=== PATIENT | male | born 1955 | race American Indian/Alaskan Native ===

== ENCOUNTER 2016-11-08 10:27 | Inpatient (IN) | payer MEDICAID ==
[2016-11-08] MEDS ORDERED: NACL 0.9% 1000 ML 1,000 ML IV ONE ×4 (11:33→19:54)
[2016-11-08] MEDS ORDERED: TYLENOL PR ONE (11:33)
[2016-11-08] MEDS ORDERED: VANCOMYCIN/NS 1 GM/250 ML 1 GM/250 ML BAG IV ONE (11:34)
[2016-11-08] MEDS ORDERED: ZOSYN/NS 4.5GM/100ML 4.5 GM/100 ML VIAL IV ONE (11:34)
--- NOTE | 2016-11-08 12:28 | Admit Criteria Form ---
Admission Criteria Documentation: SEVERE SEPSIS Clinical Indications for Admission to Inpatient Care (Place 'X' for any and all applicable criteria): Hospital admission is needed for appropriate care of the patient because of ANY ONE of the following: [X]I. Hemodynamic instability indicated by ANY ONE of the following(1)(2)(3)( 4)(5): [X]a. Vital sign abnormality not readily corrected by appropriate treatment within 12 to 24 hours indicated by ANY ONE of the following: [X]i) Tachycardia that persists despite appropriate treatment [X]ii) Hypotension that persists despite appropriate treatment []iii) Orthostatic vital sign changes that persist despite appropriate treatment [X]b. Vital sign abnormality that is severe indicated by ANY ONE of the following: [X]i. Inadequate perfusion indicated by ANY ONE of the following: [X]1) Lactic acidosis (greater than 2 mmol/L) []2) New abnormal capillary refill (greater than 3 seconds) []3) Reduced urine output []4) New altered mental status []5) Myocardial Ischemia []ii. Mean arterial pressure [A] less than 60 mm Hg []iii. Mean arterial pressure[A] less than 70 mm Hg after 30 minutes of appropriate treatment (eg, fluid resuscitation) []iv. Sustained heart rate greater than 120 beats per minute in adult []v. IV inotropic or vasopressor medication required to maintain adequate blood pressure or perfusion []II. Systemic or infectious condition causing severe symptoms or findings not responsive to emergency or observation care treatment (as appropriate) indicated by ANY ONE of the following: []a. Cardiac arrhythmias of immediate concern(1)(2)(3) []b. Severe endocrine disorder (eg, thyrotoxicosis, adrenal insufficiency)(4)(5) []c. Seizures (eg, new or recurrent)(6) []d. New-onset end organ failure or dysfunction as indicated by ANY ONE of the following: []i. Acute unexplained hypoxemia (eg, not from lung infection or chronic disease)(7)(8)(9) []ii. Acute renal failure as indicated by new onset of ANY ONE of the following(10)(11)(12)(13)(14): []1) 3-fold rise in serum creatinine from baseline []2) Serum creatinine greater than 4 mg/dL (354 micromoles/L) with acute rise greater than 0.5 mg/dL (44.2 micromoles/L) []3) Reduction of more than 75% in estimated glomerular filtration rate from baseline. []4) Estimated glomerular filtration rate less than 35 mL/min/1.73m2 ( 0.59 mL/sec/1.73m2) in child younger than 18 years. []5) Cessation of urine output indicated by ALL of the following: []A. Adequate volume status []B. Inadequate urine output as indicated by ANY ONE of the following: []a. Urine output less than 0.3 mL/kg/hr for 24 hours []b. Anuria (urine output less than 0.1 mL/kg/hr) for 12 hours []iii. Acute mental status changes(15) []iv. Acute hepatic failure (eg, plasma bilirubin greater than 4 mg/ dL (68 micromoles/L), new INR greater than 2.0)(16)(17) []e. Unmanageable nausea and vomiting(18) []f. New-onset or uncontrolled central diabetes insipidus(19)(20) []g. Clinically significant dehydration(18)(21) []h. Hypoglycemia(22) []i. Acidosis (pH less than 7.35) or alkalosis (pH greater than 7.45)( 22)(23) []j. Toxic drug level that indicates need for specific monitoring or treatment(24)(25) []k. Severe electrolyte abnormalities indicated by ALL of the following( 1)(2)(3): []i. Electrolytes and associated findings are not as expected for patient baseline or acceptable treatment effects. []ii. Severe abnormalities indicated by ANY ONE of the following: []1) Sodium less than 130 mEq/L (mmol/L) (new) []2) Sodium less than 135 mEq/L (mmol/L) with ANY ONE of the following: []A. Uncorrectable (to near normal or chronic baseline) after trial of outpatient and emergency treatment []B. Altered mental status []C. Seizures []D. Severe medical etiology requiring inpatient management (eg , heart failure, hypovolemia) []3) Sodium greater than 155 mEq/L (mmol/L) []4) Sodium greater than 150 mEq/L (mmol/L) with ANY ONE of the following: []A. Uncorrectable (to near normal or chronic baseline) with outpatient and emergency treatment []B. Altered mental status []C. Seizures []D. Severe medical etiology (eg, hypovolemia, diabetes insipidus) []5) Potassium less than 2.5 mEq/L (mmol/L) despite outpatient and emergency treatment []6) Potassium less than 3 mEq/L (mmol/L) with ANY ONE of the following : []A. Weakness []B. Cardiac abnormality (eg, arrhythmia, conduction disturbance ) []C. Cardiac ischemia []D. Ileus []E. Ongoing medical cause requiring inpatient management (eg, acute renal wasting or SIADH) []F. Other severe symptoms []7) Potassium greater than 6.5 mEq/L (mmol/L) []8) Potassium greater than 5 mEq/L (mmol/L) with ANY ONE of the following: []A. Uncorrectable (to near normal or chronic baseline) with outpatient and emergency treatment []B. Severe ECG findings[A] []C. Acute worsening of renal failure (creatinine greater than 2.5 mg/dL (221 micromoles/L) or significant elevation for age and size) []D. Severe weakness []E. Severe medical etiology (eg, hemolysis, infection, drug overdose) []9) Calcium less than 7 mg/dL (1.75 mmol/L) despite outpatient and emergency treatment(5) []10) Calcium less than 8 mg/dL (2 mmol/L) with significant symptoms or findings (eg, altered mental status, muscle spasms, seizures, breathing difficulty, cardiac abnormality (eg, arrhythmia or conduction disturbance))(5) []11) Calcium greater than 14 mg/dL (3.5 mmol/L)(5) []12) Calcium greater than 12 mg/dL (3 mmol/L) with ANY ONE of the following(5): []A. Uncorrectable (to near normal or chronic baseline) with outpatient and emergency treatment []B. Significant dehydration or hypovolemia as indicated by ALL of the following(3)(6)(7): []a. Not resolved with initial treatments []b. Clinically significant dehydration as indicated by ANY ONE of the following: [](1) Vomiting refractory to outpatient treatment (ie, precluding oral rehydration) [](2) Inability to drink [](3) Hypernatremia or other electrolyte abnormality unable to be corrected with outpatient and emergency treatment [](4) Failure to remain hydrated with outpatient therapy [](5) Reduced urine output [](6) Hypotension [](7) Serious cause for dehydration requiring acute hospitalization ( eg, bowel obstruction, increased intracranial pressure, infectious cause) [](8) Child with ANY ONE of the following(8): [](i) Severe abdominal tenderness [](ii) Adequate care not available at home [](iii) Severe dehydration (greater than 9% loss of body weight) []C. Significant symptoms or findings (eg, altered mental status , cardiac abnormality (eg, arrhythmia, conduction disturbance), malignant etiology requiring inpatient treatment) []13) Phosphorus less than 1 mg/dL (0.32 mmol/L) []14) Phosphorus less than 1.5 mg/dL (0.48 mmol/L) with ANY ONE of the following: []A. Patient unresponsive to outpatient and emergency treatment []B. Significant symptoms or findings (eg, weakness, altered mental status, breathing difficulty, seizures, rhabdomyolysis) []15) Phosphorus greater than 10 mg/dL (3.2 mmol/L) []16) Phosphorus greater than 4.5 mg/dL (1.45 mmol/L) (new) with ANY ONE of the following: []A. Severe medical etiology (eg, crush injury, acute renal failure) []B. Associated hypocalcemia with significant findings (eg, neurologic symptoms, altered mental status, muscle spasms, seizures, breathing difficulty, cardiac abnormality (eg, arrhythmia, conduction disturbance)) []16) Magnesium less than 1 mg/dL (0.41 mmol/L) []17) Magnesium less than 1.5 mg/dL (0.62 mmol/L) with ANY ONE of the following: []A. Patient unresponsive to outpatient and emergency treatment []B. Associated hypocalcemia with significant findings (eg, altered mental status, muscle spasms, seizures, breathing difficulty, cardiac abnormality (eg, arrhythmia, conduction disturbance)) []C. Associated hypokalemia (potassium less than 3 mEq/L (mmol/L )) with risk of arrhythmia []18) Magnesium greater than 4 mEq/L (2 mmol/L) []19) Magnesium greater than 2.5 mEq/L (1.25 mmol/L) with significant symptoms or findings (eg, weakness, altered mental status, cardiac abnormality (eg, arrhythmia, conduction disturbance), breathing difficulty, severe medical etiology (eg, renal failure, hypovolemia)) []20) Uric acid greater than 20 mg/dL (1190 micromoles/L)(9) []21) Uric acid greater than 8 mg/dL (476 micromoles/L) with significant symptoms or findings of tumor lysis syndrome (eg, creatinine greater than 1.5 times upper limit of normal, cardiac abnormality (eg , arrhythmia, conduction disturbance), seizure)(9) []III. High fever or other high-risk infection situation as indicated by ANY ONE of the following(26)(27)(28): []a. Outpatient and observation care antimicrobial treatment unavailable, not effective, or not appropriate []b. Documented bacteremia []c. Temperature greater than 104.9 degrees F (40.5 degrees C) (oral) []d. Temperature greater than 103.1 degrees F (39.5 degrees C) (oral) or less than 96.8 degrees F (36 degrees C) (rectal) that does not respond to emergency treatment and observation care []IV. High-risk febrile neutropenia[A] as indicated by ANY ONE of the following(29)(30)(31)(32): []a. Profound neutropenia[B] anticipated to extend for more than 7 days []b. Hemodynamic instability []c. Hypoxemia []d. Tachypnea []e. Altered mental status []f. New-onset abdominal pain []g. New-onset vomiting or diarrhea []h. Oral or gastrointestinal mucositis that interferes with swallowing or causes severe diarrhea []i. Focal infection (eg, cellulitis, pneumonia, central line or catheter infection, perirectal abscess) []j. Renal insufficiency (eg, GFR of less than 30 mL/min/1.73m2 (0.5 mL/sec /1.73m2)). []k. Severe liver dysfunction (transaminase levels greater than 5 times normal) []l. Platelet count less than 50,000/mm3 (50 x109/L)(33) []m. Leukemia or lymphoma induction therapy []n. Leukemia not in complete remission or with evidence of disease progression []o. Bone marrow transplant patient []p. Alemtuzumab being used for therapy []q. [employer] Supportive Care in Cancer (MASCC) Risk Index score of less than 21[C](33)(35). []V. Isolation required (eg, tuberculosis that requires isolation, Ebola infection)[D](36)(37)(38)(39)(40) []. Gangrene that requires treatment beyond emergency or observation level care(41)(42) []VII. Antitoxin administration and ongoing observation required (eg, tetanus, botulism)(43)(44) []. Suspected infection with rapid progression or severe symptoms as indicated by ANY ONE of the following(45): []a. Streptococcal or staphylococcal toxic shock(46) []b. Diphtheria(47) []c. Hantavirus(48) []d. Severe acute respiratory syndrome(8)(49) []e. Anthrax(50) []f. Ebola[D](36)(37)(38) []g. Necrotizing soft tissue infection(41)(42) []h. Plague(50) []i. Other suspected infection that requires care beyond emergency or observation level care []VII. Severe adverse drug or systemic toxin reaction as indicated by ANY ONE of the following(24): []a. Serotonin syndrome(51)(52) []b. Neuroleptic malignant syndrome(51)(52) []c. Cholinergic syndrome with severe symptoms (eg, bronchorrhea, weakness , mental status changes, seizures)(53) []d. Anticholinergic syndrome []e. Sympathetic syndrome with severe symptoms (eg, seizures, mental status changes, cardiac dysrhythmias) []f. Other severe adverse drug or systemic toxin reaction that remains after emergency or observation level care (as appropriate) []VIII. Allergic reaction with severe symptoms (not responsive to emergency or observation care treatment as appropriate), including ANY ONE of the following(54): []a. Airway edema (pharyngeal, epiglottic, or laryngeal edema) []b. Stridor []c. Respiratory failure []d. Bronchospasm []e. Hypotension []IX. Environmental emergency (not responsive to emergency or observation care treatment as appropriate) as indicated by ANY ONE of the following(55)(56): []a. Hyperthermia []b. Heat stroke []c. Heat exhaustion []d. Hypothermia (temperature less than 95 degrees F (35 degrees C) rectal) (57) []e. Electrocution(58) []X. Complications of transplanted organ (ie, not covered elsewhere)[E] indicated by ANY ONE of the following(59): []a. Acute graft rejection (or graft vs. host disease)[F] requiring inpatient management (eg, intravenous immunosuppression)(60)(61)(62)( 63) []b. Acute failure of transplanted organ necessitating inpatient care (eg, cannot be managed in other setting) []c. Infection requiring inpatient management (eg, Hemodynamic instability, need for intravenous antimicrobial treatment)(64)(65) []d. Other complication of transplanted organ requiring inpatient management []XI. Systemic or Infectious Condition condition, symptom, or finding for which emergency and observation care have failed or are not considered appropriate. See General Criteria: Observation Care, General Admission Criteria or Pediatric General Admission Criteria guideline as appropriate. (Contents from SEVERE SEPSIS and SYSTEMIC OR INFECTIOUS CONDITION clinical indications for admission to inpatient care have been integrated in this form) The [facility] content created by [facility] has been revised. The portions of the content which have been revised are identified through the use of italic text or in bold and [facility] has neither reviewed nor approved the modified material. All other unmodified content is copyright [facility]. Please see references footnoted in the original [facility] edition 2016 Admission Criteria Met: Yes
[2016-11-08] MEDS ORDERED: KETALAR ONE (12:48)
[2016-11-08] MEDS ORDERED: KETALAR IV ONE ×4 (12:57→14:00)
[2016-11-08 13:03] LABS: Bilirubin,Urine NEG (Negative); Blood,Urine LG (Negative); Ketones,Urine TR mg/dL (Negative); Leukocyte Esterase,Urine TR (Negative); Nitrite,Urine POS (Negative); Urobilinogen,Urine < 2.0 mg/dL (<2.0)
[2016-11-08 13:05] LABS: RBC,Urine > 182.0 /HPF (0.0-6.0)
--- NOTE | 2016-11-08 13:49 | XRay Report ---
AP CHEST :11/08/16 10:27:00 CLINICAL: Fever and shortness of breath. COMPARISON:None. FINDINGS: Normal heart and pulmonary vasculature. A right IJ catheter tip is in the SVC. The lungs are normally expanded and clear. No pneumothorax. The bones and soft tissues are normal. IMPRESSION: Normal chest.
[2016-11-08 13:54] LABS: Basophils % (Auto) 0.3 % (0.0-1.8); Eosinophils % (Auto) 0.3 % (0.0-4.3); Hematocrit 41.8 % (35.5-45.6); Hemoglobin 13.8 gm/dl (11.8-15.2); Mean Corpuscular HGB Conc 33 % (32-34); Mean Corpuscular Hemoglobin 30 pg (28-32); Mean Corpuscular Volume 92 fl (84-94); Red Blood Count 4.53 M/mm3 (3.65-5.03); Red Cell Distribution Width 12.9 % (13.2-15.2); White Blood Count 4.2 K/mm3 (4.5-11.0)
[2016-11-08 13:59] LABS: Platelet Count 78 K/mm3 (140-440)
[2016-11-08 14:27] LABS: INR 15.26 (0.87-1.13); Partial Thromboplastin Time 179.4 Sec. (24.2-36.6)
[2016-11-08] MEDS ORDERED: NACL 0.9% 500 ML 500 ML IV ONE ×2 (14:36→22:54)
[2016-11-08 15:11] LABS: Creatine Kinase MB 3.1 ng/mL (0.0-4.0)
[2016-11-08 15:12] LABS: Alanine Aminotransferase 21 units/L (7-56); Albumin 3.8 g/dL (3.9-5); Albumin/Globulin Ratio 1.5 %; Alkaline Phosphatase 126 units/L (35-129); Anion Gap 23 mmol/L; BUN/Creatinine Ratio 16.92; Blood Urea Nitrogen 22 mg/dL (9-20); Calcium 7.9 mg/dL (8.4-10.2); Carbon Dioxide 20 mmol/L (22-30); Chloride 101.2 mmol/L (98-107); Creatine Kinase 186 units/L (55-170); Glucose 92 mg/dL (75-100); Lipase 17 units/L (13-60); Potassium 3.7 mmol/L (3.6-5.0); Sodium 140 mmol/L (137-145); Total Protein 6.3 g/dL (6.3-8.2)
[2016-11-08] MEDS ORDERED: NACL ONE (15:16)
[2016-11-08 15:25] LABS: Cholesterol 212 mg/dL (50-199); HDL Cholesterol 33 mg/dL (40-59); LDL Cholesterol,Direct 145 mg/dL (50-130); Triglycerides 170 mg/dL (2-149)
--- NOTE | 2016-11-08 15:35 | Emergency Department Report ---
ED General Adult HPI - General Chief complaint: Nausea/Vomiting/Diarrhea Stated complaint: N/V/D Time Seen by Provider: 11/08/16 11:31 Source: patient, EMS Mode of arrival: Stretcher Limitations: Physical Limitation - History of Present Illness Initial comments: 61-year-old male with a past medical history of hypertension, pressure ulcers, neuromuscular dysfunction of the bladder, polyneuropathy, and anxiety presents from a [facility] senior living with complaints of fever, nausea, vomiting, and diarrhea for 2-3 days. Patient has contraction to all extremities since fall one year ago. Patient complains of severe 10/10 abdominal pain and bilateral flank pain. Indwelling Tucker upon arrival. Patient's mental status is decreased although he does answer questions intermittently. Patient moans complaining of back pain. Severity scale (0 -10): 8 - Related Data Home Medications Medication Instructions Recorded Confirmed Last Taken Acetaminophen [Acetaminophen TAB] 2 tab PO Q6H PRN 11/08/16 11/08/16 Unknown Ascorbic Acid [Vitamin C with Alexandrea 1 tab PO QDAY 11/08/16 11/08/16 Unknown Hips] Aspirin EC [Aspirin Enteric Coated 81 mg PO QDAY 11/08/16 11/08/16 Unknown TAB] Baclofen [Lioresal] 2 tsp PO QID 11/08/16 11/08/16 Unknown Betamethasone Dipropionate 1 applicatio INTRADERMA BID 11/08/16 11/08/16 Unknown [Betamethasone Dipropionate 0.05% Oint] Clobetasol Propionate/Emoll 1 applicatio INTRADERMA BID 11/08/16 11/08/16 Unknown [Clobetasol Emollient 0.05% Crm] Clopidogrel Bisulfate [Plavix] 1 tab PO QDAY 11/08/16 11/08/16 Unknown Cyclobenzaprine HCl [Flexeril 5 MG 5 mg PO Q8H PRN 11/08/16 11/08/16 Unknown TAB] Dantrium 1 cap PO Q8H PRN 11/08/16 11/08/16 Unknown Diazepam [Diazepam] 5 mg PO TID 11/08/16 11/08/16 Unknown Docusate Sodium [Colace CAP] 100 mg PO BID 11/08/16 11/08/16 Unknown Gabapentin [Neurontin] 600 mg PO TID 11/08/16 11/08/16 Unknown Halobetasol Propionate [Ultravate] 1 applicatio INTRADERMA Q12H PRN 11/08/1604/17 Unknown Indomethacin [Indocin] 50 mg PO Q12H PRN 11/08/16 11/08/16 Unknown Lactulose [Lactulose] 30 ml PO BID 11/08/16 11/08/16 Unknown Magnesium Oxide [Mag-Ox] 1 tab PO BID 11/08/16 11/08/16 Unknown Methyl Salicylate/Menth/Camph 1 patch INTRADERMA BID 11/08/16 11/08/16 Unknown [Salonpas Patch] Multivitamin with Iron 1 tab PO QDAY 11/08/16 11/08/16 Unknown [Multivitamins with Iron] Omeprazole Magnesium [PriLOSEC Otc] 1 tab PO QAM 11/08/16 11/08/16 Unknown Prednisone [predniSONE (Judson) ER 5 mg PO QWEEK 11/08/16 11/08/16 Unknown TAB] Protein Supplement [Promod] 30 ml PO BID 11/08/16 11/08/16 Unknown Zolpidem [Ambien] 10 mg PO QDAY PRN 11/08/16 11/08/16 Unknown diphenhydrAMINE [Benadryl CAP] 1 cap PO Q4H PRN 11/08/16 11/08/16 Unknown methOCARBAMOL [Robaxin TAB] 2 tab PO Q6H 11/08/16 11/08/16 Unknown oxyCODONE /ACETAMINOPHEN [Percocet 1 tab PO Q6H PRN 11/08/16 11/08/16 Unknown 5/325 mg] Allergies Allergy/AdvReac Type Severity Reaction Status Date / Time sulfamethoxazole Allergy Rash Verified 11/08/16 10:57 [From Bactrim] trimethoprim [From Bactrim] Allergy Rash Verified 11/08/16 10:57 tuberculin, purified protein Allergy Unknown Verified 11/08/16 10:57 deriva ED Review of Systems ROS: Stated complaint: N/V/D Other details as noted in HPI Comment: Unobtainable due to pts medical conditions (limited due to mental status) ED Past Medical Hx - Past Medical History Previous Medical History?: Yes Hx Hypertension: Yes Hx GERD: Yes Hx Arthritis: Yes Hx Psychiatric Treatment: Yes (anxiety) Additional medical history: Pressure ulcers, Neuromuscular dysfunction of bladder, Arthropathy, Polyneuropathy, Muscle spasms, Prolonged indwelling tucker cathetetrs, Frequent UTI - Surgical History Past Surgical History?: Yes Additional Surgical History: Back, Neck - Social History Smoking Status: Former Smoker Substance Use Type: Prescribed - Medications Home Medications: Home Medications Medication Instructions Recorded Confirmed Last Taken Type Acetaminophen [Acetaminophen TAB] 2 tab PO Q6H PRN 11/08/16 11/08/16 Unknown History Ascorbic Acid [Vitamin C with Alexandrea 1 tab PO QDAY 11/08/16 11/08/16 Unknown History Hips] Aspirin EC [Aspirin Enteric Coated 81 mg PO QDAY 11/08/16 11/08/16 Unknown History TAB] Baclofen [Lioresal] 2 tsp PO QID 11/08/16 11/08/16 Unknown History Betamethasone Dipropionate 1 applicatio INTRADERMA BID 11/08/16 11/08/16 Unknown History [Betamethasone Dipropionate 0.05% Oint] Clobetasol Propionate/Emoll 1 applicatio INTRADERMA BID 11/08/16 11/08/16 Unknown History [Clobetasol Emollient 0.05% Crm] Clopidogrel Bisulfate [Plavix] 1 tab PO QDAY 11/08/16 11/08/16 Unknown History Cyclobenzaprine HCl [Flexeril 5 MG 5 mg PO Q8H PRN 11/08/16 11/08/16 Unknown History TAB] Dantrium 1 cap PO Q8H PRN 11/08/16 11/08/16 Unknown History Diazepam [Diazepam] 5 mg PO TID 11/08/16 11/08/16 Unknown History Docusate Sodium [Colace CAP] 100 mg PO BID 11/08/16 11/08/16 Unknown History Gabapentin [Neurontin] 600 mg PO TID 11/08/16 11/08/16 Unknown History Halobetasol Propionate [Ultravate] 1 applicatio INTRADERMA Q12H PRN 11/08/1604/17 Unknown History Indomethacin [Indocin] 50 mg PO Q12H PRN 11/08/16 11/08/16 Unknown History Lactulose [Lactulose] 30 ml PO BID 11/08/16 11/08/16 Unknown History Magnesium Oxide [Mag-Ox] 1 tab PO BID 11/08/16 11/08/16 Unknown History Methyl Salicylate/Menth/Camph 1 patch INTRADERMA BID 11/08/16 11/08/16 Unknown History [Salonpas Patch] Multivitamin with Iron 1 tab PO QDAY 11/08/16 11/08/16 Unknown History [Multivitamins with Iron] Omeprazole Magnesium [PriLOSEC Otc] 1 tab PO QAM 11/08/16 11/08/16 Unknown History Prednisone [predniSONE (Judson) ER 5 mg PO QWEEK 11/08/16 11/08/16 Unknown History TAB] Protein Supplement [Promod] 30 ml PO BID 11/08/16 11/08/16 Unknown History Zolpidem [Ambien] 10 mg PO QDAY PRN 11/08/16 11/08/16 Unknown History diphenhydrAMINE [Benadryl CAP] 1 cap PO Q4H PRN 11/08/16 11/08/16 Unknown History methOCARBAMOL [Robaxin TAB] 2 tab PO Q6H 11/08/16 11/08/16 Unknown History oxyCODONE /ACETAMINOPHEN [Percocet 1 tab PO Q6H PRN 11/08/16 11/08/16 Unknown History 5/325 mg] ED Physical Exam - General Limitations: Physical Limitation - Other Other exam information: General: No limitations, patient is alert in no acute distress Head exam: Atraumatic, normocephalic Eyes exam: Normal appearance, pupils equal reactive to light ENT: Moist mucous membrane, normal oropharynx Neck exam: Normal inspection, full range of motion, no meningismus, nontender Respiratory exam: Tachypnea but clear to auscultation Cardiovascular: Tachycardic regular rhythm Abdomen: Soft, firm but with generalized tenderness decreased bowel sounds. No rebound or guarding Extremity: Contracted extremities with atrophy to upper extremities right greater than left. Limited movement due to contracture. No edema Back: Normal Inspection, full range of motion, no tenderness Neurologic: lethargic, cranial nerves intact, limited movement due to contracture, sensation grossly intact Psychiatric: normal affect, normal mood Skin: Right hip decubitus ulcer with active bleeding/bruising but no purulent drainage ED Course Vital Signs 11/08/16 11/08/16 11/08/16 10:33 10:43 10:45 Temperature 100.8 F H Pulse Rate 143 H 140 H Respiratory 22 45 H Rate Blood Pressure 102/64 102/64 O2 Sat by Pulse 91 93 95 Oximetry 11/08/16 11/08/16 11/08/16 11:01 11:15 11:16 Temperature Pulse Rate 147 H 147 H Respiratory 47 H 51 H 20 Rate Blood Pressure 191/146 191/146 O2 Sat by Pulse 98 87 99 Oximetry 11/08/16 11/08/16 11/08/16 11:31 11:45 12:23 Temperature Pulse Rate 157 H 157 H 137 H Respiratory 50 H 52 H 36 H Rate Blood Pressure 132/111 76/51 O2 Sat by Pulse 96 98 Oximetry 11/08/16 11/08/16 11/08/16 12:30 12:35 12:45 Temperature Pulse Rate 139 H 147 H Respiratory 51 H 16 56 H Rate Blood Pressure 90/54 119/44 O2 Sat by Pulse 98 98 Oximetry 11/08/16 11/08/16 11/08/16 12:54 12:57 13:00 Temperature Pulse Rate 133 H Respiratory 18 18 18 Rate Blood Pressure 76/47 O2 Sat by Pulse 98 Oximetry 11/08/16 11/08/16 11/08/16 13:15 13:24 13:31 Temperature Pulse Rate 131 H 138 H Respiratory 19 16 28 H Rate Blood Pressure 76/50 76/50 O2 Sat by Pulse 96 95 Oximetry 11/08/16 11/08/16 11/08/16 13:45 14:00 14:15 Temperature Pulse Rate 139 H 136 H 128 H Respiratory 33 H 35 H 25 H Rate Blood Pressure 87/55 76/49 69/47 O2 Sat by Pulse 95 96 100 Oximetry 11/08/16 11/08/16 11/08/16 14:30 14:34 14:45 Temperature Pulse Rate 117 H 114 H Respiratory 23 29 H Rate Blood Pressure 74/41 79/49 O2 Sat by Pulse 98 99 100 Oximetry 11/08/16 11/08/16 11/08/16 15:00 15:15 15:30 Temperature Pulse Rate 112 H 112 H 116 H Respiratory 24 25 H 27 H Rate Blood Pressure 75/52 75/52 100/69 O2 Sat by Pulse 100 100 98 Oximetry 11/08/16 11/08/16 11/08/16 16:00 16:31 17:00 Temperature Pulse Rate 119 H Respiratory 32 H Rate Blood Pressure 96/66 96/66 86/61 O2 Sat by Pulse 100 98 Oximetry 11/08/16 11/08/16 11/08/16 17:31 18:00 18:15 Temperature 99.7 F H Pulse Rate 119 H 114 H 112 H Respiratory 33 H 20 16 Rate Blood Pressure 74/52 68/44 66/41 O2 Sat by Pulse 97 100 100 Oximetry 11/08/16 18:31 Temperature Pulse Rate 112 H Respiratory 30 H Rate Blood Pressure 66/41 O2 Sat by Pulse 100 Oximetry - Reevaluation(s) Reevaluation #1: 11/08/16 18:11 There was a delay in obtaining labs and aggressive resuscitation on attempting to secure central line. Patient had poor peripheral access. The central line attempts I was able to cannulate veins are had difficulty passing the guidewire. When patient was sedated with ketamine I was successfully able to cannulate the right internal jugular vein. Patient received 3 L of normal saline with improvement in SBP to 100 however sbp dropped back to the 70's at this time. I instructed RN to initiate FFP (which will provided additional fluids) and start Levophed with MAP goal of 65. Pt received Flagyl and Zosyn empirically which also cover his UTI as identified by UA. Culture is pending. CT report was discussed with surgeon and vascular doctors. No acute intervention at this time and will evaluate patient in house. Patient was noticed to have bleeding from his mouth, penis after Tucker removal and replacement, and persistent bleeding after central line attempts. He was found to be coagulopathic with unknown cause. Patient does have decreased platelets and addition to elevated coags but no significant LFT elevation. FFP given - Consultations Consultation #1: 11/08/16 18:14 Case d/w Dr. Chavez with vascular regarding extraluminal filter identified on ct. He reviewed images and states no acute intervention required afte. They will consult and 11/08/16 18:21 Case d/w Dr Narvaez on surgeon regarding ct scan. No acute surgical intervention at this time. He will evaluate pt Consultation #2: 11/08/16 19:12 Case discussed with oncologist accounting professional doctor Rodriguez for consultation. Dr. Cochran will be available tomorrow TO evaluate patient - Central Line Placement Left Femoral Consent Obtained: verbal consent, emergent situation Time Out Performed: Yes Patient Placed on Monitor/Pulse Ox: Yes MD Prep: mask Central Line Prep: Chlorhexidine scrub Local Anesthesia Used: Lidocaine 1% Amount of Anesthesia Used (mls): 5 Ultrasound Used for Placement: Yes Central Line Lumen Inserted: triple Bloods Obtained for Lab: No Central Line Position: good blood return Patient Tolerated Procedure: other (despite cannulating the femoral vein with good blood return and I was unable to pass the guidewire despite multiple attempts. There was some sort of obstruction with return of distorted guidewire after attempt.) Complications: other (patient had persistent bleeding at femoral vein attempt site that resolved with constant pressure) Right IJ Consent Obtained: verbal consent, emergent situation Patient Placed on Monitor/Pulse Ox: Yes Prep: mask, gown Central Line Prep: Chlorhexidine scrub Local Anesthesia Used: Lidocaine 1% Amount of Anesthesia Used (mls): 3 Ultrasound Used for Placement: Yes Central Line Lumen Inserted: triple Bloods Obtained for Lab: Yes Central Line Position: good blood return, sutured in place with nyl Dressing Applied: Tegaderm Post Procedure X-Ray: tip of catheter in good p Patient Tolerated Procedure: well Complications: arterial puncture/cannula (arterial puncture. No bleeding or hematoma after pressure held), other (patient was uncomfortable during central line attempts before sedation given) Additional Comments: Patient received ketamine 120 mg which relaxed the patient immediately easy to cannulate the right internal jugular vein successfully. ED Medical Decision Making - Lab Data Result diagrams: 11/08/16 13:05 11/08/16 13:05 Lab Results 11/08/16 11/08/16 11/08/16 Range/Units 12:08 13:05 13:05 WBC 4.2 L (4.5-11.0) K/mm3 RBC 4.53 (3.65-5.03) M/mm3 Hgb 13.8 (11.8-15.2) gm/dl Hct 41.8 (35.5-45.6) % MCV 92 (84-94) fl MCH 30 (28-32) pg MCHC 33 (32-34) % RDW 12.9 L (13.2-15.2) % Plt Count 78 L (140-440) K/mm3 Lymph % (Auto) 15.0 (13.4-35.0) % Kimball % (Auto) 1.7 (0.0-7.3) % Eos % (Auto) 0.3 (0.0-4.3) % Baso % (Auto) 0.3 (0.0-1.8) % Lymph # 0.6 L (1.2-5.4) K/mm3 Kimball # 0.1 (0.0-0.8) K/mm3 Eos # 0.0 (0.0-0.4) K/mm3 Baso # 0.0 (0.0-0.1) K/mm3 Seg Neutrophils % 82.7 H (40.0-70.0) % Seg Neutrophils # 3.4 (1.8-7.7) K/mm3 PT 113.9 H (12.2-14.9) Sec. INR 15.26 H* (0.87-1.13) APTT 179.4 H* (24.2-36.6) Sec. VBG pH (7.320-7.420) Sodium (137-145) mmol/L Potassium (3.6-5.0) mmol/L Chloride (98-107) mmol/L Carbon Dioxide (22-30) mmol/L Anion Gap mmol/L BUN (9-20) mg/dL Creatinine (0.8-1.5) mg/dL Estimated GFR ml/min BUN/Creatinine Ratio % Glucose (75-100) mg/dL Lactic Acid (0.7-2.0) mmol/L Calcium (8.4-10.2) mg/dL Total Bilirubin (0.1-1.2) mg/dL AST (5-40) units/L ALT (7-56) units/L Alkaline Phosphatase (35-129) units/L Ammonia (25-60) umol/L Total Creatine Kinase (55-170) units/L CK-MB (CK-2) (0.0-4.0) ng/mL CK-MB (CK-2) Rel Index (0-4) Troponin T (0.00-0.029) ng/mL Total Protein (6.3-8.2) g/dL Albumin (3.9-5) g/dL Albumin/Globulin Ratio % Triglycerides (2-149) mg/dL Cholesterol (50-199) mg/dL LDL Cholesterol Direct (50-130) mg/dL HDL Cholesterol (40-59) mg/dL Cholesterol/HDL Ratio % Lipase (13-60) units/L Urine Color Red (Yellow) Urine Turbidity Cloudy (Clear) Urine pH 8.0 H (5.0-7.0) Ur Specific [place] 1.012 (1.003-1.030) Urine Protein 100 mg/dl (Negative) mg/dL Urine Glucose (UA) Neg (Negative) mg/dL Urine Ketones Tr (Negative) mg/dL Urine Blood Lg (Negative) Urine Nitrite Pos (Negative) Urine Bilirubin Neg (Negative) Urine Urobilinogen < 2.0 (<2.0) mg/dL Ur Leukocyte Esterase Tr (Negative) Urine WBC (Auto) 36.0 H (0.0-6.0) /HPF Urine RBC (Auto) > 182.0 (0.0-6.0) /HPF Urine WBC Clumps Few /HPF Blood Type 11/08/16 11/08/16 11/08/16 Range/Units 13:05 13:05 13:05 WBC (4.5-11.0) K/mm3 RBC (3.65-5.03) M/mm3 Hgb (11.8-15.2) gm/dl Hct (35.5-45.6) % MCV (84-94) fl MCH (28-32) pg MCHC (32-34) % RDW (13.2-15.2) % Plt Count (140-440) K/mm3 Lymph % (Auto) (13.4-35.0) % Kimball % (Auto) (0.0-7.3) % Eos % (Auto) (0.0-4.3) % Baso % (Auto) (0.0-1.8) % Lymph # (1.2-5.4) K/mm3 Kimball # (0.0-0.8) K/mm3 Eos # (0.0-0.4) K/mm3 Baso # (0.0-0.1) K/mm3 Seg Neutrophils % (40.0-70.0) % Seg Neutrophils # (1.8-7.7) K/mm3 PT (12.2-14.9) Sec. INR (0.87-1.13) APTT (24.2-36.6) Sec. VBG pH 7.257 L (7.320-7.420) Sodium 140 (137-145) mmol/L Potassium 3.7 (3.6-5.0) mmol/L Chloride 101.2 (98-107) mmol/L Carbon Dioxide 20 L (22-30) mmol/L Anion Gap 23 mmol/L BUN 22 H (9-20) mg/dL Creatinine 1.3 (0.8-1.5) mg/dL Estimated GFR > 60 ml/min BUN/Creatinine Ratio 16.92 % Glucose 92 (75-100) mg/dL Lactic Acid 6.30 H* (0.7-2.0) mmol/L Calcium 7.9 L (8.4-10.2) mg/dL Total Bilirubin 1.70 H (0.1-1.2) mg/dL AST 25 (5-40) units/L ALT 21 (7-56) units/L Alkaline Phosphatase 126 (35-129) units/L Ammonia (25-60) umol/L Total Creatine Kinase 186 H (55-170) units/L CK-MB (CK-2) 3.1 (0.0-4.0) ng/mL CK-MB (CK-2) Rel Index 1.6 (0-4) Troponin T 0.060 H (0.00-0.029) ng/mL Total Protein 6.3 (6.3-8.2) g/dL Albumin 3.8 L (3.9-5) g/dL Albumin/Globulin Ratio 1.5 % Triglycerides 170 H (2-149) mg/dL Cholesterol 212 H (50-199) mg/dL LDL Cholesterol Direct 145 H (50-130) mg/dL HDL Cholesterol 33 L (40-59) mg/dL Cholesterol/HDL Ratio 6.42 % Lipase 17 (13-60) units/L Urine Color (Yellow) Urine Turbidity (Clear) Urine pH (5.0-7.0) Ur Specific [place] (1.003-1.030) Urine Protein (Negative) mg/dL Urine Glucose (UA) (Negative) mg/dL Urine Ketones (Negative) mg/dL Urine Blood (Negative) Urine Nitrite (Negative) Urine Bilirubin (Negative) Urine Urobilinogen (<2.0) mg/dL Ur Leukocyte Esterase (Negative) Urine WBC (Auto) (0.0-6.0) /HPF Urine RBC (Auto) (0.0-6.0) /HPF Urine WBC Clumps /HPF Blood Type 11/08/16 11/08/16 11/08/16 Range/Units 14:58 14:58 15:20 WBC (4.5-11.0) K/mm3 RBC (3.65-5.03) M/mm3 Hgb (11.8-15.2) gm/dl Hct (35.5-45.6) % MCV (84-94) fl MCH (28-32) pg MCHC (32-34) % RDW (13.2-15.2) % Plt Count (140-440) K/mm3 Lymph % (Auto) (13.4-35.0) % Kimball % (Auto) (0.0-7.3) % Eos % (Auto) (0.0-4.3) % Baso % (Auto) (0.0-1.8) % Lymph # (1.2-5.4) K/mm3 Kimball # (0.0-0.8) K/mm3 Eos # (0.0-0.4) K/mm3 Baso # (0.0-0.1) K/mm3 Seg Neutrophils % (40.0-70.0) % Seg Neutrophils # (1.8-7.7) K/mm3 PT 66.4 H (12.2-14.9) Sec. INR 7.73 H* (0.87-1.13) APTT 115.0 H* (24.2-36.6) Sec. VBG pH (7.320-7.420) Sodium (137-145) mmol/L Potassium (3.6-5.0) mmol/L Chloride (98-107) mmol/L Carbon Dioxide (22-30) mmol/L Anion Gap mmol/L BUN (9-20) mg/dL Creatinine (0.8-1.5) mg/dL Estimated GFR ml/min BUN/Creatinine Ratio % Glucose (75-100) mg/dL Lactic Acid (0.7-2.0) mmol/L Calcium (8.4-10.2) mg/dL Total Bilirubin (0.1-1.2) mg/dL AST (5-40) units/L ALT (7-56) units/L Alkaline Phosphatase (35-129) units/L Ammonia 25.0 (25-60) umol/L Total Creatine Kinase (55-170) units/L CK-MB (CK-2) (0.0-4.0) ng/mL CK-MB (CK-2) Rel Index (0-4) Troponin T (0.00-0.029) ng/mL Total Protein (6.3-8.2) g/dL Albumin (3.9-5) g/dL Albumin/Globulin Ratio % Triglycerides (2-149) mg/dL Cholesterol (50-199) mg/dL LDL Cholesterol Direct (50-130) mg/dL HDL Cholesterol (40-59) mg/dL Cholesterol/HDL Ratio % Lipase (13-60) units/L Urine Color (Yellow) Urine Turbidity (Clear) Urine pH (5.0-7.0) Ur Specific [place] (1.003-1.030) Urine Protein (Negative) mg/dL Urine Glucose (UA) (Negative) mg/dL Urine Ketones (Negative) mg/dL Urine Blood (Negative) Urine Nitrite (Negative) Urine Bilirubin (Negative) Urine Urobilinogen (<2.0) mg/dL Ur Leukocyte Esterase (Negative) Urine WBC (Auto) (0.0-6.0) /HPF Urine RBC (Auto) (0.0-6.0) /HPF Urine WBC Clumps /HPF Blood Type O POSITIVE - EKG Data -: EKG Interpreted by Me (sinsus tach 139, nostemi, + setal infarct) - Radiology Data Radiology results: report reviewed Chest x-ray: Normal chest, right IJ tip in the SVC CT abdomen and pelvis IV contrast: Alternating areas of decompressive fluid- filled distended small bowel may represent ileus. There is potential for narrowing/suture in the right upper quadrant raising question of possible obstruction. Mildly thickened wall colon Which could be due to mild colitis. Cardiomegaly. Bibasilar airspace disease. Liver cysts versus hemangiomas. Renal cysts likely. Mild atherosclerosis. Caval filter with some of the prongs. Extraluminal of uncertain clinical significance. Thickened bladder consider cystitis - Medical Decision Making Patient initially responded to fluids but now requiring vasopressin support. Patient requires admission to the ICU for further treatment with antibiotics, fluids, and pressure support. GI and vascular-consultations. - Differential Diagnosis GI, pneumonia, obstruction, bowel ischemia, colitis, sepsis Critical Care Time: Yes Critical care time in (mins) excluding proc time.: 65 Critical care attestation.: If time is entered above; I have spent that time in minutes in the direct care of this critically ill patient, excluding procedure time. ED Disposition Clinical Impression: Sepsis, Coagulopathy, Thrombocytopenia, Abdominal pain, UTI (urinary tract infection), Lactic acid acidosis, Ileus, Decubitus ulcer Disposition: OP ADMITTED IP TO THIS HOSP Is pt being admited?: Yes Condition: Stable Time of Disposition: 16:45 (Dr Tavera/Nick)
[2016-11-08 15:41] LABS: INR 7.73 (0.87-1.13)
--- NOTE | 2016-11-08 17:29 | Cat Scan Report ---
FINAL REPORT PROCEDURE: CT ABDOMEN PELVIS W CON TECHNIQUE: Computerized axial tomography of the abdomen and pelvis was performed after the IV injection of iodinated nonionic contrast. HISTORY: Abdominal pain. COMPARISON: No prior studies are available for comparison. FINDINGS: Visualized lower thorax: Mild cardiomegaly. Mild bibasilar airspace disease. Liver: Several low-attenuation lesions in the liver, the largest in the right lobe measures 14 millimeters. Spleen: Normal size and attenuation. Gallbladder and biliary system: Normal. Pancreas: Normal. Adrenals: Normal. Kidneys: Small low-attenuation lesions of the left kidney, the largest measuring 10 millimeters in the superior pole. GI tract: Alternating areas of decompressed and mildly distended loops of small bowel, distended loops are fluid-filled. Although could be significantly decompressed small bowel, consider area of narrowing/stricture in the right upper quadrant. Best seen on coronal images normal caliber appendix. Cecum and proximal colon featureless and fluid-filled. Transverse and more distal colon featureless and thick-walled, but decompressed. Rectosigmoid colon more normal appearing. Lymph nodes and mesentery: Normal. Vasculature: Mild atherosclerosis. Caval filter with tip at the L1 level. Some of the prongs appear extraluminal. Bladder: Santos catheter. Balloon of the Santos catheter is the base of the bladder. Bladder is thick-walled but decompressed. Small foci of air in the bladder. Reproductive organs: Normal. Peritoneum: No free fluid. Musculoskeletal structures: Small multilevel osteophytes of the lumbar spine. Other: Pelvic phleboliths. IMPRESSION: Areas of alternating decompressed and fluid-filled/distended small bowel may represent ileus. However, there is a potential area of narrowing/stricture in the right upper quadrant raising the question of possible obstruction. Areas of colon that are featureless and mildly thick-walled, could be related to degree of distention but consider mild colitis. Consider further evaluation and followup as felt to be warranted clinically. Cardiomegaly. Bibasilar airspace disease. Consider radiographic followup. Low-attenuation liver lesions, likely cysts or hemangiomas. MRI may be helpful for further characterization if there is continued clinical concern and patient has no contraindication to MRI. Low-attenuation left renal lesions, likely cysts. Consider confirmation with renal ultrasound. Mild atherosclerosis. Caval filter with some of the prongs appearing extraluminal, of uncertain clinical significance in asymptomatic patient. Santos catheter with balloon at the base of the bladder. Bladder is thick-walled, but decompressed. Consider correlation with urinalysis if there is concern for cystitis. Other incidental findings as above.
[2016-11-08] MEDS ORDERED: LEVOPHED DRIP 4 MG/NS 250 ML 4 MG/250 ML BAG IV ONE (18:27)
[2016-11-08] MEDS: LEVOPHED DRIP 4 MG/NS 250 ML 4 MG/250 ML BAG IV SCH (18:37)
--- NOTE | 2016-11-08 18:37 | Event Note ---
Date: 11/08/16 61 year old with multiple medical problems including an IVC filter with penetration of the tines. This is an incidental finding and not related to the current presentation for sepsis. IVC and the iliac veins below the filter look atretic. PVS will plan on seeing the patient tomorrow.
[2016-11-08] MEDS ORDERED: NACL 0.9% 1000 ML 1,000 ML ONE (19:47)
[2016-11-08] MEDS ORDERED: TYLENOL PO PRN (21:16)
[2016-11-08] MEDS ORDERED: DANTRIUM PO PRN (21:41)
[2016-11-08] MEDS ORDERED: HALOBETASOL PROPIONATE INTRADERMA PRN (21:41)
--- NOTE | 2016-11-08 21:47 | Event Note ---
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
[2016-11-08] MEDS: COLACE PO SCH (22:20)
[2016-11-08] MEDS: ZOSYN/NS 4.5GM/100ML 4.5 GM/100 ML VIAL IV SCH (22:41)
[2016-11-08] MEDS ORDERED: VITAMIN K (ADULT ONLY) 10 MG in NACL 0.9% 50 ML IV ONE (22:55)
[2016-11-08] MEDS ORDERED: VANCOMYCIN/NS 1 GM/250 ML 1 GM/250 ML BAG IV SCH (23:00)
[2016-11-09] MEDS: VANCOMYCIN 1,250 MG in NACL 0.9% 250ML 250 ML IV SCH ×2 (00:10→12:00)
--- NOTE | 2016-11-09 01:07 | History and Physical Report ---
CHIEF COMPLAINT: Nausea, vomiting and diarrhea of 3 days duration. 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 Santos catheter for bladder dysfunction. He comes in for fever, nausea, vomiting and diarrhea. The patient complains of severe abdominal pain and bilateral flank pain. The patient has indwelling Santos catheter. The patient's mental status was decreased when he arrived in the ER but later on mental status improved and was answering questions appropriately. Pain is about 6 on a scale of 1 to 10 in the abdomen. In the past, vomiting about 3 to 4 times and loose stools for about 3 to 4 times. Now, he has some abdominal pain, but no vomiting. PAST MEDICAL HISTORY: Significant for muscle spasms, contractures in all 4 extremities, quadriparesis to quadriplegia, peripheral neuropathy, gout, constipation, gastroesophageal reflux disease and chronic pain. 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 PAST SURGICAL HISTORY: IVC filter. Back and neck surgeries. SOCIAL HISTORY: Former smoker, stopped smoking. Lives in intermediate. FAMILY HISTORY: Significant for hypertension. CURRENT MEDICATIONS: On the chart, important of which are Plavix 75 mg daily, baclofen 10 mg t.i.d. p.r.n., gabapentin 600 mg t.i.d., diazepam 5 mg t.i.d., indomethacin 50 mg q. 12, protein supplement 30 mL p.o. b.i.d., zolpidem 10 mg p.o. daily, Robaxin 2 tablets q.6h., Percocet 5/325. ALLERGIES: PPD. REVIEW OF SYSTEMS: CONSTITUTIONAL: No weight loss, no weight gain. Has some pressure ulcers. HEENT: No sore throat, no postnasal drip. CARDIOVASCULAR AND RESPIRATORY: No shortness of breath, no chest pain, no cough. GASTROINTESTINAL: Nausea, vomiting, diarrhea present. GENITOURINARY: The patient has a neurogenic bladder, has a Santos catheter inserted always. MUSCULOSKELETAL: Muscle spasms present. CENTRAL NERVOUS SYSTEM: Quadriparesis, quadriplegia with contractures in all 4 extremities. SKIN: Grade 1 pressure ulcer on the sacrum. A 14-point review of systems was done. PHYSICAL EXAMINATION: GENERAL: Middle-aged male, looks older than his age. VITAL SIGNS: Initial blood pressure was 78/52 and 80/44, heart rate is 115, respiratory rate is 29 and sats are 99%. HEENT: Unremarkable. Pupils equal and reactive. NECK: Supple, no lymphadenopathy, no thyromegaly. LUNGS: Clear to auscultation and percussion. Good air entry. CARDIOVASCULAR: S1, S2 heard. No gallop, no murmur, no rub. Apical impulse in left fifth intercostal space and midclavicular line. ABDOMEN: Soft and benign. Bowel sounds are normal. EXTREMITIES: Contractures present in all 4 extremities. CENTRAL NERVOUS SYSTEM: Has 3/5 power in all 4 extremities. Decreased sensation in all 4 extremities. Alert and oriented x 3. Answers questions appropriately. SKIN: Grade 1 pleasure ulcers on the face. LABORATORY DATA: Significant for white count of 4200, hemoglobin of 13.8, hematocrit of 41.8, platelet count of 78,000. INR is 7.7. The patient does not give a history of taking Coumadin. Protime is 66.4. Sodium is 140, potassium is 3.7. Venous blood gases, pH 7.257. BUN and creatinine is 22 and 1.3. Lactic acid is 6.3, repeat is 4.4. Bilirubin is 1.7, calcium is 7.9, ammonia is 25, total CK is 186. Troponin is 0.060. Cholesterol is slightly high 212, LDL is 145, HDL is 33. Urine shows 36 white cells and 182 red blood cells. Total protein is 6.3, albumin is 3.8. CAT scan of the abdomen shows questionable ileus. Decompressed loops of small intestine and nausea at this time and some distended loops which are fluid filled. The final impression of the CAT scan of the abdomen shows areas of alternating decompression and fluid filled small bowel may represent ileus. However, there maybe a stricture in the right upper quadrant raising the question of possible obstruction. Areas of colon that are featureless and mildly thick wall could be related to degree of distention but consider mild colitis. Low attenuation of the liver cyst and small cell renal cyst present. Inferior vena cava filter with some other problems including extraluminal of uncertain clinical significance in asymptomatic patient. Bladder wall thickened. ASSESSMENT AND PLAN: 1. Septic shock syndrome. The patient is hypotensive. He has urinary tract infection. White blood cells of 36. The patient has a chronic Santos catheter, more in favor of septic shock and the patient to be continued on IV fluids, IV Levophed and IV Zosyn for broad-spectrum antibiotic coverage. Also, IV vancomycin for possible staphylococcus infection. 2. Ileus, questionable. Surgery consulted. 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 3. Coagulopathy. The patient is not on Coumadin. Protime is very high. Hematology consulted. The patient also was given vitamin K. The patient was bleeding profusely at the site of IV insertion and central line insertion. 4. Lactic acidosis, improving. Possibly secondary to sepsis. 5. Hypotension. Continue with Levophed. 6. Muscle spasms. Continue muscle relaxing agents. The patient on multiple muscle relaxing agents. Narrowed it down to baclofen and Dantrium. 7. Coronary artery disease. The patient is on Plavix. We will hold the Plavix for the time being because of the severe bleeding. 8. Chronic pain. We will hold Percocet because of the low blood pressure. 9. Gastroesophageal reflux disease. Continue omeprazole 20 mg p.o. daily. 10. Deep venous thrombosis prophylaxis, Lovenox 40 mg subcutaneous daily. CRITICAL CARE STATEMENT: The high priority of the clinical significant, sudden or life-threatening deterioration, now the cardiorespiratory system required my full and direct attention, intervention and personal management. The aggregate critical care time was 40 minutes. The time is in addition to time spent performing reported procedures but include the followin. Data review and interpretation. 2. The patient assessment and monitoring of vital signs. 3. Documentation. 4. Medication orders and monitoring. JOB# [id number] RALPH/RENNY OSORIO
[2016-11-09] MEDS: LEVOPHED DRIP 4 MG/NS 250 ML 4 MG/250 ML BAG IV SCH ×4 (03:56→18:37)
[2016-11-09] MEDS: TYLENOL PO PRN ×3 (03:57→22:16)
[2016-11-09] MEDS: ZOSYN/NS 4.5GM/100ML 4.5 GM/100 ML VIAL IV SCH ×3 (05:45→21:31)
[2016-11-09 06:12] LABS: Hematocrit 30.5 % (35.5-45.6); Hemoglobin 10.2 gm/dl (11.8-15.2); Mean Corpuscular HGB Conc 33 % (32-34); Mean Corpuscular Hemoglobin 31 pg (28-32); Mean Corpuscular Volume 91 fl (84-94); Red Blood Count 3.33 M/mm3 (3.65-5.03); Red Cell Distribution Width 13.3 % (13.2-15.2)
[2016-11-09 06:27] LABS: INR 1.44 (0.87-1.13)
[2016-11-09 06:35] LABS: Alanine Aminotransferase 46 units/L (7-56); Albumin 3.7 g/dL (3.9-5); Albumin/Globulin Ratio 1.6 %; Alkaline Phosphatase 110 units/L (35-129); Anion Gap 22 mmol/L; BUN/Creatinine Ratio 21.81; Blood Urea Nitrogen 24 mg/dL (9-20); Calcium 7.4 mg/dL (8.4-10.2); Carbon Dioxide 20 mmol/L (22-30); Chloride 106.1 mmol/L (98-107); Glucose 92 mg/dL (75-100); Sodium 145 mmol/L (137-145)
[2016-11-09 06:53] LABS: Platelet Count 59 K/mm3 (140-440); White Blood Count 21.6 K/mm3 (4.5-11.0)
[2016-11-09 08:37] LABS: Basophils % (Manual) 0 % (0.0-1.8); Blastocytes % (Manual) 0 %; Eosinophils % (Manual) 0 % (0.0-4.3)
[2016-11-09 08:39] LABS: Anisocytosis 1+; Burr Cells Rare; Diff Status Complete; Elliptocytes Few; Large Platelets Rare; Ovalocytes 1+; Platelet Estimate Appears Decreased
--- NOTE | 2016-11-09 10:48 | XRay Report ---
SUPINE KUB: History: Abdominal distention, ileus. The abdominal gas pattern is unremarkable. No masses or organomegaly is identified and there is no gross evidence of free air or fluid. No significant soft tissue calcifications are noted. An IVC filter is located at the L2 level. IMPRESSION: Unremarkable abdomen.
[2016-11-09] MEDS: PROTONIX PO SCH (11:24)
[2016-11-09] MEDS: COLACE PO SCH ×2 (11:24→21:38)
[2016-11-09] MEDS ORDERED: NACL 0.9% 500 ML 500 ML ONE (11:30)
[2016-11-09] MEDS ORDERED: NACL 0.9% 1000 ML 1,000 ML IV ONE ×3 (11:30→19:05)
--- NOTE | 2016-11-09 11:33 | Consultation ---
History of Present Illness - Reason for Consult Consult date: 11/09/16 Sepsis Requesting physician: ESTHELA MARR - History of Present Illness 61 y/o male, currently resides at [facility], admitted with hypotension. Found to have an elevated lactic acid and concern for sepsis. Started on empiric abx therapy and IV vasopressor therapy and transitioned to the ICU. Currently awake and alert in oriented. Denies any sick contacts. Did have fever of 100.8 on arrival last night. Cultures are still pending. Currenlty on levophed at 15 mics with a right IJ line intact Past History Past Medical History: GERD, other (gout, quadraplegia, muscle spasms, DVT with IVC filter placement, contractures) Past Surgical History: Other (IVC filter placement and back surgery) Social history: other (former smoker) Family history: hypertension Medications and Allergies Allergies Allergy/AdvReac Type Severity Reaction Status Date / Time sulfamethoxazole Allergy Rash Verified 11/08/16 10:57 [From Bactrim] trimethoprim [From Bactrim] Allergy Rash Verified 11/08/16 10:57 tuberculin, purified protein Allergy Unknown Verified 11/08/16 10:57 deriva Home Medications Medication Instructions Recorded Confirmed Last Taken Type Acetaminophen [Acetaminophen TAB] 2 tab PO Q6H PRN 11/08/16 11/08/16 Unknown History Ascorbic Acid [Vitamin C with Alexandrea 1 tab PO QDAY 11/08/16 11/08/16 Unknown History Hips] Aspirin EC [Aspirin Enteric Coated 81 mg PO QDAY 11/08/16 11/08/16 Unknown History TAB] Baclofen [Lioresal] 2 tab PO QID 11/08/16 11/08/16 Unknown History Betamethasone Dipropionate 1 applicatio INTRADERMA BID 11/08/16 11/08/16 Unknown History [Betamethasone Dipropionate 0.05% Oint] Clobetasol Propionate/Emoll 1 applicatio INTRADERMA BID 11/08/16 11/08/16 Unknown History [Clobetasol Emollient 0.05% Crm] Clopidogrel Bisulfate [Plavix] 1 tab PO QDAY 11/08/16 11/08/16 Unknown History Cyclobenzaprine HCl [Flexeril 5 MG 5 mg PO Q8H PRN 11/08/16 11/08/16 Unknown History TAB] Dantrium 1 cap PO Q8H PRN 11/08/16 11/08/16 Unknown History Diazepam [Diazepam] 5 mg PO TID 11/08/16 11/08/16 Unknown History Docusate Sodium [Colace CAP] 100 mg PO BID 11/08/16 11/08/16 Unknown History Gabapentin [Neurontin] 600 mg PO TID 11/08/16 11/08/16 Unknown History Halobetasol Propionate [Ultravate] 1 applicatio INTRADERMA Q12H PRN 11/08/1604/17 Unknown History Indomethacin [Indocin] 50 mg PO Q12H PRN 11/08/16 11/08/16 Unknown History Lactulose [Lactulose] 30 ml PO BID 11/08/16 11/08/16 Unknown History Magnesium Oxide [Mag-Ox] 1 tab PO BID 11/08/16 11/08/16 Unknown History Methyl Salicylate/Menth/Camph 1 patch INTRADERMA BID 11/08/16 11/08/16 Unknown History [Salonpas Patch] Multivitamin with Iron 1 tab PO QDAY 11/08/16 11/08/16 Unknown History [Multivitamins with Iron] Omeprazole Magnesium [PriLOSEC Otc] 1 tab PO QAM 11/08/16 11/08/16 Unknown History Prednisone [predniSONE (Judson) ER 5 mg PO QWEEK 11/08/16 11/08/16 Unknown History TAB] Protein Supplement [Promod] 30 ml PO BID 11/08/16 11/08/16 Unknown History Zolpidem [Ambien] 10 mg PO QDAY PRN 11/08/16 11/08/16 Unknown History diphenhydrAMINE [Benadryl CAP] 1 cap PO Q4H PRN 11/08/16 11/08/16 Unknown History methOCARBAMOL [Robaxin TAB] 2 tab PO Q6H 11/08/16 11/08/16 Unknown History oxyCODONE /ACETAMINOPHEN [Percocet 1 tab PO Q6H PRN 11/08/16 11/08/16 Unknown History 5/325 mg] Active Meds: Active Medications Acetaminophen (Tylenol) 650 mg PO Q6H PRN PRN Reason: Pain Last Admin: 11/09/16 03:57 Dose: 650 mg Ascorbic Acid (Vitamin C) 500 mg PO QDAY GARY Diphenhydramine HCl (Benadryl) 25 mg PO Q4H PRN PRN Reason: Itching Docusate Sodium (Colace) 100 mg PO BID [facility] Last Admin: 11/09/16 11:24 Dose: Not Given Norepinephrine (Levophed Drip 4 Mg/Ns 250 Ml) 4 mg in 250 mls @ 7.5 mls/hr IV TITR GARY; 2 MCG/MIN PRN Reason: Protocol Last Admin: 11/09/16 08:08 Dose: 15.01 mcg/min, 56.3 mls/hr Piperacillin Sod/Tazobactam Sod (Zosyn/Ns 4.5gm/100ml) 4.5 gm in 100 mls @ 200 mls/hr IV Q8HR GARY PRN Reason: Protocol Last Admin: 11/09/16 05:45 Dose: 200 mls/hr Sodium Chloride (Nacl 0.9% 1000 Ml) 1,000 mls @ 100 mls/hr IV DIRECT GARY Vancomycin HCl 1,250 mg/ (Sodium Chloride) 275 mls @ 166.667 mls/hr IV Q12H [facility] Last Admin: 11/09/16 00:10 Dose: 166.667 mls/hr Potassium Chloride (Kcl 20meq/100ml) 20 meq in 100 mls @ 100 mls/hr IV Q1H [facility] Stop: 11/09/16 14:59 Sodium Chloride (Nacl 0.9% 1000 Ml) 1,000 mls @ 999 mls/hr IV BOLUS ONE Stop: 11/09/16 12:30 Sodium Chloride (Nacl 0.9% 1000 Ml) 1,000 mls @ 999 mls/hr IV BOLUS ONE Stop: 11/09/16 13:00 Miscellaneous Medication (Dantrium) 1 cap PO Q8H PRN PRN Reason: Spasms Miscellaneous Medication (Halobetasol Propionate [Ultravate]) 1 applicatio INTRADERMA Q12H PRN PRN Reason: Rash Miscellaneous Medication (Prednisone [Prednisone (Judson) Er Tab]) 5 mg PO QWEEK [facility] Pantoprazole Sodium (Protonix) 20 mg PO QAM [facility] Last Admin: 11/09/16 11:24 Dose: Not Given Review of Systems All systems: negative Exam - Constitutional Vitals: Temp Pulse Resp BP Pulse Ox 99.5 F 123 H 27 H 74/37 94 11/09/16 08:00 11/09/16 08:11 11/09/16 08:11 11/09/16 08:11 11/09/16 08:11 General appearance: Present: mild distress, other (alert) - EENT Eyes: Present: PERRL, EOM intact ENT: poor dentition - Neck Neck: Present: supple - Respiratory Respiratory effort: labored (mildly) - Cardiovascular Rhythm: other (sinus tach) - Extremities Extremities: abnormal (contracted) Results - Labs CBC & Chem 7: 11/09/16 Unknown 11/09/16 Unknown Labs: Abnormal lab results 11/08/16 11/08/16 11/09/16 Range/Units 20:10 23:10 04:00 WBC (4.5-11.0) K/mm3 RBC (3.65-5.03) M/mm3 Hgb (11.8-15.2) gm/dl Hct (35.5-45.6) % Plt Count (140-440) K/mm3 Lymphocytes % (Manual) (13.4-35.0) % Seg Neutrophils # Man (1.8-7.7) K/mm3 Lymphocytes # (Manual) (1.2-5.4) K/mm3 PT 17.5 H (12.2-14.9) Sec. INR 1.44 H (0.87-1.13) Potassium (3.6-5.0) mmol/L Carbon Dioxide (22-30) mmol/L BUN (9-20) mg/dL Lactic Acid 4.40 H* 4.50 H* (0.7-2.0) mmol/L Calcium (8.4-10.2) mg/dL Total Bilirubin (0.1-1.2) mg/dL AST (5-40) units/L Total Protein (6.3-8.2) g/dL Albumin (3.9-5) g/dL 11/09/16 11/09/16 Range/Units Unknown Unknown WBC 21.6 H (4.5-11.0) K/mm3 RBC 3.33 L (3.65-5.03) M/mm3 Hgb 10.2 L D (11.8-15.2) gm/dl Hct 30.5 L D (35.5-45.6) % Plt Count 59 L (140-440) K/mm3 Lymphocytes % (Manual) 2.0 L (13.4-35.0) % Seg Neutrophils # Man 11.2 H (1.8-7.7) K/mm3 Lymphocytes # (Manual) 0.4 L (1.2-5.4) K/mm3 PT (12.2-14.9) Sec. INR (0.87-1.13) Potassium 3.0 L (3.6-5.0) mmol/L Carbon Dioxide 20 L (22-30) mmol/L BUN 24 H (9-20) mg/dL Lactic Acid (0.7-2.0) mmol/L Calcium 7.4 L (8.4-10.2) mg/dL Total Bilirubin 1.90 H (0.1-1.2) mg/dL AST 107 H (5-40) units/L Total Protein 6.0 L (6.3-8.2) g/dL Albumin 3.7 L (3.9-5) g/dL - Imaging and Cardiology Chest x-ray: image reviewed (clear, right IJ sitting in superior portion of SVC) Assessment and Plan 61 y/o male with sepsis of unknown etiology with elevated lactic acidosis. 1. Serial lactic acids, at least q6 through tomorrow 2. Need to check pH, ordered VBG 3. CVP monitoring 4. Two more additional liters of fluid. 5. If CVP is less than 10-12 will bolus until this is reached 6. STat picc line placement 7. Continue broad spec abx therapy 8. Follow up cultures. CCT 31 minutes.
[2016-11-09 12:12] LABS: Hematocrit 31.3 % (35.5-45.6); Hemoglobin 10.5 gm/dl (11.8-15.2)
--- NOTE | 2016-11-09 12:52 | Consultation ---
History of Present Illness - Reason for Consult Consult date: 11/09/16 IVC filter evaluation - History of Present Illness Mr. flower is a 61-year-old male recently admitted to the ICU with sepsis and hypotension. He has since been stabilized with fluid resuscitation and pressors support. During workup for sepsis, a CT of the abdomen and pelvis was performed. On the CT, it was noted that the tines of an indwelling IVC filter were possibly extraluminal. Mr. flower states that he had this filter placed in mid 2014 at [facility]. He was unsure of the exact indication, but said that it was around the time of a spinal surgery. Currently, he is not complaining of abdominal pain or back pain. There is no evidence of edema in either lower extremity. Past History Past Medical History: GERD, other (gout, quadraplegia, muscle spasms, DVT with IVC filter placement, contractures) Past Surgical History: Other (IVC filter placement and back surgery) Social history: other (former smoker) Family history: hypertension Medications and Allergies Allergies Allergy/AdvReac Type Severity Reaction Status Date / Time sulfamethoxazole Allergy Rash Verified 11/08/16 10:57 [From Bactrim] trimethoprim [From Bactrim] Allergy Rash Verified 11/08/16 10:57 tuberculin, purified protein Allergy Unknown Verified 11/08/16 10:57 deriva Home Medications Medication Instructions Recorded Confirmed Last Taken Type Acetaminophen [Acetaminophen TAB] 2 tab PO Q6H PRN 11/08/16 11/08/16 Unknown History Ascorbic Acid [Vitamin C with Alexandrea 1 tab PO QDAY 11/08/16 11/08/16 Unknown History Hips] Aspirin EC [Aspirin Enteric Coated 81 mg PO QDAY 11/08/16 11/08/16 Unknown History TAB] Baclofen [Lioresal] 2 tab PO QID 11/08/16 11/08/16 Unknown History Betamethasone Dipropionate 1 applicatio INTRADERMA BID 11/08/16 11/08/16 Unknown History [Betamethasone Dipropionate 0.05% Oint] Clobetasol Propionate/Emoll 1 applicatio INTRADERMA BID 11/08/16 11/08/16 Unknown History [Clobetasol Emollient 0.05% Crm] Clopidogrel Bisulfate [Plavix] 1 tab PO QDAY 11/08/16 11/08/16 Unknown History Cyclobenzaprine HCl [Flexeril 5 MG 5 mg PO Q8H PRN 11/08/16 11/08/16 Unknown History TAB] Dantrium 1 cap PO Q8H PRN 11/08/16 11/08/16 Unknown History Diazepam [Diazepam] 5 mg PO TID 11/08/16 11/08/16 Unknown History Docusate Sodium [Colace CAP] 100 mg PO BID 11/08/16 11/08/16 Unknown History Gabapentin [Neurontin] 600 mg PO TID 11/08/16 11/08/16 Unknown History Halobetasol Propionate [Ultravate] 1 applicatio INTRADERMA Q12H PRN 11/08/1604/17 Unknown History Indomethacin [Indocin] 50 mg PO Q12H PRN 11/08/16 11/08/16 Unknown History Lactulose [Lactulose] 30 ml PO BID 11/08/16 11/08/16 Unknown History Magnesium Oxide [Mag-Ox] 1 tab PO BID 11/08/16 11/08/16 Unknown History Methyl Salicylate/Menth/Camph 1 patch INTRADERMA BID 11/08/16 11/08/16 Unknown History [Salonpas Patch] Multivitamin with Iron 1 tab PO QDAY 11/08/16 11/08/16 Unknown History [Multivitamins with Iron] Omeprazole Magnesium [PriLOSEC Otc] 1 tab PO QAM 11/08/16 11/08/16 Unknown History Prednisone [predniSONE (Judson) ER 5 mg PO QWEEK 11/08/16 11/08/16 Unknown History TAB] Protein Supplement [Promod] 30 ml PO BID 11/08/16 11/08/16 Unknown History Zolpidem [Ambien] 10 mg PO QDAY PRN 11/08/16 11/08/16 Unknown History diphenhydrAMINE [Benadryl CAP] 1 cap PO Q4H PRN 11/08/16 11/08/16 Unknown History methOCARBAMOL [Robaxin TAB] 2 tab PO Q6H 11/08/16 11/08/16 Unknown History oxyCODONE /ACETAMINOPHEN [Percocet 1 tab PO Q6H PRN 11/08/16 11/08/16 Unknown History 5/325 mg] Active Meds: Active Medications Acetaminophen (Tylenol) 650 mg PO Q6H PRN PRN Reason: Pain Last Admin: 11/09/16 03:57 Dose: 650 mg Ascorbic Acid (Vitamin C) 500 mg PO QDAY GARY Diphenhydramine HCl (Benadryl) 25 mg PO Q4H PRN PRN Reason: Itching Docusate Sodium (Colace) 100 mg PO BID [facility] Last Admin: 11/09/16 11:24 Dose: Not Given Norepinephrine (Levophed Drip 4 Mg/Ns 250 Ml) 4 mg in 250 mls @ 7.5 mls/hr IV TITR GARY; 2 MCG/MIN PRN Reason: Protocol Last Admin: 11/09/16 11:52 Dose: 15.01 mcg/min, 56.288 mls/hr Piperacillin Sod/Tazobactam Sod (Zosyn/Ns 4.5gm/100ml) 4.5 gm in 100 mls @ 200 mls/hr IV Q8HR GARY PRN Reason: Protocol Last Admin: 11/09/16 05:45 Dose: 200 mls/hr Sodium Chloride (Nacl 0.9% 1000 Ml) 1,000 mls @ 100 mls/hr IV DIRECT GARY Vancomycin HCl 1,250 mg/ (Sodium Chloride) 275 mls @ 166.667 mls/hr IV Q12H [facility] Last Admin: 11/09/16 00:10 Dose: 166.667 mls/hr Potassium Chloride (Kcl 20meq/100ml) 20 meq in 100 mls @ 100 mls/hr IV Q1H GARY Stop: 11/09/16 14:59 Sodium Chloride (Nacl 0.9% 1000 Ml) 1,000 mls @ 999 mls/hr IV BOLUS ONE Stop: 11/09/16 13:00 Miscellaneous Medication (Dantrium) 1 cap PO Q8H PRN PRN Reason: Spasms Miscellaneous Medication (Halobetasol Propionate [Ultravate]) 1 applicatio INTRADERMA Q12H PRN PRN Reason: Rash Miscellaneous Medication (Prednisone [Prednisone (Judson) Er Tab]) 5 mg PO QWEEK [facility] Pantoprazole Sodium (Protonix) 20 mg PO QAM [facility] Last Admin: 11/09/16 11:24 Dose: Not Given Exam - Constitutional Vitals: Temp Pulse Resp BP Pulse Ox 99.5 F 123 H 27 H 74/37 94 05/11/17 08:00 11/09/16 08:11 11/09/16 08:11 11/09/16 08:11 11/09/16 08:11 General appearance: Present: no acute distress - Extremities Extremities: No edema, normal temperature Results - Labs CBC & Chem 7: 11/09/16 Unknown 11/09/16 Unknown Labs: Abnormal lab results 11/08/16 11/08/16 11/09/16 Range/Units 20:10 23:10 04:00 WBC (4.5-11.0) K/mm3 RBC (3.65-5.03) M/mm3 Hgb (11.8-15.2) gm/dl Hct (35.5-45.6) % Plt Count (140-440) K/mm3 Lymphocytes % (Manual) (13.4-35.0) % Seg Neutrophils # Man (1.8-7.7) K/mm3 Lymphocytes # (Manual) (1.2-5.4) K/mm3 PT 17.5 H (12.2-14.9) Sec. INR 1.44 H (0.87-1.13) Potassium (3.6-5.0) mmol/L Carbon Dioxide (22-30) mmol/L BUN (9-20) mg/dL Lactic Acid 4.40 H* 4.50 H* (0.7-2.0) mmol/L Calcium (8.4-10.2) mg/dL Total Bilirubin (0.1-1.2) mg/dL AST (5-40) units/L Total Protein (6.3-8.2) g/dL Albumin (3.9-5) g/dL 11/09/16 11/09/16 11/09/16 Range/Units 12:01 12:01 Unknown WBC 21.6 H (4.5-11.0) K/mm3 RBC 3.33 L (3.65-5.03) M/mm3 Hgb 10.5 L 10.2 L D (11.8-15.2) gm/dl Hct 31.3 L 30.5 L D (35.5-45.6) % Plt Count 59 L (140-440) K/mm3 Lymphocytes % (Manual) 2.0 L (13.4-35.0) % Seg Neutrophils # Man 11.2 H (1.8-7.7) K/mm3 Lymphocytes # (Manual) 0.4 L (1.2-5.4) K/mm3 PT (12.2-14.9) Sec. INR (0.87-1.13) Potassium (3.6-5.0) mmol/L Carbon Dioxide (22-30) mmol/L BUN (9-20) mg/dL Lactic Acid 3.10 H* (0.7-2.0) mmol/L Calcium (8.4-10.2) mg/dL Total Bilirubin (0.1-1.2) mg/dL AST (5-40) units/L Total Protein (6.3-8.2) g/dL Albumin (3.9-5) g/dL 11/09/16 Range/Units Unknown WBC (4.5-11.0) K/mm3 RBC (3.65-5.03) M/mm3 Hgb (11.8-15.2) gm/dl Hct (35.5-45.6) % Plt Count (140-440) K/mm3 Lymphocytes % (Manual) (13.4-35.0) % Seg Neutrophils # Man (1.8-7.7) K/mm3 Lymphocytes # (Manual) (1.2-5.4) K/mm3 PT (12.2-14.9) Sec. INR (0.87-1.13) Potassium 3.0 L (3.6-5.0) mmol/L Carbon Dioxide 20 L (22-30) mmol/L BUN 24 H (9-20) mg/dL Lactic Acid (0.7-2.0) mmol/L Calcium 7.4 L (8.4-10.2) mg/dL Total Bilirubin 1.90 H (0.1-1.2) mg/dL AST 107 H (5-40) units/L Total Protein 6.0 L (6.3-8.2) g/dL Albumin 3.7 L (3.9-5) g/dL Assessment and Plan Mr. flower was seen with regards to findings on recent abdominal CT, which showed possible erosion of the legs of an IVC filter outside the IVC. It is very unlikely that this incidental finding is related to his current sepsis. On CT, 2-3 of the legs of the filtered to appear to be extraluminal. However, filter leg erosion is generally a superintendent terminal, chronic process without acute sequela. There is no fluid around the IVC at this level to indicate any kind of acute perforation. 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 No intervention is necessary at this time, and it is safe for this patient to keep the IVC filter permanently.
[2016-11-09] MEDS: KCL 20MEQ/100ML 20 MEQ/100 ML BAG IV SCH ×3 (13:00→15:18)
[2016-11-09] MEDS: VITAMIN C PO SCH (13:22)
--- NOTE | 2016-11-09 13:23 | Hem/Onc Consultation ---
History of Present Illness - Reason for Consult Consult date: 11/09/16 - History of Present Illness He is admitted in ICU with sepsis and lactic acidosis. He does not give much history. Past History Past Medical History: GERD, other (gout, quadraplegia, muscle spasms, DVT with IVC filter placement, contractures) Past Surgical History: Other (IVC filter placement and back surgery) Social history: other (former smoker) Family history: hypertension Medications and Allergies Allergies Allergy/AdvReac Type Severity Reaction Status Date / Time sulfamethoxazole Allergy Rash Verified 11/08/16 10:57 [From Bactrim] trimethoprim [From Bactrim] Allergy Rash Verified 11/08/16 10:57 tuberculin, purified protein Allergy Unknown Verified 11/08/16 10:57 deriva Home Medications Medication Instructions Recorded Confirmed Last Taken Type Acetaminophen [Acetaminophen TAB] 2 tab PO Q6H PRN 11/08/16 11/08/16 Unknown History Ascorbic Acid [Vitamin C with Alexandrea 1 tab PO QDAY 11/08/16 11/08/16 Unknown History Hips] Aspirin EC [Aspirin Enteric Coated 81 mg PO QDAY 11/08/16 11/08/16 Unknown History TAB] Baclofen [Lioresal] 2 tab PO QID 11/08/16 11/08/16 Unknown History Betamethasone Dipropionate 1 applicatio INTRADERMA BID 11/08/16 11/08/16 Unknown History [Betamethasone Dipropionate 0.05% Oint] Clobetasol Propionate/Emoll 1 applicatio INTRADERMA BID 11/08/16 11/08/16 Unknown History [Clobetasol Emollient 0.05% Crm] Clopidogrel Bisulfate [Plavix] 1 tab PO QDAY 11/08/16 11/08/16 Unknown History Cyclobenzaprine HCl [Flexeril 5 MG 5 mg PO Q8H PRN 11/08/16 11/08/16 Unknown History TAB] Dantrium 1 cap PO Q8H PRN 11/08/16 11/08/16 Unknown History Diazepam [Diazepam] 5 mg PO TID 11/08/16 11/08/16 Unknown History Docusate Sodium [Colace CAP] 100 mg PO BID 11/08/16 11/08/16 Unknown History Gabapentin [Neurontin] 600 mg PO TID 11/08/16 11/08/16 Unknown History Halobetasol Propionate [Ultravate] 1 applicatio INTRADERMA Q12H PRN 11/08/1604/17 Unknown History Indomethacin [Indocin] 50 mg PO Q12H PRN 11/08/16 11/08/16 Unknown History Lactulose [Lactulose] 30 ml PO BID 11/08/16 11/08/16 Unknown History Magnesium Oxide [Mag-Ox] 1 tab PO BID 11/08/16 11/08/16 Unknown History Methyl Salicylate/Menth/Camph 1 patch INTRADERMA BID 11/08/16 11/08/16 Unknown History [Salonpas Patch] Multivitamin with Iron 1 tab PO QDAY 11/08/16 11/08/16 Unknown History [Multivitamins with Iron] Omeprazole Magnesium [PriLOSEC Otc] 1 tab PO QAM 11/08/16 11/08/16 Unknown History Prednisone [predniSONE (Judson) ER 5 mg PO QWEEK 11/08/16 11/08/16 Unknown History TAB] Protein Supplement [Promod] 30 ml PO BID 11/08/16 11/08/16 Unknown History Zolpidem [Ambien] 10 mg PO QDAY PRN 11/08/16 11/08/16 Unknown History diphenhydrAMINE [Benadryl CAP] 1 cap PO Q4H PRN 11/08/16 11/08/16 Unknown History methOCARBAMOL [Robaxin TAB] 2 tab PO Q6H 11/08/16 11/08/16 Unknown History oxyCODONE /ACETAMINOPHEN [Percocet 1 tab PO Q6H PRN 11/08/16 11/08/16 Unknown History 5/325 mg] Active Meds: Active Medications Acetaminophen (Tylenol) 650 mg PO Q6H PRN PRN Reason: Pain Last Admin: 11/09/16 03:57 Dose: 650 mg Ascorbic Acid (Vitamin C) 500 mg PO QDAY GARY Diphenhydramine HCl (Benadryl) 25 mg PO Q4H PRN PRN Reason: Itching Docusate Sodium (Colace) 100 mg PO BID GARY Last Admin: 11/09/16 11:24 Dose: Not Given Norepinephrine (Levophed Drip 4 Mg/Ns 250 Ml) 4 mg in 250 mls @ 7.5 mls/hr IV TITR GARY; 2 MCG/MIN PRN Reason: Protocol Last Admin: 11/09/16 11:52 Dose: 15.01 mcg/min, 56.288 mls/hr Piperacillin Sod/Tazobactam Sod (Zosyn/Ns 4.5gm/100ml) 4.5 gm in 100 mls @ 200 mls/hr IV Q8HR GARY PRN Reason: Protocol Last Admin: 11/09/16 05:45 Dose: 200 mls/hr Sodium Chloride (Nacl 0.9% 1000 Ml) 1,000 mls @ 100 mls/hr IV DIRECT GARY Vancomycin HCl 1,250 mg/ (Sodium Chloride) 275 mls @ 166.667 mls/hr IV Q12H GARY Last Admin: 11/09/16 00:10 Dose: 166.667 mls/hr Potassium Chloride (Kcl 20meq/100ml) 20 meq in 100 mls @ 100 mls/hr IV Q1H GARY Stop: 11/09/16 14:59 Last Admin: 11/09/16 13:00 Dose: 100 mls/hr Miscellaneous Medication (Dantrium) 1 cap PO Q8H PRN PRN Reason: Spasms Miscellaneous Medication (Halobetasol Propionate [Ultravate]) 1 applicatio INTRADERMA Q12H PRN PRN Reason: Rash Miscellaneous Medication (Prednisone [Prednisone (Judson) Er Tab]) 5 mg PO QWEEK GARY Pantoprazole Sodium (Protonix) 20 mg PO QAM [facility] Last Admin: 11/09/16 11:24 Dose: Not Given Review of Systems ROS unobtainable: due to mental status Exam - Constitutional Vitals: Last Vital Signs Temp 99.5 F 11/09/16 08:00 Pulse 123 H 11/09/16 08:11 Resp 27 H 11/09/16 08:11 BP 74/37 11/09/16 08:11 Pulse Ox 94 11/09/16 08:11 Pain Intensity (0-10): denies any pain General appearance: mild distress - EENT Eyes: PERRL ENT: hearing intact Lymph node exam: negative cervical - Neck Neck: supple - Respiratory Respiratory effort: Positive: pursed lips Respiratory: negative: CTA - Cardiovascular Rhythm: regular Results - Labs lab Results: Laboratory Results - last 24 hr 05/1011/08/16 11/09/16 20:10 23:10 04:00 WBC RBC Hgb Hct MCV MCH MCHC RDW Plt Count Add Manual Diff Total Counted Seg Neutrophils % Seg Neuts % (Manual) Band Neutrophils % Lymphocytes % (Manual) Reactive Lymphs % (Man) Monocytes % (Manual) Eosinophils % (Manual) Basophils % (Manual) Metamyelocytes % Myelocytes % Promyelocytes % Blast Cells % Nucleated RBC % Seg Neutrophils # Man Band Neutrophils # Lymphocytes # (Manual) Abs React Lymphs (Man) Monocytes # (Manual) Eosinophils # (Manual) Basophils # (Manual) Metamyelocytes # Myelocytes # Promyelocytes # Blast Cells # WBC Morphology Hypersegmented Neuts Hyposegmented Neuts Hypogranular Neuts Smudge Cells Toxic Granulation Toxic Vacuolation Dohle Bodies Pelger-Huet Anomaly Anish Rods Platelet Estimate Clumped Platelets Plt Clumps, EDTA Large Platelets Giant Platelets Platelet Satelliting Plt Morphology Comment RBC Morphology Dimorphic RBCs Polychromasia Hypochromasia Poikilocytosis Anisocytosis Microcytosis Macrocytosis Spherocytes Pappenheimer Bodies Sickle Cells Target Cells Tear Drop Cells Ovalocytes Helmet Cells [place] Bodies [place] Rings Thai Cells Bite Cells Crenated Cell Elliptocytes Acanthocytes (Spur) Rouleaux Hemoglobin C Crystals Schistocytes Malaria parasites Roberto Carlos Bodies Hem Pathologist Commnt PT 17.5 H INR 1.44 H Sodium Potassium Chloride Carbon Dioxide Anion Gap BUN Creatinine Estimated GFR BUN/Creatinine Ratio Glucose Lactic Acid 4.40 H* 4.50 H* Calcium Total Bilirubin AST ALT Alkaline Phosphatase Total Protein Albumin Albumin/Globulin Ratio 11/09/16 11/09/16 11/09/16 12:01 12:01 Unknown WBC 21.6 H RBC 3.33 L Hgb 10.5 L 10.2 L D Hct 31.3 L 30.5 L D MCV 91 MCH 31 MCHC 33 RDW 13.3 Plt Count 59 L Add Manual Diff Complete Total Counted 100 Seg Neutrophils % [employer] Senior [employer] Seg Neuts % (Manual) 52.0 Band Neutrophils % 38.0 Lymphocytes % (Manual) 2.0 L Reactive Lymphs % (Man) 0 Monocytes % (Manual) 0 Eosinophils % (Manual) 0 Basophils % (Manual) 0 Metamyelocytes % 7.0 Myelocytes % 1.0 Promyelocytes % 0 Blast Cells % 0 Nucleated RBC % Not Reportable Seg Neutrophils # Man 11.2 H Band Neutrophils # 8.2 Lymphocytes # (Manual) 0.4 L Abs React Lymphs (Man) 0.0 Monocytes # (Manual) 0.0 Eosinophils # (Manual) 0.0 Basophils # (Manual) 0.0 Metamyelocytes # 1.5 Myelocytes # 0.2 Promyelocytes # 0.0 Blast Cells # 0.0 WBC Morphology Not Reportable Hypersegmented Neuts Not Reportable Hyposegmented Neuts Not Reportable Hypogranular Neuts Not Reportable Smudge Cells Not Reportable Toxic Granulation Not Reportable Toxic Vacuolation Not Reportable Dohle Bodies Not Reportable Pelger-Huet Anomaly Not Reportable Anish Rods Not Reportable Platelet Estimate Appears decreased Clumped Platelets Not Reportable Plt Clumps, EDTA Not Reportable Large Platelets Rare Giant Platelets Not Reportable Platelet Satelliting Not Reportable Plt Morphology Comment Not Reportable RBC Morphology Not Reportable Dimorphic RBCs Not Reportable Polychromasia Not Reportable Hypochromasia Not Reportable Poikilocytosis Not Reportable Anisocytosis 1+ Microcytosis Not Reportable Macrocytosis Not Reportable Spherocytes Not Reportable Pappenheimer Bodies Not Reportable Sickle Cells Not Reportable Target Cells Not Reportable Tear Drop Cells Not Reportable Ovalocytes 1+ Helmet Cells Not Reportable [place] Bodies Not Reportable [place] Rings Not Reportable Thai Cells Rare Bite Cells Not Reportable Crenated Cell Not Reportable Elliptocytes Few Acanthocytes (Spur) Not Reportable Rouleaux Not Reportable Hemoglobin C Crystals Not Reportable Schistocytes Not Reportable Malaria parasites Not Reportable Roberto Carlos Bodies Not Reportable Hem Pathologist Commnt No PT INR Sodium Potassium Chloride Carbon Dioxide Anion Gap BUN Creatinine Estimated GFR BUN/Creatinine Ratio Glucose Lactic Acid 3.10 H* Calcium Total Bilirubin AST ALT Alkaline Phosphatase Total Protein Albumin Albumin/Globulin Ratio 11/09/16 Unknown WBC RBC Hgb Hct MCV MCH MCHC RDW Plt Count Add Manual Diff Total Counted Seg Neutrophils % Seg Neuts % (Manual) Band Neutrophils % Lymphocytes % (Manual) Reactive Lymphs % (Man) Monocytes % (Manual) Eosinophils % (Manual) Basophils % (Manual) Metamyelocytes % Myelocytes % Promyelocytes % Blast Cells % Nucleated RBC % Seg Neutrophils # Man Band Neutrophils # Lymphocytes # (Manual) Abs React Lymphs (Man) Monocytes # (Manual) Eosinophils # (Manual) Basophils # (Manual) Metamyelocytes # Myelocytes # Promyelocytes # Blast Cells # WBC Morphology Hypersegmented Neuts Hyposegmented Neuts Hypogranular Neuts Smudge Cells Toxic Granulation Toxic Vacuolation Dohle Bodies Pelger-Huet Anomaly Anish Rods Platelet Estimate Clumped Platelets Plt Clumps, EDTA Large Platelets Giant Platelets Platelet Satelliting Plt Morphology Comment RBC Morphology Dimorphic RBCs Polychromasia Hypochromasia Poikilocytosis Anisocytosis Microcytosis Macrocytosis Spherocytes Pappenheimer Bodies Sickle Cells Target Cells Tear Drop Cells Ovalocytes Helmet Cells [place] Bodies [place] Rings [place] Cells Bite Cells Crenated Cell Elliptocytes Acanthocytes (Spur) Rouleaux Hemoglobin C Crystals Schistocytes Malaria parasites Roberto Carlos Bodies Hem Pathologist Commnt PT INR Sodium 145 Potassium 3.0 L Chloride 106.1 Carbon Dioxide 20 L Anion Gap 22 BUN 24 H Creatinine 1.1 Estimated GFR > 60 BUN/Creatinine Ratio 21.81 Glucose 92 Lactic Acid Calcium 7.4 L Total Bilirubin 1.90 H AST 107 H ALT 46 Alkaline Phosphatase 110 Total Protein 6.0 L Albumin 3.7 L Albumin/Globulin Ratio 1.6 Assessment and Plan - Patient Problems (1) Coagulopathy Current Visit: Yes Status: Acute Plan to address problem: Admitetd with coagulopathy, fevers elevated lactic acidosis. Concern for bleeding. recheck H/H if needed scan. D/w Dr Quintanilla. The thrombocytopenia is due to sepsis. Full supportive care in ICU. Will review smear.
--- NOTE | 2016-11-09 17:38 | Progress Note ---
Assessment and Plan Assessment and plan: 61-year-old man who is bedbound, paraplegic, hx of VTE, with chronic indwelling Santos catheter who presents to the hospital for altered mental status , found to have hypotension and sepsis and coagulopathy 1. Severe sepsis with Septic shock Pressor Dependent Due to urinary tract infection Continue pressor support, continue IV fluids, follow blood cultures and urine cultures Continue broad-spectrum antibiotics, ID consultation 2. UTI- Hemorrhagic cystitis Urine cultures were contaminated, will repeat urine culture 3. Toxic metabolic encephalopathy Mentation improved with treatment for substance 4. Coagulopathy Has received FFP and vitamin K, has now improved, hematology input appreciated 5. Suspected ileus- has been ruled out Repeat imaging has been done today KUB does not show any ileus. 6. Concern for erosion of IVC filter leg Vascular surgery input appreciated, "However, filter leg erosion is generally a intermediate designer, chronic process without acute sequela. There is no fluid around the IVC at this level to indicate any kind of acute perforation. 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 " Critical Care time 32 minutes History Interval history: He is complaining of a sore throat, denies abdominal pain, denies headache, denies cough denies sputum production, denies fever, admits malaise Hospitalist Physical - Physical exam Narrative exam: General: Toxic appearance HEENT: MMM, EOMI cardiac: S1-S2 heard lungs: clear to auscultation, abdomen: soft, nontender, nondistended bowel sounds positive Santos seen draining bloody urine extremities: no edema clubbing or cyanosis Skin: no rash or lesion Neuro: Paraplegic, moves upper extremities, obese commands, conversations Psych: appropriate behavior and mood, cognition intact - Constitutional Vitals: Temp Pulse Resp BP Pulse Ox 99.3 F 123 H 34 H 105/66 99 11/09/16 12:00 11/09/16 16:11 11/09/16 16:11 11/09/16 16:11 11/09/16 16:11 Results - Labs CBC & Chem 7: 11/09/16 Unknown 11/09/16 Unknown Labs: Laboratory Last Values WBC 21.6 K/mm3 (4.5-11.0) H 11/09/16 Unknown RBC 3.33 M/mm3 (3.65-5.03) L 11/09/16 Unknown Hgb 10.2 gm/dl (11.8-15.2) L D 11/09/16 Unknown Hct 30.5 % (35.5-45.6) L D 11/09/16 Unknown MCV 91 fl (84-94) 11/09/16 Unknown MCH 31 pg (28-32) 11/09/16 Unknown MCHC 33 % (32-34) 11/09/16 Unknown RDW 13.3 % (13.2-15.2) 11/09/16 Unknown Plt Count 59 K/mm3 (140-440) L 11/09/16 Unknown Lymph % (Auto) 15.0 % (13.4-35.0) 11/08/16 13:05 [place] % (Auto) 1.7 % (0.0-7.3) 11/08/16 13:05 Eos % (Auto) 0.3 % (0.0-4.3) 11/08/16 13:05 Baso % (Auto) 0.3 % (0.0-1.8) 11/08/16 13:05 Lymph # 0.6 K/mm3 (1.2-5.4) L 11/08/16 13:05 [place] # 0.1 K/mm3 (0.0-0.8) 11/08/16 13:05 Eos # 0.0 K/mm3 (0.0-0.4) 11/08/16 13:05 Baso # 0.0 K/mm3 (0.0-0.1) 11/08/16 13:05 Add Manual Diff Complete 11/09/16 Unknown Total Counted 100 11/09/16 Unknown Seg Neutrophils % Inside Tester 11/09/16 Unknown Seg Neuts % (Manual) 52.0 % (40.0-70.0) 11/09/16 Unknown Band Neutrophils % 38.0 % 11/09/16 Unknown Lymphocytes % (Manual) 2.0 % (13.4-35.0) L 11/09/16 Unknown Reactive Lymphs % (Man) 0 % 11/09/16 Unknown Monocytes % (Manual) 0 % (0.0-7.3) 11/09/16 Unknown Eosinophils % (Manual) 0 % (0.0-4.3) 11/09/16 Unknown Basophils % (Manual) 0 % (0.0-1.8) 11/09/16 Unknown Metamyelocytes % 7.0 % 11/09/16 Unknown Myelocytes % 1.0 % 11/09/16 Unknown Promyelocytes % 0 % 11/09/16 Unknown Blast Cells % 0 % 11/09/16 Unknown Nucleated RBC % Not Reportable 11/09/16 Unknown Seg Neutrophils # 3.4 K/mm3 (1.8-7.7) 11/08/16 13:05 Seg Neutrophils # Man 11.2 K/mm3 (1.8-7.7) H 11/09/16 Unknown Band Neutrophils # 8.2 K/mm3 11/09/16 Unknown Lymphocytes # (Manual) 0.4 K/mm3 (1.2-5.4) L 11/09/16 Unknown Abs React Lymphs (Man) 0.0 K/mm3 11/09/16 Unknown Monocytes # (Manual) 0.0 K/mm3 (0.0-0.8) 11/09/16 Unknown Eosinophils # (Manual) 0.0 K/mm3 (0.0-0.4) 11/09/16 Unknown Basophils # (Manual) 0.0 K/mm3 (0.0-0.1) 11/09/16 Unknown Metamyelocytes # 1.5 K/mm3 11/09/16 Unknown Myelocytes # 0.2 K/mm3 11/09/16 Unknown Promyelocytes # 0.0 K/mm3 11/09/16 Unknown Blast Cells # 0.0 K/mm3 11/09/16 Unknown WBC Morphology Not Reportable 11/09/16 Unknown Hypersegmented Neuts Not Reportable 11/09/16 Unknown Hyposegmented Neuts Not Reportable 11/09/16 Unknown Hypogranular Neuts Not Reportable 11/09/16 Unknown Smudge Cells Not Reportable 11/09/16 Unknown Toxic Granulation Not Reportable 11/09/16 Unknown Toxic Vacuolation Not Reportable 11/09/16 Unknown Dohle Bodies Not Reportable 11/09/16 Unknown Pelger-Huet Anomaly Not Reportable 11/09/16 Unknown Anish Rods Not Reportable 11/09/16 Unknown Platelet Estimate Appears decreased 11/09/16 Unknown Clumped Platelets Not Reportable 11/09/16 Unknown Plt Clumps, EDTA Not Reportable 11/09/16 Unknown Large Platelets Rare 11/09/16 Unknown Giant Platelets Not Reportable 11/09/16 Unknown Platelet Satelliting Not Reportable 11/09/16 Unknown Plt Morphology Comment Not Reportable 11/09/16 Unknown RBC Morphology Not Reportable 11/09/16 Unknown Dimorphic RBCs Not Reportable 11/09/16 Unknown Polychromasia Not Reportable 11/09/16 Unknown Hypochromasia Not Reportable 11/09/16 Unknown Poikilocytosis Not Reportable 11/09/16 Unknown Anisocytosis 1+ 11/09/16 Unknown Microcytosis Not Reportable 11/09/16 Unknown Macrocytosis Not Reportable 11/09/16 Unknown Spherocytes Not Reportable 11/09/16 Unknown Pappenheimer Bodies Not Reportable 11/09/16 Unknown Sickle Cells Not Reportable 11/09/16 Unknown Target Cells Not Reportable 11/09/16 Unknown Tear Drop Cells Not Reportable 11/09/16 Unknown Ovalocytes 1+ 11/09/16 Unknown Helmet Cells Not Reportable 11/09/16 Unknown [place] Bodies Not Reportable 11/09/16 Unknown [place] Rings Not Reportable 11/09/16 Unknown Thai Cells Rare 11/09/16 Unknown Bite Cells Not Reportable 11/09/16 Unknown Crenated Cell Not Reportable 11/09/16 Unknown Elliptocytes Few 11/09/16 Unknown Acanthocytes (Spur) Not Reportable 11/09/16 Unknown Rouleaux Not Reportable 11/09/16 Unknown Hemoglobin C Crystals Not Reportable 11/09/16 Unknown Schistocytes Not Reportable 11/09/16 Unknown Malaria parasites Not Reportable 11/09/16 Unknown Roberto Carlos Bodies Not Reportable 11/09/16 Unknown Hem Pathologist Commnt No 11/09/16 Unknown PT 17.5 Sec. (12.2-14.9) H 11/09/16 04:00 INR 1.44 (0.87-1.13) H 11/09/16 04:00 APTT 115.0 Sec. (24.2-36.6) H* 11/08/16 14:58 VBG pH 7.257 (7.320-7.420) L 11/08/16 13:05 Sodium 145 mmol/L (137-145) 11/09/16 Unknown Potassium 3.0 mmol/L (3.6-5.0) L 11/09/16 Unknown Chloride 106.1 mmol/L (98-107) 11/09/16 Unknown Carbon Dioxide 20 mmol/L (22-30) L 11/09/16 Unknown Anion Gap 22 mmol/L 11/09/16 Unknown BUN 24 mg/dL (9-20) H 11/09/16 Unknown Creatinine 1.1 mg/dL (0.8-1.5) 11/09/16 Unknown Estimated GFR > 60 ml/min 11/09/16 Unknown BUN/Creatinine Ratio 21.81 % 11/09/16 Unknown Glucose 92 mg/dL (75-100) 11/09/16 Unknown Lactic Acid 3.10 mmol/L (0.7-2.0) H* 11/09/16 12:01 Calcium 7.4 mg/dL (8.4-10.2) L 11/09/16 Unknown Total Bilirubin 1.90 mg/dL (0.1-1.2) H 11/09/16 Unknown AST 107 units/L (5-40) H 11/09/16 Unknown ALT 46 units/L (7-56) 11/09/16 Unknown Alkaline Phosphatase 110 units/L (35-129) 11/09/16 Unknown Ammonia 25.0 umol/L (25-60) 11/08/16 14:58 Total Creatine Kinase 186 units/L (55-170) H 11/08/16 13:05 CK-MB (CK-2) 3.1 ng/mL (0.0-4.0) 11/08/16 13:05 CK-MB (CK-2) Rel Index 1.6 (0-4) 11/08/16 13:05 Troponin T 0.060 ng/mL (0.00-0.029) H 11/08/16 13:05 Total Protein 6.0 g/dL (6.3-8.2) L 11/09/16 Unknown Albumin 3.7 g/dL (3.9-5) L 11/09/16 Unknown Albumin/Globulin Ratio 1.6 % 11/09/16 Unknown Triglycerides 170 mg/dL (2-149) H 11/08/16 13:05 Cholesterol 212 mg/dL (50-199) H 11/08/16 13:05 LDL Cholesterol Direct 145 mg/dL (50-130) H 11/08/16 13:05 HDL Cholesterol 33 mg/dL (40-59) L 11/08/16 13:05 Cholesterol/HDL Ratio 6.42 % 11/08/16 13:05 Lipase 17 units/L (13-60) 11/08/16 13:05 Urine Color Red (Yellow) 11/08/16 12:08 Urine Turbidity Cloudy (Clear) 11/08/16 12:08 Urine pH 8.0 (5.0-7.0) H 11/08/16 12:08 Ur Specific Emmons 1.012 (1.003-1.030) 11/08/16 12:08 Urine Protein 100 mg/dl mg/dL (Negative) 11/08/16 12:08 Urine Glucose (UA) Neg mg/dL (Negative) 11/08/16 12:08 Urine Ketones Tr mg/dL (Negative) 11/08/16 12:08 Urine Blood Lg (Negative) 11/08/16 12:08 Urine Nitrite Pos (Negative) 11/08/16 12:08 Urine Bilirubin Neg (Negative) 11/08/16 12:08 Urine Urobilinogen < 2.0 mg/dL (<2.0) 11/08/16 12:08 Ur Leukocyte Esterase Tr (Negative) 11/08/16 12:08 Urine WBC (Auto) 36.0 /HPF (0.0-6.0) H 11/08/16 12:08 Urine RBC (Auto) > 182.0 /HPF (0.0-6.0) 11/08/16 12:08 Urine WBC Clumps Few /HPF 11/08/16 12:08 Blood Type O POSITIVE 11/08/16 15:20
[2016-11-09] MEDS ORDERED: CHLORASEPTIC MM PRN (17:50)
[2016-11-09 21:08] LABS: Hematocrit 29.7 % (35.5-45.6); Hemoglobin 9.8 gm/dl (11.8-15.2)
[2016-11-10 01:00] LABS: Hematocrit 28.7 % (35.5-45.6); Hemoglobin 9.6 gm/dl (11.8-15.2)
[2016-11-10] MEDS: ZOSYN/NS 4.5GM/100ML 4.5 GM/100 ML VIAL IV SCH ×3 (06:41→21:45)
[2016-11-10 06:55] LABS: Hematocrit 29.2 % (35.5-45.6); Hemoglobin 9.6 gm/dl (11.8-15.2)
[2016-11-10] MEDS: VANCOMYCIN 1,250 MG in NACL 0.9% 250ML 250 ML IV SCH ×2 (07:31→12:00)
[2016-11-10] MEDS: LEVOPHED DRIP 4 MG/NS 250 ML 4 MG/250 ML BAG IV SCH ×2 (08:06→15:30)
[2016-11-10] MEDS: PROTONIX PO SCH (09:10)
[2016-11-10] MEDS: VITAMIN C PO SCH (09:11)
[2016-11-10] MEDS: COLACE PO SCH ×2 (09:11→21:46)
[2016-11-10] MEDS: NACL 0.9% 1000 ML 1,000 ML IV SCH ×3 (11:09→13:18)
--- NOTE | 2016-11-10 11:14 | Progress Note ---
Assessment and Plan 61 y/o male with sepsis of unknown etiology with elevated lactic acidosis. 1. Will give a one time dose of hydrocortisone. If able to wean will schedule. There is a questionable history of steroid use at [facility]. 2. Continue CVP, goal is 10-12 3. Two more additional liters of fluid. 4. IMS consulted ID, has positive blood cultures. Currently on broad spec abx therapy. 5. Wean Vasopressor therapy for MAPs greater than 65 CCT 31 minutes. Subjective Date of service: 11/10/16 Interval history: [place] [facility] [place]. Feels better today. Objective - Constitutional Vitals: Vital Signs - 12hr 11/09/16 11/09/16 11/09/16 23:11 23:21 23:31 Temperature Pulse Rate 116 H 117 H 115 H Respiratory 16 21 25 H Rate Blood Pressure 107/66 107/66 114/68 O2 Sat by Pulse 97 99 98 Oximetry 11/09/16 11/09/16 11/09/16 23:41 23:51 23:55 Temperature 98.5 F Pulse Rate 116 H 115 H Respiratory 22 19 Rate Blood Pressure 114/68 116/73 O2 Sat by Pulse 99 99 Oximetry 11/10/16 11/10/16 11/10/16 00:01 00:11 00:21 Temperature Pulse Rate 117 H 116 H 113 H Respiratory 19 25 H 26 H Rate Blood Pressure 122/78 122/78 122/78 O2 Sat by Pulse 97 98 98 Oximetry 11/10/16 11/10/16 11/10/16 00:30 00:41 00:51 Temperature Pulse Rate 115 H 111 H 113 H Respiratory 27 H 19 21 Rate Blood Pressure 127/74 127/74 127/74 O2 Sat by Pulse 98 98 96 Oximetry 11/10/16 11/10/16 11/10/16 01:00 01:11 01:21 Temperature Pulse Rate 114 H 114 H 114 H Respiratory 24 20 15 Rate Blood Pressure 105/57 105/57 103/61 O2 Sat by Pulse 98 97 97 Oximetry 11/10/16 11/10/16 11/10/16 01:30 01:41 01:51 Temperature Pulse Rate 113 H 113 H 112 H Respiratory 24 24 22 Rate Blood Pressure 108/62 108/62 103/54 O2 Sat by Pulse 97 96 97 Oximetry 11/10/16 11/10/1611/10/17 02:00 02:11 02:21 Temperature Pulse Rate 112 H 112 H 113 H Respiratory 19 20 30 H Rate Blood Pressure 106/61 106/61 101/69 O2 Sat by Pulse 96 97 95 Oximetry 11/10/16 11/10/16 11/10/16 02:31 02:41 02:51 Temperature Pulse Rate 115 H 115 H 115 H Respiratory 21 19 14 Rate Blood Pressure 126/69 126/69 122/75 O2 Sat by Pulse 95 96 95 Oximetry 11/10/16 11/10/16 11/10/16 03:01 03:11 03:21 Temperature Pulse Rate 116 H 116 H 116 H Respiratory 20 24 23 Rate Blood Pressure 123/66 123/66 116/69 O2 Sat by Pulse 95 95 95 Oximetry 11/10/16 11/10/16 11/10/16 03:30 03:41 03:51 Temperature Pulse Rate 116 H 116 H 117 H Respiratory 20 18 21 Rate Blood Pressure 111/73 111/73 116/75 O2 Sat by Pulse 95 95 94 Oximetry 11/10/16 11/10/16 11/10/16 04:00 04:11 04:21 Temperature 98.4 F Pulse Rate 117 H 117 H 117 H Respiratory 21 26 H 23 Rate Blood Pressure 108/70 108/70 116/71 O2 Sat by Pulse 95 96 94 Oximetry 11/10/16 11/10/16 11/10/16 04:30 04:41 04:51 Temperature Pulse Rate 117 H 118 H 117 H Respiratory 25 H 25 H 28 H Rate Blood Pressure 103/70 103/70 125/67 O2 Sat by Pulse 95 95 95 Oximetry 11/10/16 11/10/16 11/10/16 05:00 05:11 05:21 Temperature Pulse Rate 116 H 119 H Respiratory 25 H 22 Rate Blood Pressure 111/71 111/71 111/71 O2 Sat by Pulse 95 92 93 Oximetry 11/10/16 11/10/16 11/10/16 05:31 05:41 05:51 Temperature Pulse Rate Respiratory Rate Blood Pressure 111/71 111/71 111/71 O2 Sat by Pulse 96 98 99 Oximetry 11/10/16 11/10/16 11/10/16 06:01 06:11 06:21 Temperature Pulse Rate 117 H 117 H 116 H Respiratory 25 H 29 H 22 Rate Blood Pressure 116/66 116/66 113/69 O2 Sat by Pulse 99 99 98 Oximetry 11/10/16 11/10/16 11/10/16 06:30 06:41 06:51 Temperature Pulse Rate 116 H 116 H 115 H Respiratory 19 21 21 Rate Blood Pressure 105/63 105/63 104/62 O2 Sat by Pulse 99 100 99 Oximetry 11/10/16 11/10/16 11/10/16 07:00 07:11 07:21 Temperature Pulse Rate 116 H 114 H 114 H Respiratory 22 21 19 Rate Blood Pressure 107/66 107/66 102/66 O2 Sat by Pulse 99 97 99 Oximetry 11/10/16 11/10/16 11/10/16 07:30 07:41 07:51 Temperature Pulse Rate 112 H 112 H 112 H Respiratory 19 21 24 Rate Blood Pressure 110/65 110/65 89/54 O2 Sat by Pulse 99 99 99 Oximetry 11/10/16 11/10/16 11/10/16 08:00 08:11 08:16 Temperature 98.0 F Pulse Rate 111 H 112 H Respiratory 22 25 H Rate Blood Pressure 119/72 119/72 O2 Sat by Pulse 98 100 100 Oximetry 11/10/16 11/10/16 11/10/16 08:21 08:30 08:41 Temperature Pulse Rate 112 H 111 H 112 H Respiratory 25 H 24 19 Rate Blood Pressure 118/64 125/74 125/74 O2 Sat by Pulse 100 100 100 Oximetry 11/10/16 11/10/16 11/10/16 08:51 09:00 09:11 Temperature Pulse Rate 111 H 111 H 112 H Respiratory 22 23 20 Rate Blood Pressure 121/67 112/71 112/71 O2 Sat by Pulse 100 100 98 Oximetry 11/10/16 11/10/16 11/10/16 09:21 09:30 09:41 Temperature Pulse Rate 112 H 112 H 112 H Respiratory 21 22 26 H Rate Blood Pressure 107/67 112/67 112/67 O2 Sat by Pulse 100 100 99 Oximetry 11/10/16 11/10/16 11/10/16 09:51 10:00 10:11 Temperature Pulse Rate 113 H 113 H 113 H Respiratory 25 H 22 22 Rate Blood Pressure 115/59 104/66 104/66 O2 Sat by Pulse 100 99 100 Oximetry 11/10/16 11/10/16 10:21 10:31 Temperature Pulse Rate 112 H 115 H Respiratory 20 26 H Rate Blood Pressure 102/66 98/55 O2 Sat by Pulse 100 100 Oximetry General appearance: Present: no acute distress - EENT Eyes: PERRL, EOM intact ENT: poor dentition - Neck Neck: supple, normal ROM - Respiratory Respiratory effort: normal Respiratory: bilateral: CTA - Breasts Breasts: deferred - Cardiovascular Rhythm: regular (sinus tach) Extremities: abnormal (contracted) - Labs CBC & Chem 7: 11/10/16 06:00 11/09/16 Unknown Labs: Abnormal lab results 11/09/16 11/09/16 11/09/16 Range/Units 12:01 12:01 20:48 Hgb 10.5 L (11.8-15.2) gm/dl Hct 31.3 L (35.5-45.6) % Lactic Acid 3.10 H* 2.60 H* (0.7-2.0) mmol/L 11/09/16 11/10/16 11/10/16 Range/Units 20:48 00:30 00:30 Hgb 9.8 L 9.6 L (11.8-15.2) gm/dl Hct 29.7 L 28.7 L (35.5-45.6) % Lactic Acid 2.20 H* (0.7-2.0) mmol/L 11/10/16 Range/Units 06:00 Hgb 9.6 L (11.8-15.2) gm/dl Hct 29.2 L (35.5-45.6) % Lactic Acid (0.7-2.0) mmol/L
[2016-11-10 12:56] LABS: Hematocrit 27.8 % (35.5-45.6); Hemoglobin 9.1 gm/dl (11.8-15.2); Mean Corpuscular HGB Conc 33 % (32-34); Mean Corpuscular Hemoglobin 30 pg (28-32); Mean Corpuscular Volume 91 fl (84-94); Red Blood Count 3.06 M/mm3 (3.65-5.03)
[2016-11-10 12:57] LABS: Platelet Count 49 K/mm3 (140-440); White Blood Count 25.9 K/mm3 (4.5-11.0)
[2016-11-10 14:04] LABS: Anion Gap 19 mmol/L; Blood Urea Nitrogen 10 mg/dL (9-20); Calcium 6.7 mg/dL (8.4-10.2); Carbon Dioxide 18 mmol/L (22-30); Chloride 114.1 mmol/L (98-107); Glucose 69 mg/dL (75-100); Potassium 3.3 mmol/L (3.6-5.0); Sodium 148 mmol/L (137-145)
--- NOTE | 2016-11-10 14:54 | Progress Note ---
Assessment and Plan Assessment and plan: 61-year-old man who is bedbound, paraplegic, hx of VTE, with chronic indwelling Santos catheter who presents to the hospital for altered mental status , found to have hypotension and sepsis and coagulopathy 1. Severe sepsis with Septic shock Pressor Dependent Due to bacteremia and UTI Continue pressor support, continue IV fluids, follow blood cultures and urine cultures Continue broad-spectrum antibiotics, ID consultation As patient's takes steroids at his long term, will put him on stress dose steroids, suspect adrenal insufficiency as a contributing factor, critical care input appreciated 2. Gram-negative sepsis with bacteremia, blood cultures reviewed growing gram- negative rods UTI- Hemorrhagic cystitis Urine cultures were contaminated, follow-up repeat urine culture 3. Toxic metabolic encephalopathy Mentation improved with treatment of underlying cause 4. Coagulopathy due to sepsis and warfarin Has received FFP and vitamin K, has now improved, hematology input appreciated 5. Suspected ileus- has been ruled out Repeat imaging has been done today KUB on 11/09/16 does not show any ileus. 6. 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 There is no fluid around the IVC at this level to indicate any kind of acute perforation. 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 Stage II right hip decubitus ulcer, present on admission Continue wound care 8. Moderate severe malnutrition Patient has very fragile skin, dietitian consult, encouraged improved diet Critical Care time 32 minutes History Interval history: He is complaining of generalized weakness, feels very ill, denies abdominal pain , denies headache, denies cough denies sputum production, denies fever, admits malaise Hospitalist Physical - Physical exam Narrative exam: General: Toxic appearance HEENT: MMM, EOMI cardiac: S1-S2 heard lungs: clear to auscultation, abdomen: soft, nontender, nondistended bowel sounds positive Santos seen draining bloody urine extremities: no edema clubbing or cyanosis Skin: There is a decubitus on the right hip that is 1 x 1 x 2 cm, small mucopurulent discharge, no foul order, no surrounding erythema, stage II Neuro: Paraplegic, moves upper extremities, obese commands, conversations Psych: appropriate behavior and mood, cognition intact - Constitutional Vitals: Temp Pulse Resp BP Pulse Ox 98.9 F 111 H 27 H 115/67 100 11/10/16 12:00 11/10/16 14:11 11/10/16 14:11 11/10/16 14:11 11/10/16 14:11 General appearance: Present: no acute distress Results - Labs CBC & Chem 7: 11/10/16 12:30 11/10/16 12:30 Labs: Laboratory Last Values WBC 25.9 K/mm3 (4.5-11.0) H 11/10/16 12:30 RBC 3.06 M/mm3 (3.65-5.03) L 11/10/16 12:30 Hgb 9.1 gm/dl (11.8-15.2) L 11/10/16 12:30 Hct 27.8 % (35.5-45.6) L 11/10/16 12:30 MCV 91 fl (84-94) 11/10/16 12:30 MCH 30 pg (28-32) 11/10/16 12:30 MCHC 33 % (32-34) 11/10/16 12:30 RDW 14.0 % (13.2-15.2) 11/10/16 12:30 Plt Count 49 K/mm3 (140-440) L 11/10/16 12:30 Lymph % (Auto) 15.0 % (13.4-35.0) 11/08/16 13:05 [place] % (Auto) 1.7 % (0.0-7.3) 11/08/16 13:05 Eos % (Auto) 0.3 % (0.0-4.3) 11/08/16 13:05 Baso % (Auto) 0.3 % (0.0-1.8) 11/08/16 13:05 Lymph # 0.6 K/mm3 (1.2-5.4) L 11/08/16 13:05 [place] # 0.1 K/mm3 (0.0-0.8) 11/08/16 13:05 Eos # 0.0 K/mm3 (0.0-0.4) 11/08/16 13:05 Baso # 0.0 K/mm3 (0.0-0.1) 11/08/16 13:05 Add Manual Diff Complete 11/09/16 Unknown Total Counted 100 11/09/16 Unknown Seg Neutrophils % Structural Rigger 11/09/16 Unknown Seg Neuts % (Manual) 52.0 % (40.0-70.0) 11/09/16 Unknown Band Neutrophils % 38.0 % 11/09/16 Unknown Lymphocytes % (Manual) 2.0 % (13.4-35.0) L 11/09/16 Unknown Reactive Lymphs % (Man) 0 % 11/09/16 Unknown Monocytes % (Manual) 0 % (0.0-7.3) 11/09/16 Unknown Eosinophils % (Manual) 0 % (0.0-4.3) 11/09/16 Unknown Basophils % (Manual) 0 % (0.0-1.8) 11/09/16 Unknown Metamyelocytes % 7.0 % 11/09/16 Unknown Myelocytes % 1.0 % 11/09/16 Unknown Promyelocytes % 0 % 11/09/16 Unknown Blast Cells % 0 % 11/09/16 Unknown Nucleated RBC % Not Reportable 11/09/16 Unknown Seg Neutrophils # 3.4 K/mm3 (1.8-7.7) 11/08/16 13:05 Seg Neutrophils # Man 11.2 K/mm3 (1.8-7.7) H 11/09/16 Unknown Band Neutrophils # 8.2 K/mm3 11/09/16 Unknown Lymphocytes # (Manual) 0.4 K/mm3 (1.2-5.4) L 11/09/16 Unknown Abs React Lymphs (Man) 0.0 K/mm3 11/09/16 Unknown Monocytes # (Manual) 0.0 K/mm3 (0.0-0.8) 11/09/16 Unknown Eosinophils # (Manual) 0.0 K/mm3 (0.0-0.4) 11/09/16 Unknown Basophils # (Manual) 0.0 K/mm3 (0.0-0.1) 11/09/16 Unknown Metamyelocytes # 1.5 K/mm3 11/09/16 Unknown Myelocytes # 0.2 K/mm3 11/09/16 Unknown Promyelocytes # 0.0 K/mm3 11/09/16 Unknown Blast Cells # 0.0 K/mm3 11/09/16 Unknown WBC Morphology Not Reportable 11/09/16 Unknown Hypersegmented Neuts Not Reportable 11/09/16 Unknown Hyposegmented Neuts Not Reportable 11/09/16 Unknown Hypogranular Neuts Not Reportable 11/09/16 Unknown Smudge Cells Not Reportable 11/09/16 Unknown Toxic Granulation Not Reportable 11/09/16 Unknown Toxic Vacuolation Not Reportable 11/09/16 Unknown Dohle Bodies Not Reportable 11/09/16 Unknown Pelger-Huet Anomaly Not Reportable 11/09/16 Unknown Anish Rods Not Reportable 11/09/16 Unknown Platelet Estimate Appears decreased 11/09/16 Unknown Clumped Platelets Not Reportable 11/09/16 Unknown Plt Clumps, EDTA Not Reportable 11/09/16 Unknown Large Platelets Rare 11/09/16 Unknown Giant Platelets Not Reportable 11/09/16 Unknown Platelet Satelliting Not Reportable 11/09/16 Unknown Plt Morphology Comment Not Reportable 11/09/16 Unknown RBC Morphology Not Reportable 11/09/16 Unknown Dimorphic RBCs Not Reportable 11/09/16 Unknown Polychromasia Not Reportable 11/09/16 Unknown Hypochromasia Not Reportable 11/09/16 Unknown Poikilocytosis Not Reportable 11/09/16 Unknown Anisocytosis 1+ 11/09/16 Unknown Microcytosis Not Reportable 11/09/16 Unknown Macrocytosis Not Reportable 11/09/16 Unknown Spherocytes Not Reportable 11/09/16 Unknown Pappenheimer Bodies Not Reportable 11/09/16 Unknown Sickle Cells Not Reportable 11/09/16 Unknown Target Cells Not Reportable 11/09/16 Unknown Tear Drop Cells Not Reportable 11/09/16 Unknown Ovalocytes 1+ 11/09/16 Unknown Helmet Cells Not Reportable 11/09/16 Unknown [place] Bodies Not Reportable 11/09/16 Unknown [place] Rings Not Reportable 11/09/16 Unknown [place] Cells Rare 11/09/16 Unknown Bite Cells Not Reportable 11/09/16 Unknown Crenated Cell Not Reportable 11/09/16 Unknown Elliptocytes Few 11/09/16 Unknown Acanthocytes (Spur) Not Reportable 11/09/16 Unknown Rouleaux Not Reportable 11/09/16 Unknown Hemoglobin C Crystals Not Reportable 11/09/16 Unknown Schistocytes Not Reportable 11/09/16 Unknown Malaria parasites Not Reportable 11/09/16 Unknown [place] Bodies Not Reportable 11/09/16 Unknown Hem Pathologist Commnt No 11/09/16 Unknown PT 17.5 Sec. (12.2-14.9) H 11/09/16 04:00 INR 1.44 (0.87-1.13) H 11/09/16 04:00 APTT 115.0 Sec. (24.2-36.6) H* 11/08/16 14:58 VBG pH 7.257 (7.320-7.420) L 11/08/16 13:05 Sodium 148 mmol/L (137-145) H 11/10/16 12:30 Potassium 3.3 mmol/L (3.6-5.0) L 11/10/16 12:30 Chloride 114.1 mmol/L (98-107) H 11/10/16 12:30 Carbon Dioxide 18 mmol/L (22-30) L 11/10/16 12:30 Anion Gap 19 mmol/L 11/10/16 12:30 BUN 10 mg/dL (9-20) 11/10/16 12:30 Creatinine 0.5 mg/dL (0.8-1.5) L D 11/10/16 12:30 Estimated GFR > 60 ml/min 11/10/16 12:30 BUN/Creatinine Ratio 20.00 % 11/10/16 12:30 Glucose 69 mg/dL (75-100) L 11/10/16 12:30 Lactic Acid 2.00 mmol/L (0.7-2.0) 11/10/16 06:00 Calcium 6.7 mg/dL (8.4-10.2) L 11/10/16 12:30 Total Bilirubin 1.90 mg/dL (0.1-1.2) H 11/09/16 Unknown AST 107 units/L (5-40) H 11/09/16 Unknown ALT 46 units/L (7-56) 11/09/16 Unknown Alkaline Phosphatase 110 units/L (35-129) 11/09/16 Unknown Ammonia 25.0 umol/L (25-60) 11/08/16 14:58 Total Creatine Kinase 186 units/L (55-170) H 11/08/16 13:05 CK-MB (CK-2) 3.1 ng/mL (0.0-4.0) 11/08/16 13:05 CK-MB (CK-2) Rel Index 1.6 (0-4) 11/08/16 13:05 Troponin T 0.060 ng/mL (0.00-0.029) H 11/08/16 13:05 Total Protein 6.0 g/dL (6.3-8.2) L 11/09/16 Unknown Albumin 3.7 g/dL (3.9-5) L 11/09/16 Unknown Albumin/Globulin Ratio 1.6 % 11/09/16 Unknown Triglycerides 170 mg/dL (2-149) H 11/08/16 13:05 Cholesterol 212 mg/dL (50-199) H 11/08/16 13:05 LDL Cholesterol Direct 145 mg/dL (50-130) H 11/08/16 13:05 HDL Cholesterol 33 mg/dL (40-59) L 11/08/16 13:05 Cholesterol/HDL Ratio 6.42 % 11/08/16 13:05 Lipase 17 units/L (13-60) 11/08/16 13:05 Urine Color Red (Yellow) 11/08/16 12:08 Urine Turbidity Cloudy (Clear) 11/08/16 12:08 Urine pH 8.0 (5.0-7.0) H 11/08/16 12:08 Ur Specific [place] 1.012 (1.003-1.030) 11/08/16 12:08 Urine Protein 100 mg/dl mg/dL (Negative) 11/08/16 12:08 Urine Glucose (UA) Neg mg/dL (Negative) 11/08/16 12:08 Urine Ketones Tr mg/dL (Negative) 11/08/16 12:08 Urine Blood Lg (Negative) 11/08/16 12:08 Urine Nitrite Pos (Negative) 11/08/16 12:08 Urine Bilirubin Neg (Negative) 11/08/16 12:08 Urine Urobilinogen < 2.0 mg/dL (<2.0) 11/08/16 12:08 Ur Leukocyte Esterase Tr (Negative) 11/08/16 12:08 Urine WBC (Auto) 36.0 /HPF (0.0-6.0) H 11/08/16 12:08 Urine RBC (Auto) > 182.0 /HPF (0.0-6.0) 11/08/16 12:08 Urine WBC Clumps Few /HPF 11/08/16 12:08 Blood Type O POSITIVE 11/08/16 15:20
[2016-11-11] MEDS: BENADRYL PO PRN ×2 (00:36→21:57)
[2016-11-11] MEDS: VANCOMYCIN 1,250 MG in NACL 0.9% 250ML 250 ML IV SCH ×2 (00:37→12:26)
[2016-11-11] MEDS: NACL 0.9% 1000 ML 1,000 ML IV SCH (04:36)
[2016-11-11] MEDS: LEVOPHED DRIP 4 MG/NS 250 ML 4 MG/250 ML BAG IV SCH (04:37)
[2016-11-11] MEDS: ZOSYN/NS 4.5GM/100ML 4.5 GM/100 ML VIAL IV SCH ×3 (06:00→21:58)
[2016-11-11] MEDS ORDERED: KCL 20 MEQ in D5NS 0.2% 1,000 ML IV SCH (08:45)
[2016-11-11] MEDS: VITAMIN C PO SCH (09:49)
[2016-11-11] MEDS: COLACE PO SCH ×2 (09:49→21:57)
[2016-11-11] MEDS: PROTONIX PO SCH (09:49)
--- NOTE | 2016-11-11 11:01 | Progress Note ---
Assessment and Plan 61 y/o male with sepsis of unknown etiology with elevated lactic acidosis. 1. Not sure if volume and/or steroids helped wean off pressors. Steroid stopped by IMS. If BP drops would consider restarting steroids. 2. Continue broad spectrum abx therapy, cultures still not back yet 3. Needs free water, suggest D5W drip and PO now that off pressors 4. IMS consulted ID, has positive blood cultures. Currently on broad spec abx therapy. No note from them yet. 5. Will sign off once out of unit. Subjective Date of service: 11/11/16 Interval history: No acute events. Off pressors now. Has somewhat of an appetite. Na and Chloride are elevated. Needs more free water. Objective - Constitutional Vitals: Vital Signs - 12hr 11/10/16 11/10/16 11/10/16 23:11 23:21 23:30 Temperature Pulse Rate 115 H 114 H 109 H Pulse Rate [ From Monitor] Respiratory 43 H 19 14 Rate Blood Pressure 134/86 134/91 136/69 O2 Sat by Pulse 100 99 99 Oximetry 11/10/16 11/10/16 11/11/16 23:41 23:51 00:00 Temperature Pulse Rate 109 H 108 H 108 H Pulse Rate [ 106 H From Monitor] Respiratory 30 H 29 H 29 H Rate Blood Pressure 136/69 131/71 130/70 O2 Sat by Pulse 98 99 99 Oximetry 11/11/16 11/11/16 11/11/16 00:11 00:21 00:30 Temperature Pulse Rate 108 H 109 H 107 H Pulse Rate [ From Monitor] Respiratory 31 H 28 H 30 H Rate Blood Pressure 130/70 132/86 131/86 O2 Sat by Pulse 100 99 100 Oximetry 11/11/16 11/11/16 11/11/16 00:41 00:51 01:00 Temperature Pulse Rate 108 H 107 H 106 H Pulse Rate [ From Monitor] Respiratory 29 H 35 H 29 H Rate Blood Pressure 131/86 128/82 128/81 O2 Sat by Pulse 100 99 98 Oximetry 11/11/16 11/11/16 11/11/16 01:11 01:21 01:30 Temperature Pulse Rate 107 H 106 H 108 H Pulse Rate [ From Monitor] Respiratory 28 H 37 H 32 H Rate Blood Pressure 128/81 125/79 121/80 O2 Sat by Pulse 99 99 99 Oximetry 11/11/16 11/11/16 11/11/16 01:41 01:51 02:00 Temperature Pulse Rate 107 H 107 H 107 H Pulse Rate [ From Monitor] Respiratory 14 24 29 H Rate Blood Pressure 121/80 120/81 124/76 O2 Sat by Pulse 99 100 99 Oximetry 11/11/16 11/11/16 11/11/16 02:11 02:21 02:30 Temperature Pulse Rate 106 H 106 H 107 H Pulse Rate [ From Monitor] Respiratory 26 H 24 30 H Rate Blood Pressure 124/76 125/79 127/78 O2 Sat by Pulse 100 100 100 Oximetry 11/11/16 11/11/16 11/11/16 02:41 02:51 03:00 Temperature 100.0 F H Pulse Rate 107 H 106 H 107 H Pulse Rate [ From Monitor] Respiratory 28 H 18 24 Rate Blood Pressure 127/78 125/83 127/81 O2 Sat by Pulse 100 100 100 Oximetry 11/11/16 11/11/16 11/11/16 03:11 03:21 03:30 Temperature Pulse Rate 108 H 107 H 105 H Pulse Rate [ From Monitor] Respiratory 29 H 29 H 28 H Rate Blood Pressure 127/81 118/79 124/79 O2 Sat by Pulse 98 99 98 Oximetry 11/11/16 11/11/16 11/11/16 03:41 03:51 04:00 Temperature Pulse Rate 105 H 104 H 105 H Pulse Rate [ 97 H From Monitor] Respiratory 28 H 26 H 28 H Rate Blood Pressure 124/79 128/80 128/78 O2 Sat by Pulse 98 100 100 Oximetry 11/11/16 11/11/16 11/11/16 04:11 04:21 04:30 Temperature Pulse Rate 106 H 105 H 104 H Pulse Rate [ From Monitor] Respiratory 31 H 26 H 29 H Rate Blood Pressure 128/78 124/73 124/73 O2 Sat by Pulse 100 98 100 Oximetry 11/11/16 11/11/16 11/11/16 04:41 04:51 05:01 Temperature Pulse Rate 105 H 106 H 106 H Pulse Rate [ From Monitor] Respiratory 30 H 31 H 30 H Rate Blood Pressure 120/73 122/75 O2 Sat by Pulse 99 98 99 Oximetry 11/11/16 11/11/16 11/11/16 05:10 05:21 05:30 Temperature Pulse Rate 105 H 107 H 104 H Pulse Rate [ From Monitor] Respiratory 29 H 31 H 25 H Rate Blood Pressure 122/75 127/77 129/77 O2 Sat by Pulse 97 100 99 Oximetry 11/11/16 11/11/16 11/11/16 05:41 05:51 06:01 Temperature Pulse Rate 105 H 106 H 105 H Pulse Rate [ From Monitor] Respiratory 26 H 28 H 22 Rate Blood Pressure 129/77 115/73 123/72 O2 Sat by Pulse 99 99 98 Oximetry 11/11/16 11/11/16 11/11/16 06:11 06:21 06:30 Temperature Pulse Rate 106 H 106 H 105 H Pulse Rate [ From Monitor] Respiratory 29 H 28 H 26 H Rate Blood Pressure 123/72 123/71 128/77 O2 Sat by Pulse 98 98 98 Oximetry 11/11/16 11/11/16 11/11/16 06:41 06:51 07:00 Temperature 98.2 F Pulse Rate 105 H 106 H 107 H Pulse Rate [ From Monitor] Respiratory 25 H 30 H 21 Rate Blood Pressure 128/77 121/77 130/78 O2 Sat by Pulse 98 98 97 Oximetry 11/11/16 11/11/16 11/11/16 07:11 07:21 07:30 Temperature Pulse Rate 106 H 107 H 104 H Pulse Rate [ From Monitor] Respiratory 31 H 33 H 27 H Rate Blood Pressure 130/78 128/78 132/80 O2 Sat by Pulse 97 98 98 Oximetry 11/11/16 11/11/16 11/11/16 07:41 07:51 08:00 Temperature Pulse Rate 105 H 103 H 103 H Pulse Rate [ From Monitor] Respiratory 30 H 24 24 Rate Blood Pressure 132/80 125/77 129/79 O2 Sat by Pulse 98 98 98 Oximetry 11/11/16 11/11/16 11/11/16 08:10 08:11 08:21 Temperature Pulse Rate 105 H 102 H Pulse Rate [ 104 H From Monitor] Respiratory 29 H 38 H 27 H Rate Blood Pressure 129/79 129/82 O2 Sat by Pulse 99 99 100 Oximetry 11/11/16 11/11/16 11/11/16 08:30 08:41 08:51 Temperature Pulse Rate 103 H 103 H 103 H Pulse Rate [ From Monitor] Respiratory 26 H 25 H 27 H Rate Blood Pressure 114/77 114/77 118/73 O2 Sat by Pulse 99 98 100 Oximetry 11/11/16 11/11/16 11/11/16 09:00 09:11 09:21 Temperature Pulse Rate 102 H 103 H 102 H Pulse Rate [ From Monitor] Respiratory 21 29 H 27 H Rate Blood Pressure 112/70 112/70 118/70 O2 Sat by Pulse 100 100 99 Oximetry 11/11/16 11/11/16 11/11/16 09:30 09:41 09:51 Temperature Pulse Rate 101 H 103 H 105 H Pulse Rate [ From Monitor] Respiratory 24 33 H 23 Rate Blood Pressure 112/69 112/69 95/59 O2 Sat by Pulse 99 99 98 Oximetry 11/11/16 11/11/16 11/11/16 10:00 10:11 10:21 Temperature Pulse Rate 101 H 100 H 100 H Pulse Rate [ From Monitor] Respiratory 25 H 26 H 22 Rate Blood Pressure 98/61 98/61 94/61 O2 Sat by Pulse 99 99 99 Oximetry 11/11/16 10:30 Temperature Pulse Rate 100 H Pulse Rate [ From Monitor] Respiratory 26 H Rate Blood Pressure 94/60 O2 Sat by Pulse 100 Oximetry - Labs CBC & Chem 7: 11/10/16 12:30 11/10/16 12:30 Labs: Abnormal lab results 11/10/16 11/10/16 Range/Units 12:30 12:30 WBC 25.9 H (4.5-11.0) K/mm3 RBC 3.06 L (3.65-5.03) M/mm3 Hgb 9.1 L (11.8-15.2) gm/dl Hct 27.8 L (35.5-45.6) % Plt Count 49 L (140-440) K/mm3 Sodium 148 H (137-145) mmol/L Potassium 3.3 L (3.6-5.0) mmol/L Chloride 114.1 H (98-107) mmol/L Carbon Dioxide 18 L (22-30) mmol/L Creatinine 0.5 L D (0.8-1.5) mg/dL Glucose 69 L (75-100) mg/dL Calcium 6.7 L (8.4-10.2) mg/dL
--- NOTE | 2016-11-11 12:37 | Progress Note ---
Assessment and Plan Assessment and plan: 61-year-old man who is bedbound, paraplegic, hx of VTE, with chronic indwelling Santos catheter who presents to the hospital for altered mental status , found to have hypotension and sepsis and coagulopathy 1. Gram negative Severe sepsis with Septic shock, Blood cx reviewed; Gram neg rods Due to bacteremia and UTI , continue IV fluids, follow blood cultures and urine cultures Continue broad-spectrum antibiotics, ID consultation continue stress dose steroids, (he takes chronic daily prednisone at [place]), has been off pressors this am 2. Gram-negative sepsis with bacteremia, blood cultures reviewed growing gram- negative rods UTI- Hemorrhagic cystitis Urine cultures were contaminated, follow-up repeat urine culture 3. Toxic metabolic encephalopathy Mentation improved with treatment of underlying cause 4. Coagulopathy due to sepsis and warfarin Has received FFP and vitamin K, has now improved, hematology input appreciated 5. Suspected ileus- has been ruled out Repeat imaging has been done today [facility] on 11/09/16 does not show any ileus. 6. 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 There is no fluid around the IVC at this level to indicate any kind of acute perforation. 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 Stage II right hip decubitus ulcer, present on admission Continue wound care 8. Moderate severe malnutrition Patient has very fragile skin, dietitian consult, encouraged improved diet 9. 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 Adrenal insufficiency continue steroid taper 11. Hypernatremia Free water deficit calculated to be 2.4 L, D5 water ordered to replace the deficit Critical Care time 32 minutes History Interval history: he feels better, feels less fatigue and malaise, denies abdominal pain, denies headache, denies cough denies sputum production, denies fever, Hospitalist Physical - Physical exam Narrative exam: General: non Toxic appearance HEENT: MMM, EOMI cardiac: S1-S2 heard lungs: clear to auscultation, abdomen: soft, nontender, nondistended bowel sounds positive Santos seen draining clear urine extremities: no edema clubbing or cyanosis Skin: There is a decubitus on the right hip that is 1 x 1 x 2 cm, small mucopurulent discharge, no foul order, no surrounding erythema, stage II Neuro: Paraplegic, moves upper extremities, obeys commands, conversant Psych: appropriate behavior and mood, cognition intact - Constitutional Vitals: Temp Pulse Resp BP Pulse Ox 98.2 F 97 H 28 H 97/60 100 11/11/16 07:00 11/11/16 12:10 11/11/16 12:10 11/11/16 12:10 11/11/16 12:10 General appearance: Present: no acute distress Results - Labs CBC & Chem 7: 11/10/16 12:30 11/10/16 12:30 Labs: Laboratory Last Values WBC 25.9 K/mm3 (4.5-11.0) H 11/10/16 12:30 RBC 3.06 M/mm3 (3.65-5.03) L 11/10/16 12:30 Hgb 9.1 gm/dl (11.8-15.2) L 11/10/16 12:30 Hct 27.8 % (35.5-45.6) L 11/10/16 12:30 MCV 91 fl (84-94) 11/10/16 12:30 MCH 30 pg (28-32) 11/10/16 12:30 MCHC 33 % (32-34) 11/10/16 12:30 RDW 14.0 % (13.2-15.2) 11/10/16 12:30 Plt Count 49 K/mm3 (140-440) L 11/10/16 12:30 Lymph % (Auto) 15.0 % (13.4-35.0) 11/08/16 13:05 [place] % (Auto) 1.7 % (0.0-7.3) 11/08/16 13:05 Eos % (Auto) 0.3 % (0.0-4.3) 11/08/16 13:05 Baso % (Auto) 0.3 % (0.0-1.8) 11/08/16 13:05 Lymph # 0.6 K/mm3 (1.2-5.4) L 11/08/16 13:05 [place] # 0.1 K/mm3 (0.0-0.8) 11/08/16 13:05 Eos # 0.0 K/mm3 (0.0-0.4) 11/08/16 13:05 Baso # 0.0 K/mm3 (0.0-0.1) 11/08/16 13:05 Add Manual Diff Complete 11/09/16 Unknown Total Counted 100 11/09/16 Unknown Seg Neutrophils % Cart Attendant 11/09/16 Unknown Seg Neuts % (Manual) 52.0 % (40.0-70.0) 11/09/16 Unknown Band Neutrophils % 38.0 % 11/09/16 Unknown Lymphocytes % (Manual) 2.0 % (13.4-35.0) L 11/09/16 Unknown Reactive Lymphs % (Man) 0 % 11/09/16 Unknown Monocytes % (Manual) 0 % (0.0-7.3) 11/09/16 Unknown Eosinophils % (Manual) 0 % (0.0-4.3) 11/09/16 Unknown Basophils % (Manual) 0 % (0.0-1.8) 11/09/16 Unknown Metamyelocytes % 7.0 % 11/09/16 Unknown Myelocytes % 1.0 % 11/09/16 Unknown Promyelocytes % 0 % 11/09/16 Unknown Blast Cells % 0 % 11/09/16 Unknown Nucleated RBC % Not Reportable 11/09/16 Unknown Seg Neutrophils # 3.4 K/mm3 (1.8-7.7) 11/08/16 13:05 Seg Neutrophils # Man 11.2 K/mm3 (1.8-7.7) H 11/09/16 Unknown Band Neutrophils # 8.2 K/mm3 11/09/16 Unknown Lymphocytes # (Manual) 0.4 K/mm3 (1.2-5.4) L 11/09/16 Unknown Abs React Lymphs (Man) 0.0 K/mm3 11/09/16 Unknown Monocytes # (Manual) 0.0 K/mm3 (0.0-0.8) 11/09/16 Unknown Eosinophils # (Manual) 0.0 K/mm3 (0.0-0.4) 11/09/16 Unknown Basophils # (Manual) 0.0 K/mm3 (0.0-0.1) 11/09/16 Unknown Metamyelocytes # 1.5 K/mm3 11/09/16 Unknown Myelocytes # 0.2 K/mm3 11/09/16 Unknown Promyelocytes # 0.0 K/mm3 11/09/16 Unknown Blast Cells # 0.0 K/mm3 11/09/16 Unknown WBC Morphology Not Reportable 11/09/16 Unknown Hypersegmented Neuts Not Reportable 11/09/16 Unknown Hyposegmented Neuts Not Reportable 11/09/16 Unknown Hypogranular Neuts Not Reportable 11/09/16 Unknown Smudge Cells Not Reportable 11/09/16 Unknown Toxic Granulation Not Reportable 11/09/16 Unknown Toxic Vacuolation Not Reportable 11/09/16 Unknown Dohle Bodies Not Reportable 11/09/16 Unknown Pelger-Huet Anomaly Not Reportable 11/09/16 Unknown Anish Rods Not Reportable 11/09/16 Unknown Platelet Estimate Appears decreased 11/09/16 Unknown Clumped Platelets Not Reportable 11/09/16 Unknown Plt Clumps, EDTA Not Reportable 11/09/16 Unknown Large Platelets Rare 11/09/16 Unknown Giant Platelets Not Reportable 11/09/16 Unknown Platelet Satelliting Not Reportable 11/09/16 Unknown Plt Morphology Comment Not Reportable 11/09/16 Unknown RBC Morphology Not Reportable 11/09/16 Unknown Dimorphic RBCs Not Reportable 11/09/16 Unknown Polychromasia Not Reportable 11/09/16 Unknown Hypochromasia Not Reportable 11/09/16 Unknown Poikilocytosis Not Reportable 11/09/16 Unknown Anisocytosis 1+ 11/09/16 Unknown Microcytosis Not Reportable 11/09/16 Unknown Macrocytosis Not Reportable 11/09/16 Unknown Spherocytes Not Reportable 11/09/16 Unknown Pappenheimer Bodies Not Reportable 11/09/16 Unknown Sickle Cells Not Reportable 11/09/16 Unknown Target Cells Not Reportable 11/09/16 Unknown Tear Drop Cells Not Reportable 11/09/16 Unknown Ovalocytes 1+ 11/09/16 Unknown Helmet Cells Not Reportable 11/09/16 Unknown Caballero-Mettler Bodies Not Reportable 11/09/16 Unknown [place] Rings Not Reportable 11/09/16 Unknown Thai Cells Rare 11/09/16 Unknown Bite Cells Not Reportable 11/09/16 Unknown Crenated Cell Not Reportable 11/09/16 Unknown Elliptocytes Few 11/09/16 Unknown Acanthocytes (Spur) Not Reportable 11/09/16 Unknown Rouleaux Not Reportable 11/09/16 Unknown Hemoglobin C Crystals Not Reportable 11/09/16 Unknown Schistocytes Not Reportable 11/09/16 Unknown Malaria parasites Not Reportable 11/09/16 Unknown Roberto Carlos Bodies Not Reportable 11/09/16 Unknown Hem Pathologist Commnt No 11/09/16 Unknown PT 17.5 Sec. (12.2-14.9) H 11/09/16 04:00 INR 1.44 (0.87-1.13) H 11/09/16 04:00 APTT 115.0 Sec. (24.2-36.6) H* 11/08/16 14:58 VBG pH 7.257 (7.320-7.420) L 11/08/16 13:05 Sodium 148 mmol/L (137-145) H 11/10/16 12:30 Potassium 3.3 mmol/L (3.6-5.0) L 11/10/16 12:30 Chloride 114.1 mmol/L (98-107) H 11/10/16 12:30 Carbon Dioxide 18 mmol/L (22-30) L 11/10/16 12:30 Anion Gap 19 mmol/L 11/10/16 12:30 BUN 10 mg/dL (9-20) 11/10/16 12:30 Creatinine 0.5 mg/dL (0.8-1.5) L D 11/10/16 12:30 Estimated GFR > 60 ml/min 11/10/16 12:30 BUN/Creatinine Ratio 20.00 % 11/10/16 12:30 Glucose 69 mg/dL (75-100) L 11/10/16 12:30 Lactic Acid 2.00 mmol/L (0.7-2.0) 11/10/16 06:00 Calcium 6.7 mg/dL (8.4-10.2) L 11/10/16 12:30 Total Bilirubin 1.90 mg/dL (0.1-1.2) H 11/09/16 Unknown AST 107 units/L (5-40) H 11/09/16 Unknown ALT 46 units/L (7-56) 11/09/16 Unknown Alkaline Phosphatase 110 units/L (35-129) 11/09/16 Unknown Ammonia 25.0 umol/L (25-60) 11/08/16 14:58 Total Creatine Kinase 186 units/L (55-170) H 11/08/16 13:05 CK-MB (CK-2) 3.1 ng/mL (0.0-4.0) 11/08/16 13:05 CK-MB (CK-2) Rel Index 1.6 (0-4) 11/08/16 13:05 Troponin T 0.060 ng/mL (0.00-0.029) H 11/08/16 13:05 Total Protein 6.0 g/dL (6.3-8.2) L 11/09/16 Unknown Albumin 3.7 g/dL (3.9-5) L 11/09/16 Unknown Albumin/Globulin Ratio 1.6 % 11/09/16 Unknown Triglycerides 170 mg/dL (2-149) H 11/08/16 13:05 Cholesterol 212 mg/dL (50-199) H 11/08/16 13:05 LDL Cholesterol Direct 145 mg/dL (50-130) H 11/08/16 13:05 HDL Cholesterol 33 mg/dL (40-59) L 11/08/16 13:05 Cholesterol/HDL Ratio 6.42 % 11/08/16 13:05 Lipase 17 units/L (13-60) 11/08/16 13:05 Urine Color Red (Yellow) 11/08/16 12:08 Urine Turbidity Cloudy (Clear) 11/08/16 12:08 Urine pH 8.0 (5.0-7.0) H 11/08/16 12:08 Ur Specific [place] 1.012 (1.003-1.030) 11/08/16 12:08 Urine Protein 100 mg/dl mg/dL (Negative) 11/08/16 12:08 Urine Glucose (UA) Neg mg/dL (Negative) 11/08/16 12:08 Urine Ketones Tr mg/dL (Negative) 11/08/16 12:08 Urine Blood Lg (Negative) 11/08/16 12:08 Urine Nitrite Pos (Negative) 11/08/16 12:08 Urine Bilirubin Neg (Negative) 11/08/16 12:08 Urine Urobilinogen < 2.0 mg/dL (<2.0) 11/08/16 12:08 Ur Leukocyte Esterase Tr (Negative) 11/08/16 12:08 Urine WBC (Auto) 36.0 /HPF (0.0-6.0) H 11/08/16 12:08 Urine RBC (Auto) > 182.0 /HPF (0.0-6.0) 11/08/16 12:08 Urine WBC Clumps Few /HPF 11/08/16 12:08 Blood Type O POSITIVE 11/08/16 15:20
--- NOTE | 2016-11-11 13:43 | Consultation ---
History of Present Illness - Reason for Consult Consult date: 11/11/16 Sepsis - History of Present Illness Mr. López is a 61-year-old man with quadriplegia s/p a traumatic fall downstairs who was admitted with abdominal pain, altered mentation and concerns for sepsis. Chest radiograph showed no acute findings. A CT abd/ pelvis showed findings concerning for ileus vs. obstruction vs. colitis. A plain film xray of the abdomen showed the same. He has had intermittent, low-grade fevers. Blood cultures are showing polymicrobial growth with Gram positive cocci in pairs and a Gram variable prosper. Urine culture shows mixed bozena. His WBC count increased to >20K over the past 2-3 days. He is empirically prescribed Vancomycin and Zosyn. Of note, the patient has an IVC filter, which potentially complicates his polymicrobial bacteremia. ID is consulted for further treatment recommendations. Past History Past Medical History: GERD, other (gout, quadraplegia, muscle spasms, DVT with IVC filter placement, contractures) Past Surgical History: Other (IVC filter placement and back surgery) Social history: other (former smoker) Family history: hypertension Medications and Allergies Allergies Allergy/AdvReac Type Severity Reaction Status Date / Time sulfamethoxazole Allergy Rash Verified 11/08/16 10:57 [From Bactrim] trimethoprim [From Bactrim] Allergy Rash Verified 11/08/16 10:57 tuberculin, purified protein Allergy Unknown Verified 11/08/16 10:57 deriva Home Medications Medication Instructions Recorded Confirmed Last Taken Type Acetaminophen [Acetaminophen TAB] 2 tab PO Q6H PRN 11/08/16 11/08/16 Unknown History Ascorbic Acid [Vitamin C with Alexandrea 1 tab PO QDAY 11/08/16 11/08/16 Unknown History Hips] Aspirin EC [Aspirin Enteric Coated 81 mg PO QDAY 11/08/16 11/08/16 Unknown History TAB] Baclofen [Lioresal] 2 tab PO QID 11/08/16 11/08/16 Unknown History Betamethasone Dipropionate 1 applicatio INTRADERMA BID 11/08/16 11/08/16 Unknown History [Betamethasone Dipropionate 0.05% Oint] Clobetasol Propionate/Emoll 1 applicatio INTRADERMA BID 11/08/16 11/08/16 Unknown History [Clobetasol Emollient 0.05% Crm] Clopidogrel Bisulfate [Plavix] 1 tab PO QDAY 11/08/16 11/08/16 Unknown History Cyclobenzaprine HCl [Flexeril 5 MG 5 mg PO Q8H PRN 11/08/16 11/08/16 Unknown History TAB] Dantrium 1 cap PO Q8H PRN 11/08/16 11/08/16 Unknown History Diazepam [Diazepam] 5 mg PO TID 11/08/16 11/08/16 Unknown History Docusate Sodium [Colace CAP] 100 mg PO BID 11/08/16 11/08/16 Unknown History Gabapentin [Neurontin] 600 mg PO TID 11/08/16 11/08/16 Unknown History Halobetasol Propionate [Ultravate] 1 applicatio INTRADERMA Q12H PRN 11/08/1604/17 Unknown History Indomethacin [Indocin] 50 mg PO Q12H PRN 11/08/16 11/08/16 Unknown History Lactulose [Lactulose] 30 ml PO BID 11/08/16 11/08/16 Unknown History Magnesium Oxide [Mag-Ox] 1 tab PO BID 11/08/16 11/08/16 Unknown History Methyl Salicylate/Menth/Camph 1 patch INTRADERMA BID 11/08/16 11/08/16 Unknown History [Salonpas Patch] Multivitamin with Iron 1 tab PO QDAY 11/08/16 11/08/16 Unknown History [Multivitamins with Iron] Omeprazole Magnesium [PriLOSEC Otc] 1 tab PO QAM 11/08/16 11/08/16 Unknown History Prednisone [predniSONE ([place]udson) ER 5 mg PO QWEEK 11/08/16 11/08/16 Unknown History TAB] Protein Supplement [Promod] 30 ml PO BID 11/08/16 11/08/16 Unknown History Zolpidem [Ambien] 10 mg PO QDAY PRN 11/08/16 11/08/16 Unknown History diphenhydrAMINE [Benadryl CAP] 1 cap PO Q4H PRN 11/08/16 11/08/16 Unknown History methOCARBAMOL [Robaxin TAB] 2 tab PO Q6H 11/08/16 11/08/16 Unknown History oxyCODONE /ACETAMINOPHEN [Percocet 1 tab PO Q6H PRN 11/08/16 11/08/16 Unknown History 5/325 mg] Active Meds: Active Medications Acetaminophen (Tylenol) 650 mg PO Q6H PRN PRN Reason: Pain Last Admin: 11/09/16 22:16 Dose: 650 mg Ascorbic Acid (Vitamin C) 500 mg PO QDAY [facility] Last Admin: 11/11/16 09:49 Dose: 500 mg Diphenhydramine HCl (Benadryl) 25 mg PO Q4H PRN PRN Reason: Itching Last Admin: 11/11/16 00:36 Dose: 25 mg Docusate Sodium (Colace) 100 mg PO BID GARY Last Admin: 11/11/16 09:49 Dose: 100 mg Hydrocortisone Sodium Succinate (Solu-Cortef) 50 mg IV Q8HR GARY Norepinephrine (Levophed Drip 4 Mg/Ns 250 Ml) 4 mg in 250 mls @ 7.5 mls/hr IV TITR GARY; 2 MCG/MIN PRN Reason: Protocol Last Titration: 11/11/16 09:49 Dose: 0 mcg/min, 0 mls/hr Piperacillin Sod/Tazobactam Sod (Zosyn/Ns 4.5gm/100ml) 4.5 gm in 100 mls @ 200 mls/hr IV Q8HR GARY PRN Reason: Protocol Last Admin: 11/11/16 06:00 Dose: 200 mls/hr Sodium Chloride (Nacl 0.9% 1000 Ml) 1,000 mls @ 100 mls/hr IV DIRECT GARY Last Admin: 11/11/16 04:36 Dose: 100 mls/hr Vancomycin HCl 1,250 mg/ (Sodium Chloride) 275 mls @ 166.667 mls/hr IV Q12H GARY Last Admin: 11/11/16 12:26 Dose: 166.667 mls/hr Potassium Chloride 20 meq/ (Dextrose/Sodium Chloride) 1,010 mls @ 100 mls/hr IV DIRECT GARY Last Admin: 11/11/16 11:41 Dose: 100 mls/hr Miscellaneous Medication (Halobetasol Propionate [Ultravate]) 1 applicatio INTRADERMA Q12H PRN PRN Reason: Rash Pantoprazole Sodium (Protonix) 20 mg PO QAM [facility] Last Admin: 11/11/16 09:49 Dose: 20 mg Phenol (Chloraseptic) 1 spray MM PRN PRN PRN Reason: Sore Throat Review of Systems All systems: negative ((except as noted below):) Constitutional: no fever, no chills Cardiovascular: no chest pain, no palpitations Respiratory: no cough, no hemoptysis Gastrointestinal: abdominal pain, no nausea, no vomiting, no diarrhea, no change in bowel habits Integumentary: no rash, no pruritis Neurological: paralysis Physical Examination - Physical Exam Narrative exam: pleasant man in no distress, non-toxic appearance - Constitutional Vitals: Vital Signs Temp Pulse Resp BP Pulse Ox 98.2 F 98 H 23 101/67 100 11/11/16 07:00 11/11/16 13:10 11/11/16 13:10 11/11/16 13:10 11/11/16 13:10 Temperature -Last 24 Hours Temperature 98.2 F Temperature 100.0 F Temperature 100.1 F Temperature 97.9 F - EENT Eyes: Absent: conjunctival injection - Neck Neck: Present: supple, other (right IJ central line) - Respiratory Respiratory effort: normal Respiratory: bilateral: diminished - Cardiovascular Rhythm: regular (mild tachycardic) Heart Sounds: Present: S1 & S2 - Extremities Extremity abnormal: edema, other (right hip decubitus packed, serous output noted) - Abdominal General gastrointestinal: Present: soft, distended. Absent: non-tender Male genitourinary: Present: normal (Santos with yellow urine) - Integumentary Integumentary: Absent: rash - Neurologic Neurologic: no moves all extremities, other (quadriplegia) Results - Labs CBC & Chem 7: 11/10/16 12:30 11/10/16 12:30 Labs: Abnormal lab results 11/10/16 Range/Units 12:30 Sodium 148 H (137-145) mmol/L Potassium 3.3 L (3.6-5.0) mmol/L Chloride 114.1 H (98-107) mmol/L Carbon Dioxide 18 L (22-30) mmol/L Creatinine 0.5 L D (0.8-1.5) mg/dL Glucose 69 L (75-100) mg/dL Calcium 6.7 L (8.4-10.2) mg/dL Microbiology 11/09/16 18:05 Urine,[place] Urine Culture - Preliminary 11/08/16 12:08 Urine,Clean Catch Urine Culture - Final 11/08/16 13:05 Peripheral/Venous Blood Culture - Preliminary Gram Negative [place] 11/08/16 13:05 Peripheral/Venous Blood Culture - Preliminary Active Medications Acetaminophen (Tylenol) 650 mg PO Q6H PRN PRN Reason: Pain Last Admin: 11/09/16 22:16 Dose: 650 mg Ascorbic Acid (Vitamin C) 500 mg PO QDAY GARY Last Admin: 11/11/16 09:49 Dose: 500 mg Diphenhydramine HCl (Benadryl) 25 mg PO Q4H PRN PRN Reason: Itching Last Admin: 11/11/16 00:36 Dose: 25 mg Docusate Sodium (Colace) 100 mg PO BID GARY Last Admin: 11/11/16 09:49 Dose: 100 mg Hydrocortisone Sodium Succinate (Solu-Cortef) 50 mg IV Q8H GARY Norepinephrine (Levophed Drip 4 Mg/Ns 250 Ml) 4 mg in 250 mls @ 7.5 mls/hr IV TITR GARY; 2 MCG/MIN PRN Reason: Protocol Last Titration: 11/11/16 09:49 Dose: 0 mcg/min, 0 mls/hr Piperacillin Sod/Tazobactam Sod (Zosyn/Ns 4.5gm/100ml) 4.5 gm in 100 mls @ 200 mls/hr IV Q8HR GARY PRN Reason: Protocol Last Admin: 11/11/16 06:00 Dose: 200 mls/hr Sodium Chloride (Nacl 0.9% 1000 Ml) 1,000 mls @ 100 mls/hr IV DIRECT GARY Last Admin: 11/11/16 04:36 Dose: 100 mls/hr Vancomycin HCl 1,250 mg/ (Sodium Chloride) 275 mls @ 166.667 mls/hr IV Q12H GARY Last Admin: 11/11/16 12:26 Dose: 166.667 mls/hr Potassium Chloride 20 meq/ (Dextrose/Sodium Chloride) 1,010 mls @ 100 mls/hr IV DIRECT GARY Last Admin: 11/11/16 11:41 Dose: 100 mls/hr Miscellaneous Medication (Halobetasol Propionate [Ultravate]) 1 applicatio INTRADERMA Q12H PRN PRN Reason: Rash Pantoprazole Sodium (Protonix) 20 mg PO QAM [facility] Last Admin: 11/11/16 09:49 Dose: 20 mg Phenol (Chloraseptic) 1 spray MM PRN PRN PRN Reason: Sore Throat - Imaging and Cardiology Chest x-ray: report reviewed Abdominal x-ray: report reviewed CT scan - abdomen: report reviewed CT scan - pelvis: report reviewed Assessment and Plan - Patient Problems (1) Sepsis Current Visit: Yes Status: Acute Qualifiers: Sepsis type: S Plan to address problem: 1. Polymicrobial growth on blood culture. Repeat to document clearance. 2. Will add Rifampin for biofilm eradication given the presence of an IVC filter. 3. The IVC filter may require removal (if possible) depending on the species of organisms isolated. Await final results. 4. If Staph aureus or other virulent species, will obtain echocardiogram. 5. Keep empiric Vancomycin and Zosyn for now in addition to Rifampin.
[2016-11-11] MEDS: RIFADIN PO SCH (21:57)
[2016-11-12] MEDS: VANCOMYCIN 1,250 MG in NACL 0.9% 250ML 250 ML IV SCH (01:43)
[2016-11-12] MEDS: ZOSYN/NS 4.5GM/100ML 4.5 GM/100 ML VIAL IV SCH (06:15)
--- NOTE | 2016-11-12 08:13 | Progress Note ---
Assessment and Plan Assessment and plan: 61-year-old man who is bedbound, paraplegic, hx of VTE, with chronic indwelling Santos catheter who presents to the hospital for altered mental status , found to have hypotension and sepsis and coagulopathy 1. Gram negative Severe sepsis with Septic shock, Blood cx reviewed; Gram neg rods, Proteus which is sensitive to Rocephin, which she's been put on Due to bacteremia and UTI ID input appreciated, antibiotics have been changed to Rocephin and rifampin which she will continue until November 26, midline placement needed for long-term IV antibiotics. Line to be removed in a [place] [facility] when he has completed his treatment , continue IV fluids, follow blood cultures and urine culture Continue stress dose steroid taper 2. Gram-negative sepsis with bacteremia, blood cultures reviewed growing gram- negative rods UTI- Hemorrhagic cystitis Urine cultures reviewed, and they were contaminated, unfortunately repeat urine culture were given after antibiotics but not diagnostic 3. Toxic metabolic encephalopathy Mentation improved with treatment of underlying cause 4. Coagulopathy due to sepsis and warfarin Has received FFP and vitamin K, has now improved, hematology input appreciated 5. Suspected ileus- has been ruled out Repeat imaging has been done today K[facility] on 11/09/16 does not show any ileus. 6. 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 There is no fluid around the IVC at this level to indicate any kind of acute perforation. 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 Stage II right hip decubitus ulcer, present on admission Continue wound care 8. Moderate severe malnutrition Patient has very fragile skin, dietitian consult, encouraged improved diet 9. 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 Adrenal insufficiency continue steroid taper 11. Hypernatremia Free water deficit calculated to be 2.4 L, D5 water ordered to replace the deficit History Interval history: he feels better, feels less fatigue and malaise, denies abdominal pain, denies headache, denies cough denies sputum production, denies fever, Hospitalist Physical - Physical exam Narrative exam: General: non Toxic appearance HEENT: MMM, EOMI cardiac: S1-S2 heard lungs: clear to auscultation, abdomen: soft, nontender, nondistended bowel sounds positive Santos seen draining clear urine extremities: no edema clubbing or cyanosis Skin: There is a decubitus on the right hip that is 1 x 1 x 2 cm, small mucopurulent discharge, no foul order, no surrounding erythema, stage II Neuro: Paraplegic, moves upper extremities, obeys commands, conversant Psych: appropriate behavior and mood, cognition intact - Constitutional Vitals: Temp Pulse Resp BP Pulse Ox 98.9 F 107 H 20 125/63 96 11/12/16 04:33 11/12/16 04:33 11/12/16 04:33 11/12/16 04:33 11/12/16 07:50 General appearance: Present: no acute distress Results - Labs CBC & Chem 7: 11/10/16 12:30 11/10/16 12:30 Labs: Laboratory Last Values WBC 25.9 K/mm3 (4.5-11.0) H 11/10/16 12:30 RBC 3.06 M/mm3 (3.65-5.03) L 11/10/16 12:30 Hgb 9.1 gm/dl (11.8-15.2) L 11/10/16 12:30 Hct 27.8 % (35.5-45.6) L 11/10/16 12:30 MCV 91 fl (84-94) 11/10/16 12:30 MCH 30 pg (28-32) 11/10/16 12:30 MCHC 33 % (32-34) 11/10/16 12:30 RDW 14.0 % (13.2-15.2) 11/10/16 12:30 Plt Count 49 K/mm3 (140-440) L 11/10/16 12:30 Lymph % (Auto) 15.0 % (13.4-35.0) 11/08/16 13:05 [place] % (Auto) 1.7 % (0.0-7.3) 11/08/16 13:05 Eos % (Auto) 0.3 % (0.0-4.3) 11/08/16 13:05 Baso % (Auto) 0.3 % (0.0-1.8) 11/08/16 13:05 Lymph # 0.6 K/mm3 (1.2-5.4) L 11/08/16 13:05 [place] # 0.1 K/mm3 (0.0-0.8) 11/08/16 13:05 Eos # 0.0 K/mm3 (0.0-0.4) 11/08/16 13:05 Baso # 0.0 K/mm3 (0.0-0.1) 11/08/16 13:05 Add Manual Diff Complete 11/09/16 Unknown Total Counted 100 11/09/16 Unknown Seg Neutrophils % Solid Propellant Processor 11/09/16 Unknown Seg Neuts % (Manual) 52.0 % (40.0-70.0) 11/09/16 Unknown Band Neutrophils % 38.0 % 11/09/16 Unknown Lymphocytes % (Manual) 2.0 % (13.4-35.0) L 11/09/16 Unknown Reactive Lymphs % (Man) 0 % 11/09/16 Unknown Monocytes % (Manual) 0 % (0.0-7.3) 11/09/16 Unknown Eosinophils % (Manual) 0 % (0.0-4.3) 11/09/16 Unknown Basophils % (Manual) 0 % (0.0-1.8) 11/09/16 Unknown Metamyelocytes % 7.0 % 11/09/16 Unknown Myelocytes % 1.0 % 11/09/16 Unknown Promyelocytes % 0 % 11/09/16 Unknown Blast Cells % 0 % 11/09/16 Unknown Nucleated RBC % Not Reportable 11/09/16 Unknown Seg Neutrophils # 3.4 K/mm3 (1.8-7.7) 11/08/16 13:05 Seg Neutrophils # Man 11.2 K/mm3 (1.8-7.7) H 11/09/16 Unknown Band Neutrophils # 8.2 K/mm3 11/09/16 Unknown Lymphocytes # (Manual) 0.4 K/mm3 (1.2-5.4) L 11/09/16 Unknown Abs React Lymphs (Man) 0.0 K/mm3 11/09/16 Unknown Monocytes # (Manual) 0.0 K/mm3 (0.0-0.8) 11/09/16 Unknown Eosinophils # (Manual) 0.0 K/mm3 (0.0-0.4) 11/09/16 Unknown Basophils # (Manual) 0.0 K/mm3 (0.0-0.1) 11/09/16 Unknown Metamyelocytes # 1.5 K/mm3 11/09/16 Unknown Myelocytes # 0.2 K/mm3 11/09/16 Unknown Promyelocytes # 0.0 K/mm3 11/09/16 Unknown Blast Cells # 0.0 K/mm3 11/09/16 Unknown WBC Morphology Not Reportable 11/09/16 Unknown Hypersegmented Neuts Not Reportable 11/09/16 Unknown Hyposegmented Neuts Not Reportable 11/09/16 Unknown Hypogranular Neuts Not Reportable 11/09/16 Unknown Smudge Cells Not Reportable 11/09/16 Unknown Toxic Granulation Not Reportable 11/09/16 Unknown Toxic Vacuolation Not Reportable 11/09/16 Unknown Dohle Bodies Not Reportable 11/09/16 Unknown Pelger-Huet Anomaly Not Reportable 11/09/16 Unknown Anish Rods Not Reportable 11/09/16 Unknown Platelet Estimate Appears decreased 11/09/16 Unknown Clumped Platelets Not Reportable 11/09/16 Unknown Plt Clumps, EDTA Not Reportable 11/09/16 Unknown Large Platelets Rare 11/09/16 Unknown Giant Platelets Not Reportable 11/09/16 Unknown Platelet Satelliting Not Reportable 11/09/16 Unknown Plt Morphology Comment Not Reportable 11/09/16 Unknown RBC Morphology Not Reportable 11/09/16 Unknown Dimorphic RBCs Not Reportable 11/09/16 Unknown Polychromasia Not Reportable 11/09/16 Unknown Hypochromasia Not Reportable 11/09/16 Unknown Poikilocytosis Not Reportable 11/09/16 Unknown Anisocytosis 1+ 11/09/16 Unknown Microcytosis Not Reportable 11/09/16 Unknown Macrocytosis Not Reportable 11/09/16 Unknown Spherocytes Not Reportable 11/09/16 Unknown Pappenheimer Bodies Not Reportable 11/09/16 Unknown Sickle Cells Not Reportable 11/09/16 Unknown Target Cells Not Reportable 11/09/16 Unknown Tear Drop Cells Not Reportable 11/09/16 Unknown Ovalocytes 1+ 11/09/16 Unknown Helmet Cells Not Reportable 11/09/16 Unknown Caballero-Montegut Bodies Not Reportable 11/09/16 Unknown [place] Rings Not Reportable 11/09/16 Unknown Thai Cells Rare 11/09/16 Unknown Bite Cells Not Reportable 11/09/16 Unknown Crenated Cell Not Reportable 11/09/16 Unknown Elliptocytes Few 11/09/16 Unknown Acanthocytes (Spur) Not Reportable 11/09/16 Unknown Rouleaux Not Reportable 11/09/16 Unknown Hemoglobin C Crystals Not Reportable 11/09/16 Unknown Schistocytes Not Reportable 11/09/16 Unknown Malaria parasites Not Reportable 11/09/16 Unknown Roberto Carlos Bodies Not Reportable 11/09/16 Unknown Hem Pathologist Commnt No 11/09/16 Unknown PT 17.5 Sec. (12.2-14.9) H 11/09/16 04:00 INR 1.44 (0.87-1.13) H 11/09/16 04:00 APTT 115.0 Sec. (24.2-36.6) H* 11/08/16 14:58 VBG pH 7.257 (7.320-7.420) L 11/08/16 13:05 Sodium 148 mmol/L (137-145) H 11/10/16 12:30 Potassium 3.3 mmol/L (3.6-5.0) L 11/10/16 12:30 Chloride 114.1 mmol/L (98-107) H 11/10/16 12:30 Carbon Dioxide 18 mmol/L (22-30) L 11/10/16 12:30 Anion Gap 19 mmol/L 11/10/16 12:30 BUN 10 mg/dL (9-20) 11/10/16 12:30 Creatinine 0.5 mg/dL (0.8-1.5) L D 11/10/16 12:30 Estimated GFR > 60 ml/min 11/10/16 12:30 BUN/Creatinine Ratio 20.00 % 11/10/16 12:30 Glucose 69 mg/dL (75-100) L 11/10/16 12:30 Lactic Acid 2.00 mmol/L (0.7-2.0) 11/10/16 06:00 Calcium 6.7 mg/dL (8.4-10.2) L 11/10/16 12:30 Total Bilirubin 1.90 mg/dL (0.1-1.2) H 11/09/16 Unknown AST 107 units/L (5-40) H 11/09/16 Unknown ALT 46 units/L (7-56) 11/09/16 Unknown Alkaline Phosphatase 110 units/L (35-129) 11/09/16 Unknown Ammonia 25.0 umol/L (25-60) 11/08/16 14:58 Total Creatine Kinase 186 units/L (55-170) H 11/08/16 13:05 CK-MB (CK-2) 3.1 ng/mL (0.0-4.0) 11/08/16 13:05 CK-MB (CK-2) Rel Index 1.6 (0-4) 11/08/16 13:05 Troponin T 0.060 ng/mL (0.00-0.029) H 11/08/16 13:05 Total Protein 6.0 g/dL (6.3-8.2) L 11/09/16 Unknown Albumin 3.7 g/dL (3.9-5) L 11/09/16 Unknown Albumin/Globulin Ratio 1.6 % 11/09/16 Unknown Triglycerides 170 mg/dL (2-149) H 11/08/16 13:05 Cholesterol 212 mg/dL (50-199) H 11/08/16 13:05 LDL Cholesterol Direct 145 mg/dL (50-130) H 11/08/16 13:05 HDL Cholesterol 33 mg/dL (40-59) L 11/08/16 13:05 Cholesterol/HDL Ratio 6.42 % 11/08/16 13:05 Lipase 17 units/L (13-60) 11/08/16 13:05 Urine Color Red (Yellow) 11/08/16 12:08 Urine Turbidity Cloudy (Clear) 11/08/16 12:08 Urine pH 8.0 (5.0-7.0) H 11/08/16 12:08 Ur Specific [place] 1.012 (1.003-1.030) 11/08/16 12:08 Urine Protein 100 mg/dl mg/dL (Negative) 11/08/16 12:08 Urine Glucose (UA) Neg mg/dL (Negative) 11/08/16 12:08 Urine Ketones Tr mg/dL (Negative) 11/08/16 12:08 Urine Blood Lg (Negative) 11/08/16 12:08 Urine Nitrite Pos (Negative) 11/08/16 12:08 Urine Bilirubin Neg (Negative) 11/08/16 12:08 Urine Urobilinogen < 2.0 mg/dL (<2.0) 11/08/16 12:08 Ur Leukocyte Esterase Tr (Negative) 11/08/16 12:08 Urine WBC (Auto) 36.0 /HPF (0.0-6.0) H 11/08/16 12:08 Urine RBC (Auto) > 182.0 /HPF (0.0-6.0) 11/08/16 12:08 Urine WBC Clumps Few /HPF 11/08/16 12:08 Blood Type O POSITIVE 11/08/16 15:20
[2016-11-12] MEDS: RIFADIN PO SCH (10:53)
[2016-11-12] MEDS: PROTONIX PO SCH (10:53)
[2016-11-12] MEDS: COLACE PO SCH ×2 (10:54→21:45)
[2016-11-12] MEDS: VITAMIN C PO SCH (10:54)
--- NOTE | 2016-11-12 11:48 | Progress Note ---
Assessment and Plan - Patient Problems (1) Sepsis Current Visit: Yes Status: Acute Qualifiers: Sepsis type: S Plan to address problem: 1. Proteus mirabilis bacteremia with questionable secondary Gram positive organism. 2. Will change to Rocephin 1g IV q24h and Rifampin 600mg daily to complete a course through November 26, 2016. 3. If there have been other malfunctioning issues with the patient's IVC filter, then it may be ideal to proceed with its removal. It is NOT necessary to remove it for the current bacteremia however. 4. Patient will need a mid-line placement to complete antibiotics at [facility] facility. Will order and remove central line. Subjective Date of service: 11/12/16 Interval history: Patient is improved. Transferred from ICU. Remains afebrile. Has no new complaints. Objective - Constitutional Vitals: Vital Signs Temp Pulse Resp BP Pulse Ox 98.9 F 100 H 26 H 113/63 96 11/12/16 07:30 11/12/16 09:50 11/12/16 07:30 11/12/16 07:30 11/12/16 07:50 Temperature -Last 24 Hours Temperature 98.9 F Temperature 98.9 F Temperature 97.6 F Temperature 98.2 F Temperature 99.1 F Temperature 99.4 F General appearance: Present: no acute distress, other (being fed lunch by nurse) - EENT Eyes: no conjunctival injection - Neck Neck: supple, other (right IJ central line without surrounding inflammation) - Respiratory Respiratory effort: normal Respiratory: bilateral: CTA - Cardiovascular Rhythm: regular Heart Sounds: Present: S1 & S2 Extremity abnormal: edema - Gastrointestinal General gastrointestinal: Present: soft, non-distended - Genitourinary Male genitourinary: normal (Santos with orange urine collected) - Integumentary Integumentary: no rash - Neurologic Neurologic: other (quadriplegia) - Psychiatric Psychiatric: appropriate mood/affect - Labs CBC & Chem 7: 11/10/16 12:30 11/10/16 12:30 Labs: Microbiology 11/08/16 13:05 Peripheral/Venous Blood Culture - Preliminary 11/08/16 13:05 Peripheral/Venous Blood Culture - Preliminary Proteus Mirabilis Gram Negative [place] 11/11/16 23:27 Peripheral/Venous Blood Culture - Preliminary Culture in Progress 11/12/16 00:08 Peripheral/Venous Blood Culture - Preliminary Culture in Progress 11/09/16 18:05 Urine,Santos [place] Urine Culture - Preliminary 11/08/16 12:08 Urine,Clean Catch Urine Culture - Final Active Medications Acetaminophen (Tylenol) 650 mg PO Q6H PRN PRN Reason: Pain Last Admin: 11/09/16 22:16 Dose: 650 mg Ascorbic Acid (Vitamin C) 500 mg PO QDAY GARY Last Admin: 11/12/16 10:54 Dose: 500 mg Diphenhydramine HCl (Benadryl) 25 mg PO Q4H PRN PRN Reason: Itching Last Admin: 11/11/16 21:57 Dose: 25 mg Docusate Sodium (Colace) 100 mg PO BID GARY Last Admin: 11/12/16 10:54 Dose: 100 mg Hydrocortisone Sodium Succinate (Solu-Cortef) 25 mg IV Q8H GARY Last Admin: 11/12/16 10:53 Dose: 25 mg Norepinephrine (Levophed Drip 4 Mg/Ns 250 Ml) 4 mg in 250 mls @ 7.5 mls/hr IV TITR GARY; 2 MCG/MIN PRN Reason: Protocol Last Titration: 11/11/16 09:49 Dose: 0 mcg/min, 0 mls/hr Piperacillin Sod/Tazobactam Sod (Zosyn/Ns 4.5gm/100ml) 4.5 gm in 100 mls @ 200 mls/hr IV Q8HR GARY PRN Reason: Protocol Last Admin: 11/12/16 06:15 Dose: 200 mls/hr Sodium Chloride (Nacl 0.9% 1000 Ml) 1,000 mls @ 100 mls/hr IV DIRECT GARY Last Admin: 11/11/16 04:36 Dose: 100 mls/hr Vancomycin HCl 1,250 mg/ (Sodium Chloride) 275 mls @ 166.667 mls/hr IV Q12H GARY Last Admin: 11/12/16 01:43 Dose: 166.667 mls/hr Potassium Chloride 20 meq/ (Dextrose/Sodium Chloride) 1,010 mls @ 100 mls/hr IV DIRECT GARY Last Admin: 11/11/16 11:41 Dose: 100 mls/hr Miscellaneous Medication (Halobetasol Propionate [Ultravate]) 1 applicatio INTRADERMA Q12H PRN PRN Reason: Rash Pantoprazole Sodium (Protonix) 20 mg PO QAM [facility] Last Admin: 11/12/16 10:53 Dose: 20 mg Phenol (Chloraseptic) 1 spray MM PRN PRN PRN Reason: Sore Throat Rifampin (Rifadin) 600 mg PO QDAY [facility] Last Admin: 11/12/16 10:53 Dose: 600 mg
[2016-11-12] MEDS: ROCEPHIN/NS 1 GM/50 ML 1 GM/50 ML BAG IV SCH (13:45)
[2016-11-12] MEDS ORDERED: KCL 20MEQ/100ML 20 MEQ/100 ML BAG IV ONE (15:30)
[2016-11-12] MEDS ORDERED: KCL 20 MEQ in D5W 1,000 ML IV SCH (15:45)
--- NOTE | 2016-11-13 09:24 | Hem/Onc Progress Note ---
Assessment and Plan pt clinically improved ck plt today continue to monitor thombocytopenia seems to sec to g - sepsis infection watch for bleeding Subjective Date of service: 11/13/16 Interval history: pt feels fair. still weak. no active bleeding Objective - Constitutional Vitals: Last Vital Signs Temp 97.5 F L 11/13/16 08:53 Pulse 92 H 11/13/16 08:53 Resp 18 11/13/16 08:53 BP 127/74 11/13/16 08:53 Pulse Ox 98 11/13/16 08:53 - Neck Neck: supple - Respiratory Respiratory: bilateral: diminished - Cardiovascular Rhythm: regular - Gastrointestinal General gastrointestinal: Present: soft
--- NOTE | 2016-11-13 10:07 | Discharge Summary ---
Providers - Providers Date of Admission: 11/08/16 16:45 Attending physician: ESTHELA MARR MD 11/08/16 18:16 Consult to Physician [CONS] Urgent Consulting Provider: ASHLEE HAYES Reason For Exam: extraluminal IVC filter Notified:: y 11/08/16 19:11 Consult to Physician [CONS] Urgent Consulting Provider: TANNER ACOSTA Reason For Exam: COAGULOPATHY, THROMBOCYTOPENIA Notified:: y If yes, spoke with:: Dr Stewart 11/09/16 17:52 Consult to Physician [CONS] Routine Consulting Provider: LIVIER WARREN Reason For Exam: sepsis Place consult to:: Dr Warren Notified:: dr Warren Phone number called:: [phone] Was contact made?: Yes If yes, spoke with:: Dr Warren Time called:: 12:43 11/09/16 17:54 Consult to Wound/ET Nurse [CONS] Routine Reason For Exam: wound eval 11/12/16 06:19 Speech Therapy Evaluation and Treat [CONS] Routine Reason For Exam: swallow screen 11/12/16 11:50 PICC Line Placement [Consult to PICC Line RN] [CONS] Routine Reason For Exam: Long-term IV antibiotics Type Line:: PICC 11/13/16 04:36 Consult to Dietitian/Nutrition [CONS] Routine Physician Instructions: Reason For Exam: Reason for Consult: Diet education Primary care physician: PHARMACY STUDENT Hospitalization Condition: Stable Hospital course: 61-year-old man who is bedbound, paraplegic, hx of VTE, with chronic indwelling Santos catheter who presents to the hospital for altered mental status , found to have hypotension and sepsis and coagulopathy 1. Gram negative Severe sepsis with Septic shock, Blood cx reviewed; Gram neg rods, Proteus which is sensitive to Rocephin, which she's been put on Due to bacteremia and UTI ID input appreciated, antibiotics have been changed to Rocephin and rifampin which she will continue until November 26, midline placement needed for long-term IV antibiotics. Line to be removed in a snf when he has completed his treatment , continue IV fluids, follow blood cultures and urine culture Continue stress dose steroid taper 2. Gram-negative sepsis with bacteremia, blood cultures reviewed growing gram- negative rods UTI- Hemorrhagic cystitis Urine cultures reviewed, and they were contaminated, unfortunately repeat urine culture were given after antibiotics but not diagnostic 3. Toxic metabolic encephalopathy Mentation improved with treatment of underlying cause 4. Coagulopathy due to sepsis and warfarin Has received FFP and vitamin K, has now improved, hematology input appreciated 5. Suspected ileus- has been ruled out Repeat imaging has been done today [facility] on 11/09/16 does not show any ileus. 6. 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 There is no fluid around the IVC at this level to indicate any kind of acute perforation. 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 Stage II right hip decubitus ulcer, present on admission Continue wound care 8. Moderate severe malnutrition Patient has very fragile skin, dietitian consult, encouraged improved diet 9. 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 Adrenal insufficiency continue steroid taper 11. Hypernatremia Free water deficit calculated to be 2.4 L, D5 water ordered to replace the deficit Disposition: DC/[facility] SNF [facility] Time spent for discharge: 35 minutes Core Measure Documentation - Palliative Care Palliative Care/ Comfort Measures: Not Applicable - Core Measures Any of the following diagnoses?: none Exam - Physical Exam Narrative exam: General: non Toxic appearance HEENT: MMM, EOMI cardiac: S1-S2 heard lungs: clear to auscultation, abdomen: soft, nontender, nondistended bowel sounds positive Santos seen draining clear urine extremities: no edema clubbing or cyanosis Skin: There is a decubitus on the right hip that is 1 x 1 x 2 cm, small mucopurulent discharge, no foul order, no surrounding erythema, stage II Neuro: Paraplegic, moves upper extremities, obeys commands, conversant Psych: appropriate behavior and mood, cognition intact - Constitutional Vitals: Temp Pulse Resp BP Pulse Ox 97.5 F L 92 H 18 127/74 98 11/13/16 08:53 11/13/16 08:53 11/13/16 08:53 11/13/16 08:53 11/13/16 08:53 Plan Additional Instructions: Needs weekly CBC and BMP. On warfarin, please check INR within 2 days of DC. -Please discontinue PICC line after he has completed antibiotics Follow up with: PRIMARY CARE, [Primary Care Provider] - 3-5 Days Prescriptions: Meropenem [Merrem] 1,000 mg IV Q8H 14 Days oxyCODONE /ACETAMINOPHEN [Percocet 5/325 mg] 1 tab PO Q6H PRN #7 tablet PRN Reason: Pain Potassium Chloride [K-Dur] 20 meq PO BID #14 tab Rifampin [Rifadin] 600 mg PO QDAY #14 capsule Warfarin [Coumadin] 5 mg PO QDAY #7 tablet
[2016-11-13] MEDS: COLACE PO SCH ×2 (11:38→21:31)
[2016-11-13] MEDS: RIFADIN PO SCH (11:38)
[2016-11-13] MEDS: PROTONIX PO SCH (11:38)
[2016-11-13] MEDS: VITAMIN C PO SCH (11:38)
[2016-11-13] MEDS: ROCEPHIN/NS 1 GM/50 ML 1 GM/50 ML BAG IV SCH (12:00)
--- NOTE | 2016-11-13 15:22 | Progress Note ---
Assessment and Plan Assessment and plan: 61-year-old man who is bedbound, paraplegic, hx of VTE, with chronic indwelling Santos catheter who presents to the hospital for altered mental status , found to have hypotension and sepsis and coagulopathy 1. Gram negative Severe sepsis, polymicrobial sepsis with Septic shock, Blood cx reviewed; Gram neg rods, Proteus which is sensitive to Rocephin, which he's been put on Due to bacteremia and UTI ID input appreciated, polymicrobial sepsis continue Rocephin and rifampin which she will continue until November 26, PICC line placement needed for long-term IV antibiotics. Line to be removed in a fci when he has completed his treatment , continue IV fluids, follow blood cultures and urine culture Continue stress dose steroid taper 2. Gram-negative sepsis with bacteremia, blood cultures reviewed growing gram- negative rods UTI- Hemorrhagic cystitis Urine cultures reviewed, and they were contaminated, unfortunately repeat urine culture were given after antibiotics but not diagnostic 3. 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 Coagulopathy due to sepsis and warfarin Has received FFP and vitamin K, has now improved, hematology input appreciated 5. Suspected ileus- has been ruled out Repeat imaging has been done today KUB on 11/09/16 does not show any ileus. 6. 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 There is no fluid around the IVC at this level to indicate any kind of acute perforation. 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 Stage II right hip decubitus ulcer, present on admission Continue wound care 8. Moderate severe malnutrition Patient has very fragile skin, dietitian consult, encouraged improved diet 9. 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 Adrenal insufficiency continue steroid taper 11. Hypernatremia Has been getting D5 water, recheck sodium levels 12. Toxic metabolic encephalopathy Mentation improved with treatment of underlying cause 13. Bilateral LE edema and SOB -hold IVF, check ECHO, IV lasix Plan of care discussed with patient History Interval history: he feels better, feels less fatigue and malaise, denies abdominal pain, denies headache, denies cough denies sputum production, denies fever, Hospitalist Physical - Physical exam Narrative exam: General: non Toxic appearance HEENT: MMM, EOMI cardiac: S1-S2 heard lungs: clear to auscultation, abdomen: soft, nontender, nondistended bowel sounds positive Santos seen draining clear urine extremities: 3 plus bipedal edema Skin: There is a decubitus on the right hip that is 1 x 1 x 2 cm, small mucopurulent discharge, no foul order, no surrounding erythema, stage II Neuro: Paraplegic, moves upper extremities, obeys commands, conversant Psych: appropriate behavior and mood, cognition intact - Constitutional Vitals: Temp Pulse Resp BP Pulse Ox 98.9 F 89 18 132/72 99 11/13/16 14:02 11/13/16 14:02 11/13/16 14:02 11/13/16 14:02 11/13/16 14:02 General appearance: Present: no acute distress Results - Labs CBC & Chem 7: 11/10/16 12:30 11/10/16 12:30 Labs: Laboratory Last Values WBC 25.9 K/mm3 (4.5-11.0) H 11/10/16 12:30 RBC 3.06 M/mm3 (3.65-5.03) L 11/10/16 12:30 Hgb 9.1 gm/dl (11.8-15.2) L 11/10/16 12:30 Hct 27.8 % (35.5-45.6) L 11/10/16 12:30 MCV 91 fl (84-94) 11/10/16 12:30 MCH 30 pg (28-32) 11/10/16 12:30 MCHC 33 % (32-34) 11/10/16 12:30 RDW 14.0 % (13.2-15.2) 11/10/16 12:30 Plt Count 49 K/mm3 (140-440) L 11/10/16 12:30 Lymph % (Auto) 15.0 % (13.4-35.0) 11/08/16 13:05 [place] % (Auto) 1.7 % (0.0-7.3) 11/08/16 13:05 Eos % (Auto) 0.3 % (0.0-4.3) 11/08/16 13:05 Baso % (Auto) 0.3 % (0.0-1.8) 11/08/16 13:05 Lymph # 0.6 K/mm3 (1.2-5.4) L 11/08/16 13:05 [place] # 0.1 K/mm3 (0.0-0.8) 11/08/16 13:05 Eos # 0.0 K/mm3 (0.0-0.4) 11/08/16 13:05 Baso # 0.0 K/mm3 (0.0-0.1) 11/08/16 13:05 Add Manual Diff Complete 11/09/16 Unknown Total Counted 100 11/09/16 Unknown Seg Neutrophils % Staff Veterinarian 11/09/16 Unknown Seg Neuts % (Manual) 52.0 % (40.0-70.0) 11/09/16 Unknown Band Neutrophils % 38.0 % 11/09/16 Unknown Lymphocytes % (Manual) 2.0 % (13.4-35.0) L 11/09/16 Unknown Reactive Lymphs % (Man) 0 % 11/09/16 Unknown Monocytes % (Manual) 0 % (0.0-7.3) 11/09/16 Unknown Eosinophils % (Manual) 0 % (0.0-4.3) 11/09/16 Unknown Basophils % (Manual) 0 % (0.0-1.8) 11/09/16 Unknown Metamyelocytes % 7.0 % 11/09/16 Unknown Myelocytes % 1.0 % 11/09/16 Unknown Promyelocytes % 0 % 11/09/16 Unknown Blast Cells % 0 % 11/09/16 Unknown Nucleated RBC % Not Reportable 11/09/16 Unknown Seg Neutrophils # 3.4 K/mm3 (1.8-7.7) 11/08/16 13:05 Seg Neutrophils # Man 11.2 K/mm3 (1.8-7.7) H 11/09/16 Unknown Band Neutrophils # 8.2 K/mm3 11/09/16 Unknown Lymphocytes # (Manual) 0.4 K/mm3 (1.2-5.4) L 11/09/16 Unknown Abs React Lymphs (Man) 0.0 K/mm3 11/09/16 Unknown Monocytes # (Manual) 0.0 K/mm3 (0.0-0.8) 11/09/16 Unknown Eosinophils # (Manual) 0.0 K/mm3 (0.0-0.4) 11/09/16 Unknown Basophils # (Manual) 0.0 K/mm3 (0.0-0.1) 11/09/16 Unknown Metamyelocytes # 1.5 K/mm3 11/09/16 Unknown Myelocytes # 0.2 K/mm3 11/09/16 Unknown Promyelocytes # 0.0 K/mm3 11/09/16 Unknown Blast Cells # 0.0 K/mm3 11/09/16 Unknown WBC Morphology Not Reportable 11/09/16 Unknown Hypersegmented Neuts Not Reportable 11/09/16 Unknown Hyposegmented Neuts Not Reportable 11/09/16 Unknown Hypogranular Neuts Not Reportable 11/09/16 Unknown Smudge Cells Not Reportable 11/09/16 Unknown Toxic Granulation Not Reportable 11/09/16 Unknown Toxic Vacuolation Not Reportable 11/09/16 Unknown Dohle Bodies Not Reportable 11/09/16 Unknown Pelger-Huet Anomaly Not Reportable 11/09/16 Unknown Anish Rods Not Reportable 11/09/16 Unknown Platelet Estimate Appears decreased 11/09/16 Unknown Clumped Platelets Not Reportable 11/09/16 Unknown Plt Clumps, EDTA Not Reportable 11/09/16 Unknown Large Platelets Rare 11/09/16 Unknown Giant Platelets Not Reportable 11/09/16 Unknown Platelet Satelliting Not Reportable 11/09/16 Unknown Plt Morphology Comment Not Reportable 11/09/16 Unknown RBC Morphology Not Reportable 11/09/16 Unknown Dimorphic RBCs Not Reportable 11/09/16 Unknown Polychromasia Not Reportable 11/09/16 Unknown Hypochromasia Not Reportable 11/09/16 Unknown Poikilocytosis Not Reportable 11/09/16 Unknown Anisocytosis 1+ 11/09/16 Unknown Microcytosis Not Reportable 11/09/16 Unknown Macrocytosis Not Reportable 11/09/16 Unknown Spherocytes Not Reportable 11/09/16 Unknown Pappenheimer Bodies Not Reportable 11/09/16 Unknown Sickle Cells Not Reportable 11/09/16 Unknown Target Cells Not Reportable 11/09/16 Unknown Tear Drop Cells Not Reportable 11/09/16 Unknown Ovalocytes 1+ 11/09/16 Unknown Helmet Cells Not Reportable 11/09/16 Unknown [place] Bodies Not Reportable 11/09/16 Unknown [place] Rings Not Reportable 11/09/16 Unknown [place] Cells Rare 11/09/16 Unknown Bite Cells Not Reportable 11/09/16 Unknown Crenated Cell Not Reportable 11/09/16 Unknown Elliptocytes Few 11/09/16 Unknown Acanthocytes (Spur) Not Reportable 11/09/16 Unknown Rouleaux Not Reportable 11/09/16 Unknown Hemoglobin C Crystals Not Reportable 11/09/16 Unknown Schistocytes Not Reportable 11/09/16 Unknown Malaria parasites Not Reportable 11/09/16 Unknown [place] Bodies Not Reportable 11/09/16 Unknown Hem Pathologist Commnt No 11/09/16 Unknown PT 17.5 Sec. (12.2-14.9) H 11/09/16 04:00 INR 1.44 (0.87-1.13) H 11/09/16 04:00 APTT 115.0 Sec. (24.2-36.6) H* 11/08/16 14:58 VBG pH 7.257 (7.320-7.420) L 11/08/16 13:05 Sodium 148 mmol/L (137-145) H 11/10/16 12:30 Potassium 3.3 mmol/L (3.6-5.0) L 11/10/16 12:30 Chloride 114.1 mmol/L (98-107) H 11/10/16 12:30 Carbon Dioxide 18 mmol/L (22-30) L 11/10/16 12:30 Anion Gap 19 mmol/L 11/10/16 12:30 BUN 10 mg/dL (9-20) 11/10/16 12:30 Creatinine 0.5 mg/dL (0.8-1.5) L D 11/10/16 12:30 Estimated GFR > 60 ml/min 11/10/16 12:30 BUN/Creatinine Ratio 20.00 % 11/10/16 12:30 Glucose 69 mg/dL (75-100) L 11/10/16 12:30 Lactic Acid 2.00 mmol/L (0.7-2.0) 11/10/16 06:00 Calcium 6.7 mg/dL (8.4-10.2) L 11/10/16 12:30 Total Bilirubin 1.90 mg/dL (0.1-1.2) H 11/09/16 Unknown AST 107 units/L (5-40) H 11/09/16 Unknown ALT 46 units/L (7-56) 11/09/16 Unknown Alkaline Phosphatase 110 units/L (35-129) 11/09/16 Unknown Ammonia 25.0 umol/L (25-60) 11/08/16 14:58 Total Creatine Kinase 186 units/L (55-170) H 11/08/16 13:05 CK-MB (CK-2) 3.1 ng/mL (0.0-4.0) 11/08/16 13:05 CK-MB (CK-2) Rel Index 1.6 (0-4) 11/08/16 13:05 Troponin T 0.060 ng/mL (0.00-0.029) H 11/08/16 13:05 Total Protein 6.0 g/dL (6.3-8.2) L 11/09/16 Unknown Albumin 3.7 g/dL (3.9-5) L 11/09/16 Unknown Albumin/Globulin Ratio 1.6 % 11/09/16 Unknown Triglycerides 170 mg/dL (2-149) H 11/08/16 13:05 Cholesterol 212 mg/dL (50-199) H 11/08/16 13:05 LDL Cholesterol Direct 145 mg/dL (50-130) H 11/08/16 13:05 HDL Cholesterol 33 mg/dL (40-59) L 11/08/16 13:05 Cholesterol/HDL Ratio 6.42 % 11/08/16 13:05 Lipase 17 units/L (13-60) 11/08/16 13:05 Urine Color Red (Yellow) 11/08/16 12:08 Urine Turbidity Cloudy (Clear) 11/08/16 12:08 Urine pH 8.0 (5.0-7.0) H 11/08/16 12:08 Ur Specific [place] 1.012 (1.003-1.030) 11/08/16 12:08 Urine Protein 100 mg/dl mg/dL (Negative) 11/08/16 12:08 Urine Glucose (UA) Neg mg/dL (Negative) 11/08/16 12:08 Urine Ketones Tr mg/dL (Negative) 11/08/16 12:08 Urine Blood Lg (Negative) 11/08/16 12:08 Urine Nitrite Pos (Negative) 11/08/16 12:08 Urine Bilirubin Neg (Negative) 11/08/16 12:08 Urine Urobilinogen < 2.0 mg/dL (<2.0) 11/08/16 12:08 Ur Leukocyte Esterase Tr (Negative) 11/08/16 12:08 Urine WBC (Auto) 36.0 /HPF (0.0-6.0) H 11/08/16 12:08 Urine RBC (Auto) > 182.0 /HPF (0.0-6.0) 11/08/16 12:08 Urine WBC Clumps Few /HPF 11/08/16 12:08 Blood Type O POSITIVE 11/08/16 15:20
[2016-11-13 15:23] LABS: Hematocrit 33.8 % (35.5-45.6); Hemoglobin 11.4 gm/dl (11.8-15.2); Mean Corpuscular HGB Conc 34 % (32-34); Mean Corpuscular Hemoglobin 30 pg (28-32); Mean Corpuscular Volume 89 fl (84-94); Platelet Count 120 K/mm3 (140-440); Red Blood Count 3.82 M/mm3 (3.65-5.03); Red Cell Distribution Width 14.2 % (13.2-15.2)
[2016-11-13 15:29] LABS: Blood Urea Nitrogen 6 mg/dL (9-20); Calcium 7.6 mg/dL (8.4-10.2); Carbon Dioxide 26 mmol/L (22-30); Chloride 105.4 mmol/L (98-107); Glucose 88 mg/dL (75-100); Sodium 145 mmol/L (137-145)
[2016-11-13 15:30] LABS: INR 1.15 (0.87-1.13)
[2016-11-13 15:31] LABS: Partial Thromboplastin Time 23.5 Sec. (24.2-36.6)
[2016-11-13 15:31] LABS: White Blood Count 27.5 K/mm3 (4.5-11.0)
--- NOTE | 2016-11-13 15:35 | Progress Note ---
Assessment and Plan - Patient Problems (1) Sepsis Current Visit: Yes Status: Acute Qualifiers: Sepsis type: S Plan to address problem: 1. Plan as previously noted yesterday in terms of duration, etc. However, will change Ceftriaxone to Ertapenem 1g IV q24h as Klebsiella is ESBL(+). 2. Continue Ertapenem along with oral Rifampin through November 26, 2016. 3. As Ertapenem is non-formulary, will given Meropenem until patient is discharged. 4. Change of therapy discussed with case management. 5. Contact isolation. Subjective Date of service: 11/13/16 Interval history: One species from blood culture is an ESBL(+) organism. No new complaints. Objective - Constitutional Vitals: Vital Signs Temp Pulse Resp BP Pulse Ox 98.9 F 89 18 132/72 99 11/13/16 14:02 11/13/16 14:02 11/13/16 14:02 11/13/16 14:02 11/13/16 14:02 Temperature -Last 24 Hours Temperature 98.9 F Temperature 97.5 F Temperature 99.1 F Temperature 98.5 F Temperature 98.0 F Temperature 98.1 F General appearance: Present: no acute distress - Respiratory Respiratory effort: normal - Cardiovascular Rhythm: regular Heart Sounds: Present: S1 & S2 Extremity abnormal: edema (trace bilat) - Gastrointestinal General gastrointestinal: Present: soft, non-distended - Integumentary Integumentary: no rash - Neurologic Neurologic: other (quadriplegia) - Psychiatric Psychiatric: appropriate mood/affect - Additional findings Additional findings: right IJ central line - Labs CBC & Chem 7: 11/13/16 14:45 11/13/16 14:45 Labs: Abnormal lab results 11/13/16 Range/Units 14:45 BUN 6 L (9-20) mg/dL Creatinine 0.3 L (0.8-1.5) mg/dL Calcium 7.6 L (8.4-10.2) mg/dL Microbiology 11/08/16 13:05 Peripheral/Venous Blood Culture - Preliminary Proteus Mirabilis Streptococcus Species Gram Negative Prosper Gram Negative Prosper#2 11/08/16 13:05 Peripheral/Venous Blood Culture - Preliminary Proteus Mirabilis Klebsiella Pneumoniae Streptococcus Species 11/11/16 23:27 Peripheral/Venous Blood Culture - Preliminary NO GROWTH AFTER 24 HOURS 11/12/16 00:08 Peripheral/Venous Blood Culture - Preliminary NO GROWTH AFTER 24 HOURS 11/09/16 18:05 Urine,[place] Urine Culture - Final 11/08/16 12:08 Urine,Clean Catch Urine Culture - Final Active Medications Acetaminophen (Tylenol) 650 mg PO Q6H PRN PRN Reason: Pain Last Admin: 11/09/16 22:16 Dose: 650 mg Ascorbic Acid (Vitamin C) 500 mg PO QDAY [facility] Last Admin: 11/13/16 11:38 Dose: 500 mg Diphenhydramine HCl (Benadryl) 25 mg PO Q4H PRN PRN Reason: Itching Last Admin: 11/11/16 21:57 Dose: 25 mg Docusate Sodium (Colace) 100 mg PO BID [facility] Last Admin: 11/13/16 11:38 Dose: Not Given Furosemide (Lasix) 40 mg IV Q12H [facility] Stop: 11/15/16 03:01 Hydrocortisone Sodium Succinate (Solu-Cortef) 25 mg IV Q8H [facility] Last Admin: 11/13/16 11:37 Dose: 25 mg Norepinephrine (Levophed Drip 4 Mg/Ns 250 Ml) 4 mg in 250 mls @ 7.5 mls/hr IV TITR GARY; 2 MCG/MIN PRN Reason: Protocol Last Titration: 11/11/16 09:49 Dose: 0 mcg/min, 0 mls/hr Sodium Chloride (Nacl 0.9% 1000 Ml) 1,000 mls @ 100 mls/hr IV DIRECT GARY Last Admin: 11/11/16 04:36 Dose: 100 mls/hr Miscellaneous Medication (Halobetasol Propionate [Ultravate]) 1 applicatio INTRADERMA Q12H PRN PRN Reason: Rash Pantoprazole Sodium (Protonix) 20 mg PO QAM [facility] Last Admin: 11/13/16 11:38 Dose: 20 mg Phenol (Chloraseptic) 1 spray MM PRN PRN PRN Reason: Sore Throat Rifampin (Rifadin) 600 mg PO QDAY [facility] Last Admin: 11/13/16 11:38 Dose: 600 mg
[2016-11-13 16:05] LABS: Anion Gap 16 mmol/L; Potassium 2.8 mmol/L (3.6-5.0)
[2016-11-13 16:08] LABS: Basophils % (Manual) 0 % (0.0-1.8); Blastocytes % (Manual) 0 %
[2016-11-13 16:09] LABS: Anisocytosis Few; Diff Status Complete; Ovalocytes Few; Platelet Estimate Consistent w Auto
[2016-11-13] MEDS: LASIX IV SCH (16:26)
[2016-11-13] MEDS ORDERED: KCL 40 MEQ in D5W 1,000 ML IV SCH (16:30)
[2016-11-13] MEDS: MERREM 1,000 MG in NACL 0.9% 100 ML IV SCH ×2 (16:40→21:27)
[2016-11-13] MEDS: KCL 20MEQ/100ML 20 MEQ/100 ML BAG IV SCH ×3 (18:57→23:01)
[2016-11-14] MEDS: LASIX IV SCH ×2 (05:19→17:11)
[2016-11-14] MEDS: MERREM 1,000 MG in NACL 0.9% 100 ML IV SCH ×2 (05:19→15:02)
--- NOTE | 2016-11-14 07:54 | Vascular Lab Report ---
LOWER EXTREMITY VENOUS DUPLEX: REASON FOR EXAM: Pain and swelling of the lower extremities. COMMENTS ON THE RIGHT: Nonocclusive deep venous thrombosis is noted in the femoral vein extending into the common femoral and deep femoral veins.. The remaining veins visualized are freely compressible without evidence of internal echogenicity. Spontaneous and phasic flow is present proximally. COMMENTS ON THE LEFT: Nonocclusive deep venous thromboses noted in the proximal femoral vein and posterior tibial veins.. The remaining veins visualized are freely compressible without evidence of internal echogenicity. Spontaneous and phasic flow is present proximally. IMPRESSION: Bilateral chronic deep venous thrombosis
--- NOTE | 2016-11-14 11:01 | XRay Report ---
AP CHEST: HISTORY: Line placement AP view of the chest demonstrates a normal mediastinal and cardiac contour with clear lungs and normal bony and soft tissue structures. Left arm PICC terminates at the cavoatrial junction. Right IJ venous catheter terminates in the superior SVC. IMPRESSION: Unremarkable AP chest.
[2016-11-14] MEDS: VITAMIN C PO SCH (11:15)
[2016-11-14] MEDS: RIFADIN PO SCH (11:15)
[2016-11-14] MEDS: PROTONIX PO SCH (11:15)
[2016-11-14] MEDS: COLACE PO SCH (11:15)
[2016-11-14 11:36] LABS: Hematocrit 32.7 % (35.5-45.6); Mean Corpuscular HGB Conc 34 % (32-34); Mean Corpuscular Hemoglobin 30 pg (28-32); Mean Corpuscular Volume 88 fl (84-94); Platelet Count 172 K/mm3 (140-440); Red Blood Count 3.71 M/mm3 (3.65-5.03); Red Cell Distribution Width 13.7 % (13.2-15.2)
[2016-11-14 11:53] LABS: Anion Gap 16 mmol/L; Blood Urea Nitrogen 6 mg/dL (9-20); Calcium 7.7 mg/dL (8.4-10.2); Carbon Dioxide 31 mmol/L (22-30); Chloride 100.3 mmol/L (98-107); Glucose 85 mg/dL (75-100); Sodium 144 mmol/L (137-145)
[2016-11-14 12:08] LABS: White Blood Count 24.2 K/mm3 (4.5-11.0)
--- NOTE | 2016-11-14 14:59 | Progress Note ---
Assessment and Plan - Patient Problems (1) Sepsis Current Visit: Yes Status: Acute Qualifiers: Sepsis type: S Plan to address problem: 1. Will complete course with Meropenem 1g IV q8h and oral Rifampin 600mg daily through November 26, 2016. 2. PICC was placed today. 3. Rifampin added to regimen as IVC filter remains in place. 4. Case was discussed with case management. Subjective Date of service: 11/14/16 Interval history: Ertapenem not a feasible option at [facility] per casey saw operator. Alternative medication requested. Objective - Constitutional Vitals: Vital Signs Temp Pulse Resp BP Pulse Ox 98.1 F 94 H 18 119/73 99 11/14/16 07:39 11/14/16 10:00 11/14/16 07:39 11/14/16 07:39 11/14/16 07:39 Temperature -Last 24 Hours Temperature 98.1 F Temperature 98.2 F Temperature 98.2 F Temperature 98.2 F Temperature 97.6 F General appearance: Present: no acute distress - Respiratory Respiratory: bilateral: CTA - Cardiovascular Rhythm: regular Heart Sounds: Present: S1 & S2 Extremity abnormal: edema - Gastrointestinal General gastrointestinal: Present: soft, non-tender - Genitourinary Male genitourinary: normal (Santos catheter in place) - Integumentary Integumentary: no rash - Neurologic Neurologic: other (quadriplegia) - Additional findings Additional findings: PICC at left upper arm; right IJ catheter removed - Labs CBC & Chem 7: 11/14/16 Unknown 11/14/16 Unknown Labs: Abnormal lab results 11/13/16 11/13/16 11/13/16 Range/Units 14:45 14:45 15:00 WBC 27.5 H (4.5-11.0) K/mm3 Hgb 11.4 L (11.8-15.2) gm/dl Hct 33.8 L (35.5-45.6) % Plt Count 120 L (140-440) K/mm3 Lymphocytes % (Manual) 7.5 L (13.4-35.0) % Nucleated RBC % 1.0 H (0.0-0.9) % Seg Neutrophils # Man 16.9 H (1.8-7.7) K/mm3 Monocytes # (Manual) 1.7 H (0.0-0.8) K/mm3 INR 1.15 H (0.87-1.13) APTT 23.5 L (24.2-36.6) Sec. Potassium 2.8 L* (3.6-5.0) mmol/L Carbon Dioxide (22-30) mmol/L BUN 6 L (9-20) mg/dL Creatinine 0.3 L (0.8-1.5) mg/dL Calcium 7.6 L (8.4-10.2) mg/dL 11/14/16 11/14/16 Range/Units Unknown Unknown WBC 24.2 H (4.5-11.0) K/mm3 Hgb 11.0 L (11.8-15.2) gm/dl Hct 32.7 L (35.5-45.6) % Plt Count (140-440) K/mm3 Lymphocytes % (Manual) (13.4-35.0) % Nucleated RBC % (0.0-0.9) % Seg Neutrophils # Man (1.8-7.7) K/mm3 Monocytes # (Manual) (0.0-0.8) K/mm3 INR (0.87-1.13) APTT (24.2-36.6) Sec. Potassium 3.0 L (3.6-5.0) mmol/L Carbon Dioxide 31 H (22-30) mmol/L BUN 6 L (9-20) mg/dL Creatinine 0.3 L (0.8-1.5) mg/dL Calcium 7.7 L (8.4-10.2) mg/dL Microbiology 11/08/16 13:05 Peripheral/Venous Blood Culture - Final Proteus Mirabilis Klebsiella Pneumoniae Enterococcus Faecalis 11/08/16 13:05 Peripheral/Venous Blood Culture - Preliminary Proteus Mirabilis Enterococcus Faecalis Gram Negative Prosper Gram Negative Prosper#2 11/11/16 23:27 Peripheral/Venous Blood Culture - Preliminary NO GROWTH AFTER 48 HOURS 11/12/16 00:08 Peripheral/Venous Blood Culture - Preliminary NO GROWTH AFTER 48 HOURS 11/09/16 18:05 Urine,[place] Urine Culture - Final 11/08/16 12:08 Urine,Clean Catch Urine Culture - Final Active Medications Acetaminophen (Tylenol) 650 mg PO Q6H PRN PRN Reason: Pain Last Admin: 11/09/16 22:16 Dose: 650 mg Ascorbic Acid (Vitamin C) 500 mg PO QDAY [facility] Last Admin: 11/14/16 11:15 Dose: 500 mg Diphenhydramine HCl (Benadryl) 25 mg PO Q4H PRN PRN Reason: Itching Last Admin: 11/11/16 21:57 Dose: 25 mg Docusate Sodium (Colace) 100 mg PO BID [facility] Last Admin: 11/14/16 11:15 Dose: 100 mg Furosemide (Lasix) 40 mg IV 0600,1800 [facility] Stop: 11/15/16 06:01 Last Admin: 11/14/16 05:19 Dose: 40 mg Hydrocortisone Sodium Succinate (Solu-Cortef) 25 mg IV Q8H [facility] Last Admin: 11/14/16 08:30 Dose: 25 mg Sodium Chloride (Nacl 0.9% 1000 Ml) 1,000 mls @ 100 mls/hr IV DIRECT [facility] Last Admin: 11/11/16 04:36 Dose: 100 mls/hr Meropenem 1,000 mg/ Sodium (Chloride) 100 mls @ 100 mls/hr IV Q8HR [facility] PRN Reason: Protocol Last Admin: 11/14/16 05:19 Dose: 100 mls/hr Potassium Chloride (Kcl 20meq/100ml) 20 meq in 100 mls @ 100 mls/hr IV Q1H [facility] Stop: 11/14/16 17:59 Miscellaneous Medication (Halobetasol Propionate [Ultravate]) 1 applicatio INTRADERMA Q12H PRN PRN Reason: Rash Pantoprazole Sodium (Protonix) 20 mg PO QAM [facility] Last Admin: 11/14/16 11:15 Dose: 20 mg Phenol (Chloraseptic) 1 spray MM PRN PRN PRN Reason: Sore Throat Rifampin (Rifadin) 600 mg PO QDAY [facility] Last Admin: 11/14/16 11:15 Dose: 600 mg - Imaging and cardiology Chest x-ray: report reviewed (no acute findings; PICC placement confirmed) Venous US: report reviewed (bilateral chronic non-occlusive thrombi)
[2016-11-14] MEDS: KCL 20MEQ/100ML 20 MEQ/100 ML BAG IV SCH ×3 (16:00→17:10)
--- NOTE | 2016-11-14 16:37 | Hem/Onc Progress Note ---
Assessment and Plan - Patient Problems (1) Coagulopathy Current Visit: Yes Status: Acute (2) Thrombocytopenia Current Visit: Yes Status: Acute Plan to address problem: This has resolved. Due to sepsis. Will sign off. Please call with questions. Subjective Date of service: 11/14/16 Interval history: He feels better. No complains Objective - Constitutional Vitals: Last Vital Signs Temp 98.1 F 11/14/16 07:39 Pulse 94 H 11/14/16 10:00 Resp 18 11/14/16 07:39 BP 119/73 11/14/16 07:39 Pulse Ox 99 11/14/16 07:39 Pain Intensity (0-10): denies any pain General appearance: no acute distress - EENT Eyes: PERRL - Labs Lab Results: Laboratory Results - last 24 hr 11/13/16 11/14/16 11/14/16 Unknown Unknown Unknown WBC 24.2 H RBC 3.71 Hgb 11.0 L Hct 32.7 L MCV 88 MCH 30 MCHC 34 RDW 13.7 Plt Count 172 Sodium 144 Potassium 3.0 L Chloride 100.3 Carbon Dioxide 31 H Anion Gap 16 BUN 6 L Creatinine 0.3 L Estimated GFR > 60 BUN/Creatinine Ratio 20.00 Glucose 85 Calcium 7.7 L Magnesium 1.80
[2016-11-14 17:52] VITALS: BP 104/72
[2016-11-15] MEDS ORDERED: NON-FORMULARY (Prednisone [Prednisone (Rayos) Er Tab] 5 MG) PO SCH (10:00)
== END 2016-11-14 21:05 | DRG 871 ==
LOC: ED 10:27 → CC1 16:45 → 4A 11-11 17:55
PROVIDERS: ADMIT Internal Medicine; ATTEND Internal Medicine
PROC: 02HV33Z Insertion of Infusion Device into Superior Vena Cava, Percutaneous Approach (ICD-10-PCS; principal; 2016-11-08)
PROC: B5181ZA Fluoroscopy of Superior Vena Cava using Low Osmolar Contrast, Guidance (ICD-10-PCS; 2016-11-08)
PROC: 30233L1 Transfusion of Nonautologous Fresh Plasma into Peripheral Vein, Percutaneous Approach (ICD-10-PCS; 2016-11-08)
PROC: 30233K1 Transfusion of Nonautologous Frozen Plasma into Peripheral Vein, Percutaneous Approach (ICD-10-PCS; 2016-11-08)
DX: A41.50 Gram-negative sepsis, unspecified (principal); G82.50 Quadriplegia, unspecified; R65.21 Severe sepsis with septic shock; G92 Toxic encephalopathy; E43 Unspecified severe protein-calorie malnutrition; N39.0 Urinary tract infection, site not specified; D68.9 Coagulation defect, unspecified; D69.6 Thrombocytopenia, unspecified; E87.2 Acidosis; I10 Essential (primary) hypertension; G62.9 Polyneuropathy, unspecified; F41.9 Anxiety disorder, unspecified; K21.9 Gastro-esophageal reflux disease without esophagitis; G89.29 Other chronic pain; I25.10 Atherosclerotic heart disease of native coronary artery without angina pectoris; M10.9 Gout, unspecified; L89.212 Pressure ulcer of right hip, stage 2; E87.0 Hyperosmolality and hypernatremia; E27.40 Unspecified adrenocortical insufficiency; Z88.8 Allergy status to other drugs, medicaments and biological substances; Z87.891 Personal history of nicotine dependence; Z86.718 Personal history of other venous thrombosis and embolism; Z86.711 Personal history of pulmonary embolism; Z82.49 Family history of ischemic heart disease and other diseases of the circulatory system; Z68.24 Body mass index [BMI] 24.0-24.9, adult
CPT/HCPCS: 36415; 71010; 74000; 74177; 80048; 80053; 80061; 81001; 82140; 82550; 82553; 82805; 83690; 83735; 84484; 85007; 85014; 85018; 85025; 85027; 85610; 85730; 86900; 86901; 87040; 87076; 87086; 87186; 93005; 93010; 93970; 94760; 96361; 96365; 96368; 96375; 99291; J0696; J1720; J1940; J2185; J2543; J3370; J3430; J3480; J7030; J7040; J7050; J7070; P9017; Q9967

== ENCOUNTER 2017-10-06 19:04 | Emergency (ER) | payer MEDICAID ==
[2017-10-06] MEDS ORDERED: NACL 0.9% 1000 ML 1,000 ML IV ONE (21:16)
[2017-10-06] MEDS ORDERED: ROCEPHIN/NS 1 GM/50 ML 1 GM/50 ML BAG IV ONE (21:16)
[2017-10-06] MEDS ORDERED: ROCEPHIN/NS 2 GM/100 ML 2 GM/100 ML BAG IV ONE (21:17)
[2017-10-06 21:34] LABS: Basophils # (Auto) 0.1 K/mm3 (0.0-0.1); Basophils % (Auto) 0.6 % (0.0-1.8); Eosinophils # (Auto) 0.2 K/mm3 (0.0-0.4); Eosinophils % (Auto) 1.8 % (0.0-4.3); Hematocrit 43.2 % (35.5-45.6); Hemoglobin 14.2 gm/dl (11.8-15.2); Lymphocytes # (Auto) 1.6 K/mm3 (1.2-5.4); Lymphocytes % (Auto) 13.4 % (13.4-35.0); Mean Corpuscular HGB Conc 33 % (32-34); Mean Corpuscular Hemoglobin 29 pg (28-32); Mean Corpuscular Volume 89 fl (84-94); Monocytes # (Auto) 0.8 K/mm3 (0.0-0.8); Monocytes % (Auto) 6.5 % (0.0-7.3); Platelet Count 230 K/mm3 (140-440); Red Blood Count 4.85 M/mm3 (3.65-5.03)
[2017-10-06 21:55] LABS: Alanine Aminotransferase 24 units/L (7-56); Albumin 3.5 g/dL (3.9-5); BUN/Creatinine Ratio 40; Blood Urea Nitrogen 20 mg/dL (9-20); Calcium 8.3 mg/dL (8.4-10.2); Hemolysis Index 21
[2017-10-06] MEDS ORDERED: cefTRIAXone 2 GM in NACL 0.9% 20 ML IV ONE (22:00)
--- NOTE | 2017-10-06 23:17 | Emergency Department Report ---
ED Male HPI - General Chief complaint: Urogenital-Male Stated complaint: POSS UTI Time Seen by Provider: 10/06/17 20:09 Source: patient, EMS Mode of arrival: Stretcher Limitations: No Limitations - History of Present Illness Initial comments: Mr. lópez is a very pleasant male who presents from [facility]. He had fever 103F. He has a chronic indwelling Tucker catheter due to paraplegia. A Tucker catheter was removed today with noted blood from the urethral meatus. He has a history of UTI. Mr. Hennessy does not have any complaints. Denies pain. State that he was in good health today. He felt well otherwise. He denies cough. No shortness of Breath. - Related Data Home Medications Medication Instructions Recorded Confirmed Last Taken Acetaminophen [Acetaminophen TAB] 2 tab PO Q6H PRN 11/08/16 11/08/16 Unknown Ascorbic Acid [Vitamin C with Alexandrea 1 tab PO QDAY 11/08/16 11/08/16 Unknown Hips] Baclofen [Lioresal] 2 tab PO QID 11/08/16 11/08/16 Unknown Betamethasone Dipropionate 1 applicatio INTRADERMA BID 11/08/16 11/08/16 Unknown [Betamethasone Dipropionate 0.05% Oint] Clobetasol Propionate/Emoll 1 applicatio INTRADERMA BID 11/08/16 11/08/16 Unknown [Clobetasol Emollient 0.05% Crm] Dantrium 1 cap PO Q8H PRN 11/08/16 11/08/16 Unknown Docusate Sodium [Colace CAP] 100 mg PO BID 11/08/16 11/08/16 Unknown Halobetasol Propionate [Ultravate] 1 applicatio INTRADERMA Q12H PRN 11/08/1604/17 Unknown Methyl Salicylate/Menth/Camph 1 patch INTRADERMA BID 11/08/16 11/08/16 Unknown [Salonpas Patch] Multivitamin with Iron 1 tab PO QDAY 11/08/16 11/08/16 Unknown [Multivitamins with Iron] Omeprazole Magnesium [PriLOSEC Otc] 1 tab PO QAM 11/08/16 11/08/16 Unknown Protein Supplement [Promod] 30 ml PO BID 11/08/16 11/08/16 Unknown Zolpidem [Ambien] 10 mg PO QDAY PRN 11/08/16 11/08/16 Unknown diphenhydrAMINE [Benadryl CAP] 1 cap PO Q4H PRN 11/08/16 11/08/16 Unknown methOCARBAMOL [Robaxin TAB] 2 tab PO Q6H 11/08/16 11/08/16 Unknown Previous Rx's Medication Instructions Recorded Last Taken Type Lactulose 30 ml PO DAILY PRN #1 11/13/16 Unknown Rx Phenol 1.4% [Chloraseptic] 1 spray MM PRN PRN #1 bottle 11/13/16 Unknown Rx Rifampin [Rifadin] 600 mg PO QDAY #14 capsule 11/13/16 Unknown Rx oxyCODONE /ACETAMINOPHEN [Percocet 1 tab PO Q6H PRN #7 tablet 11/13/16 Unknown Rx 5/325 mg] Meropenem [Merrem] 1,000 mg IV Q8H 14 Days vial 11/14/16 Unknown Rx Potassium Chloride [K-Dur] 20 meq PO BID #14 tab 11/14/16 Unknown Rx Warfarin [Coumadin] 5 mg PO QDAY #7 tablet 11/14/16 Unknown Rx Cephalexin [Keflex] 500 mg PO Q6HR 10 Days #40 capsule 10/06/17 Unknown Rx Allergies Allergy/AdvReac Type Severity Reaction Status Date / Time sulfamethoxazole Allergy Rash Verified 11/08/16 10:57 [From Bactrim] trimethoprim [From Bactrim] Allergy Rash Verified 11/08/16 10:57 tuberculin, purified protein Allergy Unknown Verified 11/08/16 10:57 deriva ED Review of Systems ROS: Stated complaint: POSS UTI Other details as noted in HPI Comment: All other systems reviewed and negative Constitutional: fever. denies: malaise Respiratory: denies: cough Cardiovascular: denies: chest pain ED Past Medical Hx - Past Medical History Hx Hypertension: Yes Hx Congestive Heart Failure: No Hx Diabetes: No Hx Deep Vein Thrombosis: No Hx GERD: Yes Hx Arthritis: Yes Hx Psychiatric Treatment: Yes (anxiety) Hx Asthma: No Hx COPD: No Additional medical history: Pressure ulcers, Neuromuscular dysfunction of bladder, Arthropathy, Polyneuropathy, Muscle spasms, Prolonged indwelling tucker cathetetrs, Frequent UTI - Surgical History Hx Pacemaker: No Hx Internal Defibrillator: No Additional Surgical History: Back, Neck - Social History Smoking Status: Former Smoker Substance Use Type: Prescribed - Medications Home Medications: Home Medications Medication Instructions Recorded Confirmed Last Taken Type Acetaminophen [Acetaminophen TAB] 2 tab PO Q6H PRN 11/08/16 11/08/16 Unknown History Ascorbic Acid [Vitamin C with Alexandrea 1 tab PO QDAY 11/08/16 11/08/16 Unknown History Hips] Baclofen [Lioresal] 2 tab PO QID 11/08/16 11/08/16 Unknown History Betamethasone Dipropionate 1 applicatio INTRADERMA BID 11/08/16 11/08/16 Unknown History [Betamethasone Dipropionate 0.05% Oint] Clobetasol Propionate/Emoll 1 applicatio INTRADERMA BID 11/08/16 11/08/16 Unknown History [Clobetasol Emollient 0.05% Crm] Dantrium 1 cap PO Q8H PRN 11/08/16 11/08/16 Unknown History Docusate Sodium [Colace CAP] 100 mg PO BID 11/08/16 11/08/16 Unknown History Halobetasol Propionate [Ultravate] 1 applicatio INTRADERMA Q12H PRN 11/08/1604/17 Unknown History Methyl Salicylate/Menth/Camph 1 patch INTRADERMA BID 11/08/16 11/08/16 Unknown History [Salonpas Patch] Multivitamin with Iron 1 tab PO QDAY 11/08/16 11/08/16 Unknown History [Multivitamins with Iron] Omeprazole Magnesium [PriLOSEC Otc] 1 tab PO QAM 11/08/16 11/08/16 Unknown History Protein Supplement [Promod] 30 ml PO BID 11/08/16 11/08/16 Unknown History Zolpidem [Ambien] 10 mg PO QDAY PRN 11/08/16 11/08/16 Unknown History diphenhydrAMINE [Benadryl CAP] 1 cap PO Q4H PRN 11/08/16 11/08/16 Unknown History methOCARBAMOL [Robaxin TAB] 2 tab PO Q6H 11/08/16 11/08/16 Unknown History Lactulose 30 ml PO DAILY PRN #1 11/13/16 11/08/16 Unknown Rx Phenol 1.4% [Chloraseptic] 1 spray MM PRN PRN #1 bottle 11/13/16 Unknown Rx Rifampin [Rifadin] 600 mg PO QDAY #14 capsule 11/13/16 Unknown Rx oxyCODONE /ACETAMINOPHEN [Percocet 1 tab PO Q6H PRN #7 tablet 11/13/16 Unknown Rx 5/325 mg] Meropenem [Merrem] 1,000 mg IV Q8H 14 Days vial 11/14/16 Unknown Rx Potassium Chloride [K-Dur] 20 meq PO BID #14 tab 11/14/16 Unknown Rx Warfarin [Coumadin] 5 mg PO QDAY #7 tablet 11/14/16 Unknown Rx Cephalexin [Keflex] 500 mg PO Q6HR 10 Days #40 capsule 10/06/17 Unknown Rx ED Physical Exam - General Limitations: No Limitations General appearance: alert, in no apparent distress, other (contracted lower extremities, wound VAC right hip decubitus ulcer) - Head Head exam: Present: atraumatic, normocephalic - Eye Eye exam: Present: normal appearance - ENT ENT exam: Present: mucous membranes moist - Neck Neck exam: Present: normal inspection. Absent: meningismus - Respiratory Respiratory exam: Present: normal lung sounds bilaterally. Absent: respiratory distress, wheezes, rales, rhonchi - Cardiovascular Cardiovascular Exam: Present: regular rate, normal rhythm, normal heart sounds. Absent: systolic murmur, diastolic murmur, rubs, gallop - GI/Abdominal GI/Abdominal exam: Present: soft. Absent: distended, tenderness, guarding, rebound - exam: Present: circumcision, other (mild amount of blood from the urethral meatus no signs of trauma otherwise no balanitis). Absent: testicular tenderness, urethral discharge, scrotal swelling, vertical testicular lie - Extremities Exam Extremities exam: Present: other (contracted lower extremities) - Back Exam Back exam: Present: normal inspection - Neurological Exam Neurological exam: Present: alert, oriented X3 - Psychiatric Psychiatric exam: Present: normal affect, normal mood - Skin Skin exam: Present: warm, dry, intact, normal color. Absent: rash ED Course Vital Signs 10/06/17 10/06/17 10/06/17 19:53 19:59 20:00 Temperature 100.1 F H Pulse Rate 107 H 107 H Respiratory 18 18 Rate Blood Pressure 108/71 Blood Pressure 110/74 [Left] O2 Sat by Pulse 92 96 Oximetry 10/06/17 10/06/17 10/06/17 20:15 20:30 20:45 Temperature Pulse Rate 106 H 105 H 102 H Respiratory 18 21 20 Rate Blood Pressure 95/65 100/68 100/64 Blood Pressure [Left] O2 Sat by Pulse 94 95 Oximetry 10/06/17 10/06/17 10/06/17 21:00 21:10 21:15 Temperature 100.5 F H Pulse Rate 102 H 101 H Respiratory 20 25 H Rate Blood Pressure 103/68 93/67 Blood Pressure [Left] O2 Sat by Pulse 95 95 Oximetry 10/06/17 10/06/17 10/06/17 21:30 21:45 22:00 Temperature Pulse Rate 95 H 94 H 93 H Respiratory 20 14 10 L Rate Blood Pressure 87/69 113/79 117/76 Blood Pressure [Left] O2 Sat by Pulse 94 94 96 Oximetry 10/06/17 10/06/17 22:15 22:30 Temperature Pulse Rate 91 H 90 Respiratory 15 16 Rate Blood Pressure 105/69 102/64 Blood Pressure [Left] O2 Sat by Pulse 94 94 Oximetry - Reevaluation(s) Reevaluation #1: 10/06/17 23:15 Procedure note: Tucker catheter placement I was called to the bedside by the nurse. She was unable to pass 16 [place] Tucker catheter. I attempted to pass 16 Argentine catheter. I was unable to inflate the balloon. I was unable to express urine. I then used 18 Fr coud tip catheter. Under sterile conditions, I was able to insert 18 [place] coud tip Tucker catheter easily with initially bloody urine which transitioned to cloudy urine. Patient tolerated the procedure without any complication or severe discomfort. ED Medical Decision Making - Lab Data Result diagrams: 10/06/17 21:21 10/06/17 21:21 - Medical Decision Making Mr. López was treated for complicated UTI with IV ceftriaxone in the ED. I was able to replace the Tucker catheter with a coud tip. Currently no signs of sepsis. I prescribed Keflex. Blood cultures and urine cultures were obtained. I did review her electronic record. Patient is at risk for multidrug resistant organism. He has required meropenem in the past. With active drainage from the Tucker catheter, will await urine culture results for outpatient antibiotic adjustment. Critical care attestation.: If time is entered above; I have spent that time in minutes in the direct care of this critically ill patient, excluding procedure time. ED Disposition Clinical Impression: Complicated UTI (urinary tract infection), Indwelling Tucker catheter present Disposition: [id number]/TX-[id number] ANOTHER TYPE HLTHCARE Is pt being admited?: No Does the pt Need Aspirin: No Condition: Stable Instructions: Urinary Tract Infection in Men (ED) Prescriptions: Cephalexin [Keflex] 500 mg PO Q6HR 10 Days #40 capsule Time of Disposition: 23:20
[2017-10-07 00:16] LABS: Bilirubin,Urine Negative (Negative); Color,Urine Yellow (Yellow)
[2017-10-07 00:17] LABS: Blood,Urine Large (Negative)
[2017-10-07 00:18] LABS: RBC,Urine > 182.0 /HPF (0.0-6.0); WBC,Urine > 182.0 /HPF (0.0-6.0)
[2017-10-07 01:09] VITALS: BP 120/78
== END 2017-10-07 01:11 | disposition other institution (70) ==
LOC: ED 19:04
DX: N39.0 Urinary tract infection, site not specified (principal); I10 Essential (primary) hypertension; K21.9 Gastro-esophageal reflux disease without esophagitis; M19.90 Unspecified osteoarthritis, unspecified site; Z87.891 Personal history of nicotine dependence; Z88.1 Allergy status to other antibiotic agents; Z88.2 Allergy status to sulfonamides; Z88.8 Allergy status to other drugs, medicaments and biological substances
CPT/HCPCS: 36415; 51702; 80053; 81001; 82140; 85025; 87040; 87086; 96361; 96374; 99284; J0696; J7030

== ENCOUNTER 2018-07-15 16:21 | Emergency (ER) | payer MEDICARE ==
--- NOTE | 2018-07-15 18:16 | Emergency Department Report ---
ED General Adult HPI - General Chief complaint: Urogenital-Male Stated complaint: BLOOD IN CATHETER Time Seen by Provider: 07/15/18 17:58 Source: patient, EMS (ems notes not available at time of chart dictation), RN notes reviewed, old records reviewed Mode of arrival: Stretcher Limitations: Physical Limitation - History of Present Illness Initial comments: This is a 63-year-old gentleman. I have evaluated this patient in the past. Past medical history includes indwelling suprapubic Tucker catheter, currently on Coumadin therapy, admitted to this hospital in the past for recurrent DVT, urinary tract infection, renal insufficiency. Patient has bilateral lower extremity paraplegia and contractures, and is a resident at a local alf, where his primary physician is Dr. Vega, and he apparently follows with urology, Dr. Tahira Rosas The patient is sent to the ER today for evaluation of dirty sentiments and a suprapubic Tucker catheter. Apparently, the catheter was changed today. The patient reports no headache, neck pain, chest pain, has chronic lower abdominal pain, and has no new worsening or different symptoms. This darkly colored sediment in the suprapubic Tucker catheter is painless, constant, does not radiate anywhere, and does not appear to have exacerbating or relieving factors. -: This afternoon Radiation: other Quality: constant Improves with: none Worsens with: none Associated Symptoms: weakness (chronic weakness). denies: confusion, chest pain, cough, diaphoresis, fever/chills, headaches, loss of appetite, malaise - Related Data Home Medications Medication Instructions Recorded Confirmed Last Taken Acetaminophen [Acetaminophen TAB] 2 tab PO Q6H PRN 11/08/16 10/30/17 Unknown Ascorbic Acid [Vitamin C with Alexandrea 1 tab PO QDAY 11/08/16 10/30/17 Unknown Hips] Baclofen [Lioresal] 2 tab PO QID 11/08/16 10/30/17 Unknown Betamethasone Dipropionate 1 applicatio INTRADERMA BID 11/08/16 10/30/17 Unknown [Betamethasone Dipropionate 0.05% Oint] Dantrium 1 cap PO Q8H PRN 11/08/16 10/30/17 Unknown Docusate Sodium [Colace CAP] 100 mg PO BID 11/08/16 10/30/17 Unknown Halobetasol Propionate [Ultravate] 1 applicatio INTRADERMA Q12H PRN 11/08/16 10/30/17 Unknown Multivitamin with Iron 1 tab PO QDAY 11/08/16 10/30/17 Unknown [Multivitamins with Iron] Omeprazole Magnesium [PriLOSEC Otc] 1 tab PO QAM 11/08/16 10/30/17 Unknown Protein Supplement [Promod] 30 ml PO BID 11/08/16 10/30/17 Unknown diphenhydrAMINE [Benadryl CAP] 1 cap PO Q4H PRN 11/08/16 10/30/17 Unknown Gabapentin [Neurontin] 600 mg PO TID 10/30/17 10/30/17 Unknown tiZANidine [Zanaflex] 4 mg PO Q8H 10/30/17 10/30/17 Unknown Previous Rx's Medication Instructions Recorded Last Taken Type Lactulose 30 ml PO DAILY PRN #1 11/13/16 Unknown Rx Phenol 1.4% [Chloraseptic] 1 spray MM PRN PRN #1 bottle 11/13/16 Unknown Rx Warfarin [Coumadin] 5 mg PO QDAY #7 tablet 11/14/16 Unknown Rx oxyCODONE /ACETAMINOPHEN [Percocet 1 tab PO Q6H PRN #7 tablet 12/28/17 Unknown Rx 5/325 mg] Ertapenem (Nf) [INVanz] 1 gm IV QDAY #14 vial 01/15/18 Unknown Rx Sodium Chloride 0.9% Int [Sodium 10 ml IV BID #300 syringe 01/15/18 Unknown Rx Chloride Flush Syringe 10 ml] Allergies Allergy/AdvReac Type Severity Reaction Status Date / Time shrimp Allergy Itching Verified 01/01/18 15:52 sulfamethoxazole Allergy Rash Verified 11/08/16 10:57 [From Bactrim] trimethoprim [From Bactrim] Allergy Rash Verified 11/08/16 10:57 tuberculin, purified protein Allergy Unknown Verified 11/08/16 10:57 deriva ED Review of Systems ROS: Stated complaint: BLOOD IN CATHETER Other details as noted in HPI Constitutional: denies: fever Eyes: denies: eye discharge ENT: denies: epistaxis Respiratory: denies: cough Cardiovascular: denies: chest pain Gastrointestinal: abdominal pain (chronic abdominal) Genitourinary: other (discoloration of urinary sediment and Tucker catheter) Musculoskeletal: other (chronic bedsores) Skin: lesions (chronic bedsores) Neurological: weakness (chronic weakness) ED Past Medical Hx - Past Medical History Previous Medical History?: Yes Hx Hypertension: Yes Hx Congestive Heart Failure: No Hx Diabetes: No Hx Deep Vein Thrombosis: No Hx GERD: Yes Hx Renal Disease: Yes Hx Arthritis: Yes Hx Psychiatric Treatment: Yes (anxiety) Hx Asthma: No Hx COPD: No Additional medical history: Pressure ulcers, Neuromuscular dysfunction of bladder, Arthropathy, Polyneuropathy, Muscle spasms, Prolonged indwelling tucker cathetetrs, Frequent UTI - Surgical History Hx Pacemaker: No Hx Internal Defibrillator: No Additional Surgical History: Back, Neck - Social History Smoking Status: Never Smoker Substance Use Type: None - Medications Home Medications: Home Medications Medication Instructions Recorded Confirmed Last Taken Type Acetaminophen [Acetaminophen TAB] 2 tab PO Q6H PRN 11/08/16 10/30/17 Unknown History Ascorbic Acid [Vitamin C with Alexandrea 1 tab PO QDAY 11/08/16 10/30/17 Unknown H istory Hips] Baclofen [Lioresal] 2 tab PO QID 11/08/16 10/30/17 Unknown History Betamethasone Dipropionate 1 applicatio INTRADERMA BID 11/08/16 10/30/17 Unknown History [Betamethasone Dipropionate 0.05% Oint] Dantrium 1 cap PO Q8H PRN 11/08/16 10/30/17 Unknown History Docusate Sodium [Colace CAP] 100 mg PO BID 11/08/16 10/30/17 Unknown History Halobetasol Propionate [Ultravate] 1 applicatio INTRADERMA Q12H PRN 11/08/16 10/30/17 Unknown History Multivitamin with Iron 1 tab PO QDAY 11/08/16 10/30/17 Unknown History [Multivitamins with Iron] Omeprazole Magnesium [PriLOSEC Otc] 1 tab PO QAM 11/08/16 10/30/17 Unknown History Protein Supplement [Promod] 30 ml PO BID 11/08/16 10/30/17 Unknown History diphenhydrAMINE [Benadryl CAP] 1 cap PO Q4H PRN 11/08/16 10/30/17 Unknown History Lactulose 30 ml PO DAILY PRN #1 11/13/16 10/30/17 Unknown Rx Phenol 1.4% [Chloraseptic] 1 spray MM PRN PRN #1 bottle 11/13/16 10/30/17 Unknown Rx Warfarin [Coumadin] 5 mg PO QDAY #7 tablet 11/14/16 10/30/17 Unknown Rx Gabapentin [Neurontin] 600 mg PO TID 10/30/17 10/30/17 Unknown History tiZANidine [Zanaflex] 4 mg PO Q8H 10/30/17 10/30/17 Unknown History oxyCODONE /ACETAMINOPHEN [Percocet 1 tab PO Q6H PRN #7 tablet 12/28/17 Unknown Rx 5/325 mg] Ertapenem (Nf) [INVanz] 1 gm IV QDAY #14 vial 01/15/18 Unknown Rx Sodium Chloride 0.9% Int [Sodium 10 ml IV BID #300 syringe 01/15/18 Unknown Rx Chloride Flush Syringe 10 ml] ED Physical Exam - General Limitations: Physical Limitation (paraplegic and contracted in the bilateral lower extremities) General appearance: alert, in no apparent distress - Head Head exam: Present: atraumatic, normocephalic - Eye Eye exam: Present: normal appearance - ENT ENT exam: Present: normal exam, normal orophraynx, mucous membranes moist, normal external ear exam - Neck Neck exam: Present: normal inspection, full ROM. Absent: tenderness, meningismus - Respiratory Respiratory exam: Present: normal lung sounds bilaterally. Absent: respiratory distress - Cardiovascular Cardiovascular Exam: Present: regular rate, normal rhythm, normal heart sounds. Absent: bradycardia, tachycardia, irregular rhythm, systolic murmur, diastolic murmur, rubs, gallop - GI/Abdominal GI/Abdominal exam: Present: soft, other (suprapubic Tucker catheter in place, draining darkly colored urine). Absent: distended, tenderness, guarding, rebound, rigid, pulsatile mass - Rectal Rectal exam: Present: normal inspection - Extremities Exam Extremities exam: Present: normal inspection (patient has a pressure wound on the right lateral aspect of the hip which does not appear to have redness, pus or streaking), pedal edema, other (2+ pulses noted in the bilateral upper, lower extremities. Compartments soft. No long bony tenderness. The pelvis is stable.) - Back Exam Back exam: Present: normal inspection. Absent: tenderness, CVA tenderness (R), paraspinal tenderness - Neurological Exam Neurological exam: Present: alert, motor sensory deficit (chronic weakness in the bilateral lower extremities), other (there is no facial droop. The tongue is midline. Extraocular movements are intact bilaterally. Sensation is intact to light touch in the bilateral upper extremities, patient moves the bilateral upper extremities spontaneously and to command) - Psychiatric Psychiatric exam: Present: normal mood - Skin Skin exam: Present: warm ED Course Vital Signs 07/15/18 07/15/18 07/15/18 17:36 18:14 18:16 Temperature 98 F Pulse Rate 87 Respiratory 16 Rate Blood Pressure 113/67 Blood Pressure [Right] O2 Sat by Pulse 99 98 100 Oximetry 07/15/18 07/15/18 07/15/18 18:20 18:26 19:10 Temperature 98.4 F Pulse Rate 91 H Respiratory 16 Rate Blood Pressure 102/75 Blood Pressure 100/56 [Right] O2 Sat by Pulse 100 99 98 Oximetry ED Medical Decision Making - Lab Data Result diagrams: 07/15/18 19:28 07/15/18 19:28 Vital Signs 07/15/18 07/15/18 07/15/18 17:36 18:14 18:16 Temperature 98 F Pulse Rate 87 Respiratory 16 Rate Blood Pressure 113/67 Blood Pressure [Right] O2 Sat by Pulse 99 98 100 Oximetry 07/15/18 07/15/18 07/15/18 18:20 18:26 19:10 Temperature 98.4 F Pulse Rate 91 H Respiratory 16 Rate Blood Pressure 102/75 Blood Pressure 100/56 [Right] O2 Sat by Pulse 100 99 98 Oximetry Lab Results 07/15/18 07/15/18 07/15/18 Range/Units 19:28 19:28 19:28 WBC 8.7 (4.5-11.0) K/mm3 RBC 4.16 (3.65-5.03) M/mm3 Hgb 11.5 L (11.8-15.2) gm/dl Hct 35.7 (35.5-45.6) % MCV 86 (84-94) fl MCH 28 (28-32) pg MCHC 32 (32-34) % RDW 15.3 H (13.2-15.2) % Plt Count 395 (140-440) K/mm3 PT 30.6 H (12.2-14.9) Sec. INR 2.89 H (0.87-1.13) APTT 64.8 H* (24.2-36.6) Sec. Sodium 140 (137-145) mmol/L Potassium 3.6 (3.6-5.0) mmol/L Chloride 104.0 (98-107) mmol/L Carbon Dioxide 26 (22-30) mmol/L Anion Gap 14 mmol/L BUN 14 (9-20) mg/dL Creatinine 0.2 L (0.8-1.5) mg/dL Estimated GFR > 60 ml/min BUN/Creatinine Ratio 70 % Glucose 91 (75-100) mg/dL Calcium 8.5 (8.4-10.2) mg/dL Total Creatine Kinase 54 L (55-170) units/L - Radiology Data Radiology results: report reviewed, image reviewed Patient: RYLEE BEARD JR MR#: [id number] : 1955 Acct:[id number] Age/Sex: 63 / M ADM Date: 07/15/18 Loc: ED Attending Dr: Ordering Physician: NEIL FIELDS MD Date of Service: 07/15/18 Procedure(s): CT abdomen pelvis wo con Accession Number(s): [id number] cc: NEIL FIELDS MD FINAL REPORT PROCEDURE: CT abdomen and pelvis without contrast. TECHNIQUE: Computerized axial tomography of the abdomen and pelvis was performed without intravenous contrast. This study is performed without intravascular contrast material and its sensitivity for abdominal and pelvic pathology, including neoplasms, inflammation, abscess, free fluid, thrombosis, arterial dissection and infarction, is reduced compared with a contrast enhanced study. HISTORY: Abdominal pain, taking Coumadin. COMPARISON: CT pelvis 01/01/2018. CT abdomen and pelvis 11/08/2016. FINDINGS: The lung bases are clear. There are no pleural effusions. The heart size is normal. There are approximately 5 focal areas of low attenuation within the liver. Similar masses were present on the previous study. These likely represent benign lesions such as cysts or cavernous hemangiomas. The largest mass in the right lower lobe has increased in size however. This measures 2.8 centimeters x 1.8 centimeters in cross-section. Follow-up imaging is suggested. The gallbladder is present. There is no biliary dilatation. The pancreas and spleen are grossly normal. Both kidneys appear normal in size and configuration. There may be a small cyst in the left kidney. This is better evaluated with a contrast enhanced study. The abdominal aorta has a normal caliber. There is an IVC filter in place. There is no retroperitoneal adenopathy. The unopacified gastrointestinal tract is unremarkable. A normal appendix is visible. The bladder is decompressed with a suprapubic catheter. The seminal vesicles and prostate are unremarkable. There is a fairly large amount of stool in the rectum. There is posterior subluxation of the right hip joint. This appears worse than on the most recent pelvic CT scan. IMPRESSION: Probable benign hepatic lesions such as cysts or cavernous hemangiomas. One lesion in the right lobe has increased in size however. Follow-up is suggested. Posterior subluxat ion of the right hip joint. Previous IVC filter placement and suprapubic catheter placement. Transcribed By: MARCEL Dictated By: NEIL SHEPARD MD Electronically Authenticated By: NEIL SEHPARD MD Signed Date/Time: 07/15/181929 - Medical Decision Making Differential diagnosis, including not limited to: Bladder spasm, myositis, rhabdomyolysis, urinary sediment, malposition of catheter, constipation, supratherapeutic INR Assessment and plan: 63-year-old gentleman who was sent to the ER for evaluation of dark colored urinary sediment after a Tucker catheter was reportedly changed today. Will he catheter initially draining dark colored sediment, now clearing up. Does not endorse fevers, chills, vomiting, therefore, will not send urinalysis, as it is likely colonized, and given absence of acute symptoms, would not initiate antibiotic therapy. Screening laboratory studies unremarkable, INR appropriate for chronic DVT, noncontrast CT scan of the abdomen and pelvis does not demonstrate any acute or emergent findings, it did demonstrate constipation, and appropriate positioning of the suprapubic Tucker catheter, with no presence of retroperitoneal hematoma. Patient is observed in the ER for hours without clinical decompensation, and there does not appear to be an emergent medical condition at this time, the patient may follow up with his outpatient urologist or primary care doctor. Critical care attestation.: If time is entered above; I have spent that time in minutes in the direct care of this critically ill patient, excluding procedure time. ED Disposition Clinical Impression: On continuous oral anticoagulation, Decubitus ulcer, Suprapubic catheter Disposition: [id number]-TRM GEN HOSP IP Is pt being admited?: No Does the pt Need Aspirin: No Condition: Stable Additional Instructions: Continue outpatient medications. Follow-up with your urology specialist within the next month. Follow up with your primary care doctor within the next month. Return to the ER right away with lethargy, irritability, projectile vomiting, change in mental status, confusion, inability to speak, inability to breathe, new, worsening or different symptoms. Referrals: PURNIMA ROSAS MD [Staff Physician] - as needed IVONE VEGA MD [Staff Physician] - as needed
--- NOTE | 2018-07-15 19:30 | Cat Scan Report ---
FINAL REPORT PROCEDURE: CT abdomen and pelvis without contrast. TECHNIQUE: Computerized axial tomography of the abdomen and pelvis was performed without intravenous contrast. This study is performed without intravascular contrast material and its sensitivity for ab dominal and pelvic pathology, including neoplasms, inflammation, abscess, free fluid, thrombosis, art erial dissection and infarction, is reduced compared with a contrast enhanced study. HISTORY: Abdominal pain, taking Coumadin. COMPARISON: CT pelvis 01/01/2018. CT abdomen and pelvis 11/08/2016. FINDINGS: The lung bases are clear. There are no pleural effusions. The heart size is normal. There are approxi mately 5 focal areas of low attenuation within the liver. Similar masses were present on the previous study. These likely represent benign lesions such as cysts or cavernous hemangiomas. The largest mas s in the right lower lobe has increased in size however. This measures 2.8 centimeters x 1.8 centimet ers in cross-section. Follow-up imaging is suggested. The gallbladder is present. There is no biliary dilatation. The pancreas and spleen are grossly normal. Both kidneys appear normal in size and confi guration. There may be a small cyst in the left kidney. This is better evaluated with a contrast enha nced study. The abdominal aorta has a normal caliber. There is an IVC filter in place. There is no re troperitoneal adenopathy. The unopacified gastrointestinal tract is unremarkable. A normal appendix i s visible. The bladder is decompressed with a suprapubic catheter. The seminal vesicles and prostate are unremarkable. There is a fairly large amount of stool in the rectum. There is posterior subluxati on of the right hip joint. This appears worse than on the most recent pelvic CT scan. IMPRESSION: Probable benign hepatic lesions such as cysts or cavernous hemangiomas. One lesion in the right lobe has increased in size however. Follow-up is suggested. Posterior subluxation of the right hip joint. Previous IVC filter placement and suprapubic catheter placement.
[2018-07-15 20:01] LABS: Hematocrit 35.7 % (35.5-45.6); Hemoglobin 11.5 gm/dl (11.8-15.2); Mean Corpuscular HGB Conc 32 % (32-34); Mean Corpuscular Volume 86 fl (84-94); Platelet Count 395 K/mm3 (140-440); Red Blood Count 4.16 M/mm3 (3.65-5.03); Red Cell Distribution Width 15.3 % (13.2-15.2)
[2018-07-15 20:13] LABS: INR 2.89 (0.87-1.13)
[2018-07-15 20:20] LABS: Partial Thromboplastin Time 64.8 Sec. (24.2-36.6)
[2018-07-15 20:22] LABS: BUN/Creatinine Ratio 70; Blood Urea Nitrogen 14 mg/dL (9-20); Calcium 8.5 mg/dL (8.4-10.2); Hemolysis Index 12
[2018-07-15 21:56] VITALS: BP 107/59
== END 2018-07-15 22:26 | disposition short-term general hospital (02) ==
LOC: ED 16:21
DX: T83.9XXA Unspecified complication of genitourinary prosthetic device, implant and graft, initial encounter (principal); L89.219 Pressure ulcer of right hip, unspecified stage; I10 Essential (primary) hypertension; K21.9 Gastro-esophageal reflux disease without esophagitis; M19.90 Unspecified osteoarthritis, unspecified site; G62.9 Polyneuropathy, unspecified; Z88.2 Allergy status to sulfonamides; Z79.01 Long term (current) use of anticoagulants; Z88.1 Allergy status to other antibiotic agents; Z91.013 Allergy to seafood
CPT/HCPCS: 36415; 74176; 80048; 82550; 85027; 85610; 85730; 99284

== ENCOUNTER 2018-09-22 09:00 | Inpatient (IN) | payer MEDICARE ==
[2018-09-22] MEDS ORDERED: NACL 0.9% 500 ML 500 ML IV ONE (09:15)
[2018-09-22 09:37] LABS: Basophils % (Auto) 0.5 % (0.0-1.8); Eosinophils # (Auto) 0.1 K/mm3 (0.0-0.4); Eosinophils % (Auto) 0.8 % (0.0-4.3); Hematocrit 40.6 % (35.5-45.6); Hemoglobin 13.9 gm/dl (11.8-15.2); Lymphocytes # (Auto) 2.5 K/mm3 (1.2-5.4); Mean Corpuscular HGB Conc 34 % (32-34); Mean Corpuscular Volume 84 fl (84-94); Monocytes # (Auto) 0.7 K/mm3 (0.0-0.8); Monocytes % (Auto) 7.6 % (0.0-7.3); Platelet Count 368 K/mm3 (140-440); Red Blood Count 4.81 M/mm3 (3.65-5.03); Red Cell Distribution Width 14.8 % (13.2-15.2)
[2018-09-22 09:53] LABS: Albumin 3.5 g/dL (3.9-5); BUN/Creatinine Ratio 54; Blood Urea Nitrogen 27 mg/dL (9-20); Calcium 8.6 mg/dL (8.4-10.2)
[2018-09-22 10:19] LABS: INR 1.05 (0.87-1.13)
[2018-09-22 10:35] LABS: Alanine Aminotransferase < 5 units/L (7-56)
--- NOTE | 2018-09-22 10:43 | Emergency Department Report ---
HPI - General Chief Complaint: Altered Mental Status Time Seen by Provider: 09/22/18 10:27 - HPI HPI: Room 6 The patient is a 63-year-old male presenting with a chief complaint of altered mental status. Per staff at [facility] patient's last known well time was 23:15 last night. Nursingnoted at 06:00 this morning the patient will not take his 6:00 meds secondary to being confused.the patient is usually more alert. When asked how he is feeling the patient states "a little bit better." When asked what was bothering him the patient mumbles. Patient is slow to respond and does not provide further history. There were no reports of patient complaints by the retirement. No history of vital sign abnormality per nursing Location: [See above] Duration: [See above] Quality: [See above] Severity: [See above] Modifying factors: [see above] Context: [see above] Mode of transportation: [not driving] ED Past Medical Hx - Past Medical History Hx Hypertension: Yes Hx GERD: Yes Hx Renal Disease: Yes Hx Arthritis: Yes Hx Psychiatric Treatment: Yes (anxiety) Additional medical history: Pressure ulcers, Neuromuscular dysfunction of bladder, Arthropathy, Polyneuropathy, Muscle spasms, Prolonged indwelling tucker cathetetrs, Frequent UTI - Surgical History Additional Surgical History: Back, Neck - Family History Family history: no significant - Social History Smoking Status: Unknown if ever smoked Substance Use Type: None - Medications Home Medications: Home Medications Medication Instructions Recorded Confirmed Last Taken Type Acetaminophen [Acetaminophen TAB] 2 tab PO Q6H PRN 11/08/16 10/30/17 Unknown History Ascorbic Acid [Vitamin C with Alexandrea 1 tab PO QDAY 11/08/16 10/30/17 Unknown History Hips] Baclofen [Lioresal] 2 tab PO QID 11/08/16 10/30/17 Unknown History Betamethasone Dipropionate 1 applicatio INTRADERMA BID 11/08/16 10/30/17 Unknown History [Betamethasone Dipropionate 0.05% Oint] Dantrium 1 cap PO Q8H PRN 11/08/16 10/30/17 Unknown History Docusate Sodium [Colace CAP] 100 mg PO BID 11/08/16 10/30/17 Unknown History Halobetasol Propionate [Ultravate] 1 applicatio INTRADERMA Q12H PRN 11/08/16 10/30/17 Unknown History Multivitamin with Iron 1 tab PO QDAY 11/08/16 10/30/17 Unknown History [Multivitamins with Iron] Omeprazole Magnesium [PriLOSEC Otc] 1 tab PO QAM 11/08/16 10/30/17 Unknown History Protein Supplement [Promod] 30 ml PO BID 11/08/16 10/30/17 Unknown History diphenhydrAMINE [Benadryl CAP] 1 cap PO Q4H PRN 11/08/16 10/30/17 Unknown His tory Lactulose 30 ml PO DAILY PRN #1 11/13/16 10/30/17 Unknown Rx Phenol 1.4% [Chloraseptic] 1 spray MM PRN PRN #1 bottle 11/13/16 10/30/17 Unknown Rx Warfarin [Coumadin] 5 mg PO QDAY #7 tablet 11/14/16 10/30/17 Unknown Rx Gabapentin [Neurontin] 600 mg PO TID 10/30/17 10/30/17 Unknown History tiZANidine [Zanaflex] 4 mg PO Q8H 10/30/17 10/30/17 Unknown History oxyCODONE /ACETAMINOPHEN [Percocet 1 tab PO Q6H PRN #7 tablet 12/28/17 Unknown Rx 5/325 mg] Ertapenem [INVanz] 1 gm IV QDAY #14 vial 01/15/18 Unknown Rx Sodium Chloride 0.9% Int [Sodium 10 ml IV BID #300 syringe 01/15/18 Unknown Rx Chloride Flush Syringe 10 ml] ED Review of Systems ROS: Stated complaint: AMS Other details as noted in HPI Comment: Unobtainable due to pts medical conditions Physical Exam - Physical Exam Vital Signs: Vital Signs 09/22/18 09:11 Temperature 97.9 F Pulse Rate 90 Respiratory 16 Rate Blood Pressure 86/54 O2 Sat by Pulse 94 Oximetry Physical Exam: GENERAL: The patient is well-developed well-nourished male lying on stretcher appearing lethargic but in no acute distress. [] HEENT: Normocephalic. Atraumatic. Extraocular motions are intact. Patient has moist mucous membranes. NECK: Supple. Trachea midline CHEST/LUNGS: Clear to auscultation. There is no respiratory distress noted. HEART/CARDIOVASCULAR: Regular. There is no tachycardia. There is no gallop rub or murmur. ABDOMEN: Abdomen is soft, nontender. Patient has normal bowel sounds. There is no abdominal distention. SKIN: There is no diaphoresis. NEURO: The patient is awake but lethargic. Patient speaks in low tones. The patient appears confused. MUSCULOSKELETAL: There is no evidence of acute injury. ED Course Vital Signs 09/22/18 09:11 Temperature 97.9 F Pulse Rate 90 Respiratory 16 Rate Blood Pressure 86/54 O2 Sat by Pulse 94 Oximetry - Consultations Consultation #1: 09/22/18 10:40 [facility] called by myself to obtain history ED Medical Decision Making - Lab Data Result diagrams: 09/22/18 09:20 09/22/18 09:20 Laboratory Tests 09/22/18 09/22/18 09/22/18 09:20 09:20 09:20 WBC 9.8 RBC 4.81 Hgb 13.9 Hct 40.6 MCV 84 MCH 29 MCHC 34 RDW 14.8 Plt Count 368 Lymph % (Auto) 25.0 [place] % (Auto) 7.6 H Eos % (Auto) 0.8 Baso % (Auto) 0.5 Lymph # 2.5 [place] # 0.7 Eos # 0.1 Baso # 0.0 Seg Neutrophils % 66.1 Seg Neutrophils # 6.5 PT 14.4 INR 1.05 VBG pH Sodium 135 L Potassium 3.7 Chloride 91.2 L Carbon Dioxide 27 Anion Gap 21 BUN 27 H Creatinine 0.5 L Estimated GFR > 60 BUN/Creatinine Ratio 54 Glucose 110 H Lactic Acid Calcium 8.6 Total Bilirubin 0.30 AST 96 H ALT < 5 L Alkaline Phosphatase 93 Ammonia Total Creatine Kinase CK-MB (CK-2) CK-MB (CK-2) Rel Index Troponin T Total Protein 9.0 H Albumin 3.5 L Albumin/Globulin Ratio 0.6 09/22/18 09/22/18 09/22/18 09:20 09:20 09:20 WBC RBC Hgb Hct MCV MCH MCHC RDW Plt Count Lymph % (Auto) [place] % (Auto) Eos % (Auto) Baso % (Auto) Lymph # [place] # Eos # Baso # Seg Neutrophils % Seg Neutrophils # PT INR VBG pH 7.419 Sodium Potassium Chloride Carbon Dioxide Anion Gap BUN Creatinine Estimated GFR BUN/Creatinine Ratio Glucose Lactic Acid 1.60 Calcium Total Bilirubin AST ALT Alkaline Phosphatase Ammonia 73.0 H Total Creatine Kinase CK-MB (CK-2) CK-MB (CK-2) Rel Index Troponin T Total Protein Albumin Albumin/Globulin Ratio 09/22/18 09:20 WBC RBC Hgb Hct MCV MCH MCHC RDW Plt Count Lymph % (Auto) [place] % (Auto) Eos % (Auto) Baso % (Auto) Lymph # [place] # Eos # Baso # Seg Neutrophils % Seg Neutrophils # PT INR VBG pH Sodium Potassium Chloride Carbon Dioxide Anion Gap BUN Creatinine Estimated GFR BUN/Creatinine Ratio Glucose Lactic Acid Calcium Total Bilirubin AST ALT Alkaline Phosphatase Ammonia Total Creatine Kinase 65 CK-MB (CK-2) < 1.0 CK-MB (CK-2) Rel Index 1.5 Troponin T < 0.010 Total Protein Albumin Albumin/Globulin Ratio - EKG Data -: EKG Interpreted by Me EKG shows normal: sinus rhythm Rate: normal - EKG Data When compared to previous EKG there are: previous EKG unavailable Interpretation: nonspecific ST-T wave brett (T-wave inversion in lead V2) - Radiology Data Radiology results: report reviewed (chest x-ray, CT head), image reviewed (chest x-ray, CT head) interpreted by me: Chest x-ray-no focal infiltrates, no pneumothorax [facility] [address] [place] [address] Cat Scan Report Signed Patient: RYLEE BEARD JR MR#: [id number] : 1955 Acct:[id number] Age/Sex: 63 / M ADM Date: 09/22/18 Loc: ED Attending Dr: Ordering Physician: RENETTA MOCTEZUMA MD Date of Service: 09/22/18 Procedure(s): CT head/brain wo con Accession Number(s): [id number] cc: RENETTA MOCTEZUMA MD PROCEDURE: CT HEAD/BRAIN WO CON TECHNIQUE: Computerized tomography of the head was performed without contrast material. Coronal and sagittal reformatted images were provided. CT DOSE LENGTH PRODUCT: 1049.39 mGy-cm. HISTORY: altered mental status COMPARISONS: CT head December 23, 2017. FINDINGS: There is no evidence for acute ischemia. There is no hemorrhage. There is no midline shift. There is no hydrocephalus. There is no mass. Age appropriate osei-white matter attenuation is noted. There is no calvarial fracture. The temporal bones demonstrate aerated mastoid air cells. The middle ears appear unremarkable. Mild mucosal thickening both ethmoid sinuses. Globes are intact. IMPRESSION: * No acute intracranial findings. This document is electronically signed by Omid Wade MD., September 22 2018 01:26:17 PM ET Transcribed By: TYM Dictated By: OMID WAED MD Electronically Authenticated By: OMID WADE MD Signed Date/Time: 09/22/18 1328 DD/ 24 TD/TT: 09/22/18 112 - Differential Diagnosis altered mental status, ICH, sepsis, UTI, Critical care attestation.: If time is entered above; I have spent that time in minutes in the direct care of this critically ill patient, excluding procedure time. ED Disposition Clinical Impression: Altered mental status, Hepatic encephalopathy Disposition: -09 OP ADMIT IP TO THIS HOSP Is pt being admited?: Yes Does the pt Need Aspirin: Yes Condition: Stable Referrals: TATIANA BEST MD [Primary Care Provider] - 3-5 Days Time of Disposition: 13:31 (Hospitalist paged (Dr Ramsay))
[2018-09-22 10:47] LABS: Hemolysis Index 145
[2018-09-22 11:32] LABS: Creatine Kinase MB < 1.0 ng/mL (0.0-4.0)
[2018-09-22] MEDS ORDERED: CEPHULAC PO ONE (12:30)
--- NOTE | 2018-09-22 12:53 | XRay Report ---
PROCEDURE: XR CHEST 1V AP TECHNIQUE: Chest radiograph single view. HISTORY: possible Sepsis COMPARISONS: 07/25/2017 . FINDINGS: Limited study due to suboptimal positioning Heart: Normal. Mediastinum/Vessels: Normal. Lungs/Pleural space: Lungs and pleural spaces are clear. Bony thorax: No acute osseous abnormality. Life support devices: None. IMPRESSION: No obvious acute cardiopulmonary abnormality. This document is electronically signed by Aryan Enciso MD., September 22 2018 12:51:04 PM ET
--- NOTE | 2018-09-22 13:28 | Cat Scan Report ---
PROCEDURE: CT HEAD/BRAIN WO CON TECHNIQUE: Computerized tomography of the head was performed without contrast material. Coronal and s agittal reformatted images were provided. CT DOSE LENGTH PRODUCT: 1049.39 mGy-cm. HISTORY: altered mental status COMPARISONS: CT head December 23, 2017. FINDINGS: There is no evidence for acute ischemia. There is no hemorrhage. There is no midline shift. There is no hydrocephalus. There is no mass. Age appropriate osei-white matter attenuation is noted. There is no calvarial fracture. The temporal bones demonstrate aerated mastoid air cells. The middle ears appear unremarkable. Mild mucosal thickening both ethmoid sinuses. Globes are intact. IMPRESSION: * No acute intracranial findings. This document is electronically signed by Omid Keller MD., September 22 2018 01:26:17 PM ET
--- NOTE | 2018-09-22 14:43 | History and Physical Report ---
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 Pt is confused and lethargic and unable to provide detailed history. Pt history taken from ED staff, and SNF staff. As per staff, the patient's last known well time was at bedtime, which was 2315hrs. Upon waking from sleep around 0600hrs the patient was found by SNF staff to be confused and lethargic. EMS notified, and upon arrival the patient was found to be in distress. Pt seen and evaluate in ED and found to have symptoms consistent with CVA, Encephalopathy, Sever Malnutrution, and Pressure Ulcers present on admission. No further history obtainable. Pt admitted to telemetry, and initiated on CVA protocol. Neurology consulted in ED. Pt is o utside therapeutic window for TPA at time of my evaluation. Pt last admission on 01/01/18 reviewed. All listed medication reconciled at time of admission. Past History Past Medical History: arthritis, GERD, hypertension, other (Polyneuropathy, Debility, Anxiety, malnutrition) Past Surgical History: Other (Suprapubic Catheter) Social history: single. denies: smoking, alcohol abuse, prescription drug abuse Family history: hypertension Medications and Allergies Allergies Allergy/AdvReac Type Severity Reaction Status Date / Time shrimp Allergy Itching Verified 01/01/18 15:52 sulfamethoxazole Allergy Rash Verified 11/08/16 10:57 [From Bactrim] trimethoprim [From Bactrim] Allergy Rash Verified 11/08/16 10:57 tuberculin, purified protein Allergy Unknown Verified 11/08/16 10:57 deriva Home Medications Medication Instructions Recorded Confirmed Last Taken Type Acetaminophen [Acetaminophen TAB] 2 tab PO Q6H PRN 11/08/16 10/30/17 Unknown History Ascorbic Acid [Vitamin C with Alexandrea 1 tab PO QDAY 11/08/16 10/30/17 Unknown History Hips] Baclofen [Lioresal] 2 tab PO QID 11/08/16 10/30/17 Unknown History Betamethasone Dipropionate 1 applicatio INTRADERMA BID 11/08/16 10/30/17 Unknown History [Betamethasone Dipropionate 0.05% Oint] Dantrium 1 cap PO Q8H PRN 11/08/16 10/30/17 Unknown History Docusate Sodium [Colace CAP] 100 mg PO BID 11/08/16 10/30/17 Unknown History Halobetasol Propionate [Ultravate] 1 applicatio INTRADERMA Q12H PRN 11/08/16 10/30/17 Unknown History Multivitamin with Iron 1 tab PO QDAY 11/08/16 10/30/17 Unknown History [Multivitamins with Iron] Omeprazole Magnesium [PriLOSEC Otc] 1 tab PO QAM 11/08/16 10/30/17 Unknown History Protein Supplement [Promod] 30 ml PO BID 11/08/16 10/30/17 Unknown History diphenhydrAMINE [Benadryl CAP] 1 cap PO Q4H PRN 11/08/16 10/30/17 Unknown Hist ory Lactulose 30 ml PO DAILY PRN #1 11/13/16 10/30/17 Unknown Rx Phenol 1.4% [Chloraseptic] 1 spray MM PRN PRN #1 bottle 11/13/16 10/30/17 Unknown Rx Warfarin [Coumadin] 5 mg PO QDAY #7 tablet 11/14/16 10/30/17 Unknown Rx Gabapentin [Neurontin] 600 mg PO TID 10/30/17 10/30/17 Unknown History tiZANidine [Zanaflex] 4 mg PO Q8H 10/30/17 10/30/17 Unknown History oxyCODONE /ACETAMINOPHEN [Percocet 1 tab PO Q6H PRN #7 tablet 12/28/17 Unknown Rx 5/325 mg] Ertapenem [INVanz] 1 gm IV QDAY #14 vial 01/15/18 Unknown Rx Sodium Chloride 0.9% Int [Sodium 10 ml IV BID #300 syringe 01/15/18 Unknown Rx Chloride Flush Syringe 10 ml] Review of Systems ROS unobtainable: due to mental status Exam - Constitutional Vitals: Temp Pulse Resp BP Pulse Ox 97.9 F 90 16 86/54 94 09/22/18 09:11 09/22/18 09:11 09/22/18 09:11 09/22/18 09:11 09/22/18 09:11 General appearance: Present: mild distress, cachectic, disheveled - EENT Eyes: Present: PERRL, miosis ENT: hearing intact, clear oral mucosa - Neck Neck: Present: supple, normal ROM - Respiratory Respiratory effort: normal Respiratory: bilateral: CTA - Cardiovascular Heart Sounds: Present: S1 & S2. Absent: rub, click - Extremities Extremities: pulses symmetrical, No edema Peripheral Pulses: within normal limits - Abdominal General gastrointestinal: Present: soft, non-tender, non-distended, normal bowel sounds, other (Suprapubic catheter in place.) Male genitourinary: Present: normal - Integumentary Integumentary: Present: clear, dry, clammy - Musculoskeletal Musculoskeletal: generalized weakness - Psychiatric Psychiatric: no appropriate mood/affect, no intact judgment & insight, no memory intact - Neurologic Neurologic: no focal deficits, no gait normal Results - Labs CBC & Chem 7: 09/22/18 09:20 09/22/18 09:20 Labs: Abnormal lab results 09/22/18 09/22/18 09/22/18 Range/Units 09:20 09:20 09:20 [place] % (Auto) 7.6 H (0.0-7.3) % Sodium 135 L (137-145) mmol/L Chloride 91.2 L (98-107) mmol/L BUN 27 H (9-20) mg/dL Creatinine 0.5 L (0.8-1.5) mg/dL Glucose 110 H (75-100) mg/dL AST 96 H (5-40) units/L ALT < 5 L (7-56) units/L Ammonia 73.0 H (25-60) umol/L Total Protein 9.0 H (6.3-8.2) g/dL Albumin 3.5 L (3.9-5) g/dL Assessment and Plan - Patient Problems (1) CVA (cerebral vascular accident) Current Visit: Yes Status: Acute Qualifiers: CVA mechanism: unspecified Qualified Code(s): I63.9 - Cerebral infarction, unspecified Plan to address problem: Stroke Protocol: CT head, Neuro checks, MRI Brain, MRA Brain, Echo, Carotid Doppler, Antiplatelet therapy, lipid panel, statin therapy, PT/OT/Speech therapy, Seizure precautions, Aspiration precautions, Neurology consulted. (2) Encephalopathy Current Visit: Yes Status: Acute Plan to address problem: CT head, Neuro checks, aspiration precautions. Fall precautions. (3) Severe malnutrition Current Visit: Yes Status: Acute Plan to address problem: Encouraged increased protein intake, (4) Debility Current Visit: Yes Status: Acute Plan to address problem: PT/OT consulted, supportive care. (5) Subtherapeutic anticoagulation Current Visit: Yes Status: Acute Plan to address problem: Therapeutic lovenox, resume coumadin therapy as per pharmacy. repeat INR as per pharmacy (6) Recurrent deep vein thrombosis (DVT) Current Visit: Yes Status: Acute Plan to address problem: Resume Coumadin, Therqpeutic lovenox, Coumadin dosing as per pharmacy (7) DVT prophylaxis Current Visit: Yes Status: Acute Plan to address problem: SCD to BLE while in bed, continue therapeutic anticoagulation.
[2018-09-22] MEDS ORDERED: HALOBETASOL PROPIONATE INTRADERMA PRN (14:55)
[2018-09-22] MEDS ORDERED: TYLENOL PO PRN (14:55)
[2018-09-22] MEDS ORDERED: CEPHULAC PR PRN (14:55)
[2018-09-22] MEDS ORDERED: BENADRYL PO PRN (14:55)
[2018-09-22] MEDS ORDERED: DANTRIUM PO PRN (14:55)
[2018-09-22] MEDS ORDERED: PROVENTIL IH PRN (15:00)
[2018-09-22] MEDS ORDERED: MILK OF MAGNESIA PO PRN (15:00)
[2018-09-22] MEDS ORDERED: REGLAN PO PRN (15:00)
[2018-09-22] MEDS ORDERED: PHENERGAN PR PRN (15:00)
[2018-09-22] MEDS ORDERED: SODIUM CHLORIDE FLUSH SYRINGE 10 ML IV PRN (15:00)
[2018-09-22] MEDS ORDERED: ZOFRAN IV PRN (15:00)
[2018-09-22] MEDS ORDERED: NACL 0.9% 1000 ML 2,000 ML IV ONE (15:00)
[2018-09-22] MEDS ORDERED: DULCOLAX PR PRN (15:00)
--- NOTE | 2018-09-22 16:41 | Progress Note ---
Subjective Date of service: 09/22/18 Interval history: I have seen and evaluated the patient plan EEG and check MRI,,, CT shows atrophy and prior focal changes in the distal MCA area suggestive of old stroke the ammonia level is increase other qwise labs are OK plan to follow up Objective - Vital Sign Vital Signs - 12hr 09/22/18 09:11 Temperature 97.9 F Pulse Rate 90 Respiratory 16 Rate Blood Pressure 86/54 O2 Sat by Pulse 94 Oximetry - Laboratory Findings CBC and BMP: 09/22/18 09:20 09/22/18 09:20 Abnormal Lab Findings: Abnormal Labs 09/22/18 09/22/18 09/22/18 09:20 09:20 09:20 [place] % (Auto) 7.6 H Sodium 135 L Chloride 91.2 L BUN 27 H Creatinine 0.5 L Glucose 110 H AST 96 H ALT < 5 L Ammonia 73.0 H Total Protein 9.0 H Albumin 3.5 L
[2018-09-22] MEDS ORDERED: NACL 0.9% 1000 ML 1,000 ML ONE (16:59)
[2018-09-22] MEDS ORDERED: COUMADIN PO SCH (17:00)
[2018-09-22 17:42] LABS: Amphetamine Screen,Urine PRESUMPTIVE NEGATIVE; Cannabinoid Screen,Urine PRESUMPTIVE NEGATIVE; Cocaine Screen,Urine PRESUMPTIVE NEGATIVE; Methadone Screen,Urine PRESUMPTIVE NEGATIVE; Opiate Screen,Urine PRESUMPTIVE NEGATIVE
[2018-09-22 17:47] LABS: Bacteria,Urine 4+ /HPF (Negative); Bilirubin,Urine NEG (Negative); Blood,Urine SM (Negative); Color,Urine Yellow (Yellow); Mucus,Urine 3+ /HPF; Urobilinogen,Urine < 2.0 mg/dL (<2.0)
[2018-09-22 17:53] LABS: Protein,Urine >500 mg/dL (Negative)
--- NOTE | 2018-09-22 17:56 | Vascular Lab Report ---
PROCEDURE: VL CAROTID DUPLEX BILAT TECHNIQUE: Duplex Doppler ultrasound of the common, internal and external carotid arteries and the v ertebral arteries was performed bilaterally. Desai scale imaging, velocity spectral waveform analysis, and color flow Doppler were employed. HISTORY: stroke COMPARISONS: None . Note: Measurement of carotid stenosis is based on flow velocity values that correlate with the [place] Symptomatic Carotid Endarterectomy Trial (NASCET) based stenosis criteria using the internal carotid artery diameter as the denominator for stenosis calculation. FINDINGS: RIGHT carotid artery: Velocities: ICA PSV: 73 cm/sec ICA End diastolic: 20 cm/sec CCA PSV: 102 cm/sec IC/CC ratio: 0.7 2 Plaque/color flow: Mild heterogeneous plaque without significant spectral broadening or abnormal col or flow . RIGHT vertebral artery: Antegrade systolic and diastolic flow LEFT carotid artery: Velocities: ICA PSV: 65 cm/sec ICA End diastolic: 29 cm/sec CCA PSV: 101 cm/sec IC/CC ratio: 0.6 4 Plaque/color flow: Mild heterogeneous plaque without significant spectral broadening or abnormal col or flow . LEFT vertebral artery: Antegrade systolic and diastolic flow IMPRESSION: 1. RIGHT carotid: No hemodynamically significant (less than 50 percent) internal carotid artery franci nosis. 2. LEFT carotid: No hemodynamically significant (less than 50 percent) internal carotid artery sten osis. 3. Vertebral arteries: Bilaterally antegrade. This document is electronically signed by Jess Valentin., September 22 2018 05:54:34 PM ET
[2018-09-22] MEDS ORDERED: INVanz 1 GM in NACL 0.9% 50 ML IV SCH (18:00)
[2018-09-22 18:27] LABS: Benzodiazepines Screen,Urine PRESUMPTIVE POSITIVE
[2018-09-22] MEDS ORDERED: LIORESAL ONE (18:42)
[2018-09-22] MEDS: LIORESAL PO SCH ×2 (19:09→21:39)
[2018-09-22 19:12] LABS: Free T4 (Free Thyroxine) 1.29 ng/dL (0.76-1.46)
--- NOTE | 2018-09-22 19:30 | Consultation ---
HISTORY OF PRESENT ILLNESS: This is a 63-year-old black male that is admitted to [facility] on 09/22/2018. This patient was presented to the Emergency Room with major complaints of altered mental status. He was apparently last known well the previous evening and nurses noted the patient was less alert secondary to being confused. He was speaking, but was otherwise quite inappropriate. He had a prior medical history of being at a [facility] and had hepatic encephalopathy. He presented to the hospital with a lactic acid of 1.6, ammonia 73, which was elevated. He does have a creatinine of 0.5, a BUN of 27, AST level of 96 and albumin of 3.5. The patient had been taking Neurontin previously, tizanidine, oxycodone and Envarsus. When he presented to the Emergency Room, he was not acting appropriate. A CT scan of the head obtained and this was assessed, reviewed by me. It shows moderate atrophy more so over the right than the left cerebral hemisphere. Ventricular system is slightly enlarged given the changes and I think that there has also been a large distal right MCA stroke, possibly as well as distal left MCA stroke. PHYSICAL EXAMINATION: He does speak. He has his bilateral upper extremity is held with a dystonic decorticate posture. He does move appropriately. He is weak throughout and was disoriented to person, place, and time. No asterixis is present. Cranial nerves 2-12 are intact. No asterixis is noted. No seizure activity noted. Visual flower are full. He is disoriented to place and situation. He does know his name, however , he can follow only simple commands. IMPRESSION: 1. Severe hepatic encephalopathy. 2. Severe brain atrophy with evidence to my view, he has had prior strokes in the distal MCA territory, recommend getting MRI scan and EEG. The patient has evidence of marked changes on his CT scan indicative of widespread atrophy as well with compensatory dilation of the ventricular system given the degree of atrophy he has. JOB# [id number] JAIME/NTS
[2018-09-22] MEDS ORDERED: NON-FORMULARY (Gabapentin [Neurontin] 600 MG) PO SCH (20:00)
[2018-09-22] MEDS: COLACE PO SCH (21:38)
[2018-09-22] MEDS: PEPCID PO SCH (21:39)
[2018-09-22] MEDS: LOVENOX SUB-Q SCH (21:39)
[2018-09-22] MEDS: NEURONTIN PO SCH (21:39)
[2018-09-22] MEDS: COUMADIN PO SCH (21:46)
[2018-09-22] MEDS ORDERED: NON-FORMULARY (Protein Supplement [Promod] 30 ML) PO SCH (22:00)
[2018-09-23] MEDS: NEURONTIN PO SCH ×3 (08:42→20:56)
[2018-09-23 09:33] LABS: INR 1.02 (0.87-1.13)
[2018-09-23] MEDS ORDERED: MULTIVITAMIN WITH IRON PO SCH (10:00)
[2018-09-23] MEDS ORDERED: OMEPRAZOLE MAGNESIUM PO SCH (10:00)
[2018-09-23] MEDS: PROTONIX PO SCH (10:41)
[2018-09-23] MEDS: COLACE PO SCH ×2 (10:41→22:11)
[2018-09-23] MEDS: THERAGRAN-M Tab PO SCH (10:41)
[2018-09-23] MEDS: VITAMIN C PO SCH (10:41)
[2018-09-23] MEDS: LIORESAL PO SCH ×4 (10:41→22:11)
[2018-09-23] MEDS: ASPIRIN PO SCH (10:41)
[2018-09-23] MEDS: PEPCID PO SCH ×2 (10:41→22:11)
[2018-09-23] MEDS: LOVENOX SUB-Q SCH ×2 (10:42→22:10)
--- NOTE | 2018-09-23 12:06 | Progress Note ---
Assessment and Plan Assessment and plan: --Metabolic coagulopathy; multifactorial Neuro checks, supportive care, follow neuro evaluation --Severe malnutrition; nutrition consult, dietary supplements Supportive care --Chronic anticoagulation with Coumadin; Subtherapeutic INR, continue Coumadin, pharmacy to dose Target INR 2-3 --History of recurrent DVTs; continue chronic anticoagulation with Coumadin --Gen. Debility; physical therapy occupational therapy, supportive care --DVT prophylaxis; on Coumadin, SCD --Suprapubic catheter; leakage, malfunction Consults urology if doesn't improve --Full code Requesting monitor the patient and adjust the management as needed Plan of care reviewed with the patient History Interval history: Patient seen and examined medical records reviewed 63-year-old snf resident with multiple medical problems was admitted through emergency room with altered level of consciousness, Neuro workup is in progress Patient is alert and awake responding to very simple questions appropriately Vital signs reviewed Hospitalist Physical - Constitutional Vitals: Temp Pulse Resp BP Pulse Ox 98.3 F 87 18 124/80 96 09/23/18 11:42 09/23/18 11:42 09/23/18 11:42 09/23/18 11:42 09/23/18 11:42 General appearance: Present: no acute distress, cachectic, disheveled - EENT Eyes: Present: PERRL, EOM intact - Neck Neck: Present: supple, normal ROM - Respiratory Respiratory effort: normal Respiratory: bilateral: diminished, negative: rales, rhonchi, wheezing - Cardiovascular Rhythm: regular Heart Sounds: Present: S1 & S2 Results - Labs CBC & Chem 7: 09/22/18 09:20 09/22/18 09:20 Labs: Laboratory Last Values WBC 9.8 K/mm3 (4.5-11.0) 09/22/18 09:20 RBC 4.81 M/mm3 (3.65-5.03) 09/22/18 09:20 Hgb 13.9 gm/dl (11.8-15.2) 09/22/18 09:20 Hct 40.6 % (35.5-45.6) 09/22/18 09:20 MCV 84 fl (84-94) 09/22/18 09:20 MCH 29 pg (28-32) 09/22/18 09:20 MCHC 34 % (32-34) 09/22/18 09:20 RDW 14.8 % (13.2-15.2) 09/22/18 09:20 Plt Count 368 K/mm3 (140-440) 09/22/18 09:20 Lymph % (Auto) 25.0 % (13.4-35.0) 09/22/18 09:20 [place] % (Auto) 7.6 % (0.0-7.3) H 09/22/18 09:20 Eos % (Auto) 0.8 % (0.0-4.3) 09/22/18 09:20 Baso % (Auto) 0.5 % (0.0-1.8) 09/22/18 09:20 Lymph # 2.5 K/mm3 (1.2-5.4) 09/22/18 09:20 [place] # 0.7 K/mm3 (0.0-0.8) 09/22/18 09:20 Eos # 0.1 K/mm3 (0.0-0.4) 09/22/18 09:20 Baso # 0.0 K/mm3 (0.0-0.1) 09/22/18 09:20 Seg Neutrophils % 66.1 % (40.0-70.0) 09/22/18 09:20 Seg Neutrophils # 6.5 K/mm3 (1.8-7.7) 09/22/18 09:20 PT 14.0 Sec. (12.2-14.9) 09/23/18 09:05 INR 1.02 (0.87-1.13) 09/23/18 09:05 D-Dimer 245.44 ng/mlDDU (0-234) H 09/22/18 18:30 VBG pH 7.419 (7.320-7.420) 09/22/18 09:20 Sodium 135 mmol/L (137-145) L 09/22/18 09:20 Potassium 3.7 mmol/L (3.6-5.0) 09/22/18 09:20 Chloride 91.2 mmol/L (98-107) L 09/22/18 09:20 Carbon Dioxide 27 mmol/L (22-30) 09/22/18 09:20 Anion Gap 21 mmol/L 09/22/18 09:20 BUN 27 mg/dL (9-20) H 09/22/18 09:20 Creatinine 0.5 mg/dL (0.8-1.5) L 09/22/18 09:20 Estimated GFR > 60 ml/min 09/22/18 09:20 BUN/Creatinine Ratio 54 % 09/22/18 09:20 Glucose 110 mg/dL (75-100) H 09/22/18 09:20 Lactic Acid 1.70 mmol/L (0.7-2.0) 09/22/18 18:30 Calcium 8.6 mg/dL (8.4-10.2) 09/22/18 09:20 Total Bilirubin 0.30 mg/dL (0.1-1.2) 09/22/18 09:20 AST 96 units/L (5-40) H 09/22/18 09:20 ALT < 5 units/L (7-56) L 09/22/18 09:20 Alkaline Phosphatase 93 units/L (35-129) 09/22/18 09:20 Ammonia 73.0 umol/L (25-60) H 09/22/18 09:20 Total Creatine Kinase 65 units/L (55-170) 09/22/18 09:20 CK-MB (CK-2) < 1.0 ng/mL (0.0-4.0) 09/22/18 09:20 CK-MB (CK-2) Rel Index 1.5 (0-4) 09/22/18 09:20 Troponin T < 0.010 ng/mL (0.00-0.029) 09/22/18 09:20 NT-Pro-B Natriuret Pep 53.97 pg/mL (0-900) 09/22/18 18:30 Total Protein 9.0 g/dL (6.3-8.2) H 09/22/18 09:20 Albumin 3.5 g/dL (3.9-5) L 09/22/18 09:20 Albumin/Globulin Ratio 0.6 % 09/22/18 09:20 TSH 0.679 mlU/mL (0.270-4.200) 09/22/18 18:30 Free T4 1.29 ng/dL (0.76-1.46) 09/22/18 18:30 Urine Color Yellow (Yellow) 09/22/18 Unknown Urine Turbidity Turbid (Clear) 09/22/18 Unknown Urine pH 7.0 (5.0-7.0) 09/22/18 Unknown Ur Specific [place] 1.019 (1.003-1.030) 09/22/18 Unknown Urine Protein >500 mg/dL (Negative) 09/22/18 Unknown Urine Glucose (UA) Neg mg/dL (Negative) 09/22/18 Unknown Urine Ketones Neg mg/dL (Negative) 09/22/18 Unknown Urine Blood Sm (Negative) 09/22/18 Unknown Urine Nitrite Neg (Negative) 09/22/18 Unknown Urine Bilirubin Neg (Negative) 09/22/18 Unknown Urine Urobilinogen < 2.0 mg/dL (<2.0) 09/22/18 Unknown Ur Leukocyte Esterase Mod (Negative) 09/22/18 Unknown Urine WBC (Auto) 81.0 /HPF (0.0-6.0) H 09/22/18 Unknown Urine RBC (Auto) 27.0 /HPF (0.0-6.0) 09/22/18 Unknown Urine Bacteria (Auto) 4+ /HPF (Negative) 09/22/18 Unknown Urine WBC Clumps 3+ /HPF 09/22/18 Unknown Urine Mucus 3+ /HPF 09/22/18 Unknown Urine Opiates Screen Presumptive negative 09/22/18 Unknown Urine Methadone Screen Presumptive negative 09/22/18 Unknown Ur Barbiturates Screen Presumptive negative 09/22/18 Unknown Ur Phencyclidine Scrn Presumptive negative 09/22/18 Unknown Ur Amphetamines Screen Presumptive negative 09/22/18 Unknown U Benzodiazepines Scrn Presumptive positive 09/22/18 Unknown Urine Cocaine Screen Presumptive negative 09/22/18 Unknown U Marijuana (THC) Screen Presumptive negative 09/22/18 Unknown Drugs of Abuse Note Disclamer 09/22/18 Unknown Plasma/Serum Alcohol < 0.01 % (0-0.07) 09/22/18 18:30 Active Medications - Current Medications Current Medications: Generic Name Dose Route Start Last Admin Trade Name Freq PRN Reason Stop Dose Admin Acetaminophen 650 mg 09/22/18 15:00 Tylenol PO Q4H PRN Pain, Mild (1-3) Albuterol 2.5 mg 09/22/18 15:00 Proventil IH Q3HRT PRN Shortness Of Breath Ascorbic Acid 500 mg 09/23/18 10:00 09/23/18 10:41 Vitamin C PO 500 mg QDAY [facility] Administration Aspirin 325 mg 09/23/18 10:00 09/23/18 10:41 Aspirin PO 325 mg QDAY [facility] Administration Atorvastatin Calcium 40 mg 09/22/18 22:00 09/22/18 21:39 Lipitor PO 40 mg QHS GARY Administration Baclofen 10 mg 09/22/18 18:00 09/23/18 10:41 Lioresal PO 10 mg QID [facility] Administration Bisacodyl 10 mg 09/22/18 15:00 Dulcolax DC QDAY PRN Constipation Diphenhydramine HCl 25 mg 09/22/18 14:55 Benadryl PO Q4H PRN Itching Docusate Sodium 100 mg 09/22/18 22:00 09/23/18 10:41 Colace PO 100 mg BID [facility] Administration Enoxaparin Sodium 60 mg 09/22/18 22:00 09/23/18 10:42 Lovenox SUB-Q 60 mg Q12HR [facility] Administration Famotidine 20 mg 09/22/18 22:00 09/23/18 10:41 Pepcid PO 20 mg BID [facility] Administration Gabapentin 600 mg 09/22/18 20:00 09/23/18 08:42 Neurontin PO 600 mg TID [facility] Administration Lactulose 20 gm 09/22/18 14:55 Cephulac DC DAILY PRN Constipation Magnesium Hydroxide 30 ml 09/22/18 15:00 Milk Of Magnesia PO Q4H PRN Constipation Metoclopramide HCl 10 mg 09/22/18 15:00 Reglan PO Q6H PRN Nausea And Vomiting Miscellaneous Medication 1 cap 09/22/18 14:55 Dantrium PO Q8H PRN Spasms Miscellaneous Medication 1 applicatio 09/22/18 14:55 Halobetasol Propionate [Ultravate] INTRADERMA Q12H PRN Rash Miscellaneous Medication 30 ml 09/22/18 22:00 Protein Supplement [Promod] PO BID [facility] Multivitamins/Minerals 1 each 09/23/18 10:00 09/23/18 10:41 Theragran-M Tab PO 1 each QDAY [facility] Administration Ondansetron HCl 4 mg 09/22/18 15:00 Zofran IV Q8H PRN Nausea And Vomiting Pantoprazole Sodium 40 mg 09/23/18 10:00 09/23/18 10:41 Protonix PO 40 mg DAILY GARY Administration Promethazine HCl 25 mg 09/22/18 15:00 Phenergan DC Q6H PRN Nausea And Vomiting Sodium Chloride 10 ml 09/22/18 15:00 Sodium Chloride Flush Syringe 10 Ml IV PRN PRN LINE FLUSH Warfarin Sodium 5 mg 09/22/18 21:00 09/22/18 21:46 Coumadin PO 5 mg DAILY@1700 GARY Administration Protocol
[2018-09-23] MEDS: COUMADIN PO SCH (17:30)
[2018-09-24 07:29] LABS: INR 1.14 (0.87-1.13)
[2018-09-24] MEDS: COLACE PO SCH ×2 (10:10→23:02)
[2018-09-24] MEDS: PROTONIX PO SCH (10:10)
[2018-09-24] MEDS: VITAMIN C PO SCH (10:10)
[2018-09-24] MEDS: NEURONTIN PO SCH ×3 (10:10→23:01)
[2018-09-24] MEDS: THERAGRAN-M Tab PO SCH (10:10)
[2018-09-24] MEDS: ASPIRIN PO SCH (10:10)
[2018-09-24] MEDS: LIORESAL PO SCH ×4 (10:10→23:02)
[2018-09-24] MEDS: PEPCID PO SCH ×2 (10:10→23:02)
[2018-09-24] MEDS: LOVENOX SUB-Q SCH ×2 (10:11→23:01)
--- NOTE | 2018-09-24 11:22 | Progress Note ---
Assessment and Plan Assessment and plan: --Suprapubic catheter; leakage, malfunction Consult urology , informed urology --Metabolic encephalopathy; multifactorial Neuro checks, supportive care, follow neuro evaluation --Severe malnutrition; nutrition consult, dietary supplements Supportive care --Chronic anticoagulation with Coumadin; Subtherapeutic INR, continue Coumadin, pharmacy to dose Target INR 2-3 --History of recurrent DVTs; continue chronic anticoagulation with Coumadin --Gen. Debility; physical therapy occupational therapy, supportive care --DVT prophylaxis; on Coumadin, SCD --Full code closely monitor the patient and adjust the management as needed Plan of care reviewed with the patient History Interval history: Patient seen and examined medical records reviewed suprapubic [place] catheter leaking Patient has no new complaints Vital signs noted Hospitalist Physical - Constitutional Vitals: Temp Pulse Resp BP Pulse Ox 97.6 F 89 18 101/60 96 09/24/18 08:26 09/24/18 10:00 09/24/18 08:26 09/24/18 08:26 09/24/18 08:26 General appearance: Present: no acute distress, cachectic, disheveled - EENT Eyes: Present: PERRL, EOM intact - Neck Neck: Present: supple, normal ROM - Respiratory Respiratory effort: normal Respiratory: bilateral: diminished, negative: rales, rhonchi, wheezing - Cardiovascular Rhythm: regular Heart Sounds: Present: S1 & S2 - Extremities Extremities: no ischemia, No edema - Abdominal General gastrointestinal: soft, non-tender, non-distended, normal bowel sounds, other (Supropubic catheter leakage) - Integumentary Integumentary: Present: clear, warm - Psychiatric Psychiatric: appropriate mood/affect, cooperative - Neurologic Neurologic: moves all extremities Results - Labs CBC & Chem 7: 09/25/18 06:34 09/25/18 06:34 Labs: Laboratory Last Values WBC 9.8 K/mm3 (4.5-11.0) 09/22/18 09:20 RBC 4.81 M/mm3 (3.65-5.03) 09/22/18 09:20 Hgb 13.9 gm/dl (11.8-15.2) 09/22/18 09:20 Hct 40.6 % (35.5-45.6) 09/22/18 09:20 MCV 84 fl (84-94) 09/22/18 09:20 MCH 29 pg (28-32) 09/22/18 09:20 MCHC 34 % (32-34) 09/22/18 09:20 RDW 14.8 % (13.2-15.2) 09/22/18 09:20 Plt Count 368 K/mm3 (140-440) 09/22/18 09:20 Lymph % (Auto) 25.0 % (13.4-35.0) 09/22/18 09:20 [place] % (Auto) 7.6 % (0.0-7.3) H 09/22/18 09:20 Eos % (Auto) 0.8 % (0.0-4.3) 09/22/18 09:20 Baso % (Auto) 0.5 % (0.0-1.8) 09/22/18 09:20 Lymph # 2.5 K/mm3 (1.2-5.4) 09/22/18 09:20 [place] # 0.7 K/mm3 (0.0-0.8) 09/22/18 09:20 Eos # 0.1 K/mm3 (0.0-0.4) 09/22/18 09:20 Baso # 0.0 K/mm3 (0.0-0.1) 09/22/18 09:20 Seg Neutrophils % 66.1 % (40.0-70.0) 09/22/18 09:20 Seg Neutrophils # 6.5 K/mm3 (1.8-7.7) 09/22/18 09:20 PT 15.3 Sec. (12.2-14.9) H 09/24/18 06:37 INR 1.14 (0.87-1.13) H 09/24/18 06:37 D-Dimer 245.44 ng/mlDDU (0-234) H 09/22/18 18:30 VBG pH 7.419 (7.320-7.420) 09/22/18 09:20 Sodium 135 mmol/L (137-145) L 09/22/18 09:20 Potassium 3.7 mmol/L (3.6-5.0) 09/22/18 09:20 Chloride 91.2 mmol/L (98-107) L 09/22/18 09:20 Carbon Dioxide 27 mmol/L (22-30) 09/22/18 09:20 Anion Gap 21 mmol/L 09/22/18 09:20 BUN 27 mg/dL (9-20) H 09/22/18 09:20 Creatinine 0.5 mg/dL (0.8-1.5) L 09/22/18 09:20 Estimated GFR > 60 ml/min 09/22/18 09:20 BUN/Creatinine Ratio 54 % 09/22/18 09:20 Glucose 110 mg/dL (75-100) H 09/22/18 09:20 Lactic Acid 1.70 mmol/L (0.7-2.0) 09/22/18 18:30 Calcium 8.6 mg/dL (8.4-10.2) 09/22/18 09:20 Total Bilirubin 0.30 mg/dL (0.1-1.2) 09/22/18 09:20 AST 96 units/L (5-40) H 09/22/18 09:20 ALT < 5 units/L (7-56) L 09/22/18 09:20 Alkaline Phosphatase 93 units/L (35-129) 09/22/18 09:20 Ammonia 73.0 umol/L (25-60) H 09/22/18 09:20 Total Creatine Kinase 65 units/L (55-170) 09/22/18 09:20 CK-MB (CK-2) < 1.0 ng/mL (0.0-4.0) 09/22/18 09:20 CK-MB (CK-2) Rel Index 1.5 (0-4) 09/22/18 09:20 Troponin T < 0.010 ng/mL (0.00-0.029) 09/22/18 09:20 NT-Pro-B Natriuret Pep 53.97 pg/mL (0-900) 09/22/18 18:30 Total Protein 9.0 g/dL (6.3-8.2) H 09/22/18 09:20 Albumin 3.5 g/dL (3.9-5) L 09/22/18 09:20 Albumin/Globulin Ratio 0.6 % 09/22/18 09:20 TSH 0.679 mlU/mL (0.270-4.200) 09/22/18 18:30 Free T4 1.29 ng/dL (0.76-1.46) 09/22/18 18:30 Urine Color Yellow (Yellow) 09/22/18 Unknown Urine Turbidity Turbid (Clear) 09/22/18 Unknown Urine pH 7.0 (5.0-7.0) 09/22/18 Unknown Ur Specific [place] 1.019 (1.003-1.030) 09/22/18 Unknown Urine Protein >500 mg/dL (Negative) 09/22/18 Unknown Urine Glucose (UA) Neg mg/dL (Negative) 09/22/18 Unknown Urine Ketones Neg mg/dL (Negative) 09/22/18 Unknown Urine Blood Sm (Negative) 09/22/18 Unknown Urine Nitrite Neg (Negative) 09/22/18 Unknown Urine Bilirubin Neg (Negative) 09/22/18 Unknown Urine Urobilinogen < 2.0 mg/dL (<2.0) 09/22/18 Unknown Ur Leukocyte Esterase Mod (Negative) 09/22/18 Unknown Urine WBC (Auto) 81.0 /HPF (0.0-6.0) H 09/22/18 Unknown Urine RBC (Auto) 27.0 /HPF (0.0-6.0) 09/22/18 Unknown Urine Bacteria (Auto) 4+ /HPF (Negative) 09/22/18 Unknown Urine WBC Clumps 3+ /HPF 09/22/18 Unknown Urine Mucus 3+ /HPF 09/22/18 Unknown Urine Opiates Screen Presumptive negative 09/22/18 Unknown Urine Methadone Screen Presumptive negative 09/22/18 Unknown Ur Barbiturates Screen Presumptive negative 09/22/18 Unknown Ur Phencyclidine Scrn Presumptive negative 09/22/18 Unknown Ur Amphetamines Screen Presumptive negative 09/22/18 Unknown U Benzodiazepines Scrn Presumptive positive 09/22/18 Unknown Urine Cocaine Screen Presumptive negative 09/22/18 Unknown U Marijuana (THC) Screen Presumptive negative 09/22/18 Unknown Drugs of Abuse Note Disclamer 09/22/18 Unknown Plasma/Serum Alcohol < 0.01 % (0-0.07) 09/22/18 18:30 Active Medications - Current Medications Current Medications: Generic Name Dose Route Start Last Admin Trade Name Freq PRN Reason Stop Dose Admin Acetaminophen 650 mg 09/22/18 15:00 Tylenol PO Q4H PRN Pain, Mild (1-3) Albuterol 2.5 mg 09/22/18 15:00 Proventil IH Q3HRT PRN Shortness Of Breath Ascorbic Acid 500 mg 09/23/18 10:00 09/24/18 10:10 Vitamin C PO 500 mg QDAY GARY Administration Aspirin 325 mg 09/23/18 10:00 09/24/18 10:10 Aspirin PO 325 mg QDAY GARY Administration Atorvastatin Calcium 40 mg 09/22/18 22:00 09/23/18 22:11 Lipitor PO 40 mg QHS GARY Administration Baclofen 10 mg 09/22/18 18:00 09/24/18 10:10 Lioresal PO 10 mg QID GARY Administration Bisacodyl 10 mg 09/22/18 15:00 Dulcolax HI QDAY PRN Constipation Diphenhydramine HCl 25 mg 09/22/18 14:55 Benadryl PO Q4H PRN Itching Docusate Sodium 100 mg 09/22/18 22:00 09/24/18 10:10 Colace PO 100 mg BID GARY Administration Enoxaparin Sodium 60 mg 09/22/18 22:00 09/24/18 10:11 Lovenox SUB-Q 60 mg Q12HR GARY Administration Famotidine 20 mg 09/22/18 22:00 09/24/18 10:10 Pepcid PO 20 mg BID GARY Administration Gabapentin 600 mg 09/22/18 20:00 09/24/18 10:10 Neurontin PO 600 mg TID GARY Administration Lactulose 20 gm 09/22/18 14:55 Cephulac HI DAILY PRN Constipation Magnesium Hydroxide 30 ml 09/22/18 15:00 Milk Of Magnesia PO Q4H PRN Constipation Metoclopramide HCl 10 mg 09/22/18 15:00 Reglan PO Q6H PRN Nausea And Vomiting Miscellaneous Medication 1 cap 09/22/18 14:55 Dantrium PO Q8H PRN Spasms Miscellaneous Medication 1 applicatio 09/22/18 14:55 Halobetasol Propionate [Ultravate] INTRADERMA Q12H PRN Rash Multivitamins/Minerals 1 each 09/23/18 10:00 09/24/18 10:10 Theragran-M Tab PO 1 each QDAY GARY Administration Ondansetron HCl 4 mg 09/22/18 15:00 Zofran IV Q8H PRN Nausea And Vomiting Pantoprazole Sodium 40 mg 09/23/18 10:00 09/24/18 10:10 Protonix PO 40 mg DAILY GARY Administration Promethazine HCl 25 mg 09/22/18 15:00 Phenergan HI Q6H PRN Nausea And Vomiting Sodium Chloride 10 ml 09/22/18 15:00 Sodium Chloride Flush Syringe 10 Ml IV PRN PRN LINE FLUSH Warfarin Sodium 5 mg 09/22/18 21:00 09/23/18 17:30 Coumadin PO 5 mg DAILY@1700 GARY Administration Protocol Nutrition/Malnutrition Assess - Dietary Evaluation Nutrition/Malnutrition Findings: Nutrition Notes Start: 09/23/18 15:52 Freq: Status: Active Protocol: Document 09/23/18 15:52 RM (Rec: 09/23/18 16:09 RM [id number]) Nutrition Notes Initial or Follow up Brief Note Current Diagnosis Hypertension,Stroke Other Pertinent Diagnosis GERD, Debility, Encephalopathy Current Diet [facility] soft Labs/Tests Reviewed Pertinent Medications Reviewed Height 6 ft Weight 70 kg Usual Body Weight 71.36 kg [place] Body Weight (kg) 80.90 BMI 20.9 Weight change and time frame Previous recorded wt likely inaccurate but unable to wt pt d/t broken bedscale. Current wt corrected according to pt statement. Subjective/Other Information Screened for skin risk, low BMI,and Coumadin/Vit K diet education. Nav 12 points. Pt is from [place]. Pt stated that [employer] his appetite was "so so" and that he ate 3 meals daily. A couple times a week he would skip a meal. Noted Lunch at bedside w /25% eaten. Stated UBW was 157 lbs 3-4 days ago. No temporal or orbital wasting . Percent of energy/protein needs met: 29%/44% Burn Absent Trauma Absent #1 Nutrition Diagnosis Inadequate oral intake Etiology decreased appetite As Evidenced by Signs and Symptoms lunch at bedside w/25% eaten Is patient on ventilator? No Is Patient Ambulatory and/or Out of Bed No REE-([place]or-confined to bed) [phone] [facility]culation [facility] Additional Notes Protein Needs: 57-71g (0.8-1g/ kg) Fluid Needs: 1 ml/kcal Nutrition Intervention Change Diet Order: [facility] soft, Cardiac Add Supplement/Snack (indicate name/kcal Ensure ENlive Chocolate BID /protein ) Provides kCal: 700 Provides Protein (gm) 40 Goal #1 Meet at least 75% of calorie and protein needs via PO and ONS intakes [facility] Follow-Up By: 09/25/18 Additional Comments Follow for PO and oNS intakes
--- NOTE | 2018-09-24 14:59 | Magnetic Resonance Report ---
MRI OF THE BRAIN WITHOUT CONTRAST: HISTORY: Stroke PROCEDURE: Multiplanar, multisequence MR imaging of the brain without IV contrast was performed. FINDINGS: Compared to a CT head dated 09/22/18. MRI demonstrates mild diffuse volume loss and mild chronic small vessel disease in the white matter. The remaining brain parenchyma demonstrates normal signal on all sequences. No evidence for acute ischemia, hemorrhage or mass. No chronic infarct or extra-axial fluid collection. The midline structures are central. The basal cisterns are patent. Normal ventricular size. The orbital cavities and sella turcica demonstrate no abnormality. The visualized paranasal sinuses and mastoid air cells are well aerated. IMPRESSION: Mild volume loss and nonspecific chronic white matter changes. No acute intracranial process is identified.
--- NOTE | 2018-09-24 15:00 | Magnetic Resonance Report ---
MRA HEAD WITHOUT CONTRAST HISTORY: Stroke. [id number] imaging with MIP reformations of the [place] of [place] is submitted. The arteries appear widely patent and free of hemodynamically significant stenosis, aneurysm or dissection. IMPRESSION: Unremarkable MRA head.
--- NOTE | 2018-09-24 15:34 | Progress Note ---
Subjective Date of service: 09/24/18 Interval history: more alert encephalopathy appears better lab have stabilized no seizures are noted continue management of the liver failure issues Objective - Vital Sign Vital Signs - 12hr 09/24/18 09/24/18 09/24/18 04:36 08:26 10:00 Temperature 98.0 F 97.6 F Pulse Rate 85 84 89 Respiratory 12 18 Rate Blood Pressure 118/74 Blood Pressure 101/60 [Left] O2 Sat by Pulse 94 96 Oximetry 09/24/18 09/24/18 12:33 12:34 Temperature 98.1 F Pulse Rate 92 H Respiratory 20 Rate Blood Pressure 130/73 Blood Pressure [Left] O2 Sat by Pulse 100 Oximetry - Laboratory Findings CBC and BMP: 09/22/18 09:20 09/22/18 09:20 Abnormal Lab Findings: Abnormal Labs 09/22/18 09/22/18 09/22/18 09:20 09:20 09:20 [place] % (Auto) 7.6 H PT INR D-Dimer Sodium 135 L Chloride 91.2 L BUN 27 H Creatinine 0.5 L Glucose 110 H AST 96 H ALT < 5 L Ammonia 73.0 H Total Protein 9.0 H Albumin 3.5 L Urine WBC (Auto) 09/22/18 09/22/18 09/24/18 18:30 Unknown 06:37 [place] % (Auto) PT 15.3 H INR 1.14 H D-Dimer 245.44 H Sodium Chloride BUN Creatinine Glucose AST ALT Ammonia Total Protein Albumin Urine WBC (Auto) 81.0 H
[2018-09-24] MEDS: COUMADIN PO SCH (16:03)
--- NOTE | 2018-09-24 18:38 | Consultation ---
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 Pt is confused and lethargic and unable to provide detailed history. Pt history taken from ED staff, and SNF staff.. EMS notified, and upon arrival the patient was found to be in distress. symptoms consistent with CVA, Encephalopathy, Sever Malnutrution, and Pressure Ulcers present on admission. No further history obtainable. Pt admitted to telemetry, and initiated on CVA protocol. Neurology consulted in ED. sp tube place by Dr. Cowan 01-01-18---pt no shwed for last appt in office abd soft - spt draining [place] urine (size of catheter not seen) exchanged---pt has 18F spy a/p cva with spt (changed today--09-24-18) change q 4-6 weeks pt will spasm & leakage (normal) Past History Past Medical History: arthritis, GERD, hypertension, other (Polyneuropathy, Penelope ility, Anxiety, malnutrition) Past Surgical History: Other (Suprapubic Catheter) Social history: single. denies: smoking, alcohol abuse, prescription drug abuse Family history: hypertension Medications and Allergies Allergies Allergy/AdvReac Type Severity Reaction Status Date / Time shrimp Allergy Itching Verified 01/01/18 15:52 sulfamethoxazole Allergy Rash Verified 11/08/16 10:57 [From Bactrim] trimethoprim [From Bactrim] Allergy Rash Verified 11/08/16 10:57 tuberculin, purified protein Allergy Unknown Verified 11/08/16 10:57 deriva Home Medications Medication Instructions Recorded Confirmed Last Taken Type Acetaminophen [Acetaminophen TAB] 2 tab PO Q6H PRN 11/08/16 10/30/17 Unknown History Ascorbic Acid [Vitamin C with Alexandrea 1 tab PO QDAY 11/08/16 10/30/17 Unknown History Hips] Baclofen [Lioresal] 2 tab PO QID 11/08/16 10/30/17 Unknown History Betamethasone Dipropionate 1 applicatio INTRADERMA BID 11/08/16 10/30/17 Unknown History [Betamethasone Dipropionate 0.05% Oint] Dantrium 1 cap PO Q8H PRN 11/08/16 10/30/17 Unknown History Docusate Sodium [Colace CAP] 100 mg PO BID 11/08/16 10/30/17 Unknown History Halobetasol Propionate [Ultravate] 1 applicatio INTRADERMA Q12H PRN 11/08/16 10/30/17 Unknown History Multivitamin with Iron 1 tab PO QDAY 11/08/16 10/30/17 Unknown History [Multivitamins with Iron] Omeprazole Magnesium [PriLOSEC Otc] 1 tab PO QAM 11/08/16 10/30/17 Unknown History Protein Supplement [Promod] 30 ml PO BID 11/08/16 10/30/17 Unknown History diphenhydrAMINE [Benadryl CAP] 1 cap PO Q4H PRN 11/08/16 10/30/17 Unknown History Lactulose 30 ml PO DAILY PRN #1 11/13/16 10/30/17 Unknown Rx Phenol 1.4% [Chloraseptic] 1 spray MM PRN PRN #1 bottle 11/13/16 10/30/17 Unknown Rx Warfarin [Coumadin] 5 mg PO QDAY #7 tablet 11/14/16 10/30/17 Unknown Rx Gabapentin [Neurontin] 600 mg PO TID 10/30/17 10/30/17 Unknown History tiZANidine [Zanaflex] 4 mg PO Q8H 10/30/17 10/30/17 Unknown History oxyCODONE /ACETAMINOPHEN [Percocet 1 tab PO Q6H PRN #7 tablet 12/28/17 Unknown Rx 5/325 mg] Ertapenem [INVanz] 1 gm IV QDAY #14 vial 01/15/18 Unknown Rx Sodium Chloride 0.9% Int [Sodium 10 ml IV BID #300 syringe 01/15/18 Unknown Rx Chloride Flush Syringe 10 ml] Active Meds: Active Medications Acetaminophen (Tylenol) 650 mg PO Q4H PRN PRN Reason: Pain, Mild (1-3) Albuterol (Proventil) 2.5 mg IH Q3HRT PRN PRN Reason: Shortness Of Breath Ascorbic Acid (Vitamin C) 500 mg PO QDAY [facility] Last Admin: 09/24/18 10:10 Dose: 500 mg Documented by: Aspirin (Aspirin) 325 mg PO QDAY [facility] Last Admin: 09/24/18 10:10 Dose: 325 mg Documented by: Atorvastatin Calcium (Lipitor) 40 mg PO QHS [facility] Last Admin: 09/23/18 22:11 Dose: 40 mg Documented by: Baclofen (Lioresal) 10 mg PO QID [facility] Last Admin: 09/24/18 17:52 Dose: 10 mg Documented by: Bisacodyl (Dulcolax) 10 mg UT QDAY PRN PRN Reason: Constipation Diphenhydramine HCl (Benadryl) 25 mg PO Q4H PRN PRN Reason: Itching Docusate Sodium (Colace) 100 mg PO BID [facility] Last Admin: 09/24/18 10:10 Dose: 100 mg Documented by: Enoxaparin Sodium (Lovenox) 60 mg SUB-Q Q12HR [facility] Last Admin: 09/24/18 10:11 Dose: 60 mg Documented by: Famotidine (Pepcid) 20 mg PO BID [facility] Last Admin: 09/24/18 10:10 Dose: 20 mg Documented by: Gabapentin (Neurontin) 600 mg PO TID [facility] Last Admin: 09/24/18 16:03 Dose: 600 mg Documented by: Lactulose (Cephulac) 20 gm UT DAILY PRN PRN Reason: Constipation Magnesium Hydroxide (Milk Of Magnesia) 30 ml PO Q4H PRN PRN Reason: Constipation Metoclopramide HCl (Reglan) 10 mg PO Q6H PRN PRN Reason: Nausea And Vomiting Miscellaneous Medication (Dantrium) 1 cap PO Q8H PRN PRN Reason: Spasms Miscellaneous Medication (Halobetasol Propionate [Ultravate]) 1 applicatio INTRADERMA Q12H PRN PRN Reason: Rash Multivitamins/Minerals (Theragran-M Tab) 1 each PO QDAY [facility] Last Admin: 09/24/18 10:10 Dose: 1 each Documented by: Ondansetron HCl (Zofran) 4 mg IV Q8H PRN PRN Reason: Nausea And Vomiting Pantoprazole Sodium (Protonix) 40 mg PO DAILY [facility] Last Admin: 09/24/18 10:10 Dose: 40 mg Documented by: Promethazine HCl (Phenergan) 25 mg UT Q6H PRN PRN Reason: Nausea And Vomiting Sodium Chloride (Sodium Chloride Flush Syringe 10 Ml) 10 ml IV PRN PRN PRN Reason: LINE FLUSH Warfarin Sodium (Coumadin) 5 mg PO DAILY@1700 GARY; Protocol Last Admin: 09/24/18 16:03 Dose: 5 mg Documented by: Exam - Constitutional Vitals: Temp Pulse Resp BP Pulse Ox 98.1 F 92 H 20 130/73 100 09/24/18 12:33 09/24/18 12:34 09/24/18 12:34 09/24/18 12:34 09/24/18 12:34 Results - Labs CBC & Chem 7: 09/22/18 09:20 09/22/18 09:20 Labs: Abnormal lab results 09/24/18 Range/Units 06:37 PT 15.3 H (12.2-14.9) Sec. INR 1.14 H (0.87-1.13)
[2018-09-25] MEDS: TYLENOL PO PRN (06:20)
[2018-09-25 07:45] LABS: Basophils # (Auto) 0.1 K/mm3 (0.0-0.1); Basophils % (Auto) 0.7 % (0.0-1.8); Eosinophils # (Auto) 0.4 K/mm3 (0.0-0.4); Eosinophils % (Auto) 4.8 % (0.0-4.3); Hematocrit 34.1 % (35.5-45.6); Hemoglobin 11.3 gm/dl (11.8-15.2); Lymphocytes # (Auto) 2.9 K/mm3 (1.2-5.4); Lymphocytes % (Auto) 38.8 % (13.4-35.0); Mean Corpuscular HGB Conc 33 % (32-34); Mean Corpuscular Volume 84 fl (84-94); Monocytes # (Auto) 0.7 K/mm3 (0.0-0.8); Monocytes % (Auto) 8.7 % (0.0-7.3); Platelet Count 333 K/mm3 (140-440); Red Blood Count 4.07 M/mm3 (3.65-5.03); Red Cell Distribution Width 14.8 % (13.2-15.2)
[2018-09-25 07:54] LABS: INR 1.21 (0.87-1.13)
[2018-09-25 08:09] LABS: BUN/Creatinine Ratio 23; Blood Urea Nitrogen 7 mg/dL (9-20); Calcium 8.4 mg/dL (8.4-10.2); Hemolysis Index 0
[2018-09-25] MEDS: NEURONTIN PO SCH ×3 (09:16→21:55)
[2018-09-25] MEDS: ASPIRIN PO SCH (09:16)
[2018-09-25] MEDS: COLACE PO SCH ×2 (09:16→21:55)
[2018-09-25] MEDS: THERAGRAN-M Tab PO SCH (09:17)
[2018-09-25] MEDS: PROTONIX PO SCH (09:17)
[2018-09-25] MEDS: LIORESAL PO SCH ×4 (09:17→21:55)
[2018-09-25] MEDS: LOVENOX SUB-Q SCH ×2 (09:17→22:02)
[2018-09-25] MEDS: PEPCID PO SCH ×2 (09:17→21:55)
[2018-09-25] MEDS: VITAMIN C PO SCH (09:17)
--- NOTE | 2018-09-25 09:24 | Progress Note ---
Assessment and Plan Assessment and plan: --Severe hypokalemia; Replace with Oral and IV KCl Check magnesium --Suprapubic catheter; leakage, urology evaluation appreciated Suprapubic catheter changed, continue supportive care --Metabolic encephalopathy; multifactorial Neuro checks, supportive care, follow neuro evaluation --Severe malnutrition; nutrition consult, dietary supplements Supportive care --Chronic anticoagulation with Coumadin; Subtherapeutic INR, continue Coumadin, pharmacy to dose Target INR 2-3 --History of recurrent DVTs; continue chronic anticoagulation with Coumadin --Gen. Debility; physical therapy occupational therapy, supportive care --DVT prophylaxis; on Coumadin, SCD --Full code closely monitor the patient and adjust the management as needed Plan of care reviewed with the patient History Interval history: Patient seen and examined medical records reviewed Severe hypokalemia No new complaints Vitals stable Hospitalist Physical - Constitutional Vitals: Temp Pulse Resp BP Pulse Ox 98.0 F 78 18 143/90 98 09/25/18 06:00 09/25/18 06:00 09/25/18 06:00 09/25/18 06:00 09/25/18 06:00 General appearance: Present: no acute distress, cachectic, disheveled - EENT Eyes: Present: PERRL, EOM intact - Neck Neck: Present: supple, normal ROM - Respiratory Respiratory effort: normal Respiratory: bilateral: diminished, negative: rales, rhonchi, wheezing - Cardiovascular Rhythm: regular Heart Sounds: Present: S1 & S2 - Extremities Extremities: no ischemia, abnormal (chronic changes) Extremity abnormal: edema - Abdominal General gastrointestinal: soft, non-tender, non-distended, normal bowel sounds, other (supra pubic catheter in place) - Integumentary Integumentary: Present: clear, warm - Psychiatric Psychiatric: appropriate mood/affect, cooperative - Neurologic Neurologic: other (residual weakness) Results - Labs CBC & Chem 7: 09/26/18 07:50 09/26/18 07:50 Labs: Laboratory Last Values WBC 7.6 K/mm3 (4.5-11.0) 09/25/18 06:34 RBC 4.07 M/mm3 (3.65-5.03) 09/25/18 06:34 Hgb 11.3 gm/dl (11.8-15.2) L 09/25/18 06:34 Hct 34.1 % (35.5-45.6) L D 09/25/18 06:34 MCV 84 fl (84-94) 09/25/18 06:34 MCH 28 pg (28-32) 09/25/18 06:34 MCHC 33 % (32-34) 09/25/18 06:34 RDW 14.8 % (13.2-15.2) 09/25/18 06:34 Plt Count 333 K/mm3 (140-440) 09/25/18 06:34 Lymph % (Auto) 38.8 % (13.4-35.0) H 09/25/18 06:34 [place] % (Auto) 8.7 % (0.0-7.3) H 09/25/18 06:34 Eos % (Auto) 4.8 % (0.0-4.3) H 09/25/18 06:34 Baso % (Auto) 0.7 % (0.0-1.8) 09/25/18 06:34 Lymph # 2.9 K/mm3 (1.2-5.4) 09/25/18 06:34 [place] # 0.7 K/mm3 (0.0-0.8) 09/25/18 06:34 Eos # 0.4 K/mm3 (0.0-0.4) 09/25/18 06:34 Baso # 0.1 K/mm3 (0.0-0.1) 09/25/18 06:34 Seg Neutrophils % 47.0 % (40.0-70.0) 09/25/18 06:34 Seg Neutrophils # 3.6 K/mm3 (1.8-7.7) 09/25/18 06:34 PT 16.1 Sec. (12.2-14.9) H 09/25/18 06:34 INR 1.21 (0.87-1.13) H 09/25/18 06:34 D-Dimer 245.44 ng/mlDDU (0-234) H 09/22/18 18:30 VBG pH 7.419 (7.320-7.420) 09/22/18 09:20 Sodium 138 mmol/L (137-145) 09/25/18 06:34 Potassium 2.7 mmol/L (3.6-5.0) L* D 03/27/19 06:34 Chloride 96.8 mmol/L (98-107) L 09/25/18 06:34 Carbon Dioxide 31 mmol/L (22-30) H 09/25/18 06:34 Anion Gap 13 mmol/L 09/25/18 06:34 BUN 7 mg/dL (9-20) L 09/25/18 06:34 Creatinine 0.3 mg/dL (0.8-1.5) L 09/25/18 06:34 Estimated GFR > 60 ml/min 09/25/18 06:34 BUN/Creatinine Ratio 23 % 09/25/18 06:34 Glucose 93 mg/dL (75-100) 09/25/18 06:34 Lactic Acid 1.70 mmol/L (0.7-2.0) 09/22/18 18:30 Calcium 8.4 mg/dL (8.4-10.2) 09/25/18 06:34 Total Bilirubin 0.30 mg/dL (0.1-1.2) 09/22/18 09:20 AST 96 units/L (5-40) H 09/22/18 09:20 ALT < 5 units/L (7-56) L 09/22/18 09:20 Alkaline Phosphatase 93 units/L (35-129) 09/22/18 09:20 Ammonia 73.0 umol/L (25-60) H 09/22/18 09:20 Total Creatine Kinase 65 units/L (55-170) 09/22/18 09:20 CK-MB (CK-2) < 1.0 ng/mL (0.0-4.0) 09/22/18 09:20 CK-MB (CK-2) Rel Index 1.5 (0-4) 09/22/18 09:20 Troponin T < 0.010 ng/mL (0.00-0.029) 09/22/18 09:20 NT-Pro-B Natriuret Pep 53.97 pg/mL (0-900) 09/22/18 18:30 Total Protein 9.0 g/dL (6.3-8.2) H 09/22/18 09:20 Albumin 3.5 g/dL (3.9-5) L 09/22/18 09:20 Albumin/Globulin Ratio 0.6 % 09/22/18 09:20 TSH 0.679 mlU/mL (0.270-4.200) 09/22/18 18:30 Free T4 1.29 ng/dL (0.76-1.46) 09/22/18 18:30 Urine Color Yellow (Yellow) 09/22/18 Unknown Urine Turbidity Turbid (Clear) 09/22/18 Unknown Urine pH 7.0 (5.0-7.0) 09/22/18 Unknown Ur Specific [place] 1.019 (1.003-1.030) 09/22/18 Unknown Urine Protein >500 mg/dL (Negative) 09/22/18 Unknown Urine Glucose (UA) Neg mg/dL (Negative) 09/22/18 Unknown Urine Ketones Neg mg/dL (Negative) 09/22/18 Unknown Urine Blood Sm (Negative) 09/22/18 Unknown Urine Nitrite Neg (Negative) 09/22/18 Unknown Urine Bilirubin Neg (Negative) 09/22/18 Unknown Urine Urobilinogen < 2.0 mg/dL (<2.0) 09/22/18 Unknown Ur Leukocyte Esterase Mod (Negative) 09/22/18 Unknown Urine WBC (Auto) 81.0 /HPF (0.0-6.0) H 09/22/18 Unknown Urine RBC (Auto) 27.0 /HPF (0.0-6.0) 09/22/18 Unknown Urine Bacteria (Auto) 4+ /HPF (Negative) 09/22/18 Unknown Urine WBC Clumps 3+ /HPF 09/22/18 Unknown Urine Mucus 3+ /HPF 09/22/18 Unknown Urine Opiates Screen Presumptive negative 09/22/18 Unknown Urine Methadone Screen Presumptive negative 09/22/18 Unknown Ur Barbiturates Screen Presumptive negative 09/22/18 Unknown Ur Phencyclidine Scrn Presumptive negative 09/22/18 Unknown Ur Amphetamines Screen Presumptive negative 09/22/18 Unknown U Benzodiazepines Scrn Presumptive positive 09/22/18 Unknown Urine Cocaine Screen Presumptive negative 09/22/18 Unknown U Marijuana (THC) Screen Presumptive negative 09/22/18 Unknown Drugs of Abuse Note Disclamer 09/22/18 Unknown Plasma/Serum Alcohol < 0.01 % (0-0.07) 09/22/18 18:30 Active Medications - Current Medications Current Medications: Generic Name Dose Route Start Last Admin Trade Name Freq PRN Reason Stop Dose Admin Acetaminophen 650 mg 09/22/18 15:00 09/25/18 06:20 Tylenol PO 650 mg Q4H PRN Administration Pain, Mild (1-3) Albuterol 2.5 mg 09/22/18 15:00 Proventil IH Q3HRT PRN Shortness Of Breath Ascorbic Acid 500 mg 09/23/18 10:00 09/25/18 09:17 Vitamin C PO 500 mg QDAY GARY Administration Aspirin 325 mg 09/23/18 10:00 09/25/18 09:16 Aspirin PO 325 mg QDAY GARY Administration Atorvastatin Calcium 40 mg 09/22/18 22:00 09/24/18 23:02 Lipitor PO 40 mg QHS GARY Administration Baclofen 10 mg 09/22/18 18:00 09/25/18 09:17 Lioresal PO 10 mg QID [facility] Administration Bisacodyl 10 mg 09/22/18 15:00 Dulcolax MS QDAY PRN Constipation Diphenhydramine HCl 25 mg 09/22/18 14:55 Benadryl PO Q4H PRN Itching Docusate Sodium 100 mg 09/22/18 22:00 09/25/18 09:16 Colace PO 100 mg BID [facility] Administration Enoxaparin Sodium 60 mg 09/22/18 22:00 09/25/18 09:17 Lovenox SUB-Q 60 mg Q12HR [facility] Administration Famotidine 20 mg 09/22/18 22:00 09/25/18 09:17 Pepcid PO 20 mg BID [facility] Administration Gabapentin 600 mg 09/22/18 20:00 09/25/18 09:16 Neurontin PO 600 mg TID [facility] Administration Potassium Chloride 10 meq in 100 mls @ 100 mls/hr 09/25/18 10:00 Kcl 10meq/100ml IV 09/25/18 11:59 Q1H GARY Lactulose 20 gm 09/22/18 14:55 Cephulac MS DAILY PRN Constipation Magnesium Hydroxide 30 ml 09/22/18 15:00 Milk Of Magnesia PO Q4H PRN Constipation Metoclopramide HCl 10 mg 09/22/18 15:00 Reglan PO Q6H PRN Nausea And Vomiting Miscellaneous Medication 1 cap 09/22/18 14:55 Dantrium PO Q8H PRN Spasms Miscellaneous Medication 1 applicatio 09/22/18 14:55 Halobetasol Propionate [Ultravate] INTRADERMA Q12H PRN Rash Multivitamins/Minerals 1 each 09/23/18 10:00 09/25/18 09:17 Theragran-M Tab PO 1 each QDAY GARY Administration Ondansetron HCl 4 mg 09/22/18 15:00 Zofran IV Q8H PRN Nausea And Vomiting Pantoprazole Sodium 40 mg 09/23/18 10:00 09/25/18 09:17 Protonix PO 40 mg DAILY GARY Administration Potassium Chloride 40 meq 09/25/18 12:00 K-Dur PO 09/25/18 15:01 Q3HR GARY Promethazine HCl 25 mg 09/22/18 15:00 Phenergan MS Q6H PRN Nausea And Vomiting Sodium Chloride 10 ml 09/22/18 15:00 Sodium Chloride Flush Syringe 10 Ml IV PRN PRN LINE FLUSH Warfarin Sodium 5 mg 09/22/18 21:00 09/24/18 16:03 Coumadin PO 5 mg DAILY@1700 GARY Administration Protocol Nutrition/Malnutrition Assess - Dietary Evaluation Nutrition/Malnutrition Findings: Nutrition Notes Start: 09/23/18 15:52 Freq: Status: Active Protocol: Document 09/23/18 15:52 RM (Rec: 09/23/18 16:09 RM [id number]) Nutrition Notes Initial or Follow up Brief Note Current Diagnosis Hypertension,Stroke Other Pertinent Diagnosis GERD, Debility, Encephalopathy Current Diet [facility] soft Labs/Tests Reviewed Pertinent Medications Reviewed Height 6 ft Weight 70 kg Usual Body Weight 71.36 kg [place] Body Weight (kg) 80.90 BMI 20.9 Weight change and time frame Previous recorded wt likely inaccurate but unable to wt pt d/t broken bedscale. Current wt corrected according to pt statement. Subjective/Other Information Screened for skin risk, low BMI,and Coumadin/Vit K diet education. Nav 12 points. Pt is from [place]. Pt stated that [place] his appetite was "so so" and that he ate 3 meals daily. A couple times a week he would skip a meal. Noted Lunch at bedside w /25% eaten. Stated UBW was 157 lbs 3-4 days ago. No temporal or orbital wasting . Percent of energy/protein needs met: 29%/44% Burn Absent Trauma Absent #1 Nutrition Diagnosis Inadequate oral intake Etiology decreased appetite As Evidenced by Signs and Symptoms lunch at bedside w/25% eaten Is patient on ventilator? No Is Patient Ambulatory and/or Out of Bed No REE-([facility]-confined to bed) [phone] Calculation Used for Recommendations [facility] Additional Notes Protein Needs: 57-71g (0.8-1g/ kg) Fluid Needs: 1 ml/kcal Nutrition Intervention Change Diet Order: [facility] soft, Cardiac Add Supplement/Snack (indicate name/kcal Ensure ENlive Chocolate BID /protein ) Provides kCal: 700 Provides Protein (gm) 40 Goal #1 Meet at least 75% of calorie and protein needs via PO and ONS intakes [facility] Follow-Up By: 09/25/18 Additional Comments Follow for PO and oNS intakes
[2018-09-25] MEDS: K-DUR PO SCH ×2 (10:27→18:16)
[2018-09-25] MEDS ORDERED: NACL 0.9% 250ML 250 ML IV NR (12:14)
[2018-09-25] MEDS: KCL 10MEQ/100ML 10 MEQ/100 ML BAG IV SCH ×2 (13:16→15:09)
--- NOTE | 2018-09-25 13:57 | Progress Note ---
Subjective Date of service: 09/25/18 Interval history: clinical features are due to severe liver disease ie low platelet count encephalopathy present Objective - Vital Sign Vital Signs - 12hr 09/25/18 09/25/18 06:00 11:53 Temperature 98.0 F 97.7 F Pulse Rate 78 89 Respiratory 18 18 Rate Blood Pressure 100/63 Blood Pressure 143/90 [Left] O2 Sat by Pulse 98 95 Oximetry - Laboratory Findings CBC and BMP: 09/25/18 06:34 09/25/18 06:34 Abnormal Lab Findings: Abnormal Labs 09/22/18 09/22/18 09/22/18 09:20 09:20 09:20 Hgb Hct Lymph % (Auto) [place] % (Auto) 7.6 H Eos % (Auto) PT INR D-Dimer Sodium 135 L Potassium Chloride 91.2 L Carbon Dioxide BUN 27 H Creatinine 0.5 L Glucose 110 H AST 96 H ALT < 5 L Ammonia 73.0 H Total Protein 9.0 H Albumin 3.5 L Urine WBC (Auto) 09/22/18 09/22/18 09/24/18 18:30 Unknown 06:37 Hgb Hct Lymph % (Auto) [place] % (Auto) Eos % (Auto) PT 15.3 H INR 1.14 H D-Dimer 245.44 H Sodium Potassium Chloride Carbon Dioxide BUN Creatinine Glucose AST ALT Ammonia Total Protein Albumin Urine WBC (Auto) 81.0 H 09/25/18 09/25/18 09/25/18 06:34 06:34 06:34 Hgb 11.3 L Hct 34.1 L D Lymph % (Auto) 38.8 H [place] % (Auto) 8.7 H Eos % (Auto) 4.8 H PT 16.1 H INR 1.21 H D-Dimer Sodium Potassium 2.7 L* D Chloride 96.8 L Carbon Dioxide 31 H BUN 7 L Creatinine 0.3 L Glucose AST ALT Ammonia Total Protein Albumin Urine WBC (Auto)
[2018-09-25] MEDS: COUMADIN PO SCH (18:16)
[2018-09-26 08:24] LABS: INR 1.27 (0.87-1.13)
[2018-09-26 08:25] LABS: Basophils # (Auto) 0.1 K/mm3 (0.0-0.1); Basophils % (Auto) 1.2 % (0.0-1.8); Eosinophils # (Auto) 0.3 K/mm3 (0.0-0.4); Eosinophils % (Auto) 4.3 % (0.0-4.3); Hemoglobin 11.4 gm/dl (11.8-15.2); Lymphocytes # (Auto) 2.1 K/mm3 (1.2-5.4); Lymphocytes % (Auto) 27.5 % (13.4-35.0); Mean Corpuscular HGB Conc 34 % (32-34); Mean Corpuscular Volume 85 fl (84-94); Monocytes # (Auto) 0.6 K/mm3 (0.0-0.8); Monocytes % (Auto) 7.3 % (0.0-7.3); Platelet Count 340 K/mm3 (140-440); Red Blood Count 4.02 M/mm3 (3.65-5.03); Red Cell Distribution Width 14.9 % (13.2-15.2)
[2018-09-26 08:38] LABS: BUN/Creatinine Ratio 30; Blood Urea Nitrogen 6 mg/dL (9-20); Calcium 8.4 mg/dL (8.4-10.2); Hemolysis Index 4
[2018-09-26] MEDS: VITAMIN C PO SCH (10:35)
[2018-09-26] MEDS: ASPIRIN PO SCH (10:35)
[2018-09-26] MEDS: LIORESAL PO SCH ×4 (10:35→22:03)
[2018-09-26] MEDS: COLACE PO SCH ×2 (10:35→22:03)
[2018-09-26] MEDS: PEPCID PO SCH ×2 (10:35→22:04)
[2018-09-26] MEDS: PROTONIX PO SCH (10:35)
[2018-09-26] MEDS: THERAGRAN-M Tab PO SCH (10:36)
[2018-09-26] MEDS: LOVENOX SUB-Q SCH ×2 (10:36→22:02)
[2018-09-26] MEDS: NEURONTIN PO SCH ×3 (10:41→22:03)
[2018-09-26] MEDS: COUMADIN PO SCH (16:52)
--- NOTE | 2018-09-26 19:26 | Progress Note ---
Assessment and Plan Assessment and plan: --History of recurrent DVTs; continue chronic anticoagulation with Coumadin Subtherapeutic INR, continue Coumadin, pharmacy to dose Target INR 2-3 --Severe hypokalemia; resolved --Suprapubic catheter; leakage, urology evaluation appreciated Suprapubic catheter changed, continue supportive care --Metabolic encephalopathy; multifactorial Neuro checks, supportive care, follow neuro evaluation --Severe malnutrition; nutrition consult, dietary supplements Supportive care --Gen. Debility; physical therapy occupational therapy, supportive care --DVT prophylaxis; on Coumadin, SCD --Full code closely monitor the patient and adjust the management as needed Plan of care reviewed with the patient We'll discharge back to care home tomorrow if stable History Interval history: Patient seen and examined medical records reviewed Patient feels slightly better normal complaints Vital signs reviewed Hospitalist Physical - Constitutional Vitals: Temp Pulse Resp BP Pulse Ox 98.5 F 89 18 120/70 98 09/26/18 16:44 09/26/18 16:44 09/26/18 16:44 09/26/18 16:44 09/26/18 16:44 General appearance: Present: no acute distress, cachectic, disheveled - EENT Eyes: Present: PERRL, EOM intact - Neck Neck: Present: supple, normal ROM - Respiratory Respiratory effort: normal Respiratory: bilateral: diminished, negative: rales, rhonchi, wheezing - Cardiovascular Rhythm: regular Heart Sounds: Present: S1 & S2 - Extremities Extremities: no ischemia, No edema - Abdominal General gastrointestinal: soft, non-tender, non-distended, normal bowel sounds - Integumentary Integumentary: Present: clear, warm - Psychiatric Psychiatric: appropriate mood/affect, cooperative - Neurologic Neurologic: other (residual weakness) Results - Labs CBC & Chem 7: 09/26/18 07:50 09/26/18 07:50 Labs: Laboratory Last Values WBC 7.6 K/mm3 (4.5-11.0) 09/26/18 07:50 RBC 4.02 M/mm3 (3.65-5.03) 09/26/18 07:50 Hgb 11.4 gm/dl (11.8-15.2) L 09/26/18 07:50 Hct 34.0 % (35.5-45.6) L 09/26/18 07:50 MCV 85 fl (84-94) 09/26/18 07:50 MCH 28 pg (28-32) 09/26/18 07:50 MCHC 34 % (32-34) 09/26/18 07:50 RDW 14.9 % (13.2-15.2) 09/26/18 07:50 Plt Count 340 K/mm3 (140-440) 09/26/18 07:50 Lymph % (Auto) 27.5 % (13.4-35.0) 09/26/18 07:50 [place] % (Auto) 7.3 % (0.0-7.3) 09/26/18 07:50 Eos % (Auto) 4.3 % (0.0-4.3) 09/26/18 07:50 Baso % (Auto) 1.2 % (0.0-1.8) 09/26/18 07:50 Lymph # 2.1 K/mm3 (1.2-5.4) 09/26/18 07:50 [place] # 0.6 K/mm3 (0.0-0.8) 09/26/18 07:50 Eos # 0.3 K/mm3 (0.0-0.4) 09/26/18 07:50 Baso # 0.1 K/mm3 (0.0-0.1) 09/26/18 07:50 Seg Neutrophils % 59.7 % (40.0-70.0) 09/26/18 07:50 Seg Neutrophils # 4.5 K/mm3 (1.8-7.7) 09/26/18 07:50 PT 16.7 Sec. (12.2-14.9) H 09/26/18 07:50 INR 1.27 (0.87-1.13) H 09/26/18 07:50 D-Dimer 245.44 ng/mlDDU (0-234) H 09/22/18 18:30 VBG pH 7.419 (7.320-7.420) 09/22/18 09:20 Sodium 139 mmol/L (137-145) 09/26/18 07:50 Potassium 3.8 mmol/L (3.6-5.0) D 09/26/18 07:50 Chloride 98.9 mmol/L (98-107) 09/26/18 07:50 Carbon Dioxide 29 mmol/L (22-30) 09/26/18 07:50 Anion Gap 15 mmol/L 09/26/18 07:50 BUN 6 mg/dL (9-20) L 09/26/18 07:50 Creatinine 0.2 mg/dL (0.8-1.5) L 09/26/18 07:50 Estimated GFR > 60 ml/min 09/26/18 07:50 BUN/Creatinine Ratio 30 % 09/26/18 07:50 Glucose 94 mg/dL (75-100) 09/26/18 07:50 Lactic Acid 1.70 mmol/L (0.7-2.0) 09/22/18 18:30 Calcium 8.4 mg/dL (8.4-10.2) 09/26/18 07:50 Magnesium 2.00 mg/dL (1.7-2.3) 09/25/18 06:34 Total Bilirubin 0.30 mg/dL (0.1-1.2) 09/22/18 09:20 AST 96 units/L (5-40) H 09/22/18 09:20 ALT < 5 units/L (7-56) L 09/22/18 09:20 Alkaline Phosphatase 93 units/L (35-129) 09/22/18 09:20 Ammonia 73.0 umol/L (25-60) H 09/22/18 09:20 Total Creatine Kinase 65 units/L (55-170) 09/22/18 09:20 CK-MB (CK-2) < 1.0 ng/mL (0.0-4.0) 09/22/18 09:20 CK-MB (CK-2) Rel Index 1.5 (0-4) 09/22/18 09:20 Troponin T < 0.010 ng/mL (0.00-0.029) 09/22/18 09:20 NT-Pro-B Natriuret Pep 53.97 pg/mL (0-900) 09/22/18 18:30 Total Protein 9.0 g/dL (6.3-8.2) H 09/22/18 09:20 Albumin 3.5 g/dL (3.9-5) L 09/22/18 09:20 Albumin/Globulin Ratio 0.6 % 09/22/18 09:20 TSH 0.679 mlU/mL (0.270-4.200) 09/22/18 18:30 Free T4 1.29 ng/dL (0.76-1.46) 09/22/18 18:30 Urine Color Yellow (Yellow) 09/22/18 Unknown Urine Turbidity Turbid (Clear) 09/22/18 Unknown Urine pH 7.0 (5.0-7.0) 09/22/18 Unknown Ur Specific [place] 1.019 (1.003-1.030) 09/22/18 Unknown Urine Protein >500 mg/dL (Negative) 09/22/18 Unknown Urine Glucose (UA) Neg mg/dL (Negative) 09/22/18 Unknown Urine Ketones Neg mg/dL (Negative) 09/22/18 Unknown Urine Blood Sm (Negative) 09/22/18 Unknown Urine Nitrite Neg (Negative) 09/22/18 Unknown Urine Bilirubin Neg (Negative) 09/22/18 Unknown Urine Urobilinogen < 2.0 mg/dL (<2.0) 09/22/18 Unknown Ur Leukocyte Esterase Mod (Negative) 09/22/18 Unknown Urine WBC (Auto) 81.0 /HPF (0.0-6.0) H 09/22/18 Unknown Urine RBC (Auto) 27.0 /HPF (0.0-6.0) 09/22/18 Unknown Urine Bacteria (Auto) 4+ /HPF (Negative) 09/22/18 Unknown Urine WBC Clumps 3+ /HPF 09/22/18 Unknown Urine Mucus 3+ /HPF 09/22/18 Unknown Urine Opiates Screen Presumptive negative 09/22/18 Unknown Urine Methadone Screen Presumptive negative 09/22/18 Unknown Ur Barbiturates Screen Presumptive negative 09/22/18 Unknown Ur Phencyclidine Scrn Presumptive negative 09/22/18 Unknown Ur Amphetamines Screen Presumptive negative 09/22/18 Unknown U Benzodiazepines Scrn Presumptive positive 09/22/18 Unknown Urine Cocaine Screen Presumptive negative 09/22/18 Unknown U Marijuana (THC) Screen Presumptive negative 09/22/18 Unknown Drugs of Abuse Note Disclamer 09/22/18 Unknown Plasma/Serum Alcohol < 0.01 % (0-0.07) 09/22/18 18:30 Active Medications - Current Medications Current Medications: Generic Name Dose Route Start Last Admin Trade Name Freq PRN Reason Stop Dose Admin Acetaminophen 650 mg 09/22/18 15:00 09/25/18 06:20 Tylenol PO 650 mg Q4H PRN Administration Pain, Mild (1-3) Albuterol 2.5 mg 09/22/18 15:00 Proventil IH Q3HRT PRN Shortness Of Breath Ascorbic Acid 500 mg 09/23/18 10:00 09/26/18 10:35 Vitamin C PO 500 mg QDAY GARY Administration Aspirin 325 mg 09/23/18 10:00 09/26/18 10:35 Aspirin PO 325 mg QDAY GARY Administration Atorvastatin Calcium 40 mg 09/22/18 22:00 09/25/18 21:55 Lipitor PO 40 mg QHS GARY Administration Baclofen 10 mg 09/22/18 18:00 09/26/18 16:51 Lioresal PO 10 mg QID [facility] Administration Bisacodyl 10 mg 09/22/18 15:00 Dulcolax [place] QDAY PRN Constipation Diphenhydramine HCl 25 mg 09/22/18 14:55 Benadryl PO Q4H PRN Itching Docusate Sodium 100 mg 09/22/18 22:00 09/26/18 10:35 Colace PO 100 mg BID [facility] Administration Enoxaparin Sodium 60 mg 09/22/18 22:00 09/26/18 10:36 Lovenox SUB-Q 60 mg Q12HR [facility] Administration Famotidine 20 mg 09/22/18 22:00 09/26/18 10:35 Pepcid PO 20 mg BID [facility] Administration Gabapentin 600 mg 09/22/18 20:00 09/26/18 16:51 Neurontin PO 600 mg TID [facility] Administration Lactulose 20 gm 09/22/18 14:55 Cephulac [place] DAILY PRN Constipation Magnesium Hydroxide 30 ml 09/22/18 15:00 Milk Of Magnesia PO Q4H PRN Constipation Metoclopramide HCl 10 mg 09/22/18 15:00 Reglan PO Q6H PRN Nausea And Vomiting Miscellaneous Medication 1 cap 09/22/18 14:55 Dantrium PO Q8H PRN Spasms Miscellaneous Medication 1 applicatio 09/22/18 14:55 Halobetasol Propionate [Ultravate] INTRADERMA Q12H PRN Rash Multivitamins/Minerals 1 each 09/23/18 10:00 09/26/18 10:36 Theragran-M Tab PO 1 each QDAY GARY Administration Ondansetron HCl 4 mg 09/22/18 15:00 Zofran IV Q8H PRN Nausea And Vomiting Pantoprazole Sodium 40 mg 09/23/18 10:00 09/26/18 10:35 Protonix PO 40 mg DAILY GARY Administration Promethazine HCl 25 mg 09/22/18 15:00 Phenergan [place] Q6H PRN Nausea And Vomiting Sodium Chloride 10 ml 09/22/18 15:00 Sodium Chloride Flush Syringe 10 Ml IV PRN PRN LINE FLUSH Warfarin Sodium 6 mg 09/26/18 17:00 09/26/18 16:52 Coumadin PO 6 mg DAILY@1700 GARY Administration Protocol Nutrition/Malnutrition Assess - Dietary Evaluation Nutrition/Malnutrition Findings: Nutrition Notes Start: 09/23/18 15:52 Freq: Status: Active Protocol: Document 09/25/18 12:09 TW (Rec: 09/25/18 12:15 TW [id number]) Co-Sign 09/25/18 12:09 LP Nutrition Notes Initial or Follow up Reassessment Current Diagnosis Hypertension,Stroke Other Pertinent Diagnosis GERD, Debility, Encephalopathy Current Diet [facility] soft Labs/Tests Reviewed Pertinent Medications Reviewed Height 6 ft Weight 70 kg [place] Body Weight (kg) 80.90 BMI 20.9 Subjective/Other Information F/U for intakes. Pt reports tolerating food well. Noted breakfast tray at bedside. 50% of breakfast consumed, 100% of Ensure enlive consumed. Percent of energy/protein needs met: 95%/100% Burn Absent Trauma Absent #1 Nutrition Diagnosis Inadequate oral intake As Evidenced by Signs and Symptoms breakfast at bedside w/ 50% consumed Diagnosis Progress(for reassessment Improved documentation) Is patient on ventilator? No Is Patient Ambulatory and/or Out of Bed No REE-([facility]-confined to bed) 4085.017 Calculation Used for Recommendations [facility] Additional Notes Protein Needs: 57-71g (0.8-1g/ kg) Fluid Needs: 1 ml/kcal Nutrition Intervention Change Diet Order: continue current Add Supplement/Snack (indicate name/kcal Ensure Enlive Chocolate BID /protein ) Provides kCal: 700 Provides Protein (gm) 40 Goal #1 Continue to meet at least 75% of calorie and protein needs via PO and ONS intakes Anticipated Discharge Needs: [facility] todd, cardiac Follow-Up By: 09/27/18 Additional Comments Follow for PO and ONS intakes
[2018-09-27] MEDS: TYLENOL PO PRN (02:59)
[2018-09-27 06:52] LABS: INR 1.49 (0.87-1.13)
[2018-09-27] MEDS: PEPCID PO SCH (09:40)
[2018-09-27] MEDS: ASPIRIN PO SCH (09:40)
[2018-09-27] MEDS: COLACE PO SCH (09:40)
[2018-09-27] MEDS: NEURONTIN PO SCH ×2 (09:40→13:57)
[2018-09-27] MEDS: PROTONIX PO SCH (09:40)
[2018-09-27] MEDS: LIORESAL PO SCH ×3 (09:40→17:28)
[2018-09-27] MEDS: VITAMIN C PO SCH (09:41)
[2018-09-27] MEDS: THERAGRAN-M Tab PO SCH (09:41)
[2018-09-27] MEDS: LOVENOX SUB-Q SCH (09:41)
[2018-09-27] MEDS ORDERED: PERCOCET 5/325 PO PRN (11:57)
--- NOTE | 2018-09-27 11:59 | Progress Note ---
Assessment and Plan Assessment and plan: --History of recurrent DVTs; continue chronic anticoagulation with Coumadin Subtherapeutic INR 1.4, continue Coumadin, pharmacy to dose Target INR 2-3 --Severe hypokalemia; resolved --Suprapubic catheter; leakage, urology evaluation appreciated Suprapubic catheter changed, continue supportive care --Metabolic encephalopathy; multifactorial Neuro checks, supportive care, follow neuro evaluation --Severe malnutrition; nutrition consult, dietary supplements Supportive care --Gen. Debility; physical therapy occupational therapy, supportive care --DVT prophylaxis; on Coumadin, SCD --Full code closely monitor the patient and adjust the management as needed Plan of care reviewed with the patient We'll discharge back to [facility] tomorrow if stable Hospitalist Physical - Constitutional Vitals: Temp Pulse Resp BP Pulse Ox 98.8 F 91 H 20 128/76 100 09/27/18 06:18 09/27/18 06:18 09/27/18 06:18 09/27/18 06:18 09/27/18 06:18 General appearance: Present: no acute distress, cachectic, disheveled Results - Labs CBC & Chem 7: 09/26/18 07:50 09/26/18 07:50 Labs: Laboratory Last Values WBC 7.6 K/mm3 (4.5-11.0) 09/26/18 07:50 RBC 4.02 M/mm3 (3.65-5.03) 09/26/18 07:50 Hgb 11.4 gm/dl (11.8-15.2) L 09/26/18 07:50 Hct 34.0 % (35.5-45.6) L 09/26/18 07:50 MCV 85 fl (84-94) 09/26/18 07:50 MCH 28 pg (28-32) 09/26/18 07:50 MCHC 34 % (32-34) 09/26/18 07:50 RDW 14.9 % (13.2-15.2) 09/26/18 07:50 Plt Count 340 K/mm3 (140-440) 09/26/18 07:50 Lymph % (Auto) 27.5 % (13.4-35.0) 09/26/18 07:50 [place] % (Auto) 7.3 % (0.0-7.3) 09/26/18 07:50 Eos % (Auto) 4.3 % (0.0-4.3) 09/26/18 07:50 Baso % (Auto) 1.2 % (0.0-1.8) 09/26/18 07:50 Lymph # 2.1 K/mm3 (1.2-5.4) 09/26/18 07:50 [place] # 0.6 K/mm3 (0.0-0.8) 09/26/18 07:50 Eos # 0.3 K/mm3 (0.0-0.4) 09/26/18 07:50 Baso # 0.1 K/mm3 (0.0-0.1) 09/26/18 07:50 Seg Neutrophils % 59.7 % (40.0-70.0) 09/26/18 07:50 Seg Neutrophils # 4.5 K/mm3 (1.8-7.7) 09/26/18 07:50 PT 19.0 Sec. (12.2-14.9) H 09/27/18 05:34 INR 1.49 (0.87-1.13) H 09/27/18 05:34 D-Dimer 245.44 ng/mlDDU (0-234) H 09/22/18 18:30 VBG pH 7.419 (7.320-7.420) 09/22/18 09:20 Sodium 139 mmol/L (137-145) 09/26/18 07:50 Potassium 3.8 mmol/L (3.6-5.0) D 09/26/18 07:50 Chloride 98.9 mmol/L (98-107) 09/26/18 07:50 Carbon Dioxide 29 mmol/L (22-30) 09/26/18 07:50 Anion Gap 15 mmol/L 09/26/18 07:50 BUN 6 mg/dL (9-20) L 09/26/18 07:50 Creatinine 0.2 mg/dL (0.8-1.5) L 09/26/18 07:50 Estimated GFR > 60 ml/min 09/26/18 07:50 BUN/Creatinine Ratio 30 % 09/26/18 07:50 Glucose 94 mg/dL (75-100) 09/26/18 07:50 Lactic Acid 1.70 mmol/L (0.7-2.0) 09/22/18 18:30 Calcium 8.4 mg/dL (8.4-10.2) 09/26/18 07:50 Magnesium 2.00 mg/dL (1.7-2.3) 09/25/18 06:34 Total Bilirubin 0.30 mg/dL (0.1-1.2) 09/22/18 09:20 AST 96 units/L (5-40) H 09/22/18 09:20 ALT < 5 units/L (7-56) L 09/22/18 09:20 Alkaline Phosphatase 93 units/L (35-129) 09/22/18 09:20 Ammonia 73.0 umol/L (25-60) H 09/22/18 09:20 Total Creatine Kinase 65 units/L (55-170) 09/22/18 09:20 CK-MB (CK-2) < 1.0 ng/mL (0.0-4.0) 09/22/18 09:20 CK-MB (CK-2) Rel Index 1.5 (0-4) 09/22/18 09:20 Troponin T < 0.010 ng/mL (0.00-0.029) 09/22/18 09:20 NT-Pro-B Natriuret Pep 53.97 pg/mL (0-900) 09/22/18 18:30 Total Protein 9.0 g/dL (6.3-8.2) H 09/22/18 09:20 Albumin 3.5 g/dL (3.9-5) L 09/22/18 09:20 Albumin/Globulin Ratio 0.6 % 09/22/18 09:20 TSH 0.679 mlU/mL (0.270-4.200) 09/22/18 18:30 Free T4 1.29 ng/dL (0.76-1.46) 09/22/18 18:30 Urine Color Yellow (Yellow) 09/22/18 Unknown Urine Turbidity Turbid (Clear) 09/22/18 Unknown Urine pH 7.0 (5.0-7.0) 09/22/18 Unknown Ur Specific [place] 1.019 (1.003-1.030) 09/22/18 Unknown Urine Protein >500 mg/dL (Negative) 09/22/18 Unknown Urine Glucose (UA) Neg mg/dL (Negative) 09/22/18 Unknown Urine Ketones Neg mg/dL (Negative) 09/22/18 Unknown Urine Blood Sm (Negative) 09/22/18 Unknown Urine Nitrite Neg (Negative) 09/22/18 Unknown Urine Bilirubin Neg (Negative) 09/22/18 Unknown Urine Urobilinogen < 2.0 mg/dL (<2.0) 09/22/18 Unknown Ur Leukocyte Esterase Mod (Negative) 09/22/18 Unknown Urine WBC (Auto) 81.0 /HPF (0.0-6.0) H 09/22/18 Unknown Urine RBC (Auto) 27.0 /HPF (0.0-6.0) 09/22/18 Unknown Urine Bacteria (Auto) 4+ /HPF (Negative) 09/22/18 Unknown Urine WBC Clumps 3+ /HPF 09/22/18 Unknown Urine Mucus 3+ /HPF 09/22/18 Unknown Urine Opiates Screen Presumptive negative 09/22/18 Unknown Urine Methadone Screen Presumptive negative 09/22/18 Unknown Ur Barbiturates Screen Presumptive negative 09/22/18 Unknown Ur Phencyclidine Scrn Presumptive negative 09/22/18 Unknown Ur Amphetamines Screen Presumptive negative 09/22/18 Unknown U Benzodiazepines Scrn Presumptive positive 09/22/18 Unknown Urine Cocaine Screen Presumptive negative 09/22/18 Unknown U Marijuana (THC) Screen Presumptive negative 09/22/18 Unknown Drugs of Abuse Note Disclamer 09/22/18 Unknown Plasma/Serum Alcohol < 0.01 % (0-0.07) 09/22/18 18:30 Active Medications - Current Medications Current Medications: Generic Name Dose Route Start Last Admin Trade Name Freq PRN Reason Stop Dose Admin Acetaminophen 650 mg 09/22/18 15:00 09/27/18 02:59 Tylenol PO 650 mg Q4H PRN Administration Pain, Mild (1-3) Albuterol 2.5 mg 09/22/18 15:00 Proventil IH Q3HRT PRN Shortness Of Breath Ascorbic Acid 500 mg 09/23/18 10:00 09/27/18 09:41 Vitamin C PO 500 mg QDAY GARY Administration Aspirin 325 mg 09/23/18 10:00 09/27/18 09:40 Aspirin PO 325 mg QDAY GARY Administration Atorvastatin Calcium 40 mg 09/22/18 22:00 09/26/18 22:03 Lipitor PO 40 mg QHS GARY Administration Baclofen 10 mg 09/22/18 18:00 09/27/18 09:40 Lioresal PO 10 mg QID [facility] Administration Bisacodyl 10 mg 09/22/18 15:00 Dulcolax [place] QDAY PRN Constipation Diphenhydramine HCl 25 mg 09/22/18 14:55 Benadryl PO Q4H PRN Itching Docusate Sodium 100 mg 09/22/18 22:00 09/27/18 09:40 Colace PO 100 mg BID [facility] Administration Enoxaparin Sodium 60 mg 09/22/18 22:00 09/27/18 09:41 Lovenox SUB-Q 60 mg Q12HR [facility] Administration Famotidine 20 mg 09/22/18 22:00 09/27/18 09:40 Pepcid PO 20 mg BID GARY Administration Gabapentin 600 mg 09/22/18 20:00 09/27/18 09:40 Neurontin PO 600 mg TID [facility] Administration Lactulose 20 gm 09/22/18 14:55 Cephulac [place] DAILY PRN Constipation Magnesium Hydroxide 30 ml 09/22/18 15:00 Milk Of Magnesia PO Q4H PRN Constipation Metoclopramide HCl 10 mg 09/22/18 15:00 Reglan PO Q6H PRN Nausea And Vomiting Miscellaneous Medication 1 cap 09/22/18 14:55 Dantrium PO Q8H PRN Spasms Miscellaneous Medication 1 applicatio 09/22/18 14:55 Halobetasol Propionate [Ultravate] INTRADERMA Q12H PRN Rash Multivitamins/Minerals 1 each 09/23/18 10:00 09/27/18 09:41 Theragran-M Tab PO 1 each QDAY [facility] Administration Ondansetron HCl 4 mg 09/22/18 15:00 Zofran IV Q8H PRN Nausea And Vomiting Oxycodone/Acetaminophen 1 tab 09/27/18 11:57 Percocet 5/325 PO Q6H PRN Pain, Moderate (4-6) Pantoprazole Sodium 40 mg 09/23/18 10:00 09/27/18 09:40 Protonix PO 40 mg DAILY [facility] Administration Promethazine HCl 25 mg 09/22/18 15:00 Phenergan [place] Q6H PRN Nausea And Vomiting Sodium Chloride 10 ml 09/22/18 15:00 Sodium Chloride Flush Syringe 10 Ml IV PRN PRN LINE FLUSH Warfarin Sodium 6 mg 09/26/18 17:00 09/26/18 16:52 Coumadin PO 6 mg DAILY@1700 [facility] Administration Protocol Nutrition/Malnutrition Assess - Dietary Evaluation Nutrition/Malnutrition Findings: Nutrition Notes Start: 09/23/18 15:52 Freq: Status: Active Protocol: Document 09/25/18 12:09 TW (Rec: 09/25/18 12:15 TW [id number]) Co-Sign 09/25/18 12:09 LP Nutrition Notes Initial or Follow up Reassessment Current Diagnosis Hypertension,Stroke Other Pertinent Diagnosis GERD, Debility, Encephalopathy Current Diet [facility] soft Labs/Tests Reviewed Pertinent Medications Reviewed Height 6 ft Weight 70 kg [place] Body Weight (kg) 80.90 BMI 20.9 Subjective/Other Information F/U for intakes. Pt reports tolerating food well. Noted breakfast tray at bedside. 50% of breakfast consumed, 100% of Ensure enlive consumed. Percent of energy/protein needs met: 95%/100% Burn Absent Trauma Absent #1 Nutrition Diagnosis Inadequate oral intake As Evidenced by Signs and Symptoms breakfast at bedside w/ 50% consumed Diagnosis Progress(for reassessment Improved documentation) Is patient on ventilator? No Is Patient Ambulatory and/or Out of Bed No REE-([facility]-confined [facility] bed) 3209.530 Calculation Used for Recommendations [facility] Additional Notes Protein Needs: 57-71g (0.8-1g/ kg) Fluid Needs: 1 ml/kcal Nutrition Intervention Change Diet Order: continue current Add Supplement/Snack (indicate name/kcal Ensure Enlive Chocolate BID /protein ) Provides kCal: 700 Provides Protein (gm) 40 Goal #1 Continue to meet at least 75% of calorie and protein needs via PO and ONS intakes Anticipated Discharge Needs: [facility] soft, cardiac Follow-Up By: 09/27/18 Additional Comments Follow for PO and ONS intakes
--- NOTE | 2018-09-27 15:00 | Discharge Summary ---
Providers - Providers Date of Admission: 09/22/18 15:00 Date of discharge: 09/27/18 Attending physician: LEO HELMS 09/22/18 15:00 Occupational Therapy Evaluate and Treat [CONS] Routine Comment: Reason For Exam: Neuro deficits Physical Therapy Evaluation and Treat [CONS] Routine Comment: Reason For Exam: Neuro deficits 09/22/18 15:04 Consult to Physician [CONS] Routine Comment: DR HERRERA SAW PT IN ER Consulting Provider: THANH HERRERA Physician Instructions: Reason For Exam: cva 09/24/18 11:57 Consult to Physician [CONS] Routine Comment: Consulting Provider: BONIFACIO DONALDSON Physician Instructions: Reason For Exam: Suprapubic catheter malfunction 09/25/18 09:00 Consult to Wound/ET Nurse [CONS] Routine Reason For Exam: wound eval [facility] Reason for admission: Altered level of conciousness Condition: Stable Pertinent studies: CT head:no acute abnormality MRI: normal MRA: normal Carotid doppler: < 50% stenosis ECHO: EF 40-455 CXR: normal Hospital course: 63 yr old Male patient, a resident at [facility] with h/o HTN, GERD, OA, Anxiety, Debility, Pressure Ulcers, Polyneuropathy, Recurrent DVT on Therapeutic Anticoagulation at last discharge, Urinary Retention with Indwelling Santos Catheter on admissionwas admitted through ED for evaluation of altered level of consciousness., Patient had extensive neuro w/u which was negative,no evidence of CVA or TIA. Evaluated by neurology,and urology and his leaking suprapubic catheter was replaced.Patient also has h/o recurrent DVT on coumadin. Today patient is comfortable,no new complaints,vital signs stable Physical exam unremarkable. Discharge Diagnosis: --History of recurrent DVTs; continue chronic anticoagulation with Coumadin Subtherapeutic INR 1.4, continue Coumadin, pharmacy to dose Target INR 2-3 --Severe hypokalemia; resolved --Suprapubic catheter; leakage, urology evaluation appreciated Suprapubic catheter changed, continue supportive care --Metabolic encephalopathy; multifactorial Neuro checks, supportive care, follow neuro evaluation --CVA ruled out:Extensive CVA w/u negative, --Severe malnutrition; nutrition consult, dietary supplements Supportive care --Gen. Debility; physical therapy occupational therapy, supportive care --DVT prophylaxis; on Coumadin, SCD Disposition: [id number]/[id number] [facility] Time spent for discharge: 32 min Core Measure Documentation - Palliative Care Palliative Care/ Comfort Measures: Not Applicable - Core Measures Any of the following diagnoses?: none Exam - Constitutional Vitals: Temp Pulse Resp BP Pulse Ox 98.4 F 93 H 18 117/70 98 09/27/18 12:11 09/27/18 12:11 09/27/18 12:11 09/27/18 12:11 09/27/18 12:11 General appearance: Present: no acute distress, well-nourished - EENT Eyes: Present: PERRL, EOM intact - Neck Neck: Present: supple, normal ROM - Respiratory Respiratory effort: normal Respiratory: bilateral: diminished, negative: rales, rhonchi, wheezing - Cardiovascular Rhythm: regular Heart Sounds: Present: S1 & S2 - Extremities Extremities: no ischemia, No edema - Abdominal General gastrointestinal: Present: soft, non-tender, non-distended, normal bowel sounds, other (suprapubic catheter in place) - Integumentary Integumentary: Present: clear, warm - Musculoskeletal Musculoskeletal: generalized weakness - Psychiatric Psychiatric: appropriate mood/affect, cooperative - Neurologic Neurologic: other (residual weakness) Plan Activity: advance as tolerated Diet: other (Mechanical soft diet) Special Instructions: physical therapy Additional Instructions: Stop Lovenox when INR > 2. Frequent INR checks, target INR 2-3. Next INR check on 09/28/18. Mechanical soft diet,advance as tolerated Follow up with: TATIANA BEST MD [Primary Care Provider] - 3-5 Days Forms: Warfarin Discharge Instruction
--- NOTE | 2018-09-27 16:14 | Progress Note ---
Subjective Date of service: 09/27/18 Interval history: continues to show improvement no seizures and more alert encephalopqathy stable from liver disorder has reached MHB therefore can go back to the NH from my view OK to transfer back Objective - Vital Sign Vital Signs - 12hr 09/27/18 09/27/18 06:18 12:11 Temperature 98.8 F 98.4 F Pulse Rate 91 H 93 H Respiratory 20 18 Rate Blood Pressure 128/76 117/70 O2 Sat by Pulse 100 98 Oximetry - Laboratory Findings CBC and BMP: 09/26/18 07:50 09/26/18 07:50 Abnormal Lab Findings: Abnormal Labs 09/22/18 09/22/18 09/22/18 09:20 09:20 09:20 Hgb Hct Lymph % (Auto) [place] % (Auto) 7.6 H Eos % (Auto) PT INR D-Dimer Sodium 135 L Potassium Chloride 91.2 L Carbon Dioxide BUN 27 H Creatinine 0.5 L Glucose 110 H AST 96 H ALT < 5 L Ammonia 73.0 H Total Protein 9.0 H Albumin 3.5 L Urine WBC (Auto) 09/22/18 09/22/18 09/24/18 18:30 Unknown 06:37 Hgb Hct Lymph % (Auto) [place] % (Auto) Eos % (Auto) PT 15.3 H INR 1.14 H D-Dimer 245.44 H Sodium Potassium Chloride Carbon Dioxide BUN Creatinine Glucose AST ALT Ammonia Total Protein Albumin Urine WBC (Auto) 81.0 H 09/25/18 09/25/18 09/25/18 06:34 06:34 06:34 Hgb 11.3 L Hct 34.1 L D Lymph % (Auto) 38.8 H [place] % (Auto) 8.7 H Eos % (Auto) 4.8 H PT 16.1 H INR 1.21 H D-Dimer Sodium Potassium 2.7 L* D Chloride 96.8 L Carbon Dioxide 31 H BUN 7 L Creatinine 0.3 L Glucose AST ALT Ammonia Total Protein Albumin Urine WBC (Auto) 09/26/18 09/26/18 09/26/18 07:50 07:50 07:50 Hgb 11.4 L Hct 34.0 L Lymph % (Auto) [place] % (Auto) Eos % (Auto) PT 16.7 H INR 1.27 H D-Dimer Sodium Potassium Chloride Carbon Dioxide BUN 6 L Creatinine 0.2 L Glucose AST ALT Ammonia Total Protein Albumin Urine WBC (Auto) 09/27/18 05:34 Hgb Hct Lymph % (Auto) [place] % (Auto) Eos % (Auto) PT 19.0 H INR 1.49 H D-Dimer Sodium Potassium Chloride Carbon Dioxide BUN Creatinine Glucose AST ALT Ammonia Total Protein Albumin Urine WBC (Auto)
[2018-09-27 17:24] VITALS: BP 122/66
[2018-09-27] MEDS: COUMADIN PO SCH (17:28)
== END 2018-09-27 18:15 | DRG 441 ==
LOC: ED 09:00 → 4A 15:00 → 3A 09-24 20:05
PROVIDERS: ADMIT Internal Medicine; ATTEND Internal Medicine
DX: K72.90 Hepatic failure, unspecified without coma (principal); G93.41 Metabolic encephalopathy; E43 Unspecified severe protein-calorie malnutrition; Z68.1 Body mass index [BMI] 19.9 or less, adult; Z86.718 Personal history of other venous thrombosis and embolism; E87.6 Hypokalemia; T83.038A Leakage of other urinary catheter, initial encounter; Y84.6 Urinary catheterization as the cause of abnormal reaction of the patient, or of later complication, without mention of misadventure at the time of the procedure; Y92.89 Other specified places as the place of occurrence of the external cause; R53.81 Other malaise; K21.9 Gastro-esophageal reflux disease without esophagitis; I10 Essential (primary) hypertension; M19.90 Unspecified osteoarthritis, unspecified site; F41.9 Anxiety disorder, unspecified; G62.9 Polyneuropathy, unspecified; Z79.01 Long term (current) use of anticoagulants; R33.9 Retention of urine, unspecified; Z88.2 Allergy status to sulfonamides; Z88.1 Allergy status to other antibiotic agents; Z88.3 Allergy status to other anti-infective agents; Z91.013 Allergy to seafood; Z82.49 Family history of ischemic heart disease and other diseases of the circulatory system
CPT/HCPCS: 36415; 70450; 70544; 70551; 71045; 80048; 80053; 80307; 80320; 81001; 82140; 82550; 82553; 82805; 83735; 83880; 84439; 84443; 84484; 85025; 85379; 85610; 87040; 87086; 93005; 93010; 93306; 93880; 99285; G0378; A9270-GY; G0480; J1335; J1650; J3480; J7030; J7040; J7050

== ENCOUNTER 2019-02-15 14:09 | Inpatient (IN) | payer MEDICARE ==
[2019-02-15] MEDS ORDERED: NACL 0.9% 1000 ML 1,000 ML IV ONE ×2 (14:50→19:05)
[2019-02-15] MEDS ORDERED: NARCAN 2 MG/2 ML IV ONE (14:50)
[2019-02-15] MEDS ORDERED: NACL 0.9% 1000 ML IV ONE (14:50)
[2019-02-15] MEDS ORDERED: ZOSYN/NS 4.5GM/100ML 4.5 GM/100 ML VIAL IV ONE (15:08)
[2019-02-15] MEDS ORDERED: VANCOMYCIN/NS 1 GM/250 ML 1 GM/250 ML BAG IV ONE (15:14)
--- NOTE | 2019-02-15 15:59 | XRay Report ---
CHEST 1 VIEW INDICATION: hypotensive, resp depression. COMPARISON: 09/22/2018 FINDINGS: SUPPORT DEVICES: None. HEART / MEDIASTINUM: No significant abnormality. LUNGS / PLEURA: No significant pulmonary or pleural abnormality. No pneumothorax. ADDITIONAL FINDINGS: IMPRESSION: 1. No acute findings. Signer Name: Anam Yuan MD Signed: 02/15/2019 3:55 PM Workstation Name: [id number]
[2019-02-15 16:41] LABS: Bacteria,Urine 1+ /HPF (Negative); Bilirubin,Urine NEG (Negative); Blood,Urine MOD (Negative); Color,Urine Yellow (Yellow); Urobilinogen,Urine < 2.0 mg/dL (<2.0)
[2019-02-15 16:47] LABS: Protein,Urine >500 mg/dL (Negative); RBC,Urine > 182.0 /HPF (0.0-6.0)
[2019-02-15 18:12] LABS: Hemoglobin 10.5 gm/dl (11.8-15.2); Mean Corpuscular HGB Conc 34 % (32-34); Mean Corpuscular Volume 86 fl (84-94); Platelet Count 349 K/mm3 (140-440); Red Cell Distribution Width 16.3 % (13.2-15.2)
[2019-02-15 18:30] LABS: INR 1.27 (0.87-1.13); Partial Thromboplastin Time 32.6 Sec. (24.2-36.6)
[2019-02-15 18:34] LABS: Creatine Kinase MB 1.6 ng/mL (0.0-4.0)
[2019-02-15 18:37] LABS: Alanine Aminotransferase 11 units/L (7-56); Albumin 3.1 g/dL (3.9-5); BUN/Creatinine Ratio 78; Blood Urea Nitrogen 39 mg/dL (9-20); Calcium 8.1 mg/dL (8.4-10.2); Hemolysis Index 2
[2019-02-15 18:48] LABS: Chol/HDL Ratio 4.17 %; HDL Cholesterol 23 mg/dL (40-59); LDL Cholesterol,Direct 57 mg/dL (50-130)
--- NOTE | 2019-02-15 19:05 | XRay Report ---
CHEST 1 VIEW INDICATION: s/p central line. COMPARISON: Earlier the same day FINDINGS: SUPPORT DEVICES: Central venous line has tip in superior vena cava. HEART / MEDIASTINUM: No significant abnormality. LUNGS / PLEURA: Volume loss left lower lobe has developed as compared to previous exam No pneumothora x. ADDITIONAL FINDINGS: IMPRESSION: 1. Left lower lobe volume loss with shift of mediastinal structures right to left Signer Name: Anam Yuan MD Signed: 02/15/2019 7:00 PM Workstation Name: [id number]
--- NOTE | 2019-02-15 19:06 | Emergency Department Report ---
ED General Adult HPI - General Chief complaint: Altered Mental Status Stated complaint: AMS Time Seen by Provider: 02/15/19 15:03 Source: EMS, old records reviewed Mode of arrival: Stretcher Limitations: Altered Mental Status - History of Present Illness Initial comments: 64 yr old Male patient, a resident at [facility] with h/o HTN, GERD, OA, Anxiety, Debility, Pressure Ulcers, Polyneuropathy, Recurrent DVT on Eliquis, Urinary Retention with suprapubic catheter just to the hospital complains of alteration in mental status and hypo-tension. [facility] expressed concern for suprapubic catheter infection. Family at bedside states that patient is more lethargic than normal. His nasal able to nod to some questions but unable to consistently speak or have a conversation. - Related Data Home Medications Medication Instructions Recorded Confirmed Last Taken Ascorbic Acid [Vitamin C with Alexandrea 1 tab PO QDAY 11/08/16 02/15/19 Unknown Hips] Docusate Sodium [Colace CAP] 100 mg PO BID 11/08/16 02/15/19 Unknown Halobetasol Propionate [Ultravate] 1 applicatio INTRADERMA Q12H PRN 11/08/16 02/15/19 Unknown Multivitamin with Iron 1 tab PO QDAY 11/08/16 02/15/19 Unknown [Multivitamins with Iron] Protein Supplement [Promod] 30 ml PO BID 11/08/16 02/15/19 Unknown diphenhydrAMINE [Benadryl CAP] 1 cap PO Q4H PRN 11/08/16 02/15/19 Unknown Gabapentin [Neurontin] 600 mg PO TID 10/30/17 02/15/19 Unknown Apixaban [Eliquis] 2.5 mg PO BID 02/15/19 02/15/19 Unknown Baclofen 40 mg PO TID 02/15/19 02/15/19 Unknown Dantrolene Sodium [Dantrium] 100 mg PO Q8H 02/15/19 02/15/19 Unknown Famotidine [Pepcid] 20 mg PO BID 02/15/19 02/15/19 Unknown Mirtazapine [Remeron 15mg TAB] 15 mg PO QHS 02/15/19 02/15/19 Unknown Morphine Sulfate [Morphine Sulfate 15 mg PO Q12H 02/15/19 02/15/19 Unknown ER] Ondansetron [Zofran ODT TAB] 4 mg PO Q6H PRN 02/15/19 02/15/19 Unknown Oxycodone HCl/Acetaminophen 1 each PO Q8H PRN 02/15/19 02/15/19 Unknown [Percocet 10/325 mg] Trazodone HCl 25 mg PO QHS 02/15/19 02/15/19 Unknown diazePAM TAB [Valium] 4 mg PO Q8H PRN 02/15/19 02/15/19 Unknown Previous Rx's Medication Instructions Recorded Last Taken Type Lactulose 30 ml PO DAILY PRN #1 11/13/16 Unknown Rx ALBUTEROL NEB's [Proventil 0.083% 2.5 mg IH Q3HRT PRN nebu 09/27/18 Unknown Rx NEBS] Acetaminophen [Acetaminophen TAB] 650 mg PO Q4H PRN tablet 09/27/18 Unknown Rx AtorvaSTATin [Lipitor] 40 mg PO QHS tablet 09/27/18 Unknown Rx Bisacodyl [Dulcolax suppos] 10 mg MD QDAY PRN supp.rect 09/27/18 Unknown Rx Allergies Allergy/AdvReac Type Severity Reaction Status Date / Time shrimp Allergy Itching Verified 01/01/18 15:52 sulfamethoxazole Allergy Rash Verified 11/08/16 10:57 [From Bactrim] trimethoprim [From Bactrim] Allergy Rash Verified 11/08/16 10:57 tuberculin, purified protein Allergy Unknown Verified 11/08/16 10:57 deriva ED Review of Systems ROS: Stated complaint: AMS Other details as noted in HPI Comment: Unobtainable due to pts medical conditions ED Past Medical Hx - Past Medical History Hx Hypertension: Yes Hx Congestive Heart Failure: No Hx Diabetes: No Hx Deep Vein Thrombosis: No Hx GERD: Yes Hx Renal Disease: Yes Hx Arthritis: Yes Hx Psychiatric Treatment: Yes (anxiety) Hx Asthma: No Hx COPD: No Additional medical history: Pressure ulcers, Neuromuscular dysfunction of bladder, Arthropathy, Polyneuropathy, Muscle spasms, Prolonged indwelling tucker cathetetrs, Frequent UTI - Surgical History Hx Pacemaker: No Hx Internal Defibrillator: No Additional Surgical History: Back, Neck - Social History Smoking Status: Unknown if ever smoked - Medications Home Medications: Home Medications Medication Instructions Recorded Confirmed Last Taken Type Ascorbic Acid [Vitamin C with Alexandrea 1 tab PO QDAY 11/08/16 02/15/19 Unknown History Hips] Docusate Sodium [Colace CAP] 100 mg PO BID 11/08/16 02/15/19 Unknown History Halobetasol Propionate [Ultravate] 1 applicatio INTRADERMA Q12H PRN 11/08/16 02/15/19 Unknown History Multivitamin with Iron 1 tab PO QDAY 11/08/16 02/15/19 Unknown History [Multivitamins with Iron] Protein Supplement [Promod] 30 ml PO BID 11/08/16 02/15/19 Unknown History diphenhydrAMINE [Benadryl CAP] 1 cap PO Q4H PRN 11/08/16 02/15/19 Unknown History Lactulose 30 ml PO DAILY PRN #1 11/13/16 02/15/19 Unknown Rx Gabapentin [Neurontin] 600 mg PO TID 10/30/17 02/15/19 Unknown History ALBUTEROL NEB's [Proventil 0.083% 2.5 mg IH Q3HRT PRN nebu 09/27/18 02/15/19 Unknown Rx NEBS] Acetaminophen [Acetaminophen TAB] 650 mg PO Q4H PRN tablet 09/27/18 02/15/19 Unknown Rx AtorvaSTATin [Lipitor] 40 mg PO QHS tablet 09/27/18 02/15/19 Unknown Rx Bisacodyl [Dulcolax suppos] 10 mg MD QDAY PRN supp.rect 09/27/18 02/15/19 Unknown Rx Apixaban [Eliquis] 2.5 mg PO BID 02/15/19 02/15/19 Unknown History Baclofen 40 mg PO TID 02/15/19 02/15/19 Unknown History Dantrolene Sodium [Dantrium] 100 mg PO Q8H 02/15/19 02/15/19 Unknown History Famotidine [Pepcid] 20 mg PO BID 02/15/19 02/15/19 Unknown History Mirtazapine [Remeron 15mg TAB] 15 mg PO QHS 02/15/19 02/15/19 Unknown History Morphine Sulfate [Morphine Sulfate 15 mg PO Q12H 02/15/19 02/15/19 Unknown History ER] Ondansetron [Zofran ODT TAB] 4 mg PO Q6H PRN 02/15/19 02/15/19 Unknown History Oxycodone HCl/Acetaminophen 1 each PO Q8H PRN 02/15/19 02/15/19 Unknown History [Percocet 10/325 mg] Trazodone HCl 25 mg PO QHS 02/15/19 02/15/19 Unknown History diazePAM TAB [Valium] 4 mg PO Q8H PRN 02/15/19 02/15/19 Unknown History ED Physical Exam - General Limitations: Altered Mental Status - Other Other exam information: General: No acute distress Head: Atraumatic normocephalic lethargic Eyes: Normal appearance, pupils equal reactive to light, extraocular movements intact ENT: Dry mucous membranes Neck: Normal appearance, no C-spine tenderness, no meningismus Chest: Clear to auscultation bilaterally, no wheezes, rales, or crackles. Decreased respiratory rate Cardiovascular: Regular rate and rhythm Abdomen: Soft, nondistended, nontender, no rebound or guarding, normal bowel sounds. Suprapubic catheter. No PEG tube Back: Sacral ulcer Extremity: Contracted extremities with limited movement Neuro: Lethargic, intermittent speech, sensation intact. Minimal movement of extremities due to contractures Skin: Pressure ulcers to right hip, sacrum, and legs see nurse's note ED Course Vital Signs 02/15/19 02/15/19 02/15/19 13:47 14:33 14:35 Temperature 97.6 F Pulse Rate 70 94 H 93 H Respiratory 11 L 11 L 8 L Rate Blood Pressure 126/80 90/60 90/60 O2 Sat by Pulse 100 97 Oximetry 02/15/19 02/15/19 02/15/19 14:46 15:00 15:16 Temperature Pulse Rate 92 H 99 H 102 H Respiratory 6 L 16 10 L Rate Blood Pressure 90/60 90/60 O2 Sat by Pulse 95 98 91 Oximetry 02/15/19 02/15/19 02/15/19 15:30 15:45 16:00 Temperature Pulse Rate 94 H 104 H 90 Respiratory 11 L 9 L 9 L Rate Blood Pressure 95/66 102/60 83/46 O2 Sat by Pulse 92 97 92 Oximetry 02/15/19 02/15/19 02/15/19 16:15 16:30 16:45 Temperature Pulse Rate 89 82 89 Respiratory 11 L 8 L 8 L Rate Blood Pressure 93/52 101/55 109/60 O2 Sat by Pulse 91 90 91 Oximetry 08/17/19 08/17/19 08/17/19 17:00 17:15 17:30 Temperature Pulse Rate 87 87 88 Respiratory 8 L 7 L 9 L Rate Blood Pressure 106/62 96/55 99/57 O2 Sat by Pulse 92 91 93 Oximetry 02/15/19 02/15/19 02/15/19 17:45 19:30 19:46 Temperature Pulse Rate 91 H 94 H Respiratory 10 L 12 8 L Rate Blood Pressure 92/58 91/64 98/64 O2 Sat by Pulse 88 92 94 Oximetry 02/15/19 02/15/19 02/15/19 19:53 20:00 20:16 Temperature 97.5 F L Pulse Rate 91 H 94 H Respiratory 12 10 L Rate Blood Pressure 98/64 85/57 O2 Sat by Pulse 95 90 Oximetry 02/15/19 02/15/19 02/15/19 20:25 20:30 20:45 Temperature Pulse Rate 96 H 98 H Respiratory 12 13 15 Rate Blood Pressure 94/63 104/65 O2 Sat by Pulse 92 88 89 Oximetry 02/15/19 02/15/19 02/15/19 21:00 21:15 21:30 Temperature Pulse Rate 110 H 102 H 103 H Respiratory 18 16 18 Rate Blood Pressure 104/65 101/64 96/61 O2 Sat by Pulse 91 90 85 Oximetry 02/15/19 02/15/19 02/15/19 21:45 22:00 22:16 Temperature Pulse Rate 100 H 104 H 103 H Respiratory 17 18 21 Rate Blood Pressure 106/65 120/70 120/70 O2 Sat by Pulse 99 95 100 Oximetry 02/15/19 02/15/19 02/15/19 22:30 22:45 23:00 Temperature Pulse Rate 102 H 101 H 111 H Respiratory 20 17 26 H Rate Blood Pressure 98/63 103/63 132/74 O2 Sat by Pulse 99 99 99 Oximetry 02/15/19 02/15/19 02/15/19 23:16 23:30 23:46 Temperature Pulse Rate 106 H 104 H 105 H Respiratory 27 H 24 29 H Rate Blood Pressure 100/59 127/80 127/80 O2 Sat by Pulse 93 95 95 Oximetry 02/15/19 02/16/19 02/16/19 23:49 00:00 00:16 Temperature Pulse Rate 106 H 98 H 96 H Respiratory 21 21 16 Rate Blood Pressure 112/54 112/54 132/68 O2 Sat by Pulse 91 95 100 Oximetry 02/16/19 02/16/19 02/16/19 00:30 00:46 01:00 Temperature Pulse Rate 99 H 99 H 95 H Respiratory 17 16 17 Rate Blood Pressure 132/68 111/59 121/52 O2 Sat by Pulse 100 100 100 Oximetry 02/16/19 02/16/19 02/16/19 01:16 01:30 01:45 Temperature Pulse Rate 100 H 106 H 108 H Respiratory 16 19 27 H Rate Blood Pressure 112/64 112/64 110/63 O2 Sat by Pulse 100 100 98 Oximetry 02/16/19 02/16/19 02/16/19 02:00 02:15 02:30 Temperature Pulse Rate 117 H 107 H 108 H Respiratory 24 23 24 Rate Blood Pressure 110/63 115/61 98/63 O2 Sat by Pulse 98 98 Oximetry 02/16/19 02/16/19 02/16/19 02:45 02:53 03:00 Temperature Pulse Rate 107 H 101 H Respiratory 23 17 24 Rate Blood Pressure 106/61 113/63 O2 Sat by Pulse 99 98 100 Oximetry 02/16/19 02/16/19 02/16/19 03:15 03:30 03:45 Temperature Pulse Rate 107 H 101 H 100 H Respiratory 20 19 20 Rate Blood Pressure 90/53 103/58 113/60 O2 Sat by Pulse 100 100 100 Oximetry 02/16/19 02/16/19 02/16/19 04:00 04:15 04:30 Temperature Pulse Rate 100 H 99 H 100 H Respiratory 19 23 18 Rate Blood Pressure 107/58 107/64 108/58 O2 Sat by Pulse 100 100 100 Oximetry 02/16/19 02/16/19 02/16/19 04:45 04:52 05:00 Temperature 101.6 F H Pulse Rate 98 H 103 H Respiratory 17 23 Rate Blood Pressure 104/62 114/69 O2 Sat by Pulse 100 100 Oximetry 02/16/19 02/16/19 02/16/19 05:15 05:30 05:45 Temperature Pulse Rate 101 H 110 H 112 H Respiratory 25 H 25 H 28 H Rate Blood Pressure 126/68 131/70 132/67 O2 Sat by Pulse 100 99 96 Oximetry 02/16/19 02/16/19 06:00 06:02 Temperature 101.1 F H Pulse Rate 104 H Respiratory 25 H Rate Blood Pressure 129/68 O2 Sat by Pulse 100 Oximetry - ABG Interpretation Ph: 7.4 PCO2: 38 PO2: 60 Bicarbonate: 28 Interpretation: other (hypoxia) Additional Comments: Performed on 4 L nasal cannula ED Medical Decision Making - Lab Data Result diagrams: 02/16/19 03:40 02/16/19 05:35 Lab Results 02/15/19 02/15/19 02/15/19 Range/Units 15:22 15:27 17:49 WBC 11.8 H (4.5-11.0) K/mm3 RBC 3.60 L (3.65-5.03) M/mm3 Hgb 10.5 L (11.8-15.2) gm/dl Hct 31.0 L (35.5-45.6) % MCV 86 (84-94) fl MCH 29 (28-32) pg MCHC 34 (32-34) % RDW 16.3 H (13.2-15.2) % Plt Count 349 (140-440) K/mm3 Lymph % (Auto) Recycling Technician [place] % (Auto) Recycling Technician Eos % (Auto) Recycling Technician Baso % (Auto) Recycling Technician Lymph # Recycling Technician [place] # Recycling Technician Eos # Recycling Technician Baso # Recycling Technician Seg Neutrophils % Recycling Technician Seg Neutrophils # Recycling Technician PT (12.2-14.9) Sec. INR (0.87-1.13) APTT (24.2-36.6) Sec. POC ABG pH (7.35-7.45) POC ABG pCO2 (35-45) POC ABG pO2 (80-105) POC ABG HCO3 (22-26 mml/L) POC ABG Total CO2 (23-27mmol/L) POC ABG O2 Sat POC ABG Base Excess ((-2) - (+3)mmol/L) VBG pH (7.320-7.420) FiO2 % Sodium (137-145) mmol/L Potassium (3.6-5.0) mmol/L Chloride (98-107) mmol/L Carbon Dioxide (22-30) mmol/L Anion Gap mmol/L BUN (9-20) mg/dL Creatinine (0.8-1.5) mg/dL Estimated GFR ml/min BUN/Creatinine Ratio % Glucose (75-100) mg/dL POC Glucose 120 H (70-105) Lactic Acid (0.7-2.0) mmol/L Calcium (8.4-10.2) mg/dL Total Bilirubin (0.1-1.2) mg/dL AST (5-40) units/L ALT (7-56) units/L Alkaline Phosphatase (35-129) units/L Total Creatine Kinase (55-170) units/L CK-MB (CK-2) (0.0-4.0) ng/mL CK-MB (CK-2) Rel Index (0-4) Troponin T (0.00-0.029) ng/mL Total Protein (6.3-8.2) g/dL Albumin (3.9-5) g/dL Albumin/Globulin Ratio % Triglycerides (2-149) mg/dL Cholesterol (50-199) mg/dL LDL Cholesterol Direct (50-130) mg/dL HDL Cholesterol (40-59) mg/dL Cholesterol/HDL Ratio % Urine Color Yellow (Yellow) Urine Turbidity Turbid (Clear) Urine pH 7.0 (5.0-7.0) Ur Specific [place] 1.017 (1.003-1.030) Urine Protein >500 (Negative) mg/dL Urine Glucose (UA) Neg (Negative) mg/dL Urine Ketones Tr (Negative) mg/dL Urine Blood Mod (Negative) Urine Nitrite Neg (Negative) Urine Bilirubin Neg (Negative) Urine Urobilinogen < 2.0 (<2.0) mg/dL Ur Leukocyte Esterase Mod (Negative) Urine WBC (Auto) 72.0 H (0.0-6.0) /HPF Urine RBC (Auto) > 182.0 (0.0-6.0) /HPF Urine Bacteria (Auto) 1+ (Negative) /HPF 02/15/19 02/15/19 02/15/19 Range/Units 17:49 17:49 17:49 WBC (4.5-11.0) K/mm3 RBC (3.65-5.03) M/mm3 Hgb (11.8-15.2) gm/dl Hct (35.5-45.6) % MCV (84-94) fl MCH (28-32) pg MCHC (32-34) % RDW (13.2-15.2) % Plt Count (140-440) K/mm3 Lymph % (Auto) [place] % (Auto) Eos % (Auto) Baso % (Auto) Lymph # [place] # Eos # Baso # Seg Neutrophils % Seg Neutrophils # PT (12.2-14.9) Sec. INR (0.87-1.13) APTT (24.2-36.6) Sec. POC ABG pH (7.35-7.45) POC ABG pCO2 (35-45) POC ABG pO2 (80-105) POC ABG HCO3 (22-26 mml/L) POC ABG Total CO2 (23-27mmol/L) POC ABG O2 Sat POC ABG Base Excess ((-2) - (+3)mmol/L) VBG pH (7.320-7.420) FiO2 % Sodium 147 H (137-145) mmol/L Potassium 2.6 L* (3.6-5.0) mmol/L Chloride 103.6 (98-107) mmol/L Carbon Dioxide 29 (22-30) mmol/L Anion Gap 17 mmol/L BUN 39 H (9-20) mg/dL Creatinine 0.5 L (0.8-1.5) mg/dL Estimated GFR > 60 ml/min BUN/Creatinine Ratio 78 % Glucose 123 H (75-100) mg/dL POC Glucose (70-105) Lactic Acid 1.00 (0.7-2.0) mmol/L Calcium 8.1 L (8.4-10.2) mg/dL Total Bilirubin 0.50 (0.1-1.2) mg/dL AST 17 (5-40) units/L ALT 11 (7-56) units/L Alkaline Phosphatase 115 (35-129) units/L Total Creatine Kinase 72 (55-170) units/L CK-MB (CK-2) 1.6 (0.0-4.0) ng/mL CK-MB (CK-2) Rel Index 2.2 (0-4) Troponin T 0.087 H (0.00-0.029) ng/mL Total Protein 7.4 (6.3-8.2) g/dL Albumin 3.1 L (3.9-5) g/dL Albumin/Globulin Ratio 0.7 % Triglycerides 135 (2-149) mg/dL Cholesterol 96 (50-199) mg/dL LDL Cholesterol Direct 57 (50-130) mg/dL HDL Cholesterol 23 L (40-59) mg/dL Cholesterol/HDL Ratio 4.17 % Urine Color (Yellow) Urine Turbidity (Clear) Urine pH (5.0-7.0) Ur Specific [place] (1.003-1.030) Urine Protein (Negative) mg/dL Urine Glucose (UA) (Negative) mg/dL Urine Ketones (Negative) mg/dL Urine Blood (Negative) Urine Nitrite (Negative) Urine Bilirubin (Negative) Urine Urobilinogen (<2.0) mg/dL Ur Leukocyte Esterase (Negative) Urine WBC (Auto) (0.0-6.0) /HPF Urine RBC (Auto) (0.0-6.0) /HPF Urine Bacteria (Auto) (Negative) /HPF 02/15/19 02/15/19 02/15/19 Range/Units 17:49 17:49 18:47 WBC (4.5-11.0) K/mm3 RBC (3.65-5.03) M/mm3 Hgb (11.8-15.2) gm/dl Hct (35.5-45.6) % MCV (84-94) fl MCH (28-32) pg MCHC (32-34) % RDW (13.2-15.2) % Plt Count (140-440) K/mm3 Lymph % (Auto) [place] % (Auto) Eos % (Auto) Baso % (Auto) Lymph # [place] # Eos # Baso # Seg Neutrophils % Seg Neutrophils # PT 15.6 H (12.2-14.9) Sec. INR 1.27 H (0.87-1.13) APTT 32.6 (24.2-36.6) Sec. POC ABG pH 7.470 H (7.35-7.45) POC ABG pCO2 38.9 (35-45) POC ABG pO2 60 L (80-105) POC ABG HCO3 28.4 (22-26 mml/L) POC ABG Total CO2 30 (23-27mmol/L) POC ABG O2 Sat 92 POC ABG Base Excess 5 ((-2) - (+3)mmol/L) VBG pH 7.393 (7.320-7.420) FiO2 36 % Sodium (137-145) mmol/L Potassium (3.6-5.0) mmol/L Chloride (98-107) mmol/L Carbon Dioxide (22-30) mmol/L Anion Gap mmol/L BUN (9-20) mg/dL Creatinine (0.8-1.5) mg/dL Estimated GFR ml/min BUN/Creatinine Ratio % Glucose (75-100) mg/dL POC Glucose (70-105) Lactic Acid (0.7-2.0) mmol/L Calcium (8.4-10.2) mg/dL Total Bilirubin (0.1-1.2) mg/dL AST (5-40) units/L ALT (7-56) units/L Alkaline Phosphatase (35-129) units/L Total Creatine Kinase (55-170) units/L CK-MB (CK-2) (0.0-4.0) ng/mL CK-MB (CK-2) Rel Index (0-4) Troponin T (0.00-0.029) ng/mL Total Protein (6.3-8.2) g/dL Albumin (3.9-5) g/dL Albumin/Globulin Ratio % Triglycerides (2-149) mg/dL Cholesterol (50-199) mg/dL LDL Cholesterol Direct (50-130) mg/dL HDL Cholesterol (40-59) mg/dL Cholesterol/HDL Ratio % Urine Color (Yellow) Urine Turbidity (Clear) Urine pH (5.0-7.0) Ur Specific [place] (1.003-1.030) Urine Protein (Negative) mg/dL Urine Glucose (UA) (Negative) mg/dL Urine Ketones (Negative) mg/dL Urine Blood (Negative) Urine Nitrite (Negative) Urine Bilirubin (Negative) Urine Urobilinogen (<2.0) mg/dL Ur Leukocyte Esterase (Negative) Urine WBC (Auto) (0.0-6.0) /HPF Urine RBC (Auto) (0.0-6.0) /HPF Urine Bacteria (Auto) (Negative) /HPF - EKG Data -: EKG Interpreted by Me (alot of artifact) EKG shows normal: sinus rhythm, axis (qrs -31), QRS complexes (qrsdb 93), ST-T waves (n sotemi) - Radiology Data Radiology results: report reviewed CHEST 1 VIEW INDICATION: hypotensive, resp depression. COMPARISON: 09/22/2018 FINDINGS: SUPPORT DEVICES: None. HEART / MEDIASTINUM: No significant abnormality. LUNGS / PLEURA: No significant pulmonary or pleural abnormality. No pneumothorax. ADDITIONAL FINDINGS: IMPRESSION: 1. No acute findings. CHEST 1 VIEW INDICATION: s/p central line. COMPARISON: Earlier the same day FINDINGS: SUPPORT DEVICES: Central venous line has tip in superior vena cava. HEART / MEDIASTINUM: No significant abnormality. LUNGS / PLEURA: Volume loss left lower lobe has developed as compared to previous exam No pneumothorax. ADDITIONAL FINDINGS: IMPRESSION: 1. Left lower lobe volume loss with shift of mediastinal structures right to left - Medical Decision Making Patient's systolic blood pressure seemed to be responding to IV fluid boluses. There was a delay and labs because phlebotomy was unsuccessful in obtaining blood with repeated IV sticks. Tissue lie was placed due to labile blood pressure and need for reliable blood draws and IV access. Patient treated with Zosyn for UTI. Blood work was obtained after over 3 L of normal saline. IV potassium ordered for hypokalemia. Magnesium pending. Patient has mild elevation in troponin without acute ST elevation CT although there is a lot of artifact on EKG. Repeat troponin pending. Aspirin provided. Hospitalist informed for admission. - Differential Diagnosis UTI, pneumonia, sepsis, anemia, dehydration, encephalopathy Critical Care Time: Yes Critical care time in (mins) excluding proc time.: 65 Critical care attestation.: If time is entered above; I have spent that time in minutes in the direct care of this critically ill patient, excluding procedure time. ED Disposition Clinical Impression: Septic shock, Mental status, decreased, Hypokalemia, Dehydration, Hypoxia, On continuous oral anticoagulation, Hypotension Disposition: OP ADMIT IP TO THIS HOSP Is pt being admited?: Yes Condition: Stable Time of Disposition: 19:06 (Dr Tavera/hosp)
[2019-02-15] MEDS ORDERED: ASPIRIN PR ONE (19:22)
[2019-02-15] MEDS: KCL 20MEQ/100ML 20 MEQ/100 ML BAG IV SCH ×2 (19:59→21:15)
[2019-02-15] MEDS ORDERED: ZOFRAN IV PRN (20:09)
[2019-02-15] MEDS ORDERED: PROVENTIL IH PRN (20:09)
[2019-02-15] MEDS ORDERED: SODIUM CHLORIDE FLUSH SYRINGE 10 ML IV PRN (20:09)
[2019-02-15] MEDS: LEVOPHED DRIP 4 MG/NS 250 ML 4 MG/250 ML BAG IV SCH (20:25)
--- NOTE | 2019-02-15 20:30 | History and Physical Report ---
History of Present Illness Date of examination: 02/15/19 Date of admission: 02/15/2019 Chief complaint: AMS History of present illness: 64-year-old -[place] Citizen male who is a resident of [facility] with history of recurrent DVTs on anti-coagulation, pressure ulcer, neuromuscular dysfunction of the bladder, prolonged indwelling catheter, Polyneuropathy, chronic debility,GERD, anxiety, osteoarthritis, and hypertension, who presents to [facility] ED with complaints of AMS. Pt is unable to provide history. Family is present at the bedside. History is taken from medical records and family. According to pt's family pt is not at baseline. He has become more lethargic over the past day. The nursing is concerned that pt might have UTI. At the time of my examination pt is resting, easily aroused but unable carry on conversation, but nods to yes/no questions. A review of medical records show pt was admitted in August, and treated for acute metabolic encephalopathy. Past History Past Medical History: arthritis, DVT (on Eliquis), GERD, hypertension, renal failure, other (anxiety, Pressure ulcers, Neuromuscular dysfunction of bladder, Arthropathy, Polyneuropathy, Muscle spasms, Prolonged indwelling tucker cathetetrs, Frequent UTI) Past Surgical History: Other ( Back, Neck) Social history: , other (resident of [facility]) Family history: no significant family history Medications and Allergies Allergies Allergy/AdvReac Type Severity Reaction Status Date / Time shrimp Allergy Itching Verified 01/01/18 15:52 sulfamethoxazole Allergy Rash Verified 11/08/16 10:57 [From Bactrim] trimethoprim [From Bactrim] Allergy Rash Verified 11/08/16 10:57 tuberculin, purified protein Allergy Unknown Verified 11/08/16 10:57 deriva Home Medications Medication Instructions Recorded Confirmed Last Taken Type Ascorbic Acid [Vitamin C with Alexandrea 1 tab PO QDAY 11/08/16 02/15/19 Unknown History Hips] Docusate Sodium [Colace CAP] 100 mg PO BID 11/08/16 02/15/19 Unknown History Halobetasol Propionate [Ultravate] 1 applicatio INTRADERMA Q12H PRN 11/08/16 02/15/19 Unknown History Multivitamin with Iron 1 tab PO QDAY 11/08/16 02/15/19 Unknown History [Multivitamins with Iron] Protein Supplement [Promod] 30 ml PO BID 11/08/16 02/15/19 Unknown History diphenhydrAMINE [Benadryl CAP] 1 cap PO Q4H PRN 11/08/16 02/15/19 Unknown History Lactulose 30 ml PO DAILY PRN #1 11/13/16 02/15/19 Unknown Rx Gabapentin [Neurontin] 600 mg PO TID 10/30/17 02/15/19 Unknown History ALBUTEROL NEB's [Proventil 0.083% 2.5 mg IH Q3HRT PRN nebu 09/27/18 02/15/19 Unknown Rx NEBS] Acetaminophen [Acetaminophen TAB] 650 mg PO Q4H PRN tablet 09/27/18 02/15/19 Unknown Rx AtorvaSTATin [Lipitor] 40 mg PO QHS tablet 09/27/18 02/15/19 Unknown Rx Bisacodyl [Dulcolax suppos] 10 mg IN QDAY PRN supp.rect 09/27/18 02/15/19 Unknown Rx Apixaban [Eliquis] 2.5 mg PO BID 02/15/19 02/15/19 Unknown History Baclofen 40 mg PO TID 02/15/19 02/15/19 Unknown History Dantrolene Sodium [Dantrium] 100 mg PO Q8H 02/15/19 02/15/19 Unknown History Famotidine [Pepcid] 20 mg PO BID 02/15/19 02/15/19 Unknown History Mirtazapine [Remeron 15mg TAB] 15 mg PO QHS 02/15/19 02/15/19 Unknown History Morphine Sulfate [Morphine Sulfate 15 mg PO Q12H 02/15/19 02/15/19 Unknown History ER] Ondansetron [Zofran ODT TAB] 4 mg PO Q6H PRN 02/15/19 02/15/19 Unknown History Oxycodone HCl/Acetaminophen 1 each PO Q8H PRN 02/15/19 02/15/19 Unknown History [Percocet 10/325 mg] Trazodone HCl 25 mg PO QHS 02/15/19 02/15/19 Unknown History diazePAM TAB [Valium] 4 mg PO Q8H PRN 02/15/19 02/15/19 Unknown History Active Meds: Active Medications Acetaminophen (Tylenol) 650 mg PO Q4H PRN PRN Reason: Pain MILD(1-3)/Fever >100.5/MCNULTY Albuterol (Proventil) 2.5 mg IH Q3HRT PRN PRN Reason: Shortness Of Breath Heparin Sodium (Porcine) (Heparin) 5,000 unit SUB-Q Q12HR GARY Norepinephrine (Levophed Drip 4 Mg/Ns 250 Ml) 4 mg in 250 mls @ 7.5 mls/hr IV TITR GARY; Protocol Last Admin: 02/15/19 20:25 Dose: 2 mcg/min, 7.5 mls/hr Documented by: Potassium Chloride (Kcl 20meq/100ml) 20 meq in 100 mls @ 100 mls/hr IV Q1H GARY Stop: 02/15/19 20:59 Last Admin: 02/15/19 19:59 Dose: 100 mls/hr Documented by: Sodium Chloride (Nacl 0.9% 1000 Ml) 1,000 mls @ 200 mls/hr IV BOLUS ONE Stop: 02/16/19 00:04 Last Admin: 02/15/19 19:52 Dose: 200 mls/hr Documented by: Sodium Chloride (Nacl 0.9% 1000 Ml) 1,000 mls @ 100 mls/hr IV DIRECT GARY Cefepime HCl (Maxipime/Ns 1 Gm/100 Ml) 1 gm in 100 mls @ 200 mls/hr IV Q8HR GARY; Protocol Potassium Chloride (Kcl 10meq/100ml) 10 meq in 100 mls @ 100 mls/hr IV Q1H GARY Stop: 02/15/19 23:59 Ondansetron HCl (Zofran) 4 mg IV Q6H PRN PRN Reason: Nausea And Vomiting Sodium Chloride (Sodium Chloride Flush Syringe 10 Ml) 10 ml IV BID GARY Sodium Chloride (Sodium Chloride Flush Syringe 10 Ml) 10 ml IV PRN PRN PRN Reason: LINE FLUSH Review of Systems ROS unobtainable: due to mental status Exam - Physical Exam Narrative exam: Physical exam General appearance: Present: No acute distress, lethargic, -[place] Citizen ad ult male - EENT Eyes: Present: PERRL, EOM intact ENT: hearing intact, normal dentition - Neck Neck: Present: supple, normal ROM - Respiratory Respiratory effort: Non-labored Respiratory: CTA bilaterally - Cardiovascular Heart rate:88 (bpm) Rhythm: regular Heart Sounds: Present: S1 & S2. Absent: rub, click - Extremities Extremities: no ischemia, pulses intact, abnormal (contracted with limited rom) - Peripheral Assessment Peripheral Pulses: within normal limits - Abdominal General gastrointestinal: soft, non-tender, normal bowel sounds, Suprapubic catheter - Integumentary Integumentary: Present: warm, dry, : Pressure ulcers to right hip, sacrum, and legs - Musculoskeletal Musculoskeletal: generalized weakness - Psychiatric Psychiatric: cooperative - Constitutional Vitals: Temp Pulse Resp BP Pulse Ox 97.5 F L 94 H 8 L 98/64 94 02/15/19 19:53 02/15/19 19:46 02/15/19 19:46 02/15/19 19:46 02/15/19 19:46 Results - Labs CBC & Chem 7: 02/15/19 17:49 02/15/19 17:49 Labs: Laboratory Last Values WBC 11.8 K/mm3 (4.5-11.0) H 02/15/19 17:49 RBC 3.60 M/mm3 (3.65-5.03) L 02/15/19 17:49 Hgb 10.5 gm/dl (11.8-15.2) L 02/15/19 17:49 Hct 31.0 % (35.5-45.6) L 02/15/19 17:49 MCV 86 fl (84-94) 02/15/19 17:49 MCH 29 pg (28-32) 02/15/19 17:49 MCHC 34 % (32-34) 02/15/19 17:49 RDW 16.3 % (13.2-15.2) H 02/15/19 17:49 Plt Count 349 K/mm3 (140-440) 02/15/19 17:49 Lymph % (Auto) Supervisor Pumping 02/15/19 17:49 [place] % (Auto) Supervisor Pumping 02/15/19 17:49 Eos % (Auto) Supervisor Pumping 02/15/19 17:49 Baso % (Auto) Supervisor Pumping 02/15/19 17:49 Lymph # Supervisor Pumping 02/15/19 17:49 [place] # Supervisor Pumping 02/15/19 17:49 Eos # Supervisor Pumping 02/15/19 17:49 Baso # Supervisor Pumping 02/15/19 17:49 Seg Neutrophils % Supervisor Pumping 02/15/19 17:49 Seg Neutrophils # Supervisor Pumping 02/15/19 17:49 PT 15.6 Sec. (12.2-14.9) H 02/15/19 17:49 INR 1.27 (0.87-1.13) H 02/15/19 17:49 APTT 32.6 Sec. (24.2-36.6) 02/15/19 17:49 POC ABG pH 7.470 (7.35-7.45) H 02/15/19 18:47 POC ABG pCO2 38.9 (35-45) 02/15/19 18:47 POC ABG pO2 60 (80-105) L 02/15/19 18:47 POC ABG HCO3 28.4 (22-26 mml/L) 02/15/19 18:47 POC ABG Total CO2 30 (23-27mmol/L) 02/15/19 18:47 POC ABG O2 Sat 92 02/15/19 18:47 POC ABG Base Excess 5 ((-2) - (+3)mmol/L) 02/15/19 18:47 VBG pH 7.393 (7.320-7.420) 02/15/19 17:49 36 % 02/15/19 18:47 Sodium 147 mmol/L (137-145) H 02/15/19 17:49 Potassium 2.6 mmol/L (3.6-5.0) L* 02/15/19 17:49 Chloride 103.6 mmol/L (98-107) 02/15/19 17:49 Carbon Dioxide 29 mmol/L (22-30) 02/15/19 17:49 17 mmol/L 02/15/19 17:49 BUN 39 mg/dL (9-20) H 02/15/19 17:49 0.5 mg/dL (0.8-1.5) L 02/15/19 17:49 Estimated GFR > 60 ml/min 02/15/19 17:49 78 % 02/15/19 17:49 Glucose 123 mg/dL (75-100) H 02/15/19 17:49 POC Glucose 120 (70-105) H 02/15/19 15:22 Lactic Acid 1.00 mmol/L (0.7-2.0) 02/15/19 19:34 Calcium 8.1 mg/dL (8.4-10.2) L 02/15/19 17:49 0.50 mg/dL (0.1-1.2) 02/15/19 17:49 AST 17 units/L (5-40) 02/15/19 17:49 ALT 11 units/L (7-56) 02/15/19 17:49 115 units/L (35-129) 02/15/19 17:49 72 units/L (55-170) 02/15/19 17:49 CK-MB (CK-2) 1.6 ng/mL (0.0-4.0) 02/15/19 17:49 CK-MB (CK-2) Rel Index 2.2 (0-4) 02/15/19 17:49 0.039 ng/mL (0.00-0.029) H D 02/15/19 19:34 7.4 g/dL (6.3-8.2) 02/15/19 17:49 3.1 g/dL (3.9-5) L 02/15/19 17:49 0.7 % 02/15/19 17:49 Triglycerides 135 mg/dL (2-149) 02/15/19 17:49 Cholesterol 96 mg/dL (50-199) 02/15/19 17:49 57 mg/dL (50-130) 02/15/19 17:49 23 mg/dL (40-59) L 02/15/19 17:49 4.17 % 02/15/19 17:49 Yellow (Yellow) 02/15/19 15:27 Turbid (Clear) 02/15/19 15:27 7.0 (5.0-7.0) 02/15/19 15:27 Ur Specific [place] 1.017 (1.003-1.030) 02/15/19 15:27 >500 mg/dL (Negative) 02/15/19 15:27 Neg mg/dL (Negative) 02/15/19 15:27 Tr mg/dL (Negative) 02/15/19 15:27 Mod (Negative) 02/15/19 15:27 Neg (Negative) 02/15/19 15:27 Neg (Negative) 02/15/19 15:27 < 2.0 mg/dL (<2.0) 02/15/19 15:27 Ur Leukocyte Esterase Mod (Negative) 02/15/19 15:27 72.0 /HPF (0.0-6.0) H 02/15/19 15:27 > 182.0 /HPF (0.0-6.0) 02/15/19 15:27 1+ /HPF (Negative) 02/15/19 15:27 - Imaging and Cardiology Chest x-ray: report reviewed (Left lower lobe volume loss with shift of mediastinal structures right to left ), image reviewed Assessment and Plan Assessment and plan: 64-year-old -[place] Citizen male who is a resident of [facility] with 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 Sepsis -Leukocytosis 11.8 -hypotensive -Received IV fluid resuscitation with minimal response -Blood cultures pending -On Levophed gtt UTI -Urine WBC 72 -Urine culture pending -Prolonged indwelling suprapubic catheter -Hx of recurrent UTI -On IV cefepime and vancomycin -ID consulted Hypokalemia -Potassium on admission 2.6 -Repleted -Continue to monitor electrolytes, replete prn Acute Hypoxic Respiratory Failure -No baseline oxygen requirements -On supplemental O2 -ABG 7.47/38.9/60/28.4 -Monitor saturations wean as tolerated Lactic acidosis -Lactic acid 2.6 on admission -On IV abx -On IVF -Continue to monitor Anemia -Hbg 10.5 -No s/s of active bleeding -Continue to monitor -Transfuse prn DEVIN -BUN/Cr on admission 39/0.5 -Hx of Neuromuscular dysfunction of bladder -Nephrology consulted Mild to moderate malnutrition -Albumin 3.1 -Poor oral intake -Dietitian conslted Pressure ulcer -Wound care consulted -Right hip, bilateral legs, and sacrum -Off load areas of bony prominences and wounds History of recurrent DVT on anticoagulation -Continue Eliquis DVT PPX -SCd's Chronic debility -PT/OT eval when stable Hx GERD -Continue Pepcid ' Hx HTN -Currently hpotensive -Hold all antihypertensive meds Hx Anxiety Advance Directives: No VTE prophylaxis?: Chemical Plan of care discussed with patient/family: Yes
[2019-02-15] MEDS ORDERED: VANCOMYCIN PHARMACY TO DOSE IV SCH (21:00)
[2019-02-15] MEDS ORDERED: NACL 0.9% 1000 ML 1,000 ML IV SCH (21:00)
[2019-02-15] MEDS ORDERED: VALIUM PO PRN (21:45)
[2019-02-15] MEDS ORDERED: NON-FORMULARY (Oxycodone Hcl/Acetaminophen [Percocet 10/325 Mg] 1 EACH) PO PRN (21:45)
[2019-02-15] MEDS ORDERED: DANTROLENE SODIUM 100 MG PO SCH (21:45)
[2019-02-15] MEDS ORDERED: KCL 10MEQ/100ML 10 MEQ/100 ML BAG IV ONE ×2 (21:48→23:56)
[2019-02-15] MEDS ORDERED: HEPARIN SUB-Q SCH (22:00)
[2019-02-15] MEDS: KCL 10MEQ/100ML 10 MEQ/100 ML BAG IV SCH ×2 (22:36→23:56)
[2019-02-15] MEDS: SODIUM CHLORIDE FLUSH SYRINGE 10 ML IV SCH (22:36)
[2019-02-15] MEDS ORDERED: MAXIPIME/NS 1 GM/100 ML 1 GM/100 ML BAG IV ONE (23:10)
[2019-02-15] MEDS ORDERED: COLACE ONE (23:11)
[2019-02-15] MEDS ORDERED: REMERON ONE (23:11)
[2019-02-15] MEDS ORDERED: PEPCID ONE (23:11)
[2019-02-15] MEDS: MAXIPIME/NS 1 GM/100 ML 1 GM/100 ML BAG IV SCH (23:13)
[2019-02-15] MEDS: PEPCID PO SCH (23:23)
[2019-02-15] MEDS: COLACE PO SCH (23:23)
[2019-02-15] MEDS: DANTRIUM PO SCH (23:23)
[2019-02-15] MEDS: ELIQUIS PO SCH (23:23)
[2019-02-15] MEDS: REMERON PO SCH (23:23)
[2019-02-16] MEDS ORDERED: KCL 10MEQ/100ML 10 MEQ/100 ML BAG IV ONE ×4 (01:18→17:58)
[2019-02-16] MEDS: KCL 10MEQ/100ML 10 MEQ/100 ML BAG IV SCH ×9 (01:18→17:59)
[2019-02-16] MEDS ORDERED: NACL 0.9% 1000 ML 1,000 ML ONE ×3 (01:46→15:21)
[2019-02-16 03:47] LABS: Red Blood Count 3.79 M/mm3 (3.65-5.03)
[2019-02-16 03:48] LABS: Hematocrit 32.7 % (35.5-45.6); Hemoglobin 10.8 gm/dl (11.8-15.2); Mean Corpuscular HGB Conc 33 % (32-34); Mean Corpuscular Volume 86 fl (84-94); Platelet Count 383 K/mm3 (140-440); Red Cell Distribution Width 15.8 % (13.2-15.2)
[2019-02-16] MEDS: VANCOMYCIN/NS 1 GM/250 ML 1 GM/250 ML BAG IV SCH ×2 (04:00→16:17)
[2019-02-16 04:09] LABS: BUN/Creatinine Ratio 70; Blood Urea Nitrogen 21 mg/dL (9-20); Calcium 8.3 mg/dL (8.4-10.2); Hemolysis Index 1
[2019-02-16 04:37] LABS: Basophils % (Manual) 0 % (0.0-1.8); Eosinophils % (Manual) 0 % (0.0-4.3); Total Cells Counted 100
[2019-02-16 04:38] LABS: RBC Morphology Normal
[2019-02-16] MEDS ORDERED: TYLENOL ONE ×2 (04:56→11:00)
[2019-02-16] MEDS: TYLENOL PO PRN ×2 (04:58→11:02)
[2019-02-16] MEDS ORDERED: MAXIPIME/NS 1 GM/100 ML 1 GM/100 ML BAG IV ONE ×2 (05:31→14:30)
[2019-02-16] MEDS: MAXIPIME/NS 1 GM/100 ML 1 GM/100 ML BAG IV SCH ×3 (05:41→23:13)
[2019-02-16] MEDS ORDERED: NACL 0.45% 1000 ML 1,000 ML IV ONE (06:45)
[2019-02-16] MEDS ORDERED: NACL 0.45% 1000 ML 1,000 ML IV SCH (07:00)
[2019-02-16] MEDS ORDERED: LIORESAL ONE ×3 (07:47→20:09)
[2019-02-16] MEDS ORDERED: NEURONTIN ONE ×3 (07:47→20:08)
[2019-02-16] MEDS: DANTRIUM PO SCH ×3 (07:53→23:13)
[2019-02-16] MEDS: LIORESAL PO SCH ×3 (07:54→20:12)
[2019-02-16] MEDS: NEURONTIN PO SCH ×3 (07:54→20:12)
[2019-02-16] MEDS ORDERED: BACLOFEN 40 MG PO SCH (08:00)
[2019-02-16] MEDS ORDERED: NON-FORMULARY (Gabapentin [Neurontin] 600 MG) PO SCH (08:00)
[2019-02-16] MEDS ORDERED: COLACE ONE (09:25)
[2019-02-16] MEDS ORDERED: PEPCID ONE ×3 (09:25→20:07)
[2019-02-16] MEDS ORDERED: THERAGRAN Tab PO ONE (09:26)
--- NOTE | 2019-02-16 09:40 | Progress Note ---
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 Septic shock -Leukocytosis 11.8 -hypotensive -Received IV fluid resuscitation with minimal response -Blood cultures pending -On Levophed gtt AMS from Acute metabolic encephalopathy -from infection -treat the sepsis uti UTI with sepsis -Urine WBC 72 -Urine culture pending -Prolonged indwelling suprapubic catheter -Hx of recurrent UTI -On IV cefepime and vancomycin -ID consulted Hypokalemia -Potassium on admission 2.6 -Replete -Continue to monitor electrolytes, replete prn Acute Hypoxic Respiratory Failure -No baseline oxygen requirements -On supplemental O2 -ABG 7.47/38.9/60/28.4 -Monitor saturations wean as tolerated Lactic acidosis -Lactic acid 2.6 on admission -On IV abx -On IVF -Continue to monitor Anemia -Hbg 10.5 -No s/s of active bleeding -Continue to monitor -Transfuse prn DEVIN -ATN suspected poa -BUN/Cr on admission 39/0.5 -Hx of Neuromuscular dysfunction of bladder -Nephrology consulted Mild to moderate malnutrition -Albumin 3.1 -Poor oral intake -Dietitian conslted Pressure ulcer, at least stage 3 -Wound care consulted -Right hip, bilateral legs, and sacrum -Off load areas of bony prominences and wounds History of recurrent DVT on anticoagulation -Continue Eliquis DVT PPX -SCd's Chronic debility -PT/OT eval when stable Hx GERD -Continue Pepcid ' Hx HTN -Currently hpotensive -Hold all antihypertensive meds Hx Anxiety Hypernatremia, severely dehydrated needs more fluid trying to wean on 2 mcg of Levophed; he is severely dehydrated. Will give 2 liter bolus IVF and follow by D51/2ns with 20 mEq of KCL additie and repeat bmp/sodium level in am CCT 32 minutes History Interval history: Patient was seen and examined. Follow-up on current diagnosis AMS. No overnight events reported to me. Patient denies any chest pain, shortness breath, nausea/vomiting or severe headaches. Imaging, nursing note, chart, labs and old chart reviewed. Discussed with patient. Hospitalist Physical - Physical exam Narrative exam: Gen: cachetic, ill appearing, chronically disable appearing, NAD, Awake, and talking but mouth so dry he can't talk HEENT: NCAT, EOMI, PERRL, OP severe dryness, pasty mouth and crusty tongue Neck: supple, no adenopathy, no thyromegaly, no JVD CVS/Heart: RRR, normal S1S2, pulses present bilaterally Chest/Lungs: diminished bs bilateral Symmetrical chest expansion, good air entry bilaterally GI/Abdomen: soft, NTND, good bowel sounds, no guarding or rebound /Bladder: +tucker no suprapubic tenderness, no CVA or paraspinal tenderness Extermity/Skin: poor skin integrity throughout, atrophic limbs x 4 MSK: contracted limbs x 4 Neuro: CN 2-12 grossly intact, no new focal deficits Psych: calm and confused - Constitutional Vitals: Temp Pulse Resp BP Pulse Ox 101.1 F H 104 H 25 H 129/68 100 02/16/19 06:02 02/16/19 06:00 02/16/19 06:00 02/16/19 06:00 02/16/19 06:00 Results - Labs CBC & Chem 7: 02/16/19 03:40 02/16/19 05:35 Labs: Laboratory Last Values WBC 15.5 K/mm3 (4.5-11.0) H 02/16/19 03:40 RBC 3.79 M/mm3 (3.65-5.03) 02/16/19 03:40 Hgb 10.8 gm/dl (11.8-15.2) L 02/16/19 03:40 Hct 32.7 % (35.5-45.6) L 02/16/19 03:40 MCV 86 fl (84-94) 02/16/19 03:40 MCH 29 pg (28-32) 02/16/19 03:40 MCHC 33 % (32-34) 02/16/19 03:40 RDW 15.8 % (13.2-15.2) H 02/16/19 03:40 Plt Count 383 K/mm3 (140-440) 02/16/19 03:40 Lymph % (Auto) Qa Software Tester 02/15/19 17:49 [place] % (Auto) Qa Software Tester 02/15/19 17:49 Eos % (Auto) Qa Software Tester 02/15/19 17:49 Baso % (Auto) Qa Software Tester 02/15/19 17:49 Lymph # Qa Software Tester 02/15/19 17:49 [place] # Qa Software Tester 02/15/19 17:49 Eos # Qa Software Tester 02/15/19 17:49 Baso # Qa Software Tester 02/15/19 17:49 Add Manual Diff Complete 02/16/19 03:40 Total Counted 100 02/16/19 03:40 Seg Neutrophils % Qa Software Tester 02/15/19 17:49 Seg Neuts % (Manual) 80.0 % (40.0-70.0) H 02/16/19 03:40 0 % 02/16/19 03:40 11.0 % (13.4-35.0) L 02/16/19 03:40 Reactive Lymphs % (Man) 0 % 02/16/19 03:40 9.0 % (0.0-7.3) H 02/16/19 03:40 0 % (0.0-4.3) 02/16/19 03:40 0 % (0.0-1.8) 02/16/19 03:40 0 % 02/16/19 03:40 0 % 02/16/19 03:40 0 % 02/16/19 03:40 0 % 02/16/19 03:40 Nucleated RBC % Not Reportable 02/16/19 03:40 Seg Neutrophils # Qa Software Tester 02/15/19 17:49 Seg Neutrophils # Man 12.4 K/mm3 (1.8-7.7) H 02/16/19 03:40 Band Neutrophils # 0.0 K/mm3 02/16/19 03:40 1.7 K/mm3 (1.2-5.4) 02/16/19 03:40 Abs React Lymphs (Man) 0.0 K/mm3 02/16/19 03:40 1.4 K/mm3 (0.0-0.8) H 02/16/19 03:40 0.0 K/mm3 (0.0-0.4) 02/16/19 03:40 0.0 K/mm3 (0.0-0.1) 02/16/19 03:40 0.0 K/mm3 02/16/19 03:40 0.0 K/mm3 02/16/19 03:40 0.0 K/mm3 02/16/19 03:40 Blast Cells # 0.0 K/mm3 02/16/19 03:40 WBC Morphology Not Reportable 02/16/19 03:40 Hypersegmented Neuts Not Reportable 02/16/19 03:40 Hyposegmented Neuts Not Reportable 02/16/19 03:40 Hypogranular Neuts Not Reportable 02/16/19 03:40 Not Reportable 02/16/19 03:40 Not Reportable 02/16/19 03:40 Not Reportable 02/16/19 03:40 Not Reportable 02/16/19 03:40 Not Reportable 02/16/19 03:40 Not Reportable 02/16/19 03:40 Not Reportable 02/16/19 03:40 Not Reportable 02/16/19 03:40 Plt Clumps, EDTA Not Reportable 02/16/19 03:40 Not Reportable 02/16/19 03:40 Not Reportable 02/16/19 03:40 Not Reportable 02/16/19 03:40 Plt Morphology Comment Not Reportable 02/16/19 03:40 RBC Morphology Normal 02/16/19 03:40 Dimorphic RBCs Not Reportable 02/16/19 03:40 Not Reportable 02/16/19 03:40 Not Reportable 02/16/19 03:40 Not Reportable 02/16/19 03:40 Not Reportable 02/16/19 03:40 Not Reportable 02/16/19 03:40 Not Reportable 02/16/19 03:40 Not Reportable 02/16/19 03:40 Not Reportable 02/16/19 03:40 Not Reportable 02/16/19 03:40 Not Reportable 02/16/19 03:40 Not Reportable 02/16/19 03:40 Not Reportable 02/16/19 03:40 Not Reportable 02/16/19 03:40 Not Reportable 02/16/19 03:40 Not Reportable 02/16/19 03:40 Not Reportable 02/16/19 03:40 Not Reportable 02/16/19 03:40 Not Reportable 02/16/19 03:40 Not Reportable 02/16/19 03:40 Acanthocytes (Spur) Not Reportable 02/16/19 03:40 Rouleaux Not Reportable 02/16/19 03:40 Not Reportable 02/16/19 03:40 Not Reportable 02/16/19 03:40 Not Reportable 02/16/19 03:40 Not Reportable 02/16/19 03:40 Hem Pathologist Commnt No 02/16/19 03:40 PT 15.6 Sec. (12.2-14.9) H 02/15/19 17:49 INR 1.27 (0.87-1.13) H 02/15/19 17:49 APTT 32.6 Sec. (24.2-36.6) 02/15/19 17:49 POC ABG pH 7.470 (7.35-7.45) H 02/15/19 18:47 POC ABG pCO2 38.9 (35-45) 02/15/19 18:47 POC ABG pO2 60 (80-105) L 02/15/19 18:47 POC ABG HCO3 28.4 (22-26 mml/L) 02/15/19 18:47 POC ABG Total CO2 30 (23-27mmol/L) 02/15/19 18:47 POC ABG O2 Sat 92 02/15/19 18:47 POC ABG Base Excess 5 ((-2) - (+3)mmol/L) 02/15/19 18:47 VBG pH 7.393 (7.320-7.420) 02/15/19 17:49 36 % 02/15/19 18:47 Sodium 147 mmol/L (137-145) H 02/16/19 03:40 Potassium 2.9 mmol/L (3.6-5.0) L* 02/16/19 05:35 Chloride 107.2 mmol/L (98-107) H 02/16/19 03:40 Carbon Dioxide 26 mmol/L (22-30) 02/16/19 03:40 17 mmol/L 02/16/19 03:40 BUN 21 mg/dL (9-20) H 02/16/19 03:40 0.3 mg/dL (0.8-1.5) L 02/16/19 03:40 Estimated GFR > 60 ml/min 02/16/19 03:40 70 % 02/16/19 03:40 Glucose 122 mg/dL (75-100) H 02/16/19 03:40 POC Glucose 120 (70-105) H 02/15/19 15:22 Lactic Acid 1.00 mmol/L (0.7-2.0) 02/15/19 19:34 Calcium 8.3 mg/dL (8.4-10.2) L 02/16/19 03:40 Magnesium 1.90 mg/dL (1.7-2.3) 02/16/19 05:35 0.50 mg/dL (0.1-1.2) 02/15/19 17:49 AST 17 units/L (5-40) 02/15/19 17:49 ALT 11 units/L (7-56) 02/15/19 17:49 115 units/L (35-129) 02/15/19 17:49 72 units/L (55-170) 02/15/19 17:49 CK-MB (CK-2) 1.6 ng/mL (0.0-4.0) 02/15/19 17:49 CK-MB (CK-2) Rel Index 2.2 (0-4) 02/15/19 17:49 0.039 ng/mL (0.00-0.029) H D 02/15/19 19:34 7.4 g/dL (6.3-8.2) 02/15/19 17:49 3.1 g/dL (3.9-5) L 02/15/19 17:49 0.7 % 02/15/19 17:49 Triglycerides 135 mg/dL (2-149) 02/15/19 17:49 Cholesterol 96 mg/dL (50-199) 02/15/19 17:49 57 mg/dL (50-130) 02/15/19 17:49 23 mg/dL (40-59) L 02/15/19 17:49 4.17 % 02/15/19 17:49 Yellow (Yellow) 02/15/19 15:27 Turbid (Clear) 02/15/19 15:27 7.0 (5.0-7.0) 02/15/19 15:27 Ur Specific [place] 1.017 (1.003-1.030) 02/15/19 15:27 >500 mg/dL (Negative) 02/15/19 15:27 Neg mg/dL (Negative) 02/15/19 15:27 Tr mg/dL (Negative) 02/15/19 15:27 Mod (Negative) 02/15/19 15:27 Neg (Negative) 02/15/19 15:27 Neg (Negative) 02/15/19 15:27 < 2.0 mg/dL (<2.0) 02/15/19 15:27 Ur Leukocyte Esterase Mod (Negative) 02/15/19 15:27 72.0 /HPF (0.0-6.0) H 02/15/19 15:27 > 182.0 /HPF (0.0-6.0) 02/15/19 15:27 1+ /HPF (Negative) 02/15/19 15:27 Active Medications - Current Medications Current Medications: Generic Name Dose Route Start Last Admin Trade Name Freq PRN Reason Stop Dose Admin Acetaminophen 650 mg 02/15/19 20:09 02/16/19 04:58 Tylenol PO 650 mg Q4H PRN Administration Pain MILD(1-3)/Fever >100.5/MCNULTY Albuterol 2.5 mg 02/15/19 20:09 Proventil IH Q3HRT PRN Shortness Of Breath Apixaban 2.5 mg 02/15/19 22:00 02/15/19 23:23 Eliquis PO 2.5 mg BID GARY Administration Protocol Ascorbic Acid 500 mg 02/16/19 10:00 Vitamin C PO QDAY [facility] Atorvastatin Calcium 40 mg 02/15/19 22:00 02/15/19 23:23 Lipitor PO 40 mg QHS GARY Administration Baclofen 40 mg 02/16/19 08:00 02/16/19 07:54 Lioresal PO 40 mg TID GARY Administration Dantrolene Sodium 100 mg 02/15/19 23:00 02/16/19 07:53 Dantrium PO 100 mg Q8H GARY Administration Diazepam 4 mg 02/15/19 21:45 Valium PO Q8H PRN Muscle Spasm Docusate Sodium 100 mg 02/15/19 22:00 02/15/19 23:23 Colace PO 100 mg BID GARY Administration Famotidine 20 mg 02/15/19 22:00 02/15/19 23:23 Pepcid PO 20 mg BID GARY Administration Gabapentin 600 mg 02/16/19 08:00 02/16/19 07:54 Neurontin PO 600 mg TID GARY Administration Norepinephrine 4 mg in 250 mls @ 7.5 mls/hr 02/15/19 18:00 02/16/19 06:45 Levophed Drip 4 Mg/Ns 250 Ml IV 2 mcg/min TITR GARY 7.5 mls/hr Titration Protocol 2 MCG/MIN Cefepime HCl 1 gm in 100 mls @ 200 mls/hr 02/15/19 22:00 02/16/19 05:41 Maxipime/Ns 1 Gm/100 Ml IV 200 mls/hr Q8HR GARY Administration Protocol Vancomycin HCl 1 gm in 250 mls @ 166.667 mls/hr 02/16/19 04:00 02/16/19 04:00 Vancomycin/Ns 1 Gm/250 Ml IV 166.667 mls/hr Q12H GARY Administration Sodium Chloride 1,000 mls @ 100 mls/hr 02/16/19 07:00 02/16/19 06:41 Nacl 0.45% 1000 Ml IV 100 mls/hr DIRECT GARY Administration Mirtazapine 15 mg 02/15/19 22:00 02/15/19 23:23 Remeron PO 15 mg QHS GARY Administration Multivitamins/Minerals 1 each 02/16/19 10:00 Theragran-M Tab PO QDAY GARY Ondansetron HCl 4 mg 02/15/19 20:09 Zofran IV Q6H PRN Nausea And Vomiting Oxycodone HCl 5 mg 02/15/19 22:13 Roxicodone PO Q8H PRN Pain, Moderate (4-6) Oxycodone/Acetaminophen 1 tab 02/15/19 22:14 Percocet 5/325 PO Q8H PRN Pain, Moderate (4-6) Sodium Chloride 10 ml 02/15/19 22:00 02/15/19 22:36 Sodium Chloride Flush Syringe 10 Ml IV 10 ml BID GARY Administration Sodium Chloride 10 ml 02/15/19 20:09 Sodium Chloride Flush Syringe 10 Ml IV PRN PRN LINE FLUSH
[2019-02-16] MEDS ORDERED: MULTIVITAMIN WITH IRON PO SCH (10:00)
[2019-02-16] MEDS: COLACE PO SCH (10:06)
[2019-02-16] MEDS: ELIQUIS PO SCH ×2 (10:06→23:12)
[2019-02-16] MEDS: THERAGRAN-M Tab PO SCH (10:06)
[2019-02-16] MEDS: PEPCID PO SCH ×2 (10:06→23:13)
[2019-02-16] MEDS: SODIUM CHLORIDE FLUSH SYRINGE 10 ML IV SCH ×2 (10:06→23:13)
[2019-02-16] MEDS: VITAMIN C PO SCH (10:06)
[2019-02-16] MEDS ORDERED: NACL 0.9% 1000 ML 1,000 ML IV ONE (11:11)
[2019-02-16] MEDS ORDERED: NACL 0.9% 0 ML ONE (11:15)
--- NOTE | 2019-02-16 12:13 | Consultation ---
History of Present Illness - Reason for Consult Consult date: 02/16/19 acute renal failure - History of Present Illness This is a 64 y/o M with PMH of recurrent DVTs on Eliquis, neuromuscular dy sfunction of bladder with chronic suprapubic indwelling tucker catheter, HTN, GERD, osteoarthritis, anxiety, and pressure ulcer who presented to [facility] from [facility] with AMS and concern of possible UTI. On admission, SCr level was 0.5 with BUN of 39. Pt started on IV fluids and Abx for septic shock. We were consulted to see this pt for concern of DEVIN. Pt seen in the ED, awaiting ICU bed, started on levaphed drip. Nurse states KCl 2 of 4 infusing now for hypokalemia. Pt poor historian, no family at bedside, hx obtained primarily from medical record. Past History Past Medical History: arthritis, DVT (on Eliquis), GERD, hypertension, renal failure, other (anxiety, Pressure ulcers, Neuromuscular dysfunction of bladder, Arthropathy, Polyneuropathy, Muscle spasms, Prolonged indwelling tucker cathetetrs, Frequent UTI) Past Surgical History: Other ( Back, Neck) Social history: , other (resident of [facility]) Family history: no significant family history Medications and Allergies Allergies Allergy/AdvReac Type Severity Reaction Status Date / Time shrimp Allergy Itching Verified 01/01/18 15:52 sulfamethoxazole Allergy Rash Verified 11/08/16 10:57 [From Bactrim] trimethoprim [From Bactrim] Allergy Rash Verified 11/08/16 10:57 tuberculin, purified protein Allergy Unknown Verified 11/08/16 10:57 deriva Home Medications Medication Instructions Recorded Confirmed Last Taken Type Ascorbic Acid [Vitamin C with Alexandrea 1 tab PO QDAY 11/08/16 02/15/19 Unknown History Hips] Docusate Sodium [Colace CAP] 100 mg PO BID 11/08/16 02/15/19 Unknown History Halobetasol Propionate [Ultravate] 1 applicatio INTRADERMA Q12H PRN 11/08/16 02/15/19 Unknown History Multivitamin with Iron 1 tab PO QDAY 11/08/16 02/15/19 Unknown History [Multivitamins with Iron] Protein Supplement [Promod] 30 ml PO BID 11/08/16 02/15/19 Unknown History diphenhydrAMINE [Benadryl CAP] 1 cap PO Q4H PRN 11/08/16 02/15/19 Unknown History Lactulose 30 ml PO DAILY PRN #1 11/13/16 02/15/19 Unknown Rx Gabapentin [Neurontin] 600 mg PO TID 10/30/17 02/15/19 Unknown History ALBUTEROL NEB's [Proventil 0.083% 2.5 mg IH Q3HRT PRN nebu 09/27/18 02/15/19 Unknown Rx NEBS] Acetaminophen [Acetaminophen TAB] 650 mg PO Q4H PRN tablet 09/27/18 02/15/19 Unknown Rx AtorvaSTATin [Lipitor] 40 mg PO QHS tablet 09/27/18 02/15/19 Unknown Rx Bisacodyl [Dulcolax suppos] 10 mg AR QDAY PRN supp.rect 09/27/18 02/15/19 Unknown Rx Apixaban [Eliquis] 2.5 mg PO BID 02/15/19 02/15/19 Unknown History Baclofen 40 mg PO TID 02/15/19 02/15/19 Unknown History Dantrolene Sodium [Dantrium] 100 mg PO Q8H 02/15/19 02/15/19 Unknown History Famotidine [Pepcid] 20 mg PO BID 02/15/19 02/15/19 Unknown History Mirtazapine [Remeron 15mg TAB] 15 mg PO QHS 02/15/19 02/15/19 Unknown History Morphine Sulfate [Morphine Sulfate 15 mg PO Q12H 02/15/19 02/15/19 Unknown History ER] Ondansetron [Zofran ODT TAB] 4 mg PO Q6H PRN 02/15/19 02/15/19 Unknown History Oxycodone HCl/Acetaminophen 1 each PO Q8H PRN 02/15/19 02/15/19 Unknown History [Percocet 10/325 mg] Trazodone HCl 25 mg PO QHS 02/15/19 02/15/19 Unknown History diazePAM TAB [Valium] 4 mg PO Q8H PRN 02/15/19 02/15/19 Unknown History Active Meds: Active Medications Acetaminophen (Tylenol) 650 mg PO Q4H PRN PRN Reason: Pain MILD(1-3)/Fever >100.5/MCNULTY Last Admin: 02/16/19 11:02 Dose: 650 mg Documented by: Albuterol (Proventil) 2.5 mg IH Q3HRT PRN PRN Reason: Shortness Of Breath Apixaban (Eliquis) 2.5 mg PO BID [facility]; Protocol Last Admin: 02/16/19 10:06 Dose: 2.5 mg Documented by: Ascorbic Acid (Vitamin C) 500 mg PO QDAY [facility] Last Admin: 02/16/19 10:06 Dose: 500 mg Documented by: Atorvastatin Calcium (Lipitor) 40 mg PO QHS [facility] Last Admin: 02/15/19 23:23 Dose: 40 mg Documented by: Baclofen (Lioresal) 40 mg PO TID [facility] Last Admin: 02/16/19 07:54 Dose: 40 mg Documented by: Dantrolene Sodium (Dantrium) 100 mg PO Q8H [facility] Last Admin: 02/16/19 07:53 Dose: 100 mg Documented by: Diazepam (Valium) 4 mg PO Q8H PRN PRN Reason: Muscle Spasm Docusate Sodium (Colace) 100 mg PO BID [facility] Last Admin: 02/16/19 10:06 Dose: 100 mg Documented by: Famotidine (Pepcid) 20 mg PO BID [facility] Last Admin: 02/16/19 10:06 Dose: 20 mg Documented by: Gabapentin (Neurontin) 600 mg PO TID [facility] Last Admin: 02/16/19 07:54 Dose: 600 mg Documented by: Norepinephrine (Levophed Drip 4 Mg/Ns 250 Ml) 4 mg in 250 mls @ 7.5 mls/hr IV TITR [facility]; Protocol Last Titration: 02/16/19 06:45 Dose: 2 mcg/min, 7.5 mls/hr Documented by: Cefepime HCl (Maxipime/Ns 1 Gm/100 Ml) 1 gm in 100 mls @ 200 mls/hr IV Q8HR [facility]; Protocol Last Admin: 02/16/19 05:41 Dose: 200 mls/hr Documented by: Vancomycin HCl (Vancomycin/Ns 1 Gm/250 Ml) 1 gm in 250 mls @ 166.667 mls/hr IV Q12H [facility] Last Admin: 02/16/19 04:00 Dose: 166.667 mls/hr Documented by: Sodium Chloride (Nacl 0.45% 1000 Ml) 1,000 mls @ 100 mls/hr IV DIRECT [facility] Last Admin: 02/16/19 06:41 Dose: 100 mls/hr Documented by: Potassium Chloride (Kcl 10meq/100ml) 10 meq in 100 mls @ 100 mls/hr IV Q1H [facility] Stop: 02/16/19 13:59 Last Admin: 02/16/19 11:05 Dose: 100 mls/hr Documented by: Sodium Chloride (Nacl 0.9% 1000 Ml) 1,000 mls @ 999 mls/hr IV BOLUS ONE Stop: 02/16/19 12:11 Mirtazapine (Remeron) 15 mg PO QHS [facility] Last Admin: 02/15/19 23:23 Dose: 15 mg Documented by: Multivitamins/Minerals (Theragran-M Tab) 1 each PO QDAY [facility] Last Admin: 02/16/19 10:06 Dose: 1 each Documented by: Ondansetron HCl (Zofran) 4 mg IV Q6H PRN PRN Reason: Nausea And Vomiting Oxycodone HCl (Roxicodone) 5 mg PO Q8H PRN PRN Reason: Pain, Moderate (4-6) Oxycodone/Acetaminophen (Percocet 5/325) 1 tab PO Q8H PRN PRN Reason: Pain, Moderate (4-6) Sodium Chloride (Sodium Chloride Flush Syringe 10 Ml) 10 ml IV BID [facility] Last Admin: 02/16/19 10:06 Dose: 10 ml Documented by: Sodium Chloride (Sodium Chloride Flush Syringe 10 Ml) 10 ml IV PRN PRN PRN Reason: LINE FLUSH Review of Systems ROS unobtainable: due to mental status Exam - Vital Signs Vital signs: Vital Signs Pulse Resp BP Pulse Ox 70 11 L 126/80 100 02/15/19 13:47 02/15/19 13:47 02/15/19 13:47 02/15/19 13:47 - General Appearance General appearance: frail EENT: ATNC Neck: Present: neck supple Respiratory: Decreased Breath Sounds Heart: regular, S1S2 Gastrointestinal: Present: normoactive bowel sounds Integumentary: ulcer Neurologic: other (lethargic, oriented to self) Musculoskeletal: Present: other (Bilateral lower extremity contractured) Results - Lab Results 02/16/19 03:40 02/16/19 05:35 Most recent lab results Calcium 8.3 mg/dL (8.4-10.2) L 02/16/19 03:40 Magnesium 1.90 mg/dL (1.7-2.3) 02/16/19 05:35 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 Pressure ulcers Plan: - Renal function reviewed, SCr level was 0.3 with BUN of 21 today, yesterday's SCr level was 0.5 with BUN of 39 - SCr level within range, elevation of BUN could be multi-factorial due to intravascular volume depletion, septic shock, r/o GIB, elevated BUN/Cr ratio ~ 70 - Renally dose meds - S/p NS Boluses - Started on 0.45% NS infusion at 100 ml/hr - Obtain urine lytes/protein - Check occult stool - Replete potassium - Magnesium level stable - Repeat BMP post KCl repletion ~ 1700 - On levaphed drip for blood pressure support - Check Renal US - Follow cultures, on Abx - Tucker Catheter: Yes (Chronic) - Renal plan d/w Dr Hartman
[2019-02-16] MEDS ORDERED: NACL 0.9% 1000 ML 1,000 ML IV SCH (15:00)
[2019-02-16] MEDS ORDERED: NACL 0.9% 1000 ML 2,000 ML IV ONE (15:00)
--- NOTE | 2019-02-16 15:56 | Consultation ---
History of Present Illness - Reason for Consult Consult date: 02/16/19 - History of Present Illness 64 yo M PMHx recurrent DVTs, pressure ulcer, chronic indwelling Tucker, HTN, chronic debility admitted to [facility] with AMS. His family notes that he is not currently at his baseline mental status. His nursing facility was concerned for a UTI, and as such sent him here for evaluation. The family also feels that the patient has become more lethargic. He is recurrently admitted to this hospital. In the past he has had his wounds cultured. In 01/16 his wound culture had polymicrobial GNRs. in 10/17 his wound culture was polymicrobial GNRs and MRSA. Blood cultures in 11/15 were polymicrobial GNRs and Enterococcus. He was febrile on admission to 101.6. He is currently receiving cefepime and van comycin. He has a leukocytosis to 15.5 with 80% neutrophilia. His urinalysis shows pyuria, however is was heavily contaminated with blood. CXR with loss of volume in the LLL. Past History Past Medical History: arthritis, DVT (on Eliquis), GERD, hypertension, renal failure, other (anxiety, Pressure ulcers, Neuromuscular dysfunction of bladder, Arthropathy, Polyneuropathy, Muscle spasms, Prolonged indwelling tucker cathetetrs, Frequent UTI) Past Surgical History: Other ( Back, Neck) Social history: , other (resident of [facility]) Family history: no significant family history Medications and Allergies Allergies Allergy/AdvReac Type Severity Reaction Status Date / Time shrimp Allergy Itching Verified 01/01/18 15:52 sulfamethoxazole Allergy Rash Verified 11/08/16 10:57 [From Bactrim] trimethoprim [From Bactrim] Allergy Rash Verified 11/08/16 10:57 tuberculin, purified protein Allergy Unknown Verified 11/08/16 10:57 deriva Home Medications Medication Instructions Recorded Confirmed Last Taken Type Ascorbic Acid [Vitamin C with Alexandrea 1 tab PO QDAY 11/08/16 02/15/19 Unknown History Hips] Docusate Sodium [Colace CAP] 100 mg PO BID 11/08/16 02/15/19 Unknown History Halobetasol Propionate [Ultravate] 1 applicatio INTRADERMA Q12H PRN 11/08/16 02/15/19 Unknown History Multivitamin with Iron 1 tab PO QDAY 11/08/16 02/15/19 Unknown History [Multivitamins with Iron] Protein Supplement [Promod] 30 ml PO BID 11/08/16 02/15/19 Unknown History diphenhydrAMINE [Benadryl CAP] 1 cap PO Q4H PRN 11/08/16 02/15/19 Unknown History Lactulose 30 ml PO DAILY PRN #1 11/13/16 02/15/19 Unknown Rx Gabapentin [Neurontin] 600 mg PO TID 10/30/17 02/15/19 Unknown History ALBUTEROL NEB's [Proventil 0.083% 2.5 mg IH Q3HRT PRN nebu 09/27/18 02/15/19 Unknown Rx NEBS] Acetaminophen [Acetaminophen TAB] 650 mg PO Q4H PRN tablet 09/27/18 02/15/19 Unknown Rx AtorvaSTATin [Lipitor] 40 mg PO QHS tablet 09/27/18 02/15/19 Unknown Rx Bisacodyl [Dulcolax suppos] 10 mg MA QDAY PRN supp.rect 09/27/18 02/15/19 Unknown Rx Apixaban [Eliquis] 2.5 mg PO BID 02/15/19 02/15/19 Unknown History Baclofen 40 mg PO TID 02/15/19 02/15/19 Unknown History Dantrolene Sodium [Dantrium] 100 mg PO Q8H 02/15/19 02/15/19 Unknown History Famotidine [Pepcid] 20 mg PO BID 02/15/19 02/15/19 Unknown History Mirtazapine [Remeron 15mg TAB] 15 mg PO QHS 02/15/19 02/15/19 Unknown History Morphine Sulfate [Morphine Sulfate 15 mg PO Q12H 02/15/19 02/15/19 Unknown History ER] Ondansetron [Zofran ODT TAB] 4 mg PO Q6H PRN 02/15/19 02/15/19 Unknown History Oxycodone HCl/Acetaminophen 1 each PO Q8H PRN 02/15/19 02/15/19 Unknown History [Percocet 10/325 mg] Trazodone HCl 25 mg PO QHS 02/15/19 02/15/19 Unknown History diazePAM TAB [Valium] 4 mg PO Q8H PRN 02/15/19 02/15/19 Unknown History Active Meds: Active Medications Acetaminophen (Tylenol) 650 mg PO Q4H PRN PRN Reason: Pain MILD(1-3)/Fever >100.5/MCNULTY Last Admin: 02/16/19 11:02 Dose: 650 mg Documented by: Albuterol (Proventil) 2.5 mg IH Q3HRT PRN PRN Reason: Shortness Of Breath Apixaban (Eliquis) 2.5 mg PO BID [facility]; Protocol Last Admin: 02/16/19 10:06 Dose: 2.5 mg Documented by: Ascorbic Acid (Vitamin C) 500 mg PO QDAY [facility] Last Admin: 02/16/19 10:06 Dose: 500 mg Documented by: Atorvastatin Calcium (Lipitor) 40 mg PO QHS [facility] Last Admin: 02/15/19 23:23 Dose: 40 mg Documented by: Baclofen (Lioresal) 40 mg PO TID [facility] Last Admin: 02/16/19 14:32 Dose: 40 mg Documented by: Dantrolene Sodium (Dantrium) 100 mg PO Q8H [facility] Last Admin: 02/16/19 14:33 Dose: 100 mg Documented by: Diazepam (Valium) 4 mg PO Q8H PRN PRN Reason: Muscle Spasm Docusate Sodium (Colace) 100 mg PO BID [facility] Last Admin: 02/16/19 10:06 Dose: 100 mg Documented by: Famotidine (Pepcid) 20 mg PO BID [facility] Last Admin: 02/16/19 10:06 Dose: 20 mg Documented by: Gabapentin (Neurontin) 600 mg PO TID [facility] Last Admin: 02/16/19 14:32 Dose: 600 mg Documented by: Norepinephrine (Levophed Drip 4 Mg/Ns 250 Ml) 4 mg in 250 mls @ 7.5 mls/hr IV TITR [facility]; Protocol Last Titration: 02/16/19 13:49 Dose: 3 mcg/min, 11.25 mls/hr Documented by: Cefepime HCl (Maxipime/Ns 1 Gm/100 Ml) 1 gm in 100 mls @ 200 mls/hr IV Q8HR [facility]; Protocol Last Admin: 02/16/19 14:32 Dose: 200 mls/hr Documented by: Vancomycin HCl (Vancomycin/Ns 1 Gm/250 Ml) 1 gm in 250 mls @ 166.667 mls/hr IV Q12H [facility] Last Admin: 02/16/19 04:00 Dose: 166.667 mls/hr Documented by: Potassium Chloride (Kcl 10meq/100ml) 10 meq in 100 mls @ 100 mls/hr IV Q1H [facility] Stop: 02/16/19 15:59 Last Admin: 02/16/19 15:03 Dose: 100 mls/hr Documented by: Sodium Chloride (Nacl 0.9% 1000 Ml) 2,000 mls @ 999 mls/hr IV BOLUS ONE Stop: 02/16/19 17:00 Last Admin: 02/16/19 15:24 Dose: 999 mls/hr Documented by: Potassium Chloride 20 meq/ (Dextrose/Sodium Chloride) 1,010 mls @ 100 mls/hr IV DIRECT [facility] Mirtazapine (Remeron) 15 mg PO QHS [facility] Last Admin: 02/15/19 23:23 Dose: 15 mg Documented by: Multivitamins/Minerals (Theragran-M Tab) 1 each PO QDAY [facility] Last Admin: 02/16/19 10:06 Dose: 1 each Documented by: Ondansetron HCl (Zofran) 4 mg IV Q6H PRN PRN Reason: Nausea And Vomiting Oxycodone HCl (Roxicodone) 5 mg PO Q8H PRN PRN Reason: Pain, Moderate (4-6) Oxycodone/Acetaminophen (Percocet 5/325) 1 tab PO Q8H PRN PRN Reason: Pain, Moderate (4-6) Sodium Chloride (Sodium Chloride Flush Syringe 10 Ml) 10 ml IV BID [facility] Last Admin: 02/16/19 10:06 Dose: 10 ml Documented by: Sodium Chloride (Sodium Chloride Flush Syringe 10 Ml) 10 ml IV PRN PRN PRN Reason: LINE FLUSH Review of Systems ROS unobtainable: due to mental status Physical Examination - Physical Exam Narrative exam: Physical Exam: Constitutional: Alert, opens eyes to voice, no response. No acute distress Head, Ears, Nose: Normocephalic, atraumatic. External ears, nose normal Eyes: Conjunctivae/corneas clear. No icterus. No ptosis. Neck: Supple, no meningeal signs Oral: dentition fair, no thrush Cardiovascular: S1, S2 normal. Respiratory: Good air entry, clear to auscultation bilaterally GI: Soft, non-tender; bowel sounds normal. No peritoneal signs. I Musculoskeletal: No pedal edema, no cyanosis. Skin: No rash or abscess Hem/Lymphatic: No palpable cervical or supraclavicular nodes. No lymphangitis Psych: Mood ok. Affect normal Neurological: Awake, does not follow commands. No gross abnormality - Constitutional Vitals: Vital Signs Temp Pulse Resp BP Pulse Ox 101.1 F H 78 13 105/56 100 02/16/19 06:02 02/16/19 13:45 02/16/19 13:45 02/16/19 13:45 02/16/19 13:45 Temperature -Last 24 Hours Temperature 101.1 F Temperature 101.6 F Temperature 97.5 F Results - Labs CBC & Chem 7: 02/16/19 03:40 02/16/19 05:35 Labs: Abnormal lab results 02/15/19 02/15/19 02/15/19 Range/Units 15:27 17:49 17:49 WBC 11.8 H (4.5-11.0) K/mm3 RBC 3.60 L (3.65-5.03) M/mm3 Hgb 10.5 L (11.8-15.2) gm/dl Hct 31.0 L (35.5-45.6) % RDW 16.3 H (13.2-15.2) % Seg Neuts % (Manual) (40.0-70.0) % Lymphocytes % (Manual) (13.4-35.0) % Monocytes % (Manual) (0.0-7.3) % Seg Neutrophils # Man (1.8-7.7) K/mm3 Monocytes # (Manual) (0.0-0.8) K/mm3 PT (12.2-14.9) Sec. INR (0.87-1.13) POC ABG pH (7.35-7.45) POC ABG pO2 (80-105) Sodium 147 H (137-145) mmol/L Potassium 2.6 L* (3.6-5.0) mmol/L Chloride (98-107) mmol/L BUN 39 H (9-20) mg/dL Creatinine 0.5 L (0.8-1.5) mg/dL Glucose 123 H (75-100) mg/dL Calcium 8.1 L (8.4-10.2) mg/dL Troponin T 0.087 H (0.00-0.029) ng/mL Albumin 3.1 L (3.9-5) g/dL HDL Cholesterol 23 L (40-59) mg/dL Urine WBC (Auto) 72.0 H (0.0-6.0) /HPF 02/15/19 02/15/19 02/15/19 Range/Units 17:49 18:47 19:34 WBC (4.5-11.0) K/mm3 RBC (3.65-5.03) M/mm3 Hgb (11.8-15.2) gm/dl Hct (35.5-45.6) % RDW (13.2-15.2) % Seg Neuts % (Manual) (40.0-70.0) % Lymphocytes % (Manual) (13.4-35.0) % Monocytes % (Manual) (0.0-7.3) % Seg Neutrophils # Man (1.8-7.7) K/mm3 Monocytes # (Manual) (0.0-0.8) K/mm3 PT 15.6 H (12.2-14.9) Sec. INR 1.27 H (0.87-1.13) POC ABG pH 7.470 H (7.35-7.45) POC ABG pO2 60 L (80-105) Sodium (137-145) mmol/L Potassium (3.6-5.0) mmol/L Chloride (98-107) mmol/L BUN (9-20) mg/dL Creatinine (0.8-1.5) mg/dL Glucose (75-100) mg/dL Calcium (8.4-10.2) mg/dL Troponin T 0.039 H D (0.00-0.029) ng/mL Albumin (3.9-5) g/dL HDL Cholesterol (40-59) mg/dL Urine WBC (Auto) (0.0-6.0) /HPF 02/16/19 02/16/19 02/16/19 Range/Units 03:40 03:40 05:35 WBC 15.5 H (4.5-11.0) K/mm3 RBC (3.65-5.03) M/mm3 Hgb 10.8 L (11.8-15.2) gm/dl Hct 32.7 L (35.5-45.6) % RDW 15.8 H (13.2-15.2) % Seg Neuts % (Manual) 80.0 H (40.0-70.0) % Lymphocytes % (Manual) 11.0 L (13.4-35.0) % Monocytes % (Manual) 9.0 H (0.0-7.3) % Seg Neutrophils # Man 12.4 H (1.8-7.7) K/mm3 Monocytes # (Manual) 1.4 H (0.0-0.8) K/mm3 PT (12.2-14.9) Sec. INR (0.87-1.13) POC ABG pH (7.35-7.45) POC ABG pO2 (80-105) Sodium 147 H (137-145) mmol/L Potassium 2.9 L* 2.9 L* (3.6-5.0) mmol/L Chloride 107.2 H (98-107) mmol/L BUN 21 H (9-20) mg/dL Creatinine 0.3 L (0.8-1.5) mg/dL Glucose 122 H (75-100) mg/dL Calcium 8.3 L (8.4-10.2) mg/dL Troponin T (0.00-0.029) ng/mL Albumin (3.9-5) g/dL HDL Cholesterol (40-59) mg/dL Urine WBC (Auto) (0.0-6.0) /HPF - Imaging and Cardiology Chest x-ray: image reviewed Assessment and Plan Cultures: Blood culture 02/15/19 - NGTD Urine culture 02/15/19 - NGTD A/P: 64 yo M PMHx recurrent DVTs, pressure ulcer, chronic indwelling Tucker, HTN, chronic debility admitted to [facility] with AMS. 1. Septic shock secondary to possible UTI - UA was contaminated but with pyuria. He is high risk for UTI given his chronic indwelling Tucker. Follow up cultures. Agree with vancomycin and cefepime for now, de-escalate pending culture results. Recommend changing out Tucker catheter 2. Multiple chronic wounds - L ankle, sacrum, and R hip all present on admission, but shallow, clean and without purulence. Do not believe they are acutely contributing to his AMS. 3. AMS 4. Recurrent DVTs 5. HTN 6. Chronic debility Recs: - continue vancomycin dosed per pharmacy, goal trough 15-20. - monitor renal function while on vanco - continue cefepime 1g q8h - follow up urine and blood cultures - change Danielle Pond MD [facility], [place] [facility] M: [phone] O: [phone] F: [phone]
[2019-02-16] MEDS ORDERED: D5W 1,000 ML IV SCH (16:00)
[2019-02-16] MEDS ORDERED: D5W/0.45% NACL/KCL 20 MEQ 20 MEQ/1,000 ML BAG IV ONE (16:04)
[2019-02-16] MEDS: D5/0.45NS 1,000 ML with KCL 20 MEQ IV SCH (16:18)
[2019-02-16] MEDS ORDERED: LEVOPHED DRIP 4 MG/NS 250 ML 4 MG/250 ML BAG IV ONE (18:20)
[2019-02-16] MEDS: REMERON PO SCH (23:13)
[2019-02-17] MEDS: COLACE PO SCH ×3 (03:13→23:26)
[2019-02-17 05:42] LABS: Hematocrit 28.4 % (35.5-45.6); Hemoglobin 9.7 gm/dl (11.8-15.2); Mean Corpuscular HGB Conc 34 % (32-34); Mean Corpuscular Volume 86 fl (84-94); Platelet Count 333 K/mm3 (140-440); Red Blood Count 3.32 M/mm3 (3.65-5.03); Red Cell Distribution Width 16.7 % (13.2-15.2)
[2019-02-17 06:04] LABS: BUN/Creatinine Ratio 25; Blood Urea Nitrogen 5 mg/dL (9-20); Calcium 7.9 mg/dL (8.4-10.2); Hemolysis Index 7
[2019-02-17] MEDS: MAXIPIME/NS 1 GM/100 ML 1 GM/100 ML BAG IV SCH (06:42)
[2019-02-17] MEDS: VANCOMYCIN/NS 1 GM/250 ML 1 GM/250 ML BAG IV SCH ×2 (07:24→17:00)
--- NOTE | 2019-02-17 07:27 | Progress Note ---
Assessment and Plan Assessment and plan: Patient is a 64-year-old -[place] male who is a resident of [facility] with history of quadriplegia (?fell down steps), recurrent DVTs on anti-coagulation, pressure ulcer, neuromuscular dysfunction of the bladder, prolonged indwelling catheter, Polyneuropathy, chronic debility,GERD, anxiety, osteoarthritis, and hypertension, who presents to [facility] ED with complaints of AMS. Septic shock -Leukocytosis 11.8 -hypotensive -Received IV fluid resuscitation with minimal response -Blood cultures pending -On Levophed gtt AMS from Acute metabolic encephalopathy -from infection -treat the sepsis uti UTI with sepsis -Urine WBC 72 -Urine culture pending -Prolonged indwelling suprapubic catheter -Hx of recurrent UTI -On IV cefepime and vancomycin -ID consulted Severe Hypokalemia -Potassium on admission 2.6 -Replete -Continue to monitor electrolytes, replete prn Acute Hypoxic Respiratory Failure -No baseline oxygen requirements -On supplemental O2 -ABG 7.47/38.9/60/28.4 -Monitor saturations wean as tolerated Lactic acidosis -Lactic acid 2.6 on admission -On IV abx -On IVF -Continue to monitor Anemia -Hbg 10.5 -No s/s of active bleeding -Continue to monitor -Transfuse prn DEVIN -ATN suspected poa -BUN/Cr on admission 39/0.5 -Hx of Neuromuscular dysfunction of bladder -Nephrology consulted Mild to moderate malnutrition -Albumin 3.1 -Poor oral intake -Dietitian conslted Pressure ulcer, at least stage 3 -Wound care consulted -Right hip, bilateral legs, and sacrum -Off load areas of bony prominences and wounds History of recurrent DVT on anticoagulation -Continue Eliquis DVT PPX -SCd's on Eliquis Chronic debility with functional quadriplegia and contracted limbs -PT/OT eval when stable Hx GERD -Continue Pepcid Hx HTN -Currently hpotensive -Hold all antihypertensive meds Hx Anxiety Hypernatremia, severely dehydrated needs more fluid resolved today Multiple pressure ulcers consult Wound care full code trying to wean on 2 mcg of Levophed; he is severely dehydrated. Will give 2 liter bolus IVF and follow by D51/2ns with 20 mEq of KCL additive and repeat bmp/sodium level in am===>briefly was able to wean off levophed after boluses but Levophed restarted. will give more fluid, ordered speech/pt/ot tongue has ?leukoplakia, inquired about HIV status, he denies but agreed for testing, Ordered HIV test. CCT 31 minutes History Interval history: Patient was seen and examined. Follow-up on current diagnosis AMS. No overnight events reported to me. Patient denies any chest pain, shortness breath, nausea/vomiting or severe headaches. Imaging, nursing note, chart, labs and old chart reviewed. Discussed with patient. Hospitalist Physical - Physical exam Narrative exam: Gen: cachetic, ill appearing, chronically disable appearing, NAD, Awake, and talking but mouth so dry he can't talk HEENT: NCAT, EOMI, PERRL, OP severe dryness, pasty mouth and crusty tongue Neck: supple, no adenopathy, no thyromegaly, no JVD CVS/Heart: RRR, normal S1S2, pulses present bilaterally Chest/Lungs: diminished bs bilateral Symmetrical chest expansion, good air entry bilaterally GI/Abdomen: soft, NTND, good bowel sounds, no guarding or rebound /Bladder: +tucker no suprapubic tenderness, no CVA or paraspinal tenderness Extermity/Skin: poor skin integrity throughout with multiple wounds, atrophic limbs x 4 MSK: contracted limbs x 4 Neuro: CN 2-12 grossly intact, no new focal deficits Psych: calm and confused - Constitutional Vitals: Temp Pulse Resp BP Pulse Ox 101.1 F H 97 H 21 129/78 98 02/16/19 06:02 02/17/19 07:15 02/17/19 07:15 02/17/19 07:15 02/17/19 07:15 Results - Labs CBC & Chem 7: 02/17/19 05:23 02/17/19 05:23 Labs: Laboratory Last Values WBC 16.2 K/mm3 (4.5-11.0) H 02/17/19 05:23 RBC 3.32 M/mm3 (3.65-5.03) L 02/17/19 05:23 Hgb 9.7 gm/dl (11.8-15.2) L 02/17/19 05:23 Hct 28.4 % (35.5-45.6) L 02/17/19 05:23 MCV 86 fl (84-94) 02/17/19 05:23 MCH 29 pg (28-32) 02/17/19 05:23 MCHC 34 % (32-34) 02/17/19 05:23 RDW 16.7 % (13.2-15.2) H 02/17/19 05:23 Plt Count 333 K/mm3 (140-440) 02/17/19 05:23 Lymph % (Auto) [employer] 02/15/19 17:49 Luce % (Auto) [employer] 02/15/19 17:49 Eos % (Auto) [employer] 02/15/19 17:49 Baso % (Auto) [employer] 02/15/19 17:49 Lymph # [employer] 02/15/19 17:49 Luce # [employer] 02/15/19 17:49 Eos # [employer] 02/15/19 17:49 Baso # [employer] 02/15/19 17:49 Add Manual Diff Complete 02/16/19 03:40 Total Counted 100 02/16/19 03:40 Seg Neutrophils % [employer] 02/15/19 17:49 Seg Neuts % (Manual) 80.0 % (40.0-70.0) H 02/16/19 03:40 0 % 02/16/19 03:40 11.0 % (13.4-35.0) L 02/16/19 03:40 Reactive Lymphs % (Man) 0 % 02/16/19 03:40 9.0 % (0.0-7.3) H 02/16/19 03:40 0 % (0.0-4.3) 02/16/19 03:40 0 % (0.0-1.8) 02/16/19 03:40 0 % 02/16/19 03:40 0 % 02/16/19 03:40 0 % 02/16/19 03:40 0 % 02/16/19 03:40 Nucleated RBC % Not Reportable 02/16/19 03:40 Seg Neutrophils # [employer] 02/15/19 17:49 Seg Neutrophils # Man 12.4 K/mm3 (1.8-7.7) H 02/16/19 03:40 Band Neutrophils # 0.0 K/mm3 02/16/19 03:40 1.7 K/mm3 (1.2-5.4) 02/16/19 03:40 Abs React Lymphs (Man) 0.0 K/mm3 02/16/19 03:40 1.4 K/mm3 (0.0-0.8) H 02/16/19 03:40 0.0 K/mm3 (0.0-0.4) 02/16/19 03:40 0.0 K/mm3 (0.0-0.1) 02/16/19 03:40 0.0 K/mm3 02/16/19 03:40 0.0 K/mm3 02/16/19 03:40 0.0 K/mm3 02/16/19 03:40 Blast Cells # 0.0 K/mm3 02/16/19 03:40 WBC Morphology Not Reportable 02/16/19 03:40 Hypersegmented Neuts Not Reportable 02/16/19 03:40 Hyposegmented Neuts Not Reportable 02/16/19 03:40 Hypogranular Neuts Not Reportable 02/16/19 03:40 Not Reportable 02/16/19 03:40 Not Reportable 02/16/19 03:40 Not Reportable 02/16/19 03:40 Not Reportable 02/16/19 03:40 Not Reportable 02/16/19 03:40 Not Reportable 02/16/19 03:40 Not Reportable 02/16/19 03:40 Not Reportable 02/16/19 03:40 Plt Clumps, EDTA Not Reportable 02/16/19 03:40 Not Reportable 02/16/19 03:40 Not Reportable 02/16/19 03:40 Not Reportable 02/16/19 03:40 Plt Morphology Comment Not Reportable 02/16/19 03:40 RBC Morphology Normal 02/16/19 03:40 Dimorphic RBCs Not Reportable 02/16/19 03:40 Not Reportable 02/16/19 03:40 Not Reportable 02/16/19 03:40 Not Reportable 02/16/19 03:40 Not Reportable 02/16/19 03:40 Not Reportable 02/16/19 03:40 Not Reportable 02/16/19 03:40 Not Reportable 02/16/19 03:40 Not Reportable 02/16/19 03:40 Not Reportable 02/16/19 03:40 Not Reportable 02/16/19 03:40 Not Reportable 02/16/19 03:40 Not Reportable 02/16/19 03:40 Not Reportable 02/16/19 03:40 Not Reportable 02/16/19 03:40 Not Reportable 02/16/19 03:40 Not Reportable 02/16/19 03:40 Not Reportable 02/16/19 03:40 Not Reportable 02/16/19 03:40 Not Reportable 02/16/19 03:40 Acanthocytes (Spur) Not Reportable 02/16/19 03:40 Rouleaux Not Reportable 02/16/19 03:40 Not Reportable 02/16/19 03:40 Not Reportable 02/16/19 03:40 Not Reportable 02/16/19 03:40 Not Reportable 02/16/19 03:40 Hem Pathologist Commnt No 02/16/19 03:40 PT 15.6 Sec. (12.2-14.9) H 02/15/19 17:49 INR 1.27 (0.87-1.13) H 02/15/19 17:49 APTT 32.6 Sec. (24.2-36.6) 02/15/19 17:49 POC ABG pH 7.470 (7.35-7.45) H 02/15/19 18:47 POC ABG pCO2 38.9 (35-45) 02/15/19 18:47 POC ABG pO2 60 (80-105) L 02/15/19 18:47 POC ABG HCO3 28.4 (22-26 mml/L) 02/15/19 18:47 POC ABG Total CO2 30 (23-27mmol/L) 02/15/19 18:47 POC ABG O2 Sat 92 02/15/19 18:47 POC ABG Base Excess 5 ((-2) - (+3)mmol/L) 02/15/19 18:47 VBG pH 7.393 (7.320-7.420) 02/15/19 17:49 36 % 02/15/19 18:47 Sodium 145 mmol/L (137-145) 02/17/19 05:23 Potassium 3.2 mmol/L (3.6-5.0) L 02/17/19 05:23 Chloride 108.9 mmol/L (98-107) H 02/17/19 05:23 Carbon Dioxide 23 mmol/L (22-30) 02/17/19 05:23 16 mmol/L 02/17/19 05:23 BUN 5 mg/dL (9-20) L 02/17/19 05:23 0.2 mg/dL (0.8-1.5) L 02/17/19 05:23 Estimated GFR > 60 ml/min 02/17/19 05:23 25 % 02/17/19 05:23 Glucose 99 mg/dL (75-100) 02/17/19 05:23 POC Glucose 120 (70-105) H 02/15/19 15:22 Lactic Acid 1.00 mmol/L (0.7-2.0) 02/15/19 19:34 Calcium 7.9 mg/dL (8.4-10.2) L 02/17/19 05:23 Magnesium 1.90 mg/dL (1.7-2.3) 02/16/19 05:35 0.50 mg/dL (0.1-1.2) 02/15/19 17:49 AST 17 units/L (5-40) 02/15/19 17:49 ALT 11 units/L (7-56) 02/15/19 17:49 115 units/L (35-129) 02/15/19 17:49 72 units/L (55-170) 02/15/19 17:49 CK-MB (CK-2) 1.6 ng/mL (0.0-4.0) 02/15/19 17:49 CK-MB (CK-2) Rel Index 2.2 (0-4) 02/15/19 17:49 0.039 ng/mL (0.00-0.029) H D 02/15/19 19:34 7.4 g/dL (6.3-8.2) 02/15/19 17:49 3.1 g/dL (3.9-5) L 02/15/19 17:49 0.7 % 02/15/19 17:49 Triglycerides 135 mg/dL (2-149) 02/15/19 17:49 Cholesterol 96 mg/dL (50-199) 02/15/19 17:49 57 mg/dL (50-130) 02/15/19 17:49 23 mg/dL (40-59) L 02/15/19 17:49 4.17 % 02/15/19 17:49 Yellow (Yellow) 02/15/19 15:27 Turbid (Clear) 02/15/19 15:27 7.0 (5.0-7.0) 02/15/19 15:27 Ur Specific Gypsum 1.017 (1.003-1.030) 02/15/19 15:27 >500 mg/dL (Negative) 02/15/19 15:27 Neg mg/dL (Negative) 02/15/19 15:27 Tr mg/dL (Negative) 02/15/19 15:27 Mod (Negative) 02/15/19 15:27 Neg (Negative) 02/15/19 15:27 Neg (Negative) 02/15/19 15:27 < 2.0 mg/dL (<2.0) 02/15/19 15:27 Ur Leukocyte Esterase Mod (Negative) 02/15/19 15:27 72.0 /HPF (0.0-6.0) H 02/15/19 15:27 > 182.0 /HPF (0.0-6.0) 02/15/19 15:27 1+ /HPF (Negative) 02/15/19 15:27 Active Medications - Current Medications Current Medications: Generic Name Dose Route Start Last Admin Trade Name Alex PRN Reason Stop Dose Admin Acetaminophen 650 mg 02/15/19 20:09 02/16/19 11:02 Tylenol PO 650 mg Q4H PRN Administration Pain MILD(1-3)/Fever >100.5/MCNULTY Albuterol 2.5 mg 02/15/19 20:09 Proventil IH Q3HRT PRN Shortness Of Breath Apixaban 2.5 mg 02/15/19 22:00 02/16/19 23:12 Eliquis PO 2.5 mg BID GARY Administration Protocol Ascorbic Acid 500 mg 02/16/19 10:00 02/16/19 10:06 Vitamin C PO 500 mg QDAY GARY Administration Atorvastatin Calcium 40 mg 02/15/19 22:00 02/16/19 23:12 Lipitor PO 40 mg QHS GARY Administration Baclofen 40 mg 02/16/19 08:00 02/16/19 20:12 Lioresal PO 40 mg TID GARY Administration Dantrolene Sodium 100 mg 02/15/19 23:00 02/16/19 23:13 Dantrium PO 100 mg Q8H GARY Administration Diazepam 4 mg 02/15/19 21:45 Valium PO Q8H PRN Muscle Spasm Docusate Sodium 100 mg 02/15/19 22:00 02/17/19 03:13 Colace PO Not Given BID GARY Famotidine 20 mg 02/15/19 22:00 02/16/19 23:13 Pepcid PO 20 mg BID GARY Administration Gabapentin 600 mg 02/16/19 08:00 02/16/19 20:12 Neurontin PO 600 mg TID GARY Administration Norepinephrine 4 mg in 250 mls @ 7.5 mls/hr 02/15/19 18:00 02/16/19 13:49 Levophed Drip 4 Mg/Ns 250 Ml IV 3 mcg/min TITR GARY 11.25 mls/hr Titration Protocol 2 MCG/MIN Cefepime HCl 1 gm in 100 mls @ 200 mls/hr 02/15/19 22:00 02/17/19 06:42 Maxipime/Ns 1 Gm/100 Ml IV 200 mls/hr Q8HR GARY Administration Protocol Vancomycin HCl 1 gm in 250 mls @ 166.667 mls/hr 02/16/19 04:00 02/17/19 07:24 Vancomycin/Ns 1 Gm/250 Ml IV 166.667 mls/hr Q12H GARY Administration Potassium Chloride 20 meq/ 1,010 mls @ 100 mls/hr 02/16/19 16:00 02/16/19 16:18 Dextrose/Sodium Chloride IV 100 mls/hr DIRECT GARY Administration Potassium Chloride 20 meq in 100 mls @ 100 mls/hr 02/17/19 08:00 Kcl 20meq/100ml IV 02/17/19 09:59 Q1H GARY Mirtazapine 15 mg 02/15/19 22:00 02/16/19 23:13 Remeron PO 15 mg QHS GARY Administration Multivitamins/Minerals 1 each 02/16/19 10:00 02/16/19 10:06 Theragran-M Tab PO 1 each QDAY GARY Administration Ondansetron HCl 4 mg 02/15/19 20:09 Zofran IV Q6H PRN Nausea And Vomiting Oxycodone HCl 5 mg 02/15/19 22:13 Roxicodone PO Q8H PRN Pain, Moderate (4-6) Oxycodone/Acetaminophen 1 tab 02/15/19 22:14 Percocet 5/325 PO Q8H PRN Pain, Moderate (4-6) Sodium Chloride 10 ml 02/15/19 22:00 02/16/19 23:13 Sodium Chloride Flush Syringe 10 Ml IV 10 ml BID GARY Administration Sodium Chloride 10 ml 02/15/19 20:09 Sodium Chloride Flush Syringe 10 Ml IV PRN PRN LINE FLUSH
[2019-02-17] MEDS: LEVOPHED DRIP 4 MG/NS 250 ML 4 MG/250 ML BAG IV SCH (09:00)
[2019-02-17] MEDS ORDERED: CATHFLO IV ONE (12:00)
[2019-02-17] MEDS: KCL 20MEQ/100ML 20 MEQ/100 ML BAG IV SCH ×2 (12:01→14:40)
[2019-02-17] MEDS: DANTRIUM PO SCH ×3 (12:01→23:29)
[2019-02-17] MEDS: VITAMIN C PO SCH (12:01)
[2019-02-17] MEDS: ROXICODONE PO PRN ×2 (12:01→17:53)
[2019-02-17] MEDS: THERAGRAN-M Tab PO SCH (12:01)
[2019-02-17] MEDS: LIORESAL PO SCH ×3 (12:02→21:30)
[2019-02-17] MEDS: PEPCID PO SCH ×2 (12:02→23:25)
[2019-02-17] MEDS: NEURONTIN PO SCH ×3 (12:02→21:30)
[2019-02-17] MEDS: ELIQUIS PO SCH ×2 (12:03→23:26)
[2019-02-17] MEDS: SODIUM CHLORIDE FLUSH SYRINGE 10 ML IV SCH ×2 (12:04→23:27)
--- NOTE | 2019-02-17 12:41 | Progress Note ---
Assessment and Plan Cultures: Blood culture 02/15/19 - NGTD Urine culture 02/15/19 - NGTD A/P: 64 yo M PMHx recurrent DVTs, pressure ulcer, chronic indwelling Santos, HTN, chronic debility admitted to [facility] with AMS. 1. Septic shock secondary to possible UTI - UA was contaminated but with pyuria. He is high risk for UTI given his chronic indwelling suprapubic catheter which has been exchanged since admission. Follow up cultures. 2. Multiple chronic wounds - L ankle, sacrum, and R hip all present on admission, but shallow, clean and without purulence. Do not believe they are acutely contributing to his AMS. 3. Acute encephalopathy 4. Recurrent DVTs 5. HTN 6. Chronic debility Recs: - with persistent fever and increasing WBC, will switch Cefepime to Meropenem - continue vancomycin dosed per pharmacy, goal trough 10-20. - monitor renal function while on vanco - follow up final cultures Jennifer Gibbons MD, FACP [facility] ([facility]) M: [phone] O: [phone] F: [phone] Subjective Date of service: 02/17/19 Interval history: Remains on pressors, still febrile. Objective - Exam Narrative Exam: Constitutional: Alert, opens eyes to voice, no response. No acute distress Head, Ears, Nose: Normocephalic, atraumatic. External ears, nose normal Eyes: Conjunctivae/corneas clear. No icterus. No ptosis. Neck: Supple, no meningeal signs Cardiovascular: S1, S2 normal. Respiratory: Good air entry, clear to auscultation bilaterally GI: Soft, non-tender; bowel sounds normal. No peritoneal signs. SPC + Musculoskeletal: No pedal edema, no cyanosis. Multiple superficial wounds, clean bases Skin: No rash or abscess Hem/Lymphatic: No palpable cervical or supraclavicular nodes. No lymphangitis Psych: no agitation Neurological: Awake, doesn't follow commands. - Constitutional Vitals: Vital Signs Temp Pulse Resp BP Pulse Ox 101.1 F H 125 H 19 74/36 100 02/16/19 06:02 02/17/19 11:21 02/17/19 11:21 02/17/19 11:21 08/19/19 11:21 - Labs CBC & Chem 7: 02/17/19 05:23 02/17/19 05:23 Labs: Abnormal lab results 02/17/19 02/17/19 Range/Units 05:23 05:23 WBC 16.2 H (4.5-11.0) K/mm3 RBC 3.32 L (3.65-5.03) M/mm3 Hgb 9.7 L (11.8-15.2) gm/dl Hct 28.4 L (35.5-45.6) % RDW 16.7 H (13.2-15.2) % Potassium 3.2 L (3.6-5.0) mmol/L Chloride 108.9 H (98-107) mmol/L BUN 5 L (9-20) mg/dL Creatinine 0.2 L (0.8-1.5) mg/dL Calcium 7.9 L (8.4-10.2) mg/dL
[2019-02-17] MEDS ORDERED: NACL 0.9% 1000 ML 1,000 ML IV ONE (13:00)
--- NOTE | 2019-02-17 13:06 | Consultation ---
History of Present Illness Consult date: 02/17/19 Reason for consult: other (sepsis) History of present illness: 64-year-old -[place] male who is a resident of [facility] with history of recurrent DVTs on anti-coagulation, Eliquis, pressure ulcer, neuromuscular dysfunction of the bladder, prolonged indwelling suprapubic catheter, Polyneuropathy, chronic debility,GERD, anxiety, osteoarthritis, and hypertension, who presents to [facility] ED with complaints of AMS. Pt is unable to provide history. Family is present at the bedside. Possibility of sepsis being considered. Patient is currently being treated with antibiotic. Past History Past Medical History: arthritis, DVT (on Eliquis), GERD, hypertension, renal failure, other (anxiety, Pressure ulcers, Neuromuscular dysfunction of bladder, Arthropathy, Polyneuropathy, Muscle spasms, Prolonged indwelling tucker cathetetrs, Frequent UTI) Past Surgical History: Other ( Back, Neck) Social history: , other (resident of [facility] [place]) Family history: no significant family history Medications and Allergies Allergies Allergy/AdvReac Type Severity Reaction Status Date / Time shrimp Allergy Itching Verified 01/01/18 15:52 sulfamethoxazole Allergy Rash Verified 11/08/16 10:57 [From Bactrim] trimethoprim [From Bactrim] Allergy Rash Verified 11/08/16 10:57 tuberculin, purified protein Allergy Unknown Verified 11/08/16 10:57 deriva Home Medications Medication Instructions Recorded Confirmed Last Taken Type Ascorbic Acid [Vitamin C with Alexandrea 1 tab PO QDAY 11/08/16 02/15/19 Unknown Hi story Hips] Docusate Sodium [Colace CAP] 100 mg PO BID 11/08/16 02/15/19 Unknown History Halobetasol Propionate [Ultravate] 1 applicatio INTRADERMA Q12H PRN 11/08/16 02/15/19 Unknown History Multivitamin with Iron 1 tab PO QDAY 11/08/16 02/15/19 Unknown History [Multivitamins with Iron] Protein Supplement [Promod] 30 ml PO BID 11/08/16 02/15/19 Unknown History diphenhydrAMINE [Benadryl CAP] 1 cap PO Q4H PRN 11/08/16 02/15/19 Unknown History Lactulose 30 ml PO DAILY PRN #1 11/13/16 02/15/19 Unknown Rx Gabapentin [Neurontin] 600 mg PO TID 10/30/17 02/15/19 Unknown History ALBUTEROL NEB's [Proventil 0.083% 2.5 mg IH Q3HRT PRN nebu 09/27/18 02/15/19 Unknown Rx NEBS] Acetaminophen [Acetaminophen TAB] 650 mg PO Q4H PRN tablet 09/27/18 02/15/19 Unknown Rx AtorvaSTATin [Lipitor] 40 mg PO QHS tablet 09/27/18 02/15/19 Unknown Rx Bisacodyl [Dulcolax suppos] 10 mg [place] QDAY PRN supp.rect 09/27/18 02/15/19 Unknown Rx Apixaban [Eliquis] 2.5 mg PO BID 02/15/19 02/15/19 Unknown History Baclofen 40 mg PO TID 02/15/19 02/15/19 Unknown History Dantrolene Sodium [Dantrium] 100 mg PO Q8H 02/15/19 02/15/19 Unknown History Famotidine [Pepcid] 20 mg PO BID 02/15/19 02/15/19 Unknown History Mirtazapine [Remeron 15mg TAB] 15 mg PO QHS 02/15/19 02/15/19 Unknown History Morphine Sulfate [Morphine Sulfate 15 mg PO Q12H 02/15/19 02/15/19 Unknown History ER] Ondansetron [Zofran ODT TAB] 4 mg PO Q6H PRN 02/15/19 02/15/19 Unknown History Oxycodone HCl/Acetaminophen 1 each PO Q8H PRN 02/15/19 02/15/19 Unknown History [Percocet 10/325 mg] Trazodone HCl 25 mg PO QHS 02/15/19 02/15/19 Unknown History diazePAM TAB [Valium] 4 mg PO Q8H PRN 02/15/19 02/15/19 Unknown History Active Meds: Active Medications Acetaminophen (Tylenol) 650 mg PO Q4H PRN PRN Reason: Pain MILD(1-3)/Fever >100.5/MCNULTY Last Admin: 02/16/19 11:02 Dose: 650 mg Documented by: Albuterol (Proventil) 2.5 mg IH Q3HRT PRN PRN Reason: Shortness Of Breath Apixaban (Eliquis) 2.5 mg PO BID [facility]; Protocol Last Admin: 02/17/19 12:03 Dose: 2.5 mg Documented by: Ascorbic Acid (Vitamin C) 500 mg PO QDAY [facility] Last Admin: 02/17/19 12:01 Dose: 500 mg Documented by: Atorvastatin Calcium (Lipitor) 40 mg PO QHS [facility] Last Admin: 02/16/19 23:12 Dose: 40 mg Documented by: Baclofen (Lioresal) 40 mg PO TID [facility] Last Admin: 02/17/19 12:02 Dose: 40 mg Documented by: Dantrolene Sodium (Dantrium) 100 mg PO Q8H [facility] Last Admin: 02/17/19 12:01 Dose: 100 mg Documented by: Diazepam (Valium) 4 mg PO Q8H PRN PRN Reason: Muscle Spasm Docusate Sodium (Colace) 100 mg PO BID [facility] Last Admin: 02/17/19 12:04 Dose: Not Given Documented by: Famotidine (Pepcid) 20 mg PO BID [facility] Last Admin: 02/17/19 12:02 Dose: 20 mg Documented by: Gabapentin (Neurontin) 600 mg PO TID [facility] Last Admin: 02/17/19 12:02 Dose: 600 mg Documented by: Norepinephrine (Levophed Drip 4 Mg/Ns 250 Ml) 4 mg in 250 mls @ 7.5 mls/hr IV TITR [facility]; Protocol Last Titration: 02/17/19 11:42 Dose: 1 mcg/min, 3.75 mls/hr Documented by: Vancomycin HCl (Vancomycin/Ns 1 Gm/250 Ml) 1 gm in 250 mls @ 166.667 mls/hr IV Q12H [facility] Last Admin: 02/17/19 07:24 Dose: 166.667 mls/hr Documented by: Potassium Chloride 20 meq/ (Dextrose/Sodium Chloride) 1,010 mls @ 100 mls/hr IV DIRECT [facility] Last Admin: 02/16/19 16:18 Dose: 100 mls/hr Documented by: Sodium Chloride (Nacl 0.9% 1000 Ml) 1,000 mls @ 999 mls/hr IV BOLUS ONE Stop: 02/17/19 14:00 Meropenem 1,000 mg/ Sodium (Chloride) 100 mls @ 100 mls/hr IV Q8HR [facility]; Protocol Mirtazapine (Remeron) 15 mg PO QHS [facility] Last Admin: 02/16/19 23:13 Dose: 15 mg Documented by: Multivitamins/Minerals (Theragran-M Tab) 1 each PO QDAY [facility] Last Admin: 02/17/19 12:01 Dose: 1 each Documented by: Ondansetron HCl (Zofran) 4 mg IV Q6H PRN PRN Reason: Nausea And Vomiting Oxycodone HCl (Roxicodone) 5 mg PO Q8H PRN PRN Reason: Pain, Moderate (4-6) Last Admin: 02/17/19 12:01 Dose: 5 mg Documented by: Oxycodone/Acetaminophen (Percocet 5/325) 1 tab PO Q8H PRN PRN Reason: Pain, Moderate (4-6) Sodium Chloride (Sodium Chloride Flush Syringe 10 Ml) 10 ml IV BID [facility] Last Admin: 02/17/19 12:04 Dose: 10 ml Documented by: Sodium Chloride (Sodium Chloride Flush Syringe 10 Ml) 10 ml IV PRN PRN PRN Reason: LINE FLUSH Review of Systems ROS unobtainable: due to mental status Physical Examination Vital signs: Vital Signs Pulse Resp BP Pulse Ox 70 11 L 126/80 100 02/15/19 13:47 02/15/19 13:47 02/15/19 13:47 02/15/19 13:47 General appearance: no acute distress, other (responsive) Eyes: non-icteric ENT: oropharynx moist, other (dentition poor) Neck: supple, no JVD Effort: normal Ascultation: Bilateral: diminished breath sounds Cardiovascular: regular rate and rhythm Gastrointestinal: normoactive bowel sounds, non-tender, other (suprapubic catheter noted) Extremities: other (extensive contracture deformities of upper and lower extremities) Musculoskeletal: other (see above) Gait: other (bedridden) normal mental status, other (extensive all 4 extremity weakness and contracture deformities) Results - Laboratory Findings CBC and BMP: 02/17/19 05:23 02/17/19 05:23 ABG POC ABG pH 7.470 (7.35-7.45) H 02/15/19 18:47 POC ABG pCO2 38.9 (35-45) 02/15/19 18:47 POC ABG pO2 60 (80-105) L 02/15/19 18:47 POC ABG HCO3 28.4 (22-26 mml/L) 02/15/19 18:47 POC ABG Total CO2 30 (23-27mmol/L) 02/15/19 18:47 POC ABG O2 Sat 92 02/15/19 18:47 PT/INR, D-dimer PT 15.6 Sec. (12.2-14.9) H 02/15/19 17:49 INR 1.27 (0.87-1.13) H 02/15/19 17:49 Abnormal lab findings: Abnormal Labs 02/15/19 02/15/19 02/15/19 15:22 15:27 17:49 WBC 11.8 H RBC 3.60 L Hgb 10.5 L Hct 31.0 L RDW 16.3 H Seg Neuts % (Manual) Lymphocytes % (Manual) Monocytes % (Manual) Seg Neutrophils # Man Monocytes # (Manual) PT INR POC ABG pH POC ABG pO2 Sodium Potassium Chloride BUN Creatinine Glucose POC Glucose 120 H Calcium Troponin T Albumin HDL Cholesterol Urine WBC (Auto) 72.0 H 02/15/19 02/15/19 02/15/19 17:49 17:49 18:47 WBC RBC Hgb Hct RDW Seg Neuts % (Manual) Lymphocytes % (Manual) Monocytes % (Manual) Seg Neutrophils # Man Monocytes # (Manual) PT 15.6 H INR 1.27 H POC ABG pH 7.470 H POC ABG pO2 60 L Sodium 147 H Potassium 2.6 L* Chloride BUN 39 H Creatinine 0.5 L Glucose 123 H POC Glucose Calcium 8.1 L Troponin T 0.087 H Albumin 3.1 L HDL Cholesterol 23 L Urine WBC (Auto) 02/15/19 02/16/19 02/16/19 19:34 03:40 03:40 WBC 15.5 H RBC Hgb 10.8 L Hct 32.7 L RDW 15.8 H Seg Neuts % (Manual) 80.0 H Lymphocytes % (Manual) 11.0 L Monocytes % (Manual) 9.0 H Seg Neutrophils # Man 12.4 H Monocytes # (Manual) 1.4 H PT INR POC ABG pH POC ABG pO2 Sodium 147 H Potassium 2.9 L* Chloride 107.2 H BUN 21 H Creatinine 0.3 L Glucose 122 H POC Glucose Calcium 8.3 L Troponin T 0.039 H D Albumin HDL Cholesterol Urine WBC (Auto) 02/16/19 02/17/19 02/17/19 05:35 05:23 05:23 WBC 16.2 H RBC 3.32 L Hgb 9.7 L Hct 28.4 L RDW 16.7 H Seg Neuts % (Manual) Lymphocytes % (Manual) Monocytes % (Manual) Seg Neutrophils # Man Monocytes # (Manual) PT INR POC ABG pH POC ABG pO2 Sodium Potassium 2.9 L* 3.2 L Chloride 108.9 H BUN 5 L Creatinine 0.2 L Glucose POC Glucose Calcium 7.9 L Troponin T Albumin HDL Cholesterol Urine WBC (Auto) - Diagnostic Findings Chest x-ray: image reviewed (left basilar changes probably are related to extensive rotation, doubt active disease however some volume loss in the left lung cannot be ruled out) Assessment and Plan Impression: Sepsis with septic shock suspect urinary source given indwelling suprapubic catheter. 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
--- NOTE | 2019-02-17 14:24 | Progress Note ---
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 Awake and alert. No family at bedside. Objective - Vital Signs Vital signs: Vital Signs - 12hr 02/17/19 02/17/19 02/17/19 02:30 02:45 03:00 Pulse Rate 76 75 74 Respiratory 10 L 11 L 12 Rate Blood Pressure 103/58 103/58 105/56 O2 Sat by Pulse 99 99 99 Oximetry 02/17/19 02/17/19 02/17/19 03:15 03:30 03:45 Pulse Rate 71 71 73 Respiratory 11 L 11 L 11 L Rate Blood Pressure 105/56 110/56 105/56 O2 Sat by Pulse 100 99 98 Oximetry 02/17/19 02/17/19 02/17/19 04:00 04:15 04:30 Pulse Rate 71 76 66 Respiratory 12 12 12 Rate Blood Pressure 116/58 116/58 114/54 O2 Sat by Pulse 100 98 98 Oximetry 02/17/19 02/17/19 02/17/19 04:45 05:00 05:15 Pulse Rate 72 89 79 Respiratory 14 14 15 Rate Blood Pressure 114/54 131/71 131/71 O2 Sat by Pulse 99 100 100 Oximetry 02/17/19 02/17/19 02/17/19 05:30 05:45 06:00 Pulse Rate 84 76 77 Respiratory 13 18 17 Rate Blood Pressure 126/66 126/66 115/63 O2 Sat by Pulse 98 99 97 Oximetry 02/17/19 02/17/19 02/17/19 06:15 06:30 06:45 Pulse Rate 76 82 75 Respiratory 20 12 13 Rate Blood Pressure 115/63 130/69 130/69 O2 Sat by Pulse 97 98 97 Oximetry 0802/17/19 02/17/19 07:01 07:15 07:30 Pulse Rate 122 H 97 H 88 Respiratory 19 21 18 Rate Blood Pressure 129/78 129/78 130/76 O2 Sat by Pulse 99 98 99 Oximetry 02/17/19 02/17/19 02/17/19 07:45 08:00 08:15 Pulse Rate 90 90 81 Respiratory 21 22 15 Rate Blood Pressure 130/76 138/84 138/84 O2 Sat by Pulse 99 99 99 Oximetry 02/17/19 02/17/19 02/17/19 08:30 08:45 09:00 Pulse Rate 76 81 82 Respiratory 21 24 17 Rate Blood Pressure 131/75 131/75 126/69 O2 Sat by Pulse 100 99 98 Oximetry 02/17/19 02/17/19 02/17/19 09:15 09:30 09:41 Pulse Rate 89 73 78 Respiratory 21 24 19 Rate Blood Pressure 126/69 115/67 115/67 O2 Sat by Pulse 98 99 99 Oximetry 02/17/19 02/17/19 02/17/19 10:43 10:54 11:05 Pulse Rate 106 H 101 H 77 Respiratory 23 23 22 Rate Blood Pressure 74/46 74/46 62/22 O2 Sat by Pulse 100 100 100 Oximetry 02/17/19 02/17/19 02/17/19 11:16 11:21 11:30 Pulse Rate 74 125 H 90 Respiratory 19 19 25 H Rate Blood Pressure 74/36 79/30 O2 Sat by Pulse 98 100 100 Oximetry 02/17/19 02/17/19 02/17/19 11:41 11:51 12:01 Pulse Rate 103 H 113 H 111 H Respiratory 24 20 26 H Rate Blood Pressure 125/86 98/58 103/73 O2 Sat by Pulse 99 97 100 Oximetry 02/17/19 02/17/19 02/17/19 12:11 12:21 12:31 Pulse Rate 83 96 H 104 H Respiratory 24 34 H Rate Blood Pressure 103/73 91/55 74/31 O2 Sat by Pulse 100 99 99 Oximetry 02/17/19 02/17/19 02/17/19 12:41 12:50 13:00 Pulse Rate 108 H 90 92 H Respiratory 24 25 H 21 Rate Blood Pressure 74/31 111/67 103/62 O2 Sat by Pulse 100 98 97 Oximetry 02/17/19 02/17/1902/17/19 13:11 13:21 13:30 Pulse Rate 90 86 89 Respiratory 22 26 H 20 Rate Blood Pressure 103/62 106/69 99/58 O2 Sat by Pulse 97 98 96 Oximetry 02/17/19 02/17/19 02/17/19 13:41 13:51 14:00 Pulse Rate 88 93 H 87 Respiratory 20 20 18 Rate Blood Pressure 99/58 100/65 102/64 O2 Sat by Pulse 96 99 96 Oximetry - General Appearance General appearance: well-developed, fatigue EENT: ATNC, PERRL, hearing intact, vision intact Neck: no JVD, supple Respiratory: Present: Decreased Breath Sounds Cardiology: S1S2, other (intact) Gastrointestinal: normoactive bowel sounds Integumentary: warm and dry Neurologic: other (Awake and alert) Musculoskeletal: other (Contracted limbs) - Lab 02/17/19 05:23 02/17/19 05:23 Most recent lab results Calcium 7.9 mg/dL (8.4-10.2) L 02/17/19 05:23 Magnesium 1.90 mg/dL (1.7-2.3) 02/16/19 05:35 Medications & Allergies - Medications Allergies/Adverse Reactions: Allergies shrimp Allergy (Verified 01/01/18 15:52) Itching sulfamethoxazole [From Bactrim] Allergy (Verified 11/08/16 10:57) Rash trimethoprim [From Bactrim] Allergy (Verified 11/08/16 10:57) Rash tuberculin, purified protein deriva Allergy (Verified 11/08/16 10:57) Unknown Home Medications: Home Medications Medication Instructions Recorded Confirmed Last Taken Type Ascorbic Acid [Vitamin C with Alexandrea 1 tab PO QDAY 11/08/16 02/15/19 Unknown History Hips] Docusate Sodium [Colace CAP] 100 mg PO BID 11/08/16 02/15/19 Unknown History Halobetasol Propionate [Ultravate] 1 applicatio INTRADERMA Q12H PRN 11/08/16 02/15/19 Unknown History Multivitamin with Iron 1 tab PO QDAY 11/08/16 02/15/19 Unknown History [Multivitamins with Iron] Protein Supplement [Promod] 30 ml PO BID 11/08/16 02/15/19 Unknown History diphenhydrAMINE [Benadryl CAP] 1 cap PO Q4H PRN 11/08/16 02/15/19 Unknown History Lactulose 30 ml PO DAILY PRN #1 11/13/16 02/15/19 Unknown Rx Gabapentin [Neurontin] 600 mg PO TID 10/30/17 02/15/19 Unknown History ALBUTEROL NEB's [Proventil 0.083% 2.5 mg IH Q3HRT PRN nebu 09/27/18 02/15/19 Unknown Rx NEBS] Acetaminophen [Acetaminophen TAB] 650 mg PO Q4H PRN tablet 09/27/18 02/15/19 Unknown Rx AtorvaSTATin [Lipitor] 40 mg PO QHS tablet 09/27/18 02/15/19 Unknown Rx Bisacodyl [Dulcolax suppos] 10 mg [place] QDAY PRN supp.rect 09/27/18 02/15/19 Unknown Rx Apixaban [Eliquis] 2.5 mg PO BID 02/15/19 02/15/19 Unknown History Baclofen 40 mg PO TID 02/15/19 02/15/19 Unknown History Dantrolene Sodium [Dantrium] 100 mg PO Q8H 02/15/19 02/15/19 Unknown History Famotidine [Pepcid] 20 mg PO BID 02/15/19 02/15/19 Unknown History Mirtazapine [Remeron 15mg TAB] 15 mg PO QHS 02/15/19 02/15/19 Unknown History Morphine Sulfate [Morphine Sulfate 15 mg PO Q12H 02/15/19 02/15/19 Unknown History ER] Ondansetron [Zofran ODT TAB] 4 mg PO Q6H PRN 02/15/19 02/15/19 Unknown History Oxycodone HCl/Acetaminophen 1 each PO Q8H PRN 02/15/19 02/15/19 Unknown History [Percocet 10/325 mg] Trazodone HCl 25 mg PO QHS 02/15/19 02/15/19 Unknown History diazePAM TAB [Valium] 4 mg PO Q8H PRN 02/15/19 02/15/19 Unknown History Active Medications: Generic Name Dose Route Start Last Admin Trade Name Freq PRN Reason Stop Dose Admin Acetaminophen 650 mg 02/15/19 20:09 02/16/19 11:02 Tylenol PO 650 mg Q4H PRN Administration Pain MILD(1-3)/Fever >100.5/MCNULTY Albuterol 2.5 mg 02/15/19 20:09 Proventil IH Q3HRT PRN Shortness Of Breath Apixaban 2.5 mg 02/15/19 22:00 02/17/19 12:03 Eliquis PO 2.5 mg BID GARY Administration Protocol Ascorbic Acid 500 mg 02/16/19 10:00 02/17/19 12:01 Vitamin C PO 500 mg QDAY GARY Administration Atorvastatin Calcium 40 mg 02/15/19 22:00 02/16/19 23:12 Lipitor PO 40 mg QHS GARY Administration Baclofen 40 mg 02/16/19 08:00 02/17/19 12:02 Lioresal PO 40 mg TID GARY Administration Dantrolene Sodium 100 mg 02/15/19 23:00 02/17/19 12:01 Dantrium PO 100 mg Q8H GARY Administration Diazepam 4 mg 02/15/19 21:45 Valium PO Q8H PRN Muscle Spasm Docusate Sodium 100 mg 02/15/19 22:00 02/17/19 12:04 Colace PO Not Given BID GARY Famotidine 20 mg 02/15/19 22:00 02/17/19 12:02 Pepcid PO 20 mg BID GARY Administration Gabapentin 600 mg 02/16/19 08:00 02/17/19 12:02 Neurontin PO 600 mg TID GARY Administration Norepinephrine 4 mg in 250 mls @ 7.5 mls/hr 02/15/19 18:00 02/17/19 11:42 Levophed Drip 4 Mg/Ns 250 Ml IV 1 mcg/min TITR GARY 3.75 mls/hr Titration Protocol 2 MCG/MIN Vancomycin HCl 1 gm in 250 mls @ 166.667 mls/hr 02/16/19 04:00 02/17/19 07:24 Vancomycin/Ns 1 Gm/250 Ml IV 166.667 mls/hr Q12H GARY Administration Potassium Chloride 20 meq/ 1,010 mls @ 100 mls/hr 02/16/19 16:00 02/16/19 16:18 Dextrose/Sodium Chloride IV 100 mls/hr DIRECT GARY Administration Meropenem 1,000 mg/ Sodium 100 mls @ 100 mls/hr 02/17/19 14:00 Chloride IV Q8HR GARY Protocol Mirtazapine 15 mg 02/15/19 22:00 02/16/19 23:13 Remeron PO 15 mg QHS GARY Administration Multivitamins/Minerals 1 each 02/16/19 10:00 02/17/19 12:01 Theragran-M Tab PO 1 each QDAY GARY Administration Ondansetron HCl 4 mg 02/15/19 20:09 Zofran IV Q6H PRN Nausea And Vomiting Oxycodone HCl 5 mg 02/15/19 22:13 02/17/19 12:01 Roxicodone PO 5 mg Q8H PRN Administration Pain, Moderate (4-6) Oxycodone/Acetaminophen 1 tab 02/15/19 22:14 Percocet 5/325 PO Q8H PRN Pain, Moderate (4-6) Sodium Chloride 10 ml 02/15/19 22:00 02/17/19 12:04 Sodium Chloride Flush Syringe 10 Ml IV 10 ml BID GARY Administration Sodium Chloride 10 ml 02/15/19 20:09 Sodium Chloride Flush Syringe 10 Ml IV PRN PRN LINE FLUSH
[2019-02-17] MEDS: MERREM 1,000 MG in NACL 0.9% 100 ML IV SCH ×2 (14:49→23:26)
[2019-02-17] MEDS: D5/0.45NS 1,000 ML with KCL 20 MEQ IV SCH (20:31)
[2019-02-17] MEDS: REMERON PO SCH (23:25)
[2019-02-18] MEDS: VANCOMYCIN/NS 1 GM/250 ML 1 GM/250 ML BAG IV SCH (04:45)
[2019-02-18 05:01] LABS: Hematocrit 27.8 % (35.5-45.6); Hemoglobin 9.1 gm/dl (11.8-15.2); Mean Corpuscular HGB Conc 33 % (32-34); Mean Corpuscular Volume 86 fl (84-94); Platelet Count 288 K/mm3 (140-440); Red Blood Count 3.23 M/mm3 (3.65-5.03); Red Cell Distribution Width 16.5 % (13.2-15.2)
[2019-02-18 05:27] LABS: BUN/Creatinine Ratio 20; Blood Urea Nitrogen 4 mg/dL (9-20); Calcium 7.6 mg/dL (8.4-10.2); Hemolysis Index 6
[2019-02-18] MEDS: MERREM 1,000 MG in NACL 0.9% 100 ML IV SCH ×3 (06:26→21:40)
[2019-02-18] MEDS: D5W/0.45% NACL/KCL 20 MEQ 20 MEQ/1,000 ML BAG IV SCH (08:35)
[2019-02-18] MEDS: PEPCID PO SCH ×2 (09:07→21:45)
[2019-02-18] MEDS: VITAMIN C PO SCH (09:07)
[2019-02-18] MEDS: THERAGRAN-M Tab PO SCH (09:07)
[2019-02-18] MEDS: DANTRIUM PO SCH ×3 (09:08→23:14)
[2019-02-18] MEDS: LIORESAL PO SCH ×3 (09:08→23:14)
[2019-02-18] MEDS: NEURONTIN PO SCH ×3 (09:08→21:44)
[2019-02-18] MEDS: ELIQUIS PO SCH ×2 (09:08→21:44)
[2019-02-18] MEDS: SODIUM CHLORIDE FLUSH SYRINGE 10 ML IV SCH ×2 (09:09→21:45)
[2019-02-18] MEDS: COLACE PO SCH ×2 (09:10→21:45)
--- NOTE | 2019-02-18 10:20 | Progress Note ---
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 Pressure ulcers Plan: - stable kidney function - stable electrolytes - Santos Catheter: Yes (Chronic) will sign off, please reconsult if needed Subjective Date of service: 02/18/19 Principal diagnosis: Acute Resp Failure, Sepsis Interval history: denies acute issues, eating breakfast Objective - Vital Signs Vital signs: Vital Signs - 12hr 02/17/19 02/17/19 02/17/19 22:21 22:30 22:41 Temperature Pulse Rate 95 H 97 H 99 H Respiratory 21 22 23 Rate Blood Pressure 98/60 100/61 98/60 O2 Sat by Pulse 98 97 98 Oximetry 02/17/19 02/17/19 02/17/19 22:51 23:00 23:11 Temperature Pulse Rate 97 H 96 H 96 H Respiratory 20 21 23 Rate Blood Pressure 98/60 95/57 100/61 O2 Sat by Pulse 97 97 97 Oximetry 02/17/19 02/17/19 02/17/19 23:21 23:30 23:41 Temperature Pulse Rate 105 H 99 H 100 H Respiratory 21 23 24 Rate Blood Pressure 100/61 111/64 111/64 O2 Sat by Pulse 97 99 98 Oximetry 02/17/19 02/18/19 02/18/19 23:51 00:00 00:11 Temperature 97.5 F L Pulse Rate 97 H 94 H 98 H Respiratory 24 26 H 26 H Rate Blood Pressure 111/64 107/67 107/67 O2 Sat by Pulse 97 97 96 Oximetry 02/18/19 02/18/19 02/18/19 00:21 00:30 00:41 Temperature Pulse Rate 96 H 98 H 99 H Respiratory 29 H 26 H 19 Rate Blood Pressure 107/67 113/67 113/67 O2 Sat by Pulse 97 98 98 Oximetry 02/18/19 02/18/19 02/18/19 00:51 01:00 01:11 Temperature Pulse Rate 94 H 94 H 92 H Respiratory 25 H 24 19 Rate Blood Pressure 113/67 110/65 110/65 O2 Sat by Pulse 100 98 98 Oximetry 02/18/19 02/18/19 02/18/19 01:21 01:30 01:41 Temperature Pulse Rate 94 H 104 H 95 H Respiratory 17 26 H 18 Rate Blood Pressure 110/65 118/70 118/70 O2 Sat by Pulse 98 98 98 Oximetry 02/18/19 02/18/19 02/18/19 01:51 02:00 02:11 Temperature Pulse Rate 96 H 96 H 94 H Respiratory 18 21 15 Rate Blood Pressure 118/70 105/61 105/61 O2 Sat by Pulse 99 98 98 Oximetry 02/18/19 02/18/19 02/18/19 02:21 02:30 02:41 Temperature Pulse Rate 101 H 95 H 99 H Respiratory 20 19 24 Rate Blood Pressure 105/61 108/64 108/64 O2 Sat by Pulse 97 98 98 Oximetry 02/18/19 02/18/19 02/18/19 02:52 03:00 03:11 Temperature Pulse Rate 105 H 99 H 96 H Respiratory 30 H 25 H 19 Rate Blood Pressure 108/64 108/64 O2 Sat by Pulse 97 98 97 Oximetry 02/18/19 02/18/19 02/18/19 03:21 03:30 03:41 Temperature Pulse Rate 109 H 108 H 107 H Respiratory 21 21 23 Rate Blood Pressure 111/65 128/74 128/74 O2 Sat by Pulse 97 99 96 Oximetry 02/18/19 02/18/19 02/18/19 03:51 04:00 04:11 Temperature 98.3 F Pulse Rate 120 H 100 H 105 H Respiratory 19 25 H 22 Rate Blood Pressure 128/74 124/72 124/72 O2 Sat by Pulse 99 98 96 Oximetry 02/18/19 02/18/19 02/18/19 04:21 04:30 04:41 Temperature Pulse Rate 99 H 95 H 105 H Respiratory 20 19 28 H Rate Blood Pressure 124/72 106/64 106/64 O2 Sat by Pulse 96 97 98 Oximetry 02/18/19 02/18/19 02/18/19 04:51 05:00 05:11 Temperature Pulse Rate 106 H 95 H 99 H Respiratory 25 H 17 19 Rate Blood Pressure 106/64 104/62 104/62 O2 Sat by Pulse 99 97 98 Oximetry 02/18/19 02/18/19 02/18/19 05:21 05:30 05:41 Temperature Pulse Rate 95 H 93 H 96 H Respiratory 18 16 20 Rate Blood Pressure 104/62 103/60 103/60 O2 Sat by Pulse 97 97 97 Oximetry 02/18/19 02/18/19 02/18/19 05:51 06:00 06:11 Temperature Pulse Rate 94 H 104 H 94 H Respiratory 20 29 H 20 Rate Blood Pressure 103/60 108/65 108/65 O2 Sat by Pulse 96 97 96 Oximetry 02/18/19 02/18/19 06:21 06:30 Temperature Pulse Rate 93 H 94 H Respiratory 16 17 Rate Blood Pressure 108/65 98/61 O2 Sat by Pulse 96 96 Oximetry - General Appearance General appearance: well-developed, well-nourished EENT: ATNC, PERRL Neck: no JVD Respiratory: Present: Clear to Ascultation. Absent: Rales, Ronchi Cardiology: regular, S1S2 Gastrointestinal: normoactive bowel sounds, no hypoactive bowel sounds, no absent bowel sounds Integumentary: no rash, warm and dry Neurologic: no focal deficit, no asterixis Musculoskeletal: other (no edema in BLE) Psychiatric: cooperative - Lab 02/18/19 04:50 02/18/19 04:50 Most recent lab results Calcium 7.6 mg/dL (8.4-10.2) L 02/18/19 04:50 Magnesium 1.90 mg/dL (1.7-2.3) 02/16/19 05:35 Medications & Allergies - Medications Allergies/Adverse Reactions: Allergies shrimp Allergy (Verified 01/01/18 15:52) Itching sulfamethoxazole [From Bactrim] Allergy (Verified 11/08/16 10:57) Rash trimethoprim [From Bactrim] Allergy (Verified 11/08/16 10:57) Rash tuberculin, purified protein deriva Allergy (Verified 11/08/16 10:57) Unknown Home Medications: Home Medications Medication Instructions Recorded Confirmed Last Taken Type Ascorbic Acid [Vitamin C with Alexandrea 1 tab PO QDAY 11/08/16 02/15/19 Unknown History Hips] Docusate Sodium [Colace CAP] 100 mg PO BID 11/08/16 02/15/19 Unknown History Halobetasol Propionate [Ultravate] 1 applicatio INTRADERMA Q12H PRN 11/08/16 02/15/19 Unknown History Multivitamin with Iron 1 tab PO QDAY 11/08/16 02/15/19 Unknown History [Multivitamins with Iron] Protein Supplement [Promod] 30 ml PO BID 11/08/16 02/15/19 Unknown History diphenhydrAMINE [Benadryl CAP] 1 cap PO Q4H PRN 11/08/16 02/15/19 Unknown History Lactulose 30 ml PO DAILY PRN #1 11/13/16 02/15/19 Unknown Rx Gabapentin [Neurontin] 600 mg PO TID 10/30/17 02/15/19 Unknown History ALBUTEROL NEB's [Proventil 0.083% 2.5 mg IH Q3HRT PRN nebu 09/27/18 02/15/19 Unknown Rx NEBS] Acetaminophen [Acetaminophen TAB] 650 mg PO Q4H PRN tablet 09/27/18 02/15/19 Unknown Rx AtorvaSTATin [Lipitor] 40 mg PO QHS tablet 09/27/18 02/15/19 Unknown Rx Bisacodyl [Dulcolax suppos] 10 mg NV QDAY PRN supp.rect 09/27/18 02/15/19 Unknown Rx Apixaban [Eliquis] 2.5 mg PO BID 02/15/19 02/15/19 Unknown History Baclofen 40 mg PO TID 02/15/19 02/15/19 Unknown History Dantrolene Sodium [Dantrium] 100 mg PO Q8H 02/15/19 02/15/19 Unknown History Famotidine [Pepcid] 20 mg PO BID 02/15/19 02/15/19 Unknown History Mirtazapine [Remeron 15mg TAB] 15 mg PO QHS 02/15/19 02/15/19 Unknown History Morphine Sulfate [Morphine Sulfate 15 mg PO Q12H 02/15/19 02/15/19 Unknown History ER] Ondansetron [Zofran ODT TAB] 4 mg PO Q6H PRN 02/15/19 02/15/19 Unknown History Oxycodone HCl/Acetaminophen 1 each PO Q8H PRN 02/15/19 02/15/19 Unknown History [Percocet 10/325 mg] Trazodone HCl 25 mg PO QHS 02/15/19 02/15/19 Unknown History diazePAM TAB [Valium] 4 mg PO Q8H PRN 02/15/19 02/15/19 Unknown History Active Medications: Generic Name Dose Route Start Last Admin Trade Name Freq PRN Reason Stop Dose Admin Acetaminophen 650 mg 02/15/19 20:09 02/16/19 11:02 Tylenol PO 650 mg Q4H PRN Administration Pain MILD(1-3)/Fever >100.5/MCNULTY Albuterol 2.5 mg 02/15/19 20:09 Proventil IH Q3HRT PRN Shortness Of Breath Apixaban 2.5 mg 02/15/19 22:00 02/18/19 09:08 Eliquis PO 2.5 mg BID GARY Administration Protocol Ascorbic Acid 500 mg 02/16/19 10:00 02/18/19 09:07 Vitamin C PO 500 mg QDAY GARY Administration Atorvastatin Calcium 40 mg 02/15/19 22:00 02/17/19 23:25 Lipitor PO 40 mg QHS GARY Administration Baclofen 40 mg 02/16/19 08:00 02/18/19 09:08 Lioresal PO 40 mg TID GARY Administration Dantrolene Sodium 100 mg 02/15/19 23:00 02/18/19 09:08 Dantrium PO 100 mg Q8H GARY Administration Diazepam 4 mg 02/15/19 21:45 Valium PO Q8H PRN Muscle Spasm Docusate Sodium 100 mg 02/15/19 22:00 02/18/19 09:10 Colace PO Not Given BID GARY Famotidine 20 mg 02/15/19 22:00 02/18/19 09:07 Pepcid PO 20 mg BID GARY Administration Gabapentin 600 mg 02/16/19 08:00 02/18/19 09:08 Neurontin PO 600 mg TID GARY Administration Norepinephrine 4 mg in 250 mls @ 7.5 mls/hr 02/15/19 18:00 02/17/19 14:00 Levophed Drip 4 Mg/Ns 250 Ml IV 0 mcg/min TITR GARY 0 mls/hr Titration Protocol 2 MCG/MIN Vancomycin HCl 1 gm in 250 mls @ 166.667 mls/hr 02/16/19 04:00 02/18/19 06:21 Vancomycin/Ns 1 Gm/250 Ml IV Infused Q12H GARY Infusion Meropenem 1,000 mg/ Sodium 100 mls @ 100 mls/hr 02/17/19 14:00 02/18/19 06:26 Chloride IV 100 mls/hr Q8HR GARY Administration Protocol Potassium Chloride/Dextrose/Sod Cl 20 meq in 1,000 mls @ 100 mls/hr 02/18/19 07:00 02/18/19 08:35 D5w/0.45% Nacl/Kcl 20 Meq IV 100 mls/hr DIRECT GARY Administration Mirtazapine 15 mg 02/15/19 22:00 02/17/19 23:25 Remeron PO 15 mg QHS GARY Administration Multivitamins/Minerals 1 each 02/16/19 10:00 02/18/19 09:07 Theragran-M Tab PO 1 each QDAY GARY Administration Ondansetron HCl 4 mg 02/15/19 20:09 Zofran IV Q6H PRN Nausea And Vomiting Oxycodone HCl 5 mg 02/15/19 22:13 02/17/19 17:53 Roxicodone PO 5 mg Q8H PRN Administration Pain, Moderate (4-6) Oxycodone/Acetaminophen 1 tab 02/15/19 22:14 Percocet 5/325 PO Q8H PRN Pain, Moderate (4-6) Sodium Chloride 10 ml 02/15/19 22:00 02/18/19 09:09 Sodium Chloride Flush Syringe 10 Ml IV 10 ml BID GARY Administration Sodium Chloride 10 ml 02/15/19 20:09 Sodium Chloride Flush Syringe 10 Ml IV PRN PRN LINE FLUSH
--- NOTE | 2019-02-18 12:23 | Progress Note ---
Assessment and Plan Impression: Sepsis with septic shock suspect urinary source given indwelling suprapubic catheter. 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 Denies any new complaints. WBC count is improving. Vital signs remained stable. Objective Vital Signs - 12hr 02/18/19 02/18/19 02/18/19 00:21 00:30 00:41 Temperature Pulse Rate 96 H 98 H 99 H Respiratory 29 H 26 H 19 Rate Blood Pressure 107/67 113/67 113/67 O2 Sat by Pulse 97 98 98 Oximetry 02/18/19 02/18/19 02/18/19 00:51 01:00 01:11 Temperature Pulse Rate 94 H 94 H 92 H Respiratory 25 H 24 19 Rate Blood Pressure 113/67 110/65 110/65 O2 Sat by Pulse 100 98 98 Oximetry 02/18/19 02/18/19 02/18/19 01:21 01:30 01:41 Temperature Pulse Rate 94 H 104 H 95 H Respiratory 17 26 H 18 Rate Blood Pressure 110/65 118/70 118/70 O2 Sat by Pulse 98 98 98 Oximetry 02/18/19 02/18/19 02/18/19 01:51 02:00 02:11 Temperature Pulse Rate 96 H 96 H 94 H Respiratory 18 21 15 Rate Blood Pressure 118/70 105/61 105/61 O2 Sat by Pulse 99 98 98 Oximetry 02/18/19 02/18/19 02/18/19 02:21 02:30 02:41 Temperature Pulse Rate 101 H 95 H 99 H Respiratory 20 19 24 Rate Blood Pressure 105/61 108/64 108/64 O2 Sat by Pulse 97 98 98 Oximetry 02/18/19 02/18/19 02/18/19 02:52 03:00 03:11 Temperature Pulse Rate 105 H 99 H 96 H Respiratory 30 H 25 H 19 Rate Blood Pressure 108/64 108/64 O2 Sat by Pulse 97 98 97 Oximetry 02/18/19 02/18/19 02/18/19 03:21 03:30 03:41 Temperature Pulse Rate 109 H 108 H 107 H Respiratory 21 21 23 Rate Blood Pressure 111/65 128/74 128/74 O2 Sat by Pulse 97 99 96 Oximetry 02/18/19 02/18/19 02/18/19 03:51 04:00 04:11 Temperature 98.3 F Pulse Rate 120 H 100 H 105 H Respiratory 19 25 H 22 Rate Blood Pressure 128/74 124/72 124/72 O2 Sat by Pulse 99 98 96 Oximetry 02/18/19 02/18/19 02/18/19 04:21 04:30 04:41 Temperature Pulse Rate 99 H 95 H 105 H Respiratory 20 19 28 H Rate Blood Pressure 124/72 106/64 106/64 O2 Sat by Pulse 96 97 98 Oximetry 02/18/19 02/18/19 02/18/19 04:51 05:00 05:11 Temperature Pulse Rate 106 H 95 H 99 H Respiratory 25 H 17 19 Rate Blood Pressure 106/64 104/62 104/62 O2 Sat by Pulse 99 97 98 Oximetry 02/18/19 02/18/19 02/18/19 05:21 05:30 05:41 Temperature Pulse Rate 95 H 93 H 96 H Respiratory 18 16 20 Rate Blood Pressure 104/62 103/60 103/60 O2 Sat by Pulse 97 97 97 Oximetry 02/18/19 02/18/19 02/18/19 05:51 06:00 06:11 Temperature Pulse Rate 94 H 104 H 94 H Respiratory 20 29 H 20 Rate Blood Pressure 103/60 108/65 108/65 O2 Sat by Pulse 96 97 96 Oximetry 02/18/19 02/18/19 06:21 06:30 Temperature Pulse Rate 93 H 94 H Respiratory 16 17 Rate Blood Pressure 108/65 98/61 O2 Sat by Pulse 96 96 Oximetry Constitutional: no acute distress, other (responsive) Eyes: non-icteric ENT: oropharynx moist, other (dentition poor) Neck: supple, no JVD Effort: normal Ascultation: Bilateral: diminished breath sounds Cardiovascular: regular rate and rhythm Gastrointestinal: normoactive bowel sounds, non-tender, other (suprapubic catheter noted) Extremities: other (extensive contracture deformities of upper and lower extre mities) Neurologic: normal mental status, other (extensive all 4 extremity weakness and contracture deformities) CBC and BMP: 02/18/19 04:50 02/18/19 04:50 ABG, PT/INR, D-dimer: ABG POC ABG pH 7.470 (7.35-7.45) H 02/15/19 18:47 POC ABG pCO2 38.9 (35-45) 02/15/19 18:47 POC ABG pO2 60 (80-105) L 02/15/19 18:47 POC ABG HCO3 28.4 (22-26 mml/L) 02/15/19 18:47 POC ABG Total CO2 30 (23-27mmol/L) 02/15/19 18:47 POC ABG O2 Sat 92 02/15/19 18:47 PT/INR, D-dimer PT 15.6 Sec. (12.2-14.9) H 02/15/19 17:49 INR 1.27 (0.87-1.13) H 02/15/19 17:49 Abnormal lab findings: Abnormal Labs 02/15/19 02/15/19 02/15/19 15:22 15:27 17:49 WBC 11.8 H RBC 3.60 L Hgb 10.5 L Hct 31.0 L RDW 16.3 H Seg Neuts % (Manual) Lymphocytes % (Manual) Monocytes % (Manual) Seg Neutrophils # Man Monocytes # (Manual) PT INR POC ABG pH POC ABG pO2 Sodium Potassium Chloride Carbon Dioxide BUN Creatinine Glucose POC Glucose 120 H Calcium Troponin T Albumin HDL Cholesterol Urine WBC (Auto) 72.0 H 02/15/19 02/15/19 02/15/19 17:49 17:49 18:47 WBC RBC Hgb Hct RDW Seg Neuts % (Manual) Lymphocytes % (Manual) Monocytes % (Manual) Seg Neutrophils # Man Monocytes # (Manual) PT 15.6 H INR 1.27 H POC ABG pH 7.470 H POC ABG pO2 60 L Sodium 147 H Potassium 2.6 L* Chloride Carbon Dioxide BUN 39 H Creatinine 0.5 L Glucose 123 H POC Glucose Calcium 8.1 L Troponin T 0.087 H Albumin 3.1 L HDL Cholesterol 23 L Urine WBC (Auto) 02/15/19 02/16/19 02/16/19 19:34 03:40 03:40 WBC 15.5 H RBC Hgb 10.8 L Hct 32.7 L RDW 15.8 H Seg Neuts % (Manual) 80.0 H Lymphocytes % (Manual) 11.0 L Monocytes % (Manual) 9.0 H Seg Neutrophils # Man 12.4 H Monocytes # (Manual) 1.4 H PT INR POC ABG pH POC ABG pO2 Sodium 147 H Potassium 2.9 L* Chloride 107.2 H Carbon Dioxide BUN 21 H Creatinine 0.3 L Glucose 122 H POC Glucose Calcium 8.3 L Troponin T 0.039 H D Albumin HDL Cholesterol Urine WBC (Auto) 02/16/19 02/17/19 02/17/19 05:35 05:23 05:23 WBC 16.2 H RBC 3.32 L Hgb 9.7 L Hct 28.4 L RDW 16.7 H Seg Neuts % (Manual) Lymphocytes % (Manual) Monocytes % (Manual) Seg Neutrophils # Man Monocytes # (Manual) PT INR POC ABG pH POC ABG pO2 Sodium Potassium 2.9 L* 3.2 L Chloride 108.9 H Carbon Dioxide BUN 5 L Creatinine 0.2 L Glucose POC Glucose Calcium 7.9 L Troponin T Albumin HDL Cholesterol Urine WBC (Auto) 02/18/19 02/18/19 04:50 04:50 WBC 13.3 H RBC 3.23 L Hgb 9.1 L Hct 27.8 L RDW 16.5 H Seg Neuts % (Manual) Lymphocytes % (Manual) Monocytes % (Manual) Seg Neutrophils # Man Monocytes # (Manual) PT INR POC ABG pH POC ABG pO2 Sodium Potassium Chloride Carbon Dioxide 21 L BUN 4 L Creatinine < 0.2 L Glucose POC Glucose Calcium 7.6 L Troponin T Albumin HDL Cholesterol Urine WBC (Auto)
--- NOTE | 2019-02-18 14:20 | Progress Note ---
Assessment and Plan Cultures: Blood culture 02/15/19 - NGTD Urine culture 02/15/19 - mixed growth of 2 types of >100K CFU/ml A/P: 64 yo M PMHx recurrent DVTs, pressure ulcer, chronic indwelling Santos, HTN, chronic debility admitted to [facility] with AMS. 1. Septic shock secondary to possible UTI - UA was contaminated but with pyuria. He is high risk for UTI given his chronic indwelling suprapubic catheter which has been exchanged since admission. Cultures mixed, will continue Meropenem for now. 2. Multiple chronic wounds - L ankle, sacrum, and R hip all present on admission, but shallow, clean and without purulence. Do not believe they are acutely contributing to his AMS. 3. Acute encephalopathy - improving. 4. Recurrent DVTs 5. HTN 6. Chronic debility Recs: - continue IV Meropenem - Vancomycin stopped Jennifer Gibbons MD, FACP [facility] ([facility]) M: [phone] O: [phone] F: [phone] Subjective Date of service: 02/18/19 Principal diagnosis: Acute Resp Failure, Sepsis Interval history: No fever. More awake. Denies any complaints. Trying to eat his lunch/jello. Objective - Exam Narrative Exam: Constitutional: Alert, awake, answering basic questions. No acute distress Head, Ears, Nose: Normocephalic, atraumatic. External ears, nose normal Eyes: Conjunctivae/corneas clear. No icterus. No ptosis. Neck: Supple, no meningeal signs Cardiovascular: S1, S2 normal Respiratory: Good air entry, clear to auscultation bilaterally GI: Soft, non-tender; bowel sounds normal. No peritoneal signs. SPC + Musculoskeletal: No pedal edema, no cyanosis. Multiple superficial wounds, clean bases Skin: No rash or abscess Hem/Lymphatic: No palpable cervical or supraclavicular nodes. No lymphangitis Psych: flat affect, no agitation Neurological: Alert, awake, answering basic questions - Constitutional Vitals: Vital Signs Temp Pulse Resp BP Pulse Ox 98.0 F 102 H 17 113/63 99 02/18/19 12:00 02/18/19 14:00 02/18/19 14:00 02/18/19 14:00 02/18/19 14:00 Temperature -Last 24 Hours Temperature 98.0 F Temperature 98.7 F Temperature 98.3 F Temperature 97.5 F Temperature 97.2 F Temperature 97.9 F - Labs CBC & Chem 7: 02/18/19 04:50 02/18/19 04:50 Labs: Abnormal lab results 02/18/19 02/18/19 Range/Units 04:50 04:50 WBC 13.3 H (4.5-11.0) K/mm3 RBC 3.23 L (3.65-5.03) M/mm3 Hgb 9.1 L (11.8-15.2) gm/dl Hct 27.8 L (35.5-45.6) % RDW 16.5 H (13.2-15.2) % Carbon Dioxide 21 L (22-30) mmol/L BUN 4 L (9-20) mg/dL Creatinine < 0.2 L (0.8-1.5) mg/dL Calcium 7.6 L (8.4-10.2) mg/dL
--- NOTE | 2019-02-18 15:12 | Progress Note ---
Assessment and Plan Assessment and plan: Patient is a 64-year-old -[place]ong[place] male who is a resident of [facility] care home with history of quadriplegia (?fell down steps), recurrent DVTs on anti-coagulation, pressure ulcer, neuromuscular dysfunction of the bladder, prolonged indwelling catheter, Polyneuropathy, chronic debility,GERD, anxiety, osteoarthritis, and hypertension, who presents to [facility] ED with complaints of AMS. Septic shock -Leukocytosis 11.8 -hypotensive which is not improving -Received IV fluid resuscitation with minimal response -Blood cultures pending -Now off pressors On Levophed gtt -ID patient has been placed on meropenem and vancomycin discontinued AMS from Acute metabolic encephalopathy -from infection -treat the sepsis uti UTI with sepsis -Urine WBC 72 -Urine culture pending -Prolonged indwelling suprapubic catheter -Hx of recurrent UTI -Now on meropenem as noted above -ID consulted inputs noted Severe Hypokalemia -resolving -Replete -Continue to monitor electrolytes, replete prn Acute Hypoxic Respiratory Failure -No baseline oxygen requirements -On supplemental O2 -ABG 7.47/38.9/60/28.4 -Monitor saturations wean as tolerated Lactic acidosis -Lactic acid 2.6 on admission -On IV abx -On IVF -Continue to monitor Anemia -Hbg 10.5 -No s/s of active bleeding -Continue to monitor -Transfuse prn DEVIN -ATN suspected poa -BUN/Cr on admission 39/0.5 -Hx of Neuromuscular dysfunction of bladder -Nephrology consulted Severe protein calorie malnutrition -Albumin 3.1 -Poor oral intake -Dietitian consulted and input is noted Pressure ulcer, at least stage 3 -Wound care consulted -Right hip, bilateral legs, and sacrum -Off load areas of bony prominences and wounds History of recurrent DVT on anticoagulation -Continue Eliquis DVT PPX -SCd's on Eliquis Chronic debility with functional quadriplegia and contracted limbs -PT/OT eval when stable Hx GERD -Continue Pepcid Hx HTN -Currently hpotensive -Hold all antihypertensive meds Hx Anxiety Hypernatremia, severely dehydrated needs more fluid resolved today Multiple pressure ulcers consult Wound care full code She received multiple IV fluids boluses considering dehydration has been weaned off pressors at this time I will monitor closely.discussed with child care team lead who is in agreement that the patient can be transferred to the medical floor. ordered speech/pt/ot tongue has ?leukoplakia, inquired about HIV status, he denies but agreed for testing, Ordered HIV test. Although by my colleague is pending History Interval history: Patient was seen and examined. Follow-up on current diagnosis AMS. No overnight events reported to me. Patient denies any chest pain, shortness breath, nausea/vomiting or severe headaches. Imaging, nursing note, chart, labs and old chart reviewed. Discussed with patient and nursing staff patient has since been weaned off pressors Hospitalist Physical - Physical exam Narrative exam: Gen: cachetic, ill appearing, chronically disable appearing, NAD, Awake, and talking but mouth so dry he can't talk HEENT: NCAT, EOMI, PERRL, OP severe dryness, pasty mouth and crusty tongue Neck: supple, no adenopathy, no thyromegaly, no JVD CVS/Heart: RRR, normal S1S2, pulses present bilaterally Chest/Lungs: diminished bs bilateral Symmetrical chest expansion, good air entry bilaterally GI/Abdomen: soft, NTND, good bowel sounds, no guarding or rebound /Bladder: +tucker no suprapubic tenderness, no CVA or paraspinal tenderness Extermity/Skin: poor skin integrity throughout with multiple wounds, atrophic limbs x 4 MSK: contracted limbs x 4 Neuro: CN 2-12 grossly intact, no new focal deficits Psych: calm and confused - Constitutional Vitals: Temp Pulse Resp BP Pulse Ox 98.0 F 91 H 16 100/62 99 02/18/19 12:00 02/18/19 15:00 02/18/19 15:00 02/18/19 15:00 02/18/19 15:00 Results - Labs CBC & Chem 7: 02/18/19 04:50 02/18/19 04:50 Labs: Laboratory Last Values WBC 13.3 K/mm3 (4.5-11.0) H 02/18/19 04:50 RBC 3.23 M/mm3 (3.65-5.03) L 02/18/19 04:50 Hgb 9.1 gm/dl (11.8-15.2) L 02/18/19 04:50 Hct 27.8 % (35.5-45.6) L 02/18/19 04:50 MCV 86 fl (84-94) 02/18/19 04:50 MCH 28 pg (28-32) 02/18/19 04:50 MCHC 33 % (32-34) 02/18/19 04:50 RDW 16.5 % (13.2-15.2) H 02/18/19 04:50 Plt Count 288 K/mm3 (140-440) 02/18/19 04:50 Lymph % (Auto) Public Health Administrator 02/15/19 17:49 Gallia % (Auto) Public Health Administrator 02/15/19 17:49 Eos % (Auto) Public Health Administrator 02/15/19 17:49 Baso % (Auto) Public Health Administrator 02/15/19 17:49 Lymph # Public Health Administrator 02/15/19 17:49 Gallia # Public Health Administrator 02/15/19 17:49 Eos # Public Health Administrator 02/15/19 17:49 Baso # Public Health Administrator 02/15/19 17:49 Add Manual Diff Complete 02/16/19 03:40 Total Counted 100 02/16/19 03:40 Seg Neutrophils % Public Health Administrator 02/15/19 17:49 Seg Neuts % (Manual) 80.0 % (40.0-70.0) H 02/16/19 03:40 0 % 02/16/19 03:40 11.0 % (13.4-35.0) L 02/16/19 03:40 Reactive Lymphs % (Man) 0 % 02/16/19 03:40 9.0 % (0.0-7.3) H 02/16/19 03:40 0 % (0.0-4.3) 02/16/19 03:40 0 % (0.0-1.8) 02/16/19 03:40 0 % 02/16/19 03:40 0 % 02/16/19 03:40 0 % 02/16/19 03:40 0 % 02/16/19 03:40 Nucleated RBC % Not Reportable 02/16/19 03:40 Seg Neutrophils # Public Health Administrator 02/15/19 17:49 Seg Neutrophils # Man 12.4 K/mm3 (1.8-7.7) H 02/16/19 03:40 Band Neutrophils # 0.0 K/mm3 02/16/19 03:40 1.7 K/mm3 (1.2-5.4) 02/16/19 03:40 Abs React Lymphs (Man) 0.0 K/mm3 02/16/19 03:40 1.4 K/mm3 (0.0-0.8) H 02/16/19 03:40 0.0 K/mm3 (0.0-0.4) 02/16/19 03:40 0.0 K/mm3 (0.0-0.1) 02/16/19 03:40 0.0 K/mm3 02/16/19 03:40 0.0 K/mm3 02/16/19 03:40 0.0 K/mm3 02/16/19 03:40 Blast Cells # 0.0 K/mm3 02/16/19 03:40 WBC Morphology Not Reportable 02/16/19 03:40 Hypersegmented Neuts Not Reportable 02/16/19 03:40 Hyposegmented Neuts Not Reportable 02/16/19 03:40 Hypogranular Neuts Not Reportable 02/16/19 03:40 Not Reportable 02/16/19 03:40 Not Reportable 02/16/19 03:40 Not Reportable 02/16/19 03:40 Not Reportable 02/16/19 03:40 Not Reportable 02/16/19 03:40 Not Reportable 02/16/19 03:40 Not Reportable 02/16/19 03:40 Not Reportable 02/16/19 03:40 Plt Clumps, EDTA Not Reportable 02/16/19 03:40 Not Reportable 02/16/19 03:40 Not Reportable 02/16/19 03:40 Not Reportable 02/16/19 03:40 Plt Morphology Comment Not Reportable 02/16/19 03:40 RBC Morphology Normal 02/16/19 03:40 Dimorphic RBCs Not Reportable 02/16/19 03:40 Not Reportable 02/16/19 03:40 Not Reportable 02/16/19 03:40 Not Reportable 02/16/19 03:40 Not Reportable 02/16/19 03:40 Not Reportable 02/16/19 03:40 Not Reportable 02/16/19 03:40 Not Reportable 02/16/19 03:40 Not Reportable 02/16/19 03:40 Not Reportable 02/16/19 03:40 Not Reportable 02/16/19 03:40 Not Reportable 02/16/19 03:40 Not Reportable 02/16/19 03:40 Not Reportable 02/16/19 03:40 Not Reportable 02/16/19 03:40 Not Reportable 02/16/19 03:40 Not Reportable 02/16/19 03:40 Not Reportable 02/16/19 03:40 Not Reportable 02/16/19 03:40 Not Reportable 02/16/19 03:40 Acanthocytes (Spur) Not Reportable 02/16/19 03:40 Rouleaux Not Reportable 02/16/19 03:40 Not Reportable 02/16/19 03:40 Not Reportable 02/16/19 03:40 Not Reportable 02/16/19 03:40 Not Reportable 02/16/19 03:40 Hem Pathologist Commnt No 02/16/19 03:40 PT 15.6 Sec. (12.2-14.9) H 02/15/19 17:49 INR 1.27 (0.87-1.13) H 02/15/19 17:49 APTT 32.6 Sec. (24.2-36.6) 02/15/19 17:49 POC ABG pH 7.470 (7.35-7.45) H 02/15/19 18:47 POC ABG pCO2 38.9 (35-45) 02/15/19 18:47 POC ABG pO2 60 (80-105) L 02/15/19 18:47 POC ABG HCO3 28.4 (22-26 mml/L) 02/15/19 18:47 POC ABG Total CO2 30 (23-27mmol/L) 02/15/19 18:47 POC ABG O2 Sat 92 02/15/19 18:47 POC ABG Base Excess 5 ((-2) - (+3)mmol/L) 02/15/19 18:47 VBG pH 7.393 (7.320-7.420) 02/15/19 17:49 36 % 02/15/19 18:47 Sodium 137 mmol/L (137-145) D 02/18/19 04:50 Potassium 3.6 mmol/L (3.6-5.0) 02/18/19 04:50 Chloride 104.0 mmol/L (98-107) 02/18/19 04:50 Carbon Dioxide 21 mmol/L (22-30) L 02/18/19 04:50 16 mmol/L 02/18/19 04:50 BUN 4 mg/dL (9-20) L 02/18/19 04:50 < 0.2 mg/dL (0.8-1.5) L 02/18/19 04:50 Estimated GFR > 60 ml/min 02/18/19 04:50 20 % 02/18/19 04:50 Glucose 96 mg/dL (75-100) 02/18/19 04:50 POC Glucose 120 (70-105) H 02/15/19 15:22 Lactic Acid 1.00 mmol/L (0.7-2.0) 02/15/19 19:34 Calcium 7.6 mg/dL (8.4-10.2) L 02/18/19 04:50 Magnesium 1.90 mg/dL (1.7-2.3) 02/16/19 05:35 0.50 mg/dL (0.1-1.2) 02/15/19 17:49 AST 17 units/L (5-40) 02/15/19 17:49 ALT 11 units/L (7-56) 02/15/19 17:49 115 units/L (35-129) 02/15/19 17:49 72 units/L (55-170) 02/15/19 17:49 CK-MB (CK-2) 1.6 ng/mL (0.0-4.0) 02/15/19 17:49 CK-MB (CK-2) Rel Index 2.2 (0-4) 02/15/19 17:49 0.039 ng/mL (0.00-0.029) H D 02/15/19 19:34 7.4 g/dL (6.3-8.2) 02/15/19 17:49 3.1 g/dL (3.9-5) L 02/15/19 17:49 0.7 % 02/15/19 17:49 Triglycerides 135 mg/dL (2-149) 02/15/19 17:49 Cholesterol 96 mg/dL (50-199) 02/15/19 17:49 57 mg/dL (50-130) 02/15/19 17:49 23 mg/dL (40-59) L 02/15/19 17:49 4.17 % 02/15/19 17:49 Yellow (Yellow) 02/15/19 15:27 Turbid (Clear) 02/15/19 15:27 7.0 (5.0-7.0) 02/15/19 15:27 Ur Specific [place] 1.017 (1.003-1.030) 02/15/19 15:27 >500 mg/dL (Negative) 02/15/19 15:27 Neg mg/dL (Negative) 02/15/19 15:27 Tr mg/dL (Negative) 02/15/19 15:27 Mod (Negative) 02/15/19 15:27 Neg (Negative) 02/15/19 15:27 Neg (Negative) 02/15/19 15:27 < 2.0 mg/dL (<2.0) 02/15/19 15:27 Ur Leukocyte Esterase Mod (Negative) 02/15/19 15:27 72.0 /HPF (0.0-6.0) H 02/15/19 15:27 > 182.0 /HPF (0.0-6.0) 02/15/19 15:27 1+ /HPF (Negative) 02/15/19 15:27 HIV 1&2 Antibody Rapid Non react (Non React) 02/17/19 14:46 Non react (Non React) 02/17/19 14:46 Active Medications - Current Medications Current Medications: Generic Name Dose Route Start Last Admin Trade Name Freq PRN Reason Stop Dose Admin Acetaminophen 650 mg 02/15/19 20:09 02/16/19 11:02 Tylenol PO 650 mg Q4H PRN Administration Pain MILD(1-3)/Fever >100.5/MCNULTY Albuterol 2.5 mg 02/15/19 20:09 Proventil IH Q3HRT PRN Shortness Of Breath Apixaban 2.5 mg 02/15/19 22:00 02/18/19 09:08 Eliquis PO 2.5 mg BID GARY Administration Protocol Ascorbic Acid 500 mg 02/16/19 10:00 02/18/19 09:07 Vitamin C PO 500 mg QDAY GARY Administration Atorvastatin Calcium 40 mg 02/15/19 22:00 02/17/19 23:25 Lipitor PO 40 mg QHS GARY Administration Baclofen 40 mg 02/16/19 08:00 02/18/19 09:08 Lioresal PO 40 mg TID GARY Administration Dantrolene Sodium 100 mg 02/15/19 23:00 02/18/19 09:08 Dantrium PO 100 mg Q8H GARY Administration Diazepam 4 mg 02/15/19 21:45 Valium PO Q8H PRN Muscle Spasm Docusate Sodium 100 mg 02/15/19 22:00 02/18/19 09:10 Colace PO Not Given BID GARY Famotidine 20 mg 02/15/19 22:00 02/18/19 09:07 Pepcid PO 20 mg BID GARY Administration Gabapentin 600 mg 02/16/19 08:00 02/18/19 09:08 Neurontin PO 600 mg TID GARY Administration Norepinephrine 4 mg in 250 mls @ 7.5 mls/hr 02/15/19 18:00 02/17/19 14:00 Levophed Drip 4 Mg/Ns 250 Ml IV 0 mcg/min TITR GRAY 0 mls/hr Titration Protocol 2 MCG/MIN Meropenem 1,000 mg/ Sodium 100 mls @ 100 mls/hr 02/17/19 14:00 02/18/19 06:26 Chloride IV 100 mls/hr Q8HR GARY Administration Protocol Potassium Chloride/Dextrose/Sod Cl 20 meq in 1,000 mls @ 100 mls/hr 02/18/19 07:00 02/18/19 08:35 D5w/0.45% Nacl/Kcl 20 Meq IV 100 mls/hr DIRECT GARY Administration Mirtazapine 15 mg 02/15/19 22:00 02/17/19 23:25 Remeron PO 15 mg QHS GARY Administration Multivitamins/Minerals 1 each 02/16/19 10:00 02/18/19 09:07 Theragran-M Tab PO 1 each QDAY GARY Administration Ondansetron HCl 4 mg 02/15/19 20:09 Zofran IV Q6H PRN Nausea And Vomiting Oxycodone HCl 5 mg 02/15/19 22:13 02/17/19 17:53 Roxicodone PO 5 mg Q8H PRN Administration Pain, Moderate (4-6) Oxycodone/Acetaminophen 1 tab 02/15/19 22:14 Percocet 5/325 PO Q8H PRN Pain, Moderate (4-6) Sodium Chloride 10 ml 02/15/19 22:00 02/18/19 09:09 Sodium Chloride Flush Syringe 10 Ml IV 10 ml BID GARY Administration Sodium Chloride 10 ml 02/15/19 20:09 Sodium Chloride Flush Syringe 10 Ml IV PRN PRN LINE FLUSH Nutrition/Malnutrition Assess - Dietary Evaluation Nutrition/Malnutrition Findings: Nutrition Notes Start: 02/17/19 12:11 Freq: Status: Active Protocol: Document 02/17/19 12:11 LP (Rec: 02/17/19 12:55 LP [id number]) Nutrition Notes Need for Assessment generated from: MD Order Initial or Follow up Assessment Current Diagnosis Acute Kidney Injury,Decubitus( Pressure Ulcer),Sepsis, Hypertension,Respiratory Failure,Malnutrition Other Pertinent Diagnosis UTI, L ankle, sacral and right hip wound Current Diet NPO Labs/Tests K 3.2 Pertinent Medications Remeron Height 5 ft 7 in Weight 58.967 kg Panacea Body Weight (kg) 67.27 BMI 20.3 Subjective/Other Information Consult for malnutrition. Pt was on oral diet [employer] and will need to be fed because he is contracted. Burn Absent Trauma Absent Minimum of two criteria Yes Body Fat Depletion Mild depletion (non-severe) Muscle Mass Mild Depletion (non-severe) Reduced Side Panel Hanger Strength Measurably Reduced (severe) #2 Nutrition Diagnosis Increased nutrient needs ( specify in comment below) Comments: Protein Etiology Wound healing As Evidenced by Signs and Symptoms Pt with multiple wounds #1 Nutrition Diagnosis Malnutrition Etiology Chronic illness As Evidenced by Signs and Symptoms muscle mass and fat wasting, reduced glass frame fitter strength, multiple wounds Is patient on ventilator? No Is Patient Ambulatory and/or Out of Bed No REE-([facility]-confined to bed) 2503.204 Calculation Used for Recommendations [facility] Additional Notes Protein needs are 71-118g (1.2 -2g/kg) Fluid needs are 1ml/hr Nutrition Intervention Change Diet Order: Cardiac Add Supplement/Snack (indicate name/kcal Ensure Enlive Vanilla TID /protein ) Provides kCal: 1,050 Provides Protein (gm) 60 Goal #1 Meet at least 80% of kcal and protein needs Goal #2 Wound healing Anticipated Discharge Needs: Cardiac with Ensure TID Follow-Up By: 02/19/19 Additional Comments Follow for intakes and ONS - Attestation Statement I have reviewed and agreed w/ Malnutrition eval & tx plan: Yes
--- NOTE | 2019-02-18 15:37 | XRay Report ---
CHEST 1 VIEW INDICATION: abnormal CXR. COMPARISON: 02/15/2019 FINDINGS: Support devices: Right IJ venous catheter is unchanged. Heart: Within normal limits. Lungs/Pleura: Infiltrate and atelectasis is suspected throughout the left lower lobe. The remainder o f the lungs are clear. Additional findings: None. IMPRESSION: Left lower lobe infiltrate and/or atelectasis. No significant change since the exam 3 days ago. Signer Name: Ector Bass Jr, MD Signed: 02/18/2019 3:33 PM Workstation Name: [id number]
[2019-02-18] MEDS: REMERON PO SCH (23:14)
[2019-02-19] MEDS: D5W/0.45% NACL/KCL 20 MEQ 20 MEQ/1,000 ML BAG IV SCH ×2 (04:29→17:33)
[2019-02-19] MEDS: MERREM 1,000 MG in NACL 0.9% 100 ML IV SCH ×3 (05:54→21:16)
[2019-02-19] MEDS: PERCOCET 5/325 PO PRN ×2 (05:57→14:00)
[2019-02-19] MEDS: DANTRIUM PO SCH ×3 (07:00→22:25)
[2019-02-19 07:57] LABS: BUN/Creatinine Ratio 15; Blood Urea Nitrogen 3 mg/dL (9-20); Calcium 7.9 mg/dL (8.4-10.2); Hemolysis Index 0
[2019-02-19] MEDS: NEURONTIN PO SCH ×3 (08:38→20:08)
[2019-02-19] MEDS: LIORESAL PO SCH ×3 (08:44→20:08)
[2019-02-19] MEDS: TYLENOL PO PRN ×2 (08:47→09:00)
[2019-02-19] MEDS: VITAMIN C PO SCH (09:01)
[2019-02-19] MEDS: PEPCID PO SCH ×2 (09:01→21:18)
[2019-02-19] MEDS: COLACE PO SCH ×2 (09:01→21:18)
[2019-02-19] MEDS: THERAGRAN-M Tab PO SCH (09:01)
[2019-02-19] MEDS: ELIQUIS PO SCH ×2 (09:01→21:18)
--- NOTE | 2019-02-19 09:10 | Progress Note ---
Assessment and Plan Cultures: Blood culture 02/15/19 - NGTD Urine culture 02/15/19 - mixed growth of 2 types of >100K CFU/ml A/P: 64 yo M PMHx recurrent DVTs, pressure ulcer, chronic indwelling Santos, HTN, chronic debility [facility]. 1. Septic shock secondary to possible UTI - UA was contaminated but with pyuria. He is high risk for UTI given his chronic indwelling suprapubic catheter which has been exchanged since admission. Cultures mixed, will continue Meropenem for 5 days. 2. Multiple chronic wounds - L ankle, sacrum, and R hip all present on admission, but shallow, clean and without purulence. Do not believe they are acutely contributing to his AMS. 3. Acute encephalopathy - improving. 4. Recurrent DVTs 5. HTN 6. Chronic debility Recs: - continue IV Meropenem 1 gm every 8 hours, D3 of D5 [facility] [employer] M: [phone] O:[phone] Subjective Date of service: 02/19/19 Principal diagnosis: Acute Resp Failure, Sepsis Interval history: Patient seen and examined. Alert. Reports no acute distress. +generalized weakness. No fevers. Objective - Exam Narrative Exam: Constitutional: Alert, awake. No acute distress Head, Ears, Nose: Normocephalic, atraumatic. External ears, nose normal Eyes: Conjunctivae/corneas clear. No icterus. No ptosis. Neck: Supple, no meningeal signs Cardiovascular: S1, S2 normal Respiratory: Good air entry, clear to auscultation bilaterally GI: Soft, non-tender; bowel sounds normal. No peritoneal signs. SPC + Musculoskeletal: No pedal edema, no cyanosis. Multiple superficial wounds, clean bases Skin: No rash or abscess Hem/Lymphatic: No palpable cervical or supraclavicular nodes. No lymphangitis Psych: flat affect, calm Neurological: Alert, awake, following commands - Constitutional Vitals: Vital Signs Temp Pulse Resp BP Pulse Ox 98.6 F 104 H 18 101/58 96 02/19/19 05:06 02/19/19 05:06 02/19/19 05:06 02/19/19 05:06 02/19/19 05:06 Temperature -Last 24 Hours Temperature 98.6 F Temperature 98.3 F Temperature 98.7 F Temperature 98.9 F Temperature 97.9 F Temperature 98.0 F - Labs CBC & Chem 7: 02/18/19 04:50 02/19/19 07:17 Labs: Abnormal lab results 02/19/19 Range/Units 07:17 BUN 3 L (9-20) mg/dL Creatinine 0.2 L (0.8-1.5) mg/dL Glucose 107 H (75-100) mg/dL Calcium 7.9 L (8.4-10.2) mg/dL
--- NOTE | 2019-02-19 10:05 | Progress Note ---
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 Septic shock -Leukocytosis 11.8 -hypotensive which now is improving -Received IV fluid resuscitation with minimal response -Blood cultures with no growth so far -Now off pressors On Levophed gtt -ID patient has been placed on meropenem and vancomycin discontinued - HIV serologies negative AMS from Acute metabolic encephalopathy -from infection -treat the sepsis uti UTI with sepsis -Urine WBC 72 -Urine culture no growth -Prolonged indwelling suprapubic catheter-changed per documentation -Hx of recurrent UTI -Now on meropenem as noted above -ID consulted inputs noted Severe Hypokalemia -resolved -Continue to monitor electrolytes, replete prn Acute Hypoxic Respiratory Failure -No baseline oxygen requirements -On supplemental O2 -ABG 7.47/38.9/60/28.4 -Monitor saturations wean as tolerated Lactic acidosis -Lactic acid 2.6 on admission -On IV abx -On IVF -Continue to monitor Anemia -Hbg 10.5 -No s/s of active bleeding -Continue to monitor -Transfuse prn DEVIN -ATN suspected poa - Resolved -BUN/Cr on admission 39/0.5 -Hx of Neuromuscular dysfunction of bladder -Nephrology consulted Severe protein calorie malnutrition -Albumin 3.1 -Poor oral intake -Dietitian consulted and input is noted Pressure ulcer, at least stage 3 -Wound care consulted -Right hip, bilateral legs, and sacrum -Off load areas of bony prominences and wounds History of recurrent DVT on anticoagulation -Continue Eliquis DVT PPX -SCd's on Eliquis Chronic debility with functional quadriplegia and contracted limbs -PT/OT eval when stable Hx GERD -Continue Pepcid Hx HTN -Currently hpotensive -Hold all antihypertensive meds Hx Anxiety Hypernatremia, severely dehydrated needs more fluid resolved today Multiple pressure ulcers consult Wound care full code he received multiple IV fluids boluses considering dehydration has been weaned off pressors at this time I will monitor closely.discussed with analytical research chemist who is in agreement that the patient can be transferred to the medical floor. ordered speech/pt/ot Anticipate Discharge in am if continues to improve. History Interval history: Patient was seen and examined. Follow-up on current diagnosis AMS. No overnight events reported to me. Patient denies any chest pain, shortness breath, nausea/vomiting or severe headaches. Imaging, nursing note, chart, labs and old chart reviewed. Clinically improving, not yet at baseline. No new fever reported Hospitalist Physical - Physical exam Narrative exam: Gen: cachetic, ill appearing, chronically disable appearing, NAD, Awake, HEENT: NCAT, EOMI, PERRL, OP severe dryness, Improved oral hygiene Neck: supple, no adenopathy, no thyromegaly, no JVD CVS/Heart: RRR, normal S1S2, pulses present bilaterally Chest/Lungs: diminished bs bilateral Symmetrical chest expansion, good air entry bilaterally GI/Abdomen: soft, NTND, good bowel sounds, no guarding or rebound /Bladder: +tucker no suprapubic tenderness, no CVA or paraspinal tenderness Extermity/Skin: poor skin integrity throughout with multiple wounds, atrophic limbs x 4 MSK: contracted limbs x 4 Neuro: CN 2-12 grossly intact, no new focal deficits Psych: calm and confused - Constitutional Vitals: Temp Pulse Resp BP Pulse Ox 98.6 F 104 H 18 101/58 96 02/19/19 05:06 02/19/19 05:06 02/19/19 05:06 02/19/19 05:06 02/19/19 05:06 Results - Labs CBC & Chem 7: 02/18/19 04:50 02/19/19 07:17 Labs: Laboratory Last Values WBC 13.3 K/mm3 (4.5-11.0) H 02/18/19 04:50 RBC 3.23 M/mm3 (3.65-5.03) L 02/18/19 04:50 Hgb 9.1 gm/dl (11.8-15.2) L 02/18/19 04:50 Hct 27.8 % (35.5-45.6) L 02/18/19 04:50 MCV 86 fl (84-94) 02/18/19 04:50 MCH 28 pg (28-32) 02/18/19 04:50 MCHC 33 % (32-34) 02/18/19 04:50 RDW 16.5 % (13.2-15.2) H 02/18/19 04:50 Plt Count 288 K/mm3 (140-440) 02/18/19 04:50 Lymph % (Auto) [place] 02/15/19 17:49 [place] % (Auto) [place]ister 02/15/19 17:49 Eos % (Auto) [place] 02/15/19 17:49 Baso % (Auto) [place] 02/15/19 17:49 Lymph # [place] 02/15/19 17:49 [place] # [place]ister 02/15/19 17:49 Eos # [place] 02/15/19 17:49 Baso # [place] 02/15/19 17:49 Add Manual Diff Complete 02/16/19 03:40 Total Counted 100 02/16/19 03:40 Seg Neutrophils % [place] 02/15/19 17:49 Seg Neuts % (Manual) 80.0 % (40.0-70.0) H 02/16/19 03:40 0 % 02/16/19 03:40 11.0 % (13.4-35.0) L 02/16/19 03:40 Reactive Lymphs % (Man) 0 % 02/16/19 03:40 9.0 % (0.0-7.3) H 02/16/19 03:40 0 % (0.0-4.3) 02/16/19 03:40 0 % (0.0-1.8) 02/16/19 03:40 0 % 02/16/19 03:40 0 % 02/16/19 03:40 0 % 02/16/19 03:40 0 % 02/16/19 03:40 Nucleated RBC % Not Reportable 02/16/19 03:40 Seg Neutrophils # [place] 02/15/19 17:49 Seg Neutrophils # Man 12.4 K/mm3 (1.8-7.7) H 02/16/19 03:40 Band Neutrophils # 0.0 K/mm3 02/16/19 03:40 1.7 K/mm3 (1.2-5.4) 02/16/19 03:40 Abs React Lymphs (Man) 0.0 K/mm3 02/16/19 03:40 1.4 K/mm3 (0.0-0.8) H 02/16/19 03:40 0.0 K/mm3 (0.0-0.4) 02/16/19 03:40 0.0 K/mm3 (0.0-0.1) 02/16/19 03:40 0.0 K/mm3 02/16/19 03:40 0.0 K/mm3 02/16/19 03:40 0.0 K/mm3 02/16/19 03:40 Blast Cells # 0.0 K/mm3 02/16/19 03:40 WBC Morphology Not Reportable 02/16/19 03:40 Hypersegmented Neuts Not Reportable 02/16/19 03:40 Hyposegmented Neuts Not Reportable 02/16/19 03:40 Hypogranular Neuts Not Reportable 02/16/19 03:40 Not Reportable 02/16/19 03:40 Not Reportable 02/16/19 03:40 Not Reportable 02/16/19 03:40 Not Reportable 02/16/19 03:40 Not Reportable 02/16/19 03:40 Not Reportable 02/16/19 03:40 Not Reportable 02/16/19 03:40 Not Reportable 02/16/19 03:40 Plt Clumps, EDTA Not Reportable 02/16/19 03:40 Not Reportable 02/16/19 03:40 Not Reportable 02/16/19 03:40 Not Reportable 02/16/19 03:40 Plt Morphology Comment Not Reportable 02/16/19 03:40 RBC Morphology Normal 02/16/19 03:40 Dimorphic RBCs Not Reportable 02/16/19 03:40 Not Reportable 02/16/19 03:40 Not Reportable 02/16/19 03:40 Not Reportable 02/16/19 03:40 Not Reportable 02/16/19 03:40 Not Reportable 02/16/19 03:40 Not Reportable 02/16/19 03:40 Not Reportable 02/16/19 03:40 Not Reportable 02/16/19 03:40 Not Reportable 02/16/19 03:40 Not Reportable 02/16/19 03:40 Not Reportable 02/16/19 03:40 Not Reportable 02/16/19 03:40 Not Reportable 02/16/19 03:40 Not Reportable 02/16/19 03:40 Not Reportable 02/16/19 03:40 Not Reportable 02/16/19 03:40 Not Reportable 02/16/19 03:40 Not Reportable 02/16/19 03:40 Not Reportable 02/16/19 03:40 Acanthocytes (Spur) Not Reportable 02/16/19 03:40 Rouleaux Not Reportable 02/16/19 03:40 Not Reportable 02/16/19 03:40 Not Reportable 02/16/19 03:40 Not Reportable 02/16/19 03:40 Not Reportable 02/16/19 03:40 Hem Pathologist Commnt No 02/16/19 03:40 PT 15.6 Sec. (12.2-14.9) H 02/15/19 17:49 INR 1.27 (0.87-1.13) H 02/15/19 17:49 APTT 32.6 Sec. (24.2-36.6) 02/15/19 17:49 POC ABG pH 7.470 (7.35-7.45) H 02/15/19 18:47 POC ABG pCO2 38.9 (35-45) 02/15/19 18:47 POC ABG pO2 60 (80-105) L 02/15/19 18:47 POC ABG HCO3 28.4 (22-26 mml/L) 02/15/19 18:47 POC ABG Total CO2 30 (23-27mmol/L) 02/15/19 18:47 POC ABG O2 Sat 92 02/15/19 18:47 POC ABG Base Excess 5 ((-2) - (+3)mmol/L) 02/15/19 18:47 VBG pH 7.393 (7.320-7.420) 02/15/19 17:49 36 % 02/15/19 18:47 Sodium 137 mmol/L (137-145) 02/19/19 07:17 Potassium 4.0 mmol/L (3.6-5.0) 02/19/19 07:17 Chloride 104.1 mmol/L (98-107) 02/19/19 07:17 Carbon Dioxide 22 mmol/L (22-30) 02/19/19 07:17 15 mmol/L 02/19/19 07:17 BUN 3 mg/dL (9-20) L 02/19/19 07:17 0.2 mg/dL (0.8-1.5) L 02/19/19 07:17 Estimated GFR > 60 ml/min 02/19/19 07:17 15 % 02/19/19 07:17 Glucose 107 mg/dL (75-100) H 02/19/19 07:17 POC Glucose 120 (70-105) H 02/15/19 15:22 Lactic Acid 1.00 mmol/L (0.7-2.0) 02/15/19 19:34 Calcium 7.9 mg/dL (8.4-10.2) L 02/19/19 07:17 Magnesium 1.90 mg/dL (1.7-2.3) 02/16/19 05:35 0.50 mg/dL (0.1-1.2) 02/15/19 17:49 AST 17 units/L (5-40) 02/15/19 17:49 ALT 11 units/L (7-56) 02/15/19 17:49 115 units/L (35-129) 02/15/19 17:49 72 units/L (55-170) 02/15/19 17:49 CK-MB (CK-2) 1.6 ng/mL (0.0-4.0) 02/15/19 17:49 CK-MB (CK-2) Rel Index 2.2 (0-4) 02/15/19 17:49 0.039 ng/mL (0.00-0.029) H D 02/15/19 19:34 7.4 g/dL (6.3-8.2) 02/15/19 17:49 3.1 g/dL (3.9-5) L 02/15/19 17:49 0.7 % 02/15/19 17:49 Triglycerides 135 mg/dL (2-149) 02/15/19 17:49 Cholesterol 96 mg/dL (50-199) 02/15/19 17:49 57 mg/dL (50-130) 02/15/19 17:49 23 mg/dL (40-59) L 02/15/19 17:49 4.17 % 02/15/19 17:49 Yellow (Yellow) 02/15/19 15:27 Turbid (Clear) 02/15/19 15:27 7.0 (5.0-7.0) 02/15/19 15:27 Ur Specific Reading 1.017 (1.003-1.030) 02/15/19 15:27 >500 mg/dL (Negative) 02/15/19 15:27 Neg mg/dL (Negative) 02/15/19 15:27 Tr mg/dL (Negative) 02/15/19 15:27 Mod (Negative) 02/15/19 15:27 Neg (Negative) 02/15/19 15:27 Neg (Negative) 02/15/19 15:27 < 2.0 mg/dL (<2.0) 02/15/19 15:27 Ur Leukocyte Esterase Mod (Negative) 02/15/19 15:27 72.0 /HPF (0.0-6.0) H 02/15/19 15:27 > 182.0 /HPF (0.0-6.0) 02/15/19 15:27 1+ /HPF (Negative) 02/15/19 15:27 Vancomycin Trough 9.3 ug/mL (5.0-20.0) 02/18/19 14:56 HIV 1&2 Antibody Rapid Non react (Non React) 02/17/19 14:46 Non react (Non React) 02/17/19 14:46 Active Medications - Current Medications Current Medications: Generic Name Dose Route Start Last Admin Trade Name Freq PRN Reason Stop Dose Admin Acetaminophen 650 mg 02/15/19 20:09 02/19/19 09:00 Tylenol PO 650 mg Q4H PRN Administration Pain MILD(1-3)/Fever >100.5/MCNULTY Albuterol 2.5 mg 02/15/19 20:09 Proventil IH Q3HRT PRN Shortness Of Breath Apixaban 2.5 mg 02/15/19 22:00 02/19/19 09:01 Eliquis PO 2.5 mg BID GARY Administration Protocol Ascorbic Acid 500 mg 02/16/19 10:00 02/19/19 09:01 Vitamin C PO 500 mg QDAY GARY Administration Atorvastatin Calcium 40 mg 02/15/19 22:00 02/18/19 21:44 Lipitor PO 40 mg QHS GARY Administration Baclofen 40 mg 02/16/19 08:00 02/19/19 08:44 Lioresal PO 40 mg TID GARY Administration Dantrolene Sodium 100 mg 02/15/19 23:00 02/19/19 07:00 Dantrium PO 100 mg Q8H GARY Administration Diazepam 4 mg 02/15/19 21:45 Valium PO Q8H PRN Muscle Spasm Docusate Sodium 100 mg 02/15/19 22:00 02/19/19 09:01 Colace PO 100 mg BID GARY Administration Famotidine 20 mg 02/15/19 22:00 02/19/19 09:01 Pepcid PO 20 mg BID GARY Administration Gabapentin 600 mg 02/16/19 08:00 02/19/19 08:38 Neurontin PO 600 mg TID GARY Administration Meropenem 1,000 mg/ Sodium 100 mls @ 100 mls/hr 02/17/19 14:00 02/19/19 05:54 Chloride IV 100 mls/hr Q8HR GARY Administration Protocol Potassium Chloride/Dextrose/Sod Cl 20 meq in 1,000 mls @ 100 mls/hr 02/18/19 07:00 02/19/19 04:29 D5w/0.45% Nacl/Kcl 20 Meq IV 100 mls/hr DIRECT GARY Administration Mirtazapine 15 mg 02/15/19 22:00 02/18/19 23:14 Remeron PO Not Given QHS [facility] Multivitamins/Minerals 1 each 02/16/19 10:00 02/19/19 09:01 Theragran-M Tab PO 1 each QDAY GARY Administration Ondansetron HCl 4 mg 02/15/19 20:09 Zofran IV Q6H PRN Nausea And Vomiting Oxycodone HCl 5 mg 02/15/19 22:13 02/17/19 17:53 Roxicodone PO 5 mg Q8H PRN Administration Pain, Moderate (4-6) Oxycodone/Acetaminophen 1 tab 02/15/19 22:14 02/19/19 05:57 Percocet 5/325 PO 1 tab Q8H PRN Administration Pain, Moderate (4-6) Sodium Chloride 10 ml 02/15/19 22:00 02/18/19 21:45 Sodium Chloride Flush Syringe 10 Ml IV 10 ml BID GARY Administration Sodium Chloride 10 ml 02/15/19 20:09 Sodium Chloride Flush Syringe 10 Ml IV PRN PRN LINE FLUSH Nutrition/Malnutrition Assess - Dietary Evaluation Nutrition/Malnutrition Findings: Nutrition Notes Start: 02/17/19 12:11 Freq: Status: Active Protocol: Document 02/17/19 12:11 LP (Rec: 02/17/19 12:55 LP [id number]) Nutrition Notes Need for Assessment generated from: MD Order Initial or Follow up Assessment Current Diagnosis Acute Kidney Injury,Decubitus( Pressure Ulcer),Sepsis, Hypertension,Respiratory Failure,Malnutrition Other Pertinent Diagnosis UTI, L ankle, sacral and right hip wound Current Diet NPO Labs/Tests K 3.2 Pertinent Medications Remeron Height 5 ft 7 in Weight 58.967 kg [place] Body Weight (kg) 67.27 BMI 20.3 Subjective/Other Information Consult for malnutrition. Pt was on oral diet UROLOGIST and will need to be fed because he is contracted. Burn Absent Trauma Absent Minimum of two criteria Yes Body Fat Depletion Mild depletion (non-severe) Muscle Mass Mild Depletion (non-severe) Reduced Service Line Coordinator Strength Measurably Reduced (severe) #2 Nutrition Diagnosis Increased nutrient needs ( specify in comment below) Comments: Protein Etiology Wound healing As Evidenced by Signs and Symptoms Pt with multiple wounds #1 Nutrition Diagnosis Malnutrition Etiology Chronic illness As Evidenced by Signs and Symptoms muscle mass and fat wasting, reduced seeing eye dog trainer strength, multiple wounds Is patient on ventilator? No Is Patient Ambulatory and/or Out of Bed No REE-([facility]-confined to bed) [phone] Calculation Used for Recommendations [facility] Additional Notes Protein needs are 71-118g (1.2 -2g/kg) Fluid needs are 1ml/hr Nutrition Intervention Change Diet Order: Cardiac Add Supplement/Snack (indicate name/kcal Ensure Enlive Vanilla TID /protein ) Provides kCal: 1,050 Provides Protein (gm) 60 Goal #1 Meet at least 80% of kcal and protein needs Goal #2 Wound healing Anticipated Discharge Needs: Cardiac with Ensure TID Follow-Up By: 02/19/19 Additional Comments Follow for intakes and ONS
--- NOTE | 2019-02-19 11:46 | Progress Note ---
Assessment and Plan Impression: Sepsis with septic shock suspect urinary source given indwelling suprapubic catheter. Improving Altered mental status likely related to sepsis, resolved to normal History of recurrent DVT on chronic anticoagulation Abnormal chest x-ray Left lower lobe pneumonia/atelectasis, healthcare facility acquired Extensive contracture deformities and multiple pressure sores Recommendation: Continue with IV fluids Antibiotics as per ID Follow-up chest x-ray in few days Continue with anticoagulation for DVT GI prophylaxis Subjective Date of service: 02/19/19 Principal diagnosis: Acute Resp Failure, Sepsis Interval history: Patient awake and alert. Denies any new complaints. WBC count is improving. Vital signs remained stable. Objective Vital Signs - 12hr 02/19/19 05:06 Temperature 98.6 F Pulse Rate 104 H Respiratory 18 Rate Blood Pressure 101/58 O2 Sat by Pulse 96 Oximetry Constitutional: no acute distress, other (responsive) Eyes: non-icteric ENT: oropharynx moist, other (dentition poor) Neck: supple, no JVD Effort: normal Ascultation: Bilateral: diminished breath sounds Cardiovascular: regular rate and rhythm Gastrointestinal: normoactive bowel sounds, non-tender, other (suprapubic catheter noted) Extremities: other (extensive contracture deformities of upper and lower extremities) Neurologic: normal mental status, other (extensive all 4 extremity weakness and contracture deformities) CBC and BMP: 02/18/19 04:50 02/19/19 07:17 ABG, PT/INR, D-dimer: ABG POC ABG pH 7.470 (7.35-7.45) H 02/15/19 18:47 POC ABG pCO2 38.9 (35-45) 02/15/19 18:47 POC ABG pO2 60 (80-105) L 02/15/19 18:47 POC ABG HCO3 28.4 (22-26 mml/L) 02/15/19 18:47 POC ABG Total CO2 30 (23-27mmol/L) 02/15/19 18:47 POC ABG O2 Sat 92 02/15/19 18:47 PT/INR, D-dimer PT 15.6 Sec. (12.2-14.9) H 02/15/19 17:49 INR 1.27 (0.87-1.13) H 02/15/19 17:49 Abnormal lab findings: Abnormal Labs 08/02/15/19 02/15/19 15:22 15:27 17:49 WBC 11.8 H RBC 3.60 L Hgb 10.5 L Hct 31.0 L RDW 16.3 H Seg Neuts % (Manual) Lymphocytes % (Manual) Monocytes % (Manual) Seg Neutrophils # Man Monocytes # (Manual) PT INR POC ABG pH POC ABG pO2 Sodium Potassium Chloride Carbon Dioxide BUN Creatinine Glucose POC Glucose 120 H Calcium Troponin T Albumin HDL Cholesterol Urine WBC (Auto) 72.0 H 02/15/19 02/15/19 02/15/19 17:49 17:49 18:47 WBC RBC Hgb Hct RDW Seg Neuts % (Manual) Lymphocytes % (Manual) Monocytes % (Manual) Seg Neutrophils # Man Monocytes # (Manual) PT 15.6 H INR 1.27 H POC ABG pH 7.470 H POC ABG pO2 60 L Sodium 147 H Potassium 2.6 L* Chloride Carbon Dioxide BUN 39 H Creatinine 0.5 L Glucose 123 H POC Glucose Calcium 8.1 L Troponin T 0.087 H Albumin 3.1 L HDL Cholesterol 23 L Urine WBC (Auto) 02/15/19 02/16/19 02/16/19 19:34 03:40 03:40 WBC 15.5 H RBC Hgb 10.8 L Hct 32.7 L RDW 15.8 H Seg Neuts % (Manual) 80.0 H Lymphocytes % (Manual) 11.0 L Monocytes % (Manual) 9.0 H Seg Neutrophils # Man 12.4 H Monocytes # (Manual) 1.4 H PT INR POC ABG pH POC ABG pO2 Sodium 147 H Potassium 2.9 L* Chloride 107.2 H Carbon Dioxide BUN 21 H Creatinine 0.3 L Glucose 122 H POC Glucose Calcium 8.3 L Troponin T 0.039 H D Albumin HDL Cholesterol Urine WBC (Auto) 02/16/19 02/17/19 02/17/19 05:35 05:23 05:23 WBC 16.2 H RBC 3.32 L Hgb 9.7 L Hct 28.4 L RDW 16.7 H Seg Neuts % (Manual) Lymphocytes % (Manual) Monocytes % (Manual) Seg Neutrophils # Man Monocytes # (Manual) PT INR POC ABG pH POC ABG pO2 Sodium Potassium 2.9 L* 3.2 L Chloride 108.9 H Carbon Dioxide BUN 5 L Creatinine 0.2 L Glucose POC Glucose Calcium 7.9 L Troponin T Albumin HDL Cholesterol Urine WBC (Auto) 02/18/19 02/18/19 02/19/19 04:50 04:50 07:17 WBC 13.3 H RBC 3.23 L Hgb 9.1 L Hct 27.8 L RDW 16.5 H Seg Neuts % (Manual) Lymphocytes % (Manual) Monocytes % (Manual) Seg Neutrophils # Man Monocytes # (Manual) PT INR POC ABG pH POC ABG pO2 Sodium Potassium Chloride Carbon Dioxide 21 L BUN 4 L 3 L Creatinine < 0.2 L 0.2 L Glucose 107 H POC Glucose Calcium 7.6 L 7.9 L Troponin T Albumin HDL Cholesterol Urine WBC (Auto)
[2019-02-19] MEDS: SODIUM CHLORIDE FLUSH SYRINGE 10 ML IV SCH ×2 (14:01→21:18)
[2019-02-19] MEDS: REMERON PO SCH (21:18)
[2019-02-20] MEDS: PERCOCET 5/325 PO PRN (02:23)
[2019-02-20] MEDS: D5W/0.45% NACL/KCL 20 MEQ 20 MEQ/1,000 ML BAG IV SCH ×2 (05:24→07:02)
[2019-02-20] MEDS: MERREM 1,000 MG in NACL 0.9% 100 ML IV SCH (05:31)
[2019-02-20 05:49] VITALS: BP 121/71
[2019-02-20 06:02] LABS: Hematocrit 26.8 % (35.5-45.6); Hemoglobin 8.9 gm/dl (11.8-15.2); Mean Corpuscular HGB Conc 33 % (32-34); Mean Corpuscular Volume 87 fl (84-94); Platelet Count 282 K/mm3 (140-440); Red Blood Count 3.08 M/mm3 (3.65-5.03); Red Cell Distribution Width 16.9 % (13.2-15.2)
[2019-02-20] MEDS: DANTRIUM PO SCH (06:06)
[2019-02-20 06:21] LABS: BUN/Creatinine Ratio 20; Blood Urea Nitrogen 4 mg/dL (9-20); Calcium 8.2 mg/dL (8.4-10.2); Hemolysis Index 3
[2019-02-20] MEDS: NEURONTIN PO SCH (08:00)
[2019-02-20] MEDS: LIORESAL PO SCH (08:00)
[2019-02-20] MEDS: VITAMIN C PO SCH (09:17)
[2019-02-20] MEDS: THERAGRAN-M Tab PO SCH (09:17)
[2019-02-20] MEDS: ELIQUIS PO SCH (09:17)
[2019-02-20] MEDS: PEPCID PO SCH (09:18)
[2019-02-20] MEDS: COLACE PO SCH (09:18)
[2019-02-20] MEDS: SODIUM CHLORIDE FLUSH SYRINGE 10 ML IV SCH (09:18)
--- NOTE | 2019-02-20 09:50 | Discharge Summary ---
Providers - Providers Date of Admission: 02/15/19 20:09 Attending physician: INDERJIT SMITH MD 02/15/19 20:09 Consult to Physician [CONS] Routine Comment: Consulting Provider: CAMMY OCHOA Physician Instructions: Reason For Exam: DEVIN 02/15/19 20:12 Consult to Dietitian/Nutrition [CONS] Routine Physician Instructions: Reason For Exam: malnutrition and poor oral intake Reason for Consult: Malnutrition 02/15/19 20:21 Consult to Physician [CONS] Routine Comment: Consulting Provider: JOSE NORRIS Physician Instructions: Reason For Exam: sepsis 02/15/19 20:55 Consult to Wound/ET Nurse [CONS] Routine Reason For Exam: wound eval 02/17/19 09:42 Consult to Physician [CONS] Routine Comment: Dr. Stanford aware Consulting Provider: LIZBET STANFORD Physician Instructions: Reason For Exam: ccu admit 02/17/19 12:23 Occupational Therapy Evaluate and Treat [CONS] Routine Comment: Reason For Exam: ADL Speech Therapy Evaluation and Treat [CONS] Routine Reason For Exam: swallow evaluation 02/17/19 12:25 Physical Therapy Evaluation and Treat [CONS] Routine Comment: Reason For Exam: gait evaluation/ambulatory dysfunction Primary care physician: IVONE VEGA Hospitalization Reason for admission: sepsis Condition: Stable Hospital course: Patient is a 64-year-old -[place] male who is a resident of [facility] half-way with history of quadriplegia (?fell down steps), 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 * he received multiple IV fluids boluses considering dehydration has been weaned off pressors at this time I will monitor closely.discussed with carpenter assembler who is in agreement that the patient can be transferred to the medical floor. ordered speech/pt/ot Septic shock -Leukocytosis 11.8 -Patient -hypotensive which now is improving -Blood cultures with no growth so far -Now off pressors On Levophed gtt -ID patient has been placed on meropenem and vancomycin discontinued -HIV serologies negative AMS from Acute metabolic encephalopathy -from infection -Treated the sepsis UTI UTI with sepsis -Urine WBC 72 -Urine culture no growth -Prolonged indwelling Suprapubic catheter-changed per documentation -Hx of recurrent UTI -Now on meropenem as noted above will complete total of 5 days -ID consulted inputs noted Severe Hypokalemia -resolved Acute Hypoxic Respiratory Failure -No baseline oxygen requirements -On supplemental O2 -ABG 7.47/38.9/60/28.4 -Monitor saturations wean as tolerated Lactic acidosis -Lactic acid 2.6 on admission -On IV abx Anemia -Hbg 10.5 -No s/s of active bleeding DEVIN -ATN suspected poa -Resolved -BUN/Cr on admission 39/0.5 -Hx of Neuromuscular dysfunction of bladder -Nephrology consulted Severe protein calorie malnutrition -Albumin 3.1 -Poor oral intake -Dietitian consulted and input is noted Pressure ulcer, at least stage 3 -Wound care consulted -Right hip, bilateral legs, and sacrum -Off load areas of bony prominences and wounds History of recurrent DVT on anticoagulation -Continue Eliquis Chronic debility with functional quadriplegia and contracted limbs -PT/OT eval when stable Hx GERD -Continue Pepcid Hx HTN -Currently hypotensive -Hold all antihypertensive meds Hx Anxiety Hypernatremia, severely dehydrated needs more fluid resolved today Multiple pressure ulcers consult Wound care Disposition: [id number]/[place]-[id number] [facility] CERT Time spent for discharge: 35 mins Core Measure Documentation - Palliative Care Palliative Care/ Comfort Measures: Not Applicable - Core Measures Any of the following diagnoses?: none Exam - Physical Exam Narrative exam: Gen: cachetic, ill appearing, chronically disable appearing, NAD, Awake, HEENT: NCAT, EOMI, PERRL, OP severe dryness, Improved oral hygiene Neck: supple, no adenopathy, no thyromegaly, no JVD CVS/Heart: RRR, normal S1S2, pulses present bilaterally Chest/Lungs: diminished bs bilateral Symmetrical chest expansion, good air entry bilaterally GI/Abdomen: soft, NTND, good bowel sounds, no guarding or rebound /Bladder: +tucker no suprapubic tenderness, no CVA or paraspinal tenderness Extermity/Skin: poor skin integrity throughout with multiple wounds, atrophic limbs x 4 MSK: contracted limbs x 4 Neuro: CN 2-12 grossly intact, no new focal deficits Psych: calm and confused - Constitutional Vitals: Temp Pulse Resp BP Pulse Ox 99.6 F 98 H 18 121/71 98 02/20/19 05:12 02/20/19 05:12 02/20/19 05:12 02/20/19 05:12 02/20/19 05:12 Plan Activity: advance as tolerated, fall precautions Diet: advance as tolerated (Tube feed) Special Instructions: record daily BP diary Follow up with: IVONE VEGA MD [Primary Care Provider] - 7 Days ENRIQUE EDWARD MD [Staff Physician] - 7 Days LIZBET STANFORD MD [Staff Physician] - 7 Days Prescriptions: Oxycodone HCl/Acetaminophen [Percocet 10/325 mg] 1 each PO Q8H PRN #14 tablet PRN Reason: Pain
--- NOTE | 2019-02-20 09:52 | Progress Note ---
Assessment and Plan Cultures: Blood culture 02/15/19 - NGTD Urine culture 02/15/19 - mixed growth of 2 types of >100K CFU/ml A/P: 64 yo M PMHx recurrent DVTs, pressure ulcer, chronic indwelling Santos, HTN, chronic debility admitted to [facility] with AMS. 1. Septic shock secondary to possible UTI - UA was contaminated but with pyuria. He is high risk for UTI given his chronic indwelling suprapubic catheter which has been exchanged since admission. Cultures mixed, will continue Meropenem for 5 days. 2. Multiple chronic wounds - L ankle, sacrum, and R hip all present on admission, but shallow, clean and without purulence. Do not believe they are acutely contributing to his AMS. 3. Acute encephalopathy - Better 4. Recurrent DVTs 5. HTN 6. Chronic debility Recs: - Discontinue Meropenem -Give one dose of Fostomycin 3 gms PO times 1, then can discharge home (ordered) d/w Dr. Ryann Hinds, INTERIOR [employer] M: [id number] O:[phone] Subjective Principal diagnosis: Acute Resp Failure, Sepsis Interval history: Patient seen and examined. Alert. Reports no acute distress. +generalized weakness. No fevers. Objective - Exam Narrative Exam: Constitutional: Alert, awake. No acute distress Head, Ears, Nose: Normocephalic, atraumatic. External ears, nose normal Eyes: Conjunctivae/corneas clear. No icterus. No ptosis. Neck: Supple, no meningeal signs Cardiovascular: S1, S2 normal Respiratory: Good air entry, clear to auscultation bilaterally GI: Soft, non-tender; bowel sounds normal. No peritoneal signs. SPC + Musculoskeletal: No pedal edema, no cyanosis. Multiple superficial wounds, clean bases Skin: No rash or abscess Hem/Lymphatic: No palpable cervical or supraclavicular nodes. No lymphangitis Psych: flat affect, calm Neurological: Alert, awake, following commands - Constitutional Vitals: Vital Signs Temp Pulse Resp BP Pulse Ox 99.6 F 98 H 18 121/71 98 02/20/19 05:12 02/20/19 05:12 02/20/19 05:12 02/20/19 05:12 02/20/19 05:12 Temperature -Last 24 Hours Temperature 99.6 F Temperature 98.9 F Temperature 99.3 F Temperature 99.3 F - Labs CBC & Chem 7: 02/20/19 05:27 02/20/19 05:27 Labs: Abnormal lab results 02/20/19 02/20/19 Range/Units 05:27 05:27 WBC 12.4 H (4.5-11.0) K/mm3 RBC 3.08 L (3.65-5.03) M/mm3 Hgb 8.9 L (11.8-15.2) gm/dl Hct 26.8 L (35.5-45.6) % RDW 16.9 H (13.2-15.2) % Sodium 134 L (137-145) mmol/L Carbon Dioxide 20 L (22-30) mmol/L BUN 4 L (9-20) mg/dL Creatinine 0.2 L (0.8-1.5) mg/dL Calcium 8.2 L (8.4-10.2) mg/dL
[2019-02-20] MEDS ORDERED: MONUROL PO ONE (11:55)
== END 2019-02-20 11:43 | DRG 871 ==
LOC: ED 14:09 → CC1 20:09 → 3A 02-18 17:48
PROVIDERS: ADMIT Internal Medicine; ATTEND Internal Medicine
PROC: 4A033R1 Measurement of Arterial Saturation, Peripheral, Percutaneous Approach (ICD-10-PCS; principal; 2019-02-15)
PROC: 02HV33Z Insertion of Infusion Device into Superior Vena Cava, Percutaneous Approach (ICD-10-PCS; 2019-02-15)
DX: A41.9 Sepsis, unspecified organism (principal); L89.153 Pressure ulcer of sacral region, stage 3; L89.893 Pressure ulcer of other site, stage 3; R65.21 Severe sepsis with septic shock; L89.213 Pressure ulcer of right hip, stage 3; J96.01 Acute respiratory failure with hypoxia; G93.41 Metabolic encephalopathy; N17.0 Acute kidney failure with tubular necrosis; E43 Unspecified severe protein-calorie malnutrition; R53.2 Functional quadriplegia; E87.0 Hyperosmolality and hypernatremia; N39.0 Urinary tract infection, site not specified; I10 Essential (primary) hypertension; R53.81 Other malaise; K21.9 Gastro-esophageal reflux disease without esophagitis; F41.9 Anxiety disorder, unspecified; M19.90 Unspecified osteoarthritis, unspecified site; E87.6 Hypokalemia; D64.9 Anemia, unspecified; Z68.23 Body mass index [BMI] 23.0-23.9, adult; Z86.718 Personal history of other venous thrombosis and embolism; Z79.01 Long term (current) use of anticoagulants; Z79.899 Other long term (current) drug therapy; Z88.2 Allergy status to sulfonamides; Z91.018 Allergy to other foods
CPT/HCPCS: 36415; 71045; 80048; 80053; 80061; 80202; 81001; 82140; 82270; 82550; 82553; 82803; 82805; 82962; 83735; 84132; 84484; 85007; 85025; 85027; 85610; 85730; 87040; 87086; 87806; 93005; 93010; 94640; G0378; A9270-GY; J0692; J2185; J2310; J2543; J3246; J3370; J3480; J7030